=== PATIENT | female | born 1965 | race African-American/Black ===

== ENCOUNTER 2016-06-11 13:06 | Inpatient (IN) | payer MEDICARE, OTHER ==
[~2016-06-11] VITALS: Ht 165.1 cm; Wt 73.5 kg
[~2016-06-11 13:06] MED LIST: AMLODIPINE BESY10 MG ORAL; CALCITRIOL0.25 MCG PO; CLONIDINE HCL0.1 M1 PO; DIAZEPAM2 MG ORAL; DIFLUCAN150 MG PO; KEFLEX500 MG ORAL; LOSARTAN POTAS100 MG ORAL; METOPROLOL SUCC50 MG ORAL; NORVASC10 MG ORAL; RENA-VITE TABL0.8 M1 PO; TRAMADOL HCL50 MG ORAL; UNOBMED; VAGISTAT-31 EACH VG; ZOFRAN ODT4 MG ORAL
[2016-06-11 13:45] VITALS: BP 200/111
[2016-06-11] MEDS ORDERED: VITAMIN D1000 UNI1 ORAL (13:50)
[2016-06-11 14:15] VITALS: BP 176/96
[2016-06-11 14:27] LABS: BASOPHILS % (AUTO) 0.9 % (0.0-2.0); EOSINOPHILS % (AUTO) 1.6 % (0.0-3.0); LYMPHOCYTES % (AUTO) 29.2 % (20.0-45.0); MEAN CORPUSCULAR HEMOGLOBIN 31.1 PG (27.0-31.0); MEAN CORPUSCULAR HGB CONC 29.7 G/DL (32.0-36.0); MEAN CORPUSCULAR VOLUME 105 FL (80-99); MEAN PLATELET VOLUME 7.9 FL (6.5-10.1); MONOCYTES % (AUTO) 5.8 % (1.0-10.0); NEUTROPHILS % (AUTO) 62.4 % (45.0-75.0); PLATELET COUNT 179 K/UL (150-450); RED BLOOD COUNT 4.43 M/UL (4.20-5.40); RED CELL DISTRIBUTION WIDTH 20.9 % (11.6-14.8); WHITE BLOOD COUNT 8.8 K/UL (4.8-10.8)
--- NOTE | 2016-06-11 14:39 | Emergency Room Report ---
History of Present Illness General Chief Complaint: Chest Pain Source: Patient, Medical Record Present Illness HPI 50-year-old female present to ED for evaluation. Patient states she's having some intermittent chest pain. Pain is left-sided, 5/10, nonradiating. Patient states her blood pressure is high. States that for the last several dialysis sessions her blood pressure goes up. States it is not getting better despite BP meds. Denies any fevers or chills. Denies shortness of breath. No aggravating or relieving factors. Denies any other associated symptoms Allergies: Coded Allergies: ACETAMINOPHEN (Verified Adverse Reaction, Unknown, 01/24/11) CODEINE (Verified Adverse Reaction, Unknown, NAUSEA, 04/18/10) HYDROCODONE (Verified Adverse Reaction, Unknown, 01/24/11) Patient History Past Medical History: HTN, renal disease, dialysis Past Surgical History: none Pertinent Family History: none Social History: Denies: alcohol use, drug use, smoking Last Menstrual Period: May, 2016 Now: No Immunizations: UTD Reviewed Nursing Documentation: PMH: Agreed, PSxH: Agreed Nursing Documentation-PMH Past Medical History: No History, Except For Hx Hypertension: Yes Hx Dialysis: Yes - M/W/F Review of Systems All Other Systems: negative except mentioned in HPI Physical Exam Vital Signs Date Time Temp Pulse Resp B/P Pulse Ox O2 Delivery O2 Flow Rate FiO2 06/11/16 13:21 98.4 73 16 190/108 100 06/11/16 13:45 Room Air Sp02 EP Interpretation: reviewed, normal General Appearance: no apparent distress, alert, GCS 15, non-toxic Head: normocephalic, atraumatic Eyes: bilateral eye PERRL, bilateral eye normal inspection ENT: hearing grossly normal, normal pharynx, no angioedema, normal voice Neck: full range of motion, supple/symm/no masses Respiratory: chest non-tender, lungs clear, normal breath sounds, speaking full sentences Cardiovascular #1: regular rate, rhythm, no edema Cardiovascular #2: 2+ carotid (R), 2+ carotid (L), 2+ radial (R), 2+ radial (L) , 2+ dorsalis pedis (R), 2+ dorsalis pedis (L) Gastrointestinal: normal bowel sounds, non tender, soft, non-distended, no guarding, no rebound Rectal: deferred Genitourinary: normal inspection, no CVA tenderness Musculoskeletal: back normal, gait/station normal, normal range of motion, non- tender Neurologic: alert, oriented x3, responsive, motor strength/tone normal, sensory intact, speech normal Psychiatric: judgement/insight normal, memory normal, mood/affect normal, no suicidal/homicidal ideation Reflexes: 3+ bicep (R), 3+ bicep (L), 3+ tricep (R), 3+ tricep (L), 3+ knee (R) , 3+ knee (L) Skin: normal color, no rash, warm/dry, well hydrated Lymphatic: no adenopathy Medical Decision Making Diagnostic Impression: Primary Impression: ESRD (end stage renal disease) on dialysis Additional Impression: ACS (acute coronary syndrome) ER Course Hospital Course 50-year-old female presents ED complaining of chest pain, hypertensive. History of ESRD Differential diagnoses include: MN/unstable angina, contusion, muscle strain, PTX, rib fracture Clinical course Patient placed on stretcher. on heel breaster. After initial history and physical I ordered labs, EKG, chest x-ray, ASA labs reviewed- no leukocytosis, hb/hct stable, BUN/Cr elevated, trop negative, BNP >70,000 Chest x-ray- cardiomegaly. b/l effusion EKG- No acute ischemic changes Case discussed with Dr. Park and he agreed to accept the patient to his service for further care and support I. I feel this is a highly complex case requiring extensive working including EKG/Rhythm strip, Xray/CT/US, Blood/urine lab work, repeat exams while in ED, and administration of strong opiates/narcotics for pain control, admission to hospital or close patient follow up. Diagnosis - ACS, ESRD admitted to telemetry in serious condition Labs Test 06/11/16 14:00 06/11/16 23:15 White Blood Count 8.8 K/UL (4.8-10.8) Red Blood Count 4.43 M/UL (4.20-5.40) Hemoglobin 13.8 G/DL (12.0-16.0) Hematocrit 46.4 % (37.0-47.0) Mean Corpuscular Volume 105 FL (80-99) Mean Corpuscular Hemoglobin 31.1 PG (27.0-31.0) Mean Corpuscular Hemoglobin Concent 29.7 G/DL (32.0-36.0) Red Cell Distribution Width 20.9 % (11.6-14.8) Platelet Count 179 K/UL (150-450) Mean Platelet Volume 7.9 FL (6.5-10.1) Neutrophils (%) (Auto) 62.4 % (45.0-75.0) Lymphocytes (%) (Auto) 29.2 % (20.0-45.0) Monocytes (%) (Auto) 5.8 % (1.0-10.0) Eosinophils (%) (Auto) 1.6 % (0.0-3.0) Basophils (%) (Auto) 0.9 % (0.0-2.0) Sodium Level 140 mEQ/L (135-145) Potassium Level 4.6 mEQ/L (3.4-4.9) Chloride Level 90 mEQ/L (98-107) Carbon Dioxide Level 28 mEQ/L (20-30) Anion Gap 22 (5-15) Blood Urea Nitrogen 34 mg/dL (7-23) Creatinine 10.4 mg/dL (0.5-0.9) Estimat Glomerular Filtration Rate 4.7 mL/min (>60) Glucose Level 101 mg/dL (74-106) Calcium Level 9.6 mg/dL (8.6-10.2) Total Bilirubin 0.5 mg/dL (0.0-1.2) Aspartate Amino Transf (AST/SGOT) 19 U/L (5-40) Alanine Aminotransferase (ALT/SGPT) 33 U/L (3-33) Alkaline Phosphatase 101 U/L (35-104) Total Creatine Kinase 98 U/L (26-140) Creatine Kinase MB < 1.5 ng/mL (< 3.8) Creatine Kinase MB Relative Index 1.5 Troponin I < 0.30 ng/mL (<=0.30) < 0.30 ng/mL (<=0.30) Pro-B-Type Natriuretic Peptide > 33125 pg/mL (0-125) Total Protein 8.6 g/dL (6.6-8.7) Albumin 5.0 g/dL (3.5-5.2) Globulin 3.6 g/dL Albumin/Globulin Ratio 1.3 (1.0-2.7) EKG Diagnostic Results Rate: normal Rhythm: NSR ST Segments: no acute changes ASA given to the pt in ED: Yes Rhythm Strip Diag. Results EP Interpretation: yes Rhythm: NSR, no PVC's, no ectopy Chest X-Ray Diagnostic Results EP Interpretation: Yes Findings: no pneumothorax, no acute cardiopulmonary disease, other - cardiomegaly. b/l effusion Number of Views: 1 Last Vital Signs Date Time Temp Pulse Resp B/P Pulse Ox O2 Delivery O2 Flow Rate FiO2 06/11/16 14:15 67 17 176/96 100 Room Air 06/11/16 13:45 98.0 Status: improved Disposition: ADMITTED INPATIENT Condition: Serious Referrals: NON PHYSICIAN (PCP) WAGNER NEELY M.D. Jun 11, 2016 14:39
[2016-06-11 14:46] LABS: ALANINE AMINOTRANSFERASE 33 U/L (3-33); ALBUMIN/GLOBULIN RATIO 1.3 (1.0-2.7); ANION GAP 22 (5-15); ASPARTATE AMINO TRANSFERASE 19 U/L (5-40); CALCIUM 9.6 mg/dL (8.6-10.2); CARBON DIOXIDE 28 mEQ/L (20-30); CHLORIDE 90 mEQ/L (98-107); CREATININE 10.4 mg/dL (0.5-0.9); GLOMERULAR FILTRATION RATE 4.7 mL/min (>60); HEMOLYSIS 7; POTASSIUM 4.6 mEQ/L (3.4-4.9); SODIUM 140 mEQ/L (135-145); TOTAL PROTEIN 8.6 g/dL (6.6-8.7)
[2016-06-11 14:57] LABS: CKMB < 1.5 ng/mL (< 3.8)
[2016-06-11 15:03] LABS: TROPONIN I < 0.30 ng/mL (<=0.30)
[2016-06-11 15:36] VITALS: BP 166/95
[2016-06-11 16:58] VITALS: BP 190/108
[2016-06-11] MEDS ORDERED: Miralax 17gm pkt ORAL PRN (18:15)
[2016-06-11] MEDS ORDERED: Nitroglycerin Subl 0.4mg tab (Bottle Of 25) SL PRN (18:15)
[2016-06-11] MEDS ORDERED: Mylanta II UD 30ml ORAL PRN (18:15)
[2016-06-11] MEDS ORDERED: DuoNeb 0.5-3(2.5)mg/3ml neb HHN PRN (18:15)
--- NOTE | 2016-06-11 18:28 | History and Physical ---
History of Present Illness General Date patient seen: Jun 11, 2016 Time patient seen: 18:00 Reason for Hospitalization: Chest Pain Present Illness HPI 50-year-old female presented to ED for evaluation. Patient reported intermittent chest pain, left-sided, 5/10, nonradiating. Patient stated her blood pressure was high. patient stated that with blood pressure uncontrolled, she gets chest pain Denies SOB, orthopnea, PND, JOYCE Stated that for the last several dialysis sessions her blood pressure was elevated and she gets chest pain with uncontrolled blood pressure . workup in ER revealed negative troponin ECG with NSR no ischemic changes stable labs, except renal parameters BP uncontrolled Allergies: Coded Allergies: ACETAMINOPHEN (Verified Adverse Reaction, Unknown, 01/24/11) CODEINE (Verified Adverse Reaction, Unknown, NAUSEA, 04/18/10) HYDROCODONE (Verified Adverse Reaction, Unknown, 01/24/11) Medication History Scheduled Amlodipine Besylate* (Amlodipine Besylate*), 10 MG ORAL DAILY, (Reported) Calcitriol (Calcitriol), 0.25 MCG PO DAILY, (Reported) Cholecalciferol (Vitamin D3)* (Vitamin D*), 1,000 UNIT ORAL DAILY, (Reported) Clonidine HCl (Clonidine HCl ER), 0.2 MG PO BEDTIME, (Reported) Losartan Potassium (Losartan Potassium), 50 MG ORAL DAILY, (Reported) Metoprolol Succinate* (Metoprolol Succinate*), 50 MG ORAL BID, (Reported) Scheduled PRN Diazepam* (Diazepam*), 2 MG ORAL Q6H PRN for For Anxiety, (Reported) Ondansetron Odt* (Zofran Odt*), 4 MG ORAL Q6H PRN for Nausea & Vomiting Tramadol Hcl* (Ultram*), 50 MG ORAL Q12HR PRN for For Pain Tramadol Hcl* (Ultram*), 50 MG ORAL Q6H PRN for For Pain Miscellaneous Medications Folic Acid/Vitamin B Comp W-C (Maria Esther-Isra Tablet), Unknown Dose PO, (Reported) Patient History Healthcare decision maker Resuscitation status Advanced Directive on File Past Medical/Surgical History Past Medical/Surgical History: (1) Hypertension (2) ESRD (end stage renal disease) on dialysis (3) Gastritis Review of Systems Constitutional: Reports: weakness Eye: Reports: no symptoms ENT: Reports: no symptoms Respiratory: Reports: no symptoms Cardiovascular: Reports: see HPI Gastrointestinal: Reports: no symptoms Genitourinary: Reports: other - ESRD, on HD Musculoskeletal: Reports: no symptoms Skin: Reports: no symptoms Psychiatric: Reports: no symptoms Neurological: Reports: no symptoms Endocrine: Reports: no symptoms Hematologic/Lymphatic: Reports: no symptoms Physical Exam General Appearance: WD/WN, no apparent distress, alert Lines, tubes and drains: peripheral HEENT: normocephalic, atraumatic, anicteric Neck: non-tender, supple, normal inspection Respiratory/Chest: chest wall non-tender, lungs clear, no respiratory distress , no accessory muscle use Cardiovascular/Chest: normal peripheral pulses, normal rate, no JVD Abdomen: normal bowel sounds, non tender, soft Extremities: other - LUE AV shunt + bruit/thrill Skin Exam: normal pigmentation, warm/dry Neurologic: no motor/sensory deficits, alert, oriented x 3, responsive Musculoskeletal: normal muscle bulk Last 24 Hour Vital Signs Date Time Temp Pulse Resp B/P Pulse Ox O2 Delivery O2 Flow Rate FiO2 06/11/16 16:58 97.7 72 19 190/108 99 Room Air 06/11/16 16:07 98.0 72 23 166/95 100 Room Air 06/11/16 15:36 98.0 72 23 166/95 100 Room Air 06/11/16 14:15 67 17 176/96 100 Room Air 06/11/16 13:45 98.0 77 19 200/111 100 Room Air 06/11/16 13:45 77 19 Room Air 06/11/16 13:21 98.4 73 16 190/108 100 Laboratory Tests Test 06/11/16 14:00 White Blood Count 8.8 K/UL (4.8-10.8) Red Blood Count 4.43 M/UL (4.20-5.40) Hemoglobin 13.8 G/DL (12.0-16.0) Hematocrit 46.4 % (37.0-47.0) Mean Corpuscular Volume 105 FL (80-99) H Mean Corpuscular Hemoglobin 31.1 PG (27.0-31.0) H Mean Corpuscular Hemoglobin Concent 29.7 G/DL (32.0-36.0) L Red Cell Distribution Width 20.9 % (11.6-14.8) H Platelet Count 179 K/UL (150-450) Mean Platelet Volume 7.9 FL (6.5-10.1) Neutrophils (%) (Auto) 62.4 % (45.0-75.0) Lymphocytes (%) (Auto) 29.2 % (20.0-45.0) Monocytes (%) (Auto) 5.8 % (1.0-10.0) Eosinophils (%) (Auto) 1.6 % (0.0-3.0) Basophils (%) (Auto) 0.9 % (0.0-2.0) Sodium Level 140 mEQ/L (135-145) Potassium Level 4.6 mEQ/L (3.4-4.9) Chloride Level 90 mEQ/L (98-107) L Carbon Dioxide Level 28 mEQ/L (20-30) Anion Gap 22 (5-15) H Blood Urea Nitrogen 34 mg/dL (7-23) H Creatinine 10.4 mg/dL (0.5-0.9) H Estimat Glomerular Filtration Rate 4.7 mL/min (>60) Glucose Level 101 mg/dL (74-106) Calcium Level 9.6 mg/dL (8.6-10.2) Total Bilirubin 0.5 mg/dL (0.0-1.2) Aspartate Amino Transf (AST/SGOT) 19 U/L (5-40) Alanine Aminotransferase (ALT/SGPT) 33 U/L (3-33) Alkaline Phosphatase 101 U/L (35-104) Total Creatine Kinase 98 U/L (26-140) Creatine Kinase MB < 1.5 ng/mL (< 3.8) Creatine Kinase MB Relative Index 1.5 Troponin I < 0.30 ng/mL (<=0.30) Pro-B-Type Natriuretic Peptide > 10239 pg/mL (0-125) H Total Protein 8.6 g/dL (6.6-8.7) Albumin 5.0 g/dL (3.5-5.2) Globulin 3.6 g/dL Albumin/Globulin Ratio 1.3 (1.0-2.7) Height (Feet): 5 Height (Inches): 5.00 Weight (Pounds): 162 Assessment/Plan Assessment/Plan ASSESSMENT chest pain, likely atypical r/o ACS HTN urgency ESRD, on HD PLAN OF CARE tele serial troponin ECG in am ECHO cardio eval started on ASA check lipid panel, HgA1c, TSH pain control BP management with multiple regimen of antiHTN, CCB, MAGDA, BB and add Hydralazine prn nephro consult per HD DVT, GI prophylaxis case discussed and evaluated by supervising physician Jeffery Alatorre),Melissa PINA Jun 11, 2016 18:28
[2016-06-11] MEDS ORDERED: HydrALAZINE 25mg tab ORAL PRN (18:30)
[2016-06-11 20:00] VITALS: BP 211/120
[2016-06-11] MEDS: Heparin 5000 units/ml inj SUBQ SCH (20:21)
[2016-06-11 22:43] VITALS: BP 211/119
[2016-06-12 00:16] LABS: TROPONIN I < 0.30 ng/mL (<=0.30)
[2016-06-12 08:00] VITALS: BP 166/76
[2016-06-12 08:19] LABS: BASOPHILS % (AUTO) 0.6 % (0.0-2.0); EOSINOPHILS % (AUTO) 0.2 % (0.0-3.0); LYMPHOCYTES % (AUTO) 24.2 % (20.0-45.0); MEAN CORPUSCULAR HEMOGLOBIN 30.8 PG (27.0-31.0); MEAN CORPUSCULAR HGB CONC 29.5 G/DL (32.0-36.0); MEAN CORPUSCULAR VOLUME 105 FL (80-99); MEAN PLATELET VOLUME 8.9 FL (6.5-10.1); MONOCYTES % (AUTO) 5.1 % (1.0-10.0); NEUTROPHILS % (AUTO) 69.9 % (45.0-75.0); PLATELET COUNT 158 K/UL (150-450); RED BLOOD COUNT 3.97 M/UL (4.20-5.40); RED CELL DISTRIBUTION WIDTH 21.2 % (11.6-14.8)
[2016-06-12 08:22] LABS: CALCIUM 8.8 mg/dL (8.6-10.2); CHOLESTEROL/HDL RATIO 4.4 (3.3-4.4); CREATININE 12.2 mg/dL (0.5-0.9); MAGNESIUM 2.4 mg/dL (1.7-2.5); POTASSIUM 4.7 mEQ/L (3.4-4.9)
[2016-06-12 08:23] LABS: TROPONIN I < 0.30 ng/mL (<=0.30)
[2016-06-12 08:26] LABS: THYROID STIMULATING HORMONE 2.09 uIU/mL (0.300-4.500)
[2016-06-12] MEDS: Nephrovite tab ORAL SCH (08:42)
[2016-06-12] MEDS: Aspirin Baby 81mg ORAL SCH (08:43)
[2016-06-12] MEDS: Metoprolol 50mg tab ORAL SCH ×2 (08:43→17:05)
[2016-06-12] MEDS: Heparin 5000 units/ml inj SUBQ SCH ×2 (08:46→21:12)
[2016-06-12] MEDS ORDERED: Losartan 50mg tab ORAL SCH (09:00)
[2016-06-12] MEDS ORDERED: Calcitriol 0.25mcg Cap ORAL SCH (09:00)
[2016-06-12 09:06] LABS: HEMOGLOBIN A1C 3.8 % (< 6.0)
--- NOTE | 2016-06-12 09:09 | History & Physical ---
History and Physical History & Physicial seen and examined. Dictation completed Ivan Park MD Jun 12, 2016 09:09
--- NOTE | 2016-06-12 09:12 | Consultation ---
Consult Note Consult Note History of Present Illness Date patient seen: Jun 11, 2016 Time patient seen: 18:00 Reason for Consult: Chest Pain, SOB Primary doctor: Dr Park Present Illness HPI 50-year-old female presented to ED for evaluation. Patient reported intermittent chest pain, left-sided, 5/10, nonradiating. Patient stated her blood pressure was high. patient stated that with blood pressure uncontrolled, she gets chest pain Denies SOB, orthopnea, PND, JOYCE Stated that for the last several dialysis sessions her blood pressure was elevated and she gets chest pain with uncontrolled blood pressure . workup in ER revealed negative troponin ECG with NSR no ischemic changes stable labs, except renal parameters BP uncontrolled Allergies: Coded Allergies: ACETAMINOPHEN (Verified Adverse Reaction, Unknown, 01/24/11) CODEINE (Verified Adverse Reaction, Unknown, NAUSEA, 04/18/10) HYDROCODONE (Verified Adverse Reaction, Unknown, 01/24/11) Medication History Scheduled Amlodipine Besylate* (Amlodipine Besylate*), 10 MG ORAL DAILY, (Reported) Calcitriol (Calcitriol), 0.25 MCG PO DAILY, (Reported) Cholecalciferol (Vitamin D3)* (Vitamin D*), 1,000 UNIT ORAL DAILY, (Reported) Clonidine HCl (Clonidine HCl ER), 0.2 MG PO BEDTIME, (Reported) Losartan Potassium (Losartan Potassium), 50 MG ORAL DAILY, (Reported) Metoprolol Succinate* (Metoprolol Succinate*), 50 MG ORAL BID, (Reported) Scheduled PRN Diazepam* (Diazepam*), 2 MG ORAL Q6H PRN for For Anxiety, (Reported) Ondansetron Odt* (Zofran Odt*), 4 MG ORAL Q6H PRN for Nausea & Vomiting Tramadol Hcl* (Ultram*), 50 MG ORAL Q12HR PRN for For Pain Tramadol Hcl* (Ultram*), 50 MG ORAL Q6H PRN for For Pain Miscellaneous Medications Folic Acid/Vitamin B Comp W-C (Maria Esther-Isra Tablet), Unknown Dose PO, (Reported) Patient History Healthcare decision maker Resuscitation status Advanced Directive on File Past Medical/Surgical History Past Medical/Surgical History: (1) Hypertension (2) ESRD (end stage renal disease) on dialysis (3) Gastritis ROS Review of Systems Constitutional: Reports: weakness Eye: Reports: no symptoms ENT: Reports: no symptoms Respiratory: Reports: no symptoms Cardiovascular: Reports: see HPI Gastrointestinal: Reports: no symptoms Genitourinary: Reports: other - ESRD, on HD Musculoskeletal: Reports: no symptoms Skin: Reports: no symptoms Psychiatric: Reports: no symptoms Neurological: Reports: no symptoms Endocrine: Reports: no symptoms Hematologic/Lymphatic: Reports: no symptoms Physical Exam Physical Exam General Appearance: WD/WN, no apparent distress, alert Lines, tubes and drains: peripheral HEENT: normocephalic, atraumatic, anicteric Neck: non-tender, supple, normal inspection Respiratory/Chest: chest wall non-tender, lungs clear, no respiratory distress , no accessory muscle use Cardiovascular/Chest: normal peripheral pulses, normal rate, no JVD Abdomen: normal bowel sounds, non tender, soft Extremities: other - LUE AV shunt + bruit/thrill Skin Exam: normal pigmentation, warm/dry Neurologic: no motor/sensory deficits, alert, oriented x 3, responsive Musculoskeletal: normal muscle bulk Last 24 Hour Vital Signs Date Time Temp Pulse Resp B/P Pulse Ox O2 Delivery O2 Flow Rate FiO2 06/11/16 16:58 97.7 72 19 190/108 99 Room Air 06/11/16 16:07 98.0 72 23 166/95 100 Room Air 06/11/16 15:36 98.0 72 23 166/95 100 Room Air 06/11/16 14:15 67 17 176/96 100 Room Air 06/11/16 13:45 98.0 77 19 200/111 100 Room Air 06/11/16 13:45 77 19 Room Air 06/11/16 13:21 98.4 73 16 190/108 100 Laboratory Tests Test 06/11/16 14:00 White Blood Count 8.8 K/UL (4.8-10.8) Red Blood Count 4.43 M/UL (4.20-5.40) Hemoglobin 13.8 G/DL (12.0-16.0) Hematocrit 46.4 % (37.0-47.0) Mean Corpuscular Volume 105 FL (80-99) H Mean Corpuscular Hemoglobin 31.1 PG (27.0-31.0) H Mean Corpuscular Hemoglobin Concent 29.7 G/DL (32.0-36.0) L Red Cell Distribution Width 20.9 % (11.6-14.8) H Platelet Count 179 K/UL (150-450) Mean Platelet Volume 7.9 FL (6.5-10.1) Neutrophils (%) (Auto) 62.4 % (45.0-75.0) Lymphocytes (%) (Auto) 29.2 % (20.0-45.0) Monocytes (%) (Auto) 5.8 % (1.0-10.0) Eosinophils (%) (Auto) 1.6 % (0.0-3.0) Basophils (%) (Auto) 0.9 % (0.0-2.0) Sodium Level 140 mEQ/L (135-145) Potassium Level 4.6 mEQ/L (3.4-4.9) Chloride Level 90 mEQ/L (98-107) L Carbon Dioxide Level 28 mEQ/L (20-30) Anion Gap 22 (5-15) H Blood Urea Nitrogen 34 mg/dL (7-23) H Creatinine 10.4 mg/dL (0.5-0.9) H Estimat Glomerular Filtration Rate 4.7 mL/min (>60) Glucose Level 101 mg/dL (74-106) Calcium Level 9.6 mg/dL (8.6-10.2) Total Bilirubin 0.5 mg/dL (0.0-1.2) Aspartate Amino Transf (AST/SGOT) 19 U/L (5-40) Alanine Aminotransferase (ALT/SGPT) 33 U/L (3-33) Alkaline Phosphatase 101 U/L (35-104) Total Creatine Kinase 98 U/L (26-140) Creatine Kinase MB < 1.5 ng/mL (< 3.8) Creatine Kinase MB Relative Index 1.5 Troponin I < 0.30 ng/mL (<=0.30) Pro-B-Type Natriuretic Peptide > 66299 pg/mL (0-125) H Total Protein 8.6 g/dL (6.6-8.7) Albumin 5.0 g/dL (3.5-5.2) Globulin 3.6 g/dL Albumin/Globulin Ratio 1.3 (1.0-2.7) Height (Feet): 5 Height (Inches): 5.00 Weight (Pounds): 162 Assessment/Plan Assessment/Plan Assessment/Plan ASSESSMENT chest pain, likely atypical r/o ACS HTN urgency ESRD, on HD PLAN OF CARE tele serial troponin ECG in am ECHO cardio eval per PMD started on ASA check lipid panel, HgA1c, TSH pain control BP management with multiple regimen of antiHTN, CCB, MAGDA, BB and add Hydralazine prn nephro consult per HD per PMD DVT, GI prophylaxis case discussed and evaluated by supervising physician Jeffery Alatorre)Melissa NP Jun 11, 2016 18:28 Melissa Gil NP ([facility]) Jun 12, 2016 09:12
--- NOTE | 2016-06-12 09:14 | General Progress Note ---
Assessment/Plan Status: stable Assessment/Plan 1- Hypertensive Emergency 2- ESRDxHD 3- Chest pain: Moderate risk for ACS 3- GI/DVT Plan: current management HD on Monday Dr Snadhu cardiology Dr Morse Nephro Dr Tomlinson Pulmonary Subjective ROS Limited/Unobtainable: No Constitutional: Reports: other - palpitation HEENT: Reports: no symptoms Cardiovascular: Reports: chest pain Respiratory: Reports: no symptoms Allergies: Coded Allergies: ACETAMINOPHEN (Verified Adverse Reaction, Unknown, 01/24/11) CODEINE (Verified Adverse Reaction, Unknown, NAUSEA, 04/18/10) HYDROCODONE (Verified Adverse Reaction, Unknown, 01/24/11) Objective Last 24 Hour Vital Signs Date Time Temp Pulse Resp B/P Pulse Ox O2 Delivery O2 Flow Rate FiO2 06/12/16 08:44 76 166/94 06/12/16 08:43 76 166/94 06/12/16 08:42 166/94 06/12/16 06:24 165/98 06/12/16 04:00 77 06/12/16 00:33 211/119 06/12/16 00:00 87 06/11/16 22:43 211/119 06/11/16 20:17 211/120 06/11/16 20:00 76 06/11/16 20:00 97.0 84 18 211/120 99 Room Air 06/11/16 16:58 97.7 72 19 190/108 99 Room Air 06/11/16 16:07 98.0 72 23 166/95 100 Room Air 06/11/16 15:36 98.0 72 23 166/95 100 Room Air 06/11/16 14:15 67 17 176/96 100 Room Air 06/11/16 13:45 98.0 77 19 200/111 100 Room Air 06/11/16 13:45 77 19 Room Air 06/11/16 13:21 98.4 73 16 190/108 100 Intake and Output 06/11/16 06/12/16 19:00 07:00 Intake Total 0 ml Balance 0 ml Intake Oral 0 ml # Voids 2 Laboratory Tests 06/11/16 14:00: White Blood Count 8.8, Red Blood Count 4.43, Hemoglobin 13.8, Hematocrit 46.4, Mean Corpuscular Volume 105H, Mean Corpuscular Hemoglobin 31.1H, Mean Corpuscular Hemoglobin Concent 29.7L, Red Cell Distribution Width 20.9H, Platelet Count 179, Mean Platelet Volume 7.9, Neutrophils (%) (Auto) 62.4, Lymphocytes (%) (Auto) 29.2, Monocytes (%) (Auto) 5.8, Eosinophils (%) (Auto) 1.6, Basophils (%) (Auto) 0.9, Sodium Level 140, Potassium Level 4.6, Chloride Level 90L, Carbon Dioxide Level 28, Anion Gap 22H, Blood Urea Nitrogen 34H, Creatinine 10.4H, Estimat Glomerular Filtration Rate 4.7, Glucose Level 101, Calcium Level 9.6, Total Bilirubin 0.5, Aspartate Amino Transf (AST/SGOT) 19, Alanine Aminotransferase (ALT/SGPT) 33, Alkaline Phosphatase 101, Total Creatine Kinase 98, Creatine Kinase MB < 1.5, Creatine Kinase MB Relative Index 1.5, Troponin I < 0.30, Pro-B-Type Natriuretic Peptide > 13219H, Total Protein 8.6, Albumin 5.0, Globulin 3.6, Albumin/Globulin Ratio 1.3 06/11/16 23:15: Troponin I < 0.30 06/12/16 07:00: White Blood Count 8.0, Red Blood Count 3.97L, Hemoglobin 12.2, Hematocrit 41.6, Mean Corpuscular Volume 105H, Mean Corpuscular Hemoglobin 30.8, Mean Corpuscular Hemoglobin Concent 29.5L, Red Cell Distribution Width 21.2H, Platelet Count 158, Mean Platelet Volume 8.9, Neutrophils (%) (Auto) 69.9, Lymphocytes (%) (Auto) 24.2, Monocytes (%) (Auto) 5.1, Eosinophils (%) (Auto) 0.2, Basophils (%) (Auto) 0.6, Sodium Level 141, Potassium Level 4.7, Chloride Level 93L, Carbon Dioxide Level 27, Anion Gap 21H, Blood Urea Nitrogen 44H, Creatinine 12.2H, Estimat Glomerular Filtration Rate 4.0, Glucose Level 111H, Calcium Level 8.8, Troponin I < 0.30, Hemoglobin A1c 3.8, Magnesium Level 2.4, Triglycerides Level 97, Cholesterol Level 184, LDL Cholesterol 123H, HDL Cholesterol 42, Cholesterol/HDL Ratio 4.4, Thyroid Stimulating Hormone (TSH) 2.090 Height (Feet): 5 Height (Inches): 5.00 Weight (Pounds): 162 General Appearance: no apparent distress EENT: PERRL/EOMI Neck: supple Cardiovascular: normal rate Respiratory/Chest: lungs clear Abdomen: soft Extremities: non-tender, other - left AV shunt in place, intact Neurologic: oriented x 3 Ivan Park MD Jun 12, 2016 09:14
--- NOTE | 2016-06-12 09:57 | Diagnostic Imaging Report ---
Indication: Chest pain Technique: XRAY CHEST 1 V Comparison: 11/23/15 Findings: Cardiac silhouette is prominent. There is no consolidation or pleural effusion. There is a questionable nodular density projecting over the left sixth posterior rib. Impression: No acute cardiopulmonary disease. Cardiomegaly. Questionable 9 mm nodular density projecting over the left sixth posterior rib. Repeat PA and lateral views of the chest recommended.
--- NOTE | 2016-06-12 10:02 | Pulmonology Progress Note ---
Assessment/Plan Assessment/Plan ASSESSMENT chest pain, likely atypical r/o ACS HTN urgency ESRD, on HD PLAN OF CARE tele serial troponin negative ECG no ischemic changes, therefore was ruled out for acute TN ECHO pending cardio eval pending started on ASA lipid panel with elevated LDL, add statin HgA1c, TSH-both WNL pain control BP management with multiple regimen of antiHTN, CCB, MAGDA, BB and added Hydralazine prn nephro consult per HD per PMD for HD DVT, GI prophylaxis case discussed and evaluated by supervising physician Subjective Allergies: Coded Allergies: ACETAMINOPHEN (Verified Adverse Reaction, Unknown, 01/24/11) CODEINE (Verified Adverse Reaction, Unknown, NAUSEA, 04/18/10) HYDROCODONE (Verified Adverse Reaction, Unknown, 01/24/11) Subjective still intermittent short acting chest pain, no SOB, BP better, still not completely controlled Objective Last 24 Hour Vital Signs Date Time Temp Pulse Resp B/P Pulse Ox O2 Delivery O2 Flow Rate FiO2 06/12/16 08:44 76 166/94 06/12/16 08:43 76 166/94 06/12/16 08:42 166/94 06/12/16 06:24 165/98 06/12/16 04:00 77 06/12/16 00:33 211/119 06/12/16 00:00 87 06/11/16 22:43 211/119 06/11/16 20:17 211/120 06/11/16 20:00 76 06/11/16 20:00 97.0 84 18 211/120 99 Room Air 06/11/16 16:58 97.7 72 19 190/108 99 Room Air 06/11/16 16:07 98.0 72 23 166/95 100 Room Air 06/11/16 15:36 98.0 72 23 166/95 100 Room Air 06/11/16 14:15 67 17 176/96 100 Room Air 06/11/16 13:45 98.0 77 19 200/111 100 Room Air 06/11/16 13:45 77 19 Room Air 06/11/16 13:21 98.4 73 16 190/108 100 Intake and Output 06/11/16 06/12/16 19:00 07:00 Intake Total 0 ml Balance 0 ml Intake Oral 0 ml # Voids 2 Objective General Appearance: WD/WN, no apparent distress, alert Lines, tubes and drains: peripheral HEENT: normocephalic, atraumatic, anicteric Neck: non-tender, supple, normal inspection Respiratory/Chest: chest wall non-tender, lungs clear, no respiratory distress , no accessory muscle use Cardiovascular/Chest: normal peripheral pulses, normal rate, no JVD Abdomen: normal bowel sounds, non tender, soft Extremities: other - LUE AV shunt + bruit/thrill Skin Exam: normal pigmentation, warm/dry Neurologic: no motor/sensory deficits, alert, oriented x 3, responsive Musculoskeletal: normal muscle bulk Laboratory Tests 06/11/16 14:00: White Blood Count 8.8, Red Blood Count 4.43, Hemoglobin 13.8, Hematocrit 46.4, Mean Corpuscular Volume 105H, Mean Corpuscular Hemoglobin 31.1H, Mean Corpuscular Hemoglobin Concent 29.7L, Red Cell Distribution Width 20.9H, Platelet Count 179, Mean Platelet Volume 7.9, Neutrophils (%) (Auto) 62.4, Lymphocytes (%) (Auto) 29.2, Monocytes (%) (Auto) 5.8, Eosinophils (%) (Auto) 1.6, Basophils (%) (Auto) 0.9, Sodium Level 140, Potassium Level 4.6, Chloride Level 90L, Carbon Dioxide Level 28, Anion Gap 22H, Blood Urea Nitrogen 34H, Creatinine 10.4H, Estimat Glomerular Filtration Rate 4.7, Glucose Level 101, Calcium Level 9.6, Total Bilirubin 0.5, Aspartate Amino Transf (AST/SGOT) 19, Alanine Aminotransferase (ALT/SGPT) 33, Alkaline Phosphatase 101, Total Creatine Kinase 98, Creatine Kinase MB < 1.5, Creatine Kinase MB Relative Index 1.5, Troponin I < 0.30, Pro-B-Type Natriuretic Peptide > [id number], Total Protein 8.6, Albumin 5.0, Globulin 3.6, Albumin/Globulin Ratio 1.3 06/11/16 23:15: Troponin I < 0.30 06/12/16 07:00: White Blood Count 8.0, Red Blood Count 3.97L, Hemoglobin 12.2, Hematocrit 41.6, Mean Corpuscular Volume 105H, Mean Corpuscular Hemoglobin 30.8, Mean Corpuscular Hemoglobin Concent 29.5L, Red Cell Distribution Width 21.2H, Platelet Count 158, Mean Platelet Volume 8.9, Neutrophils (%) (Auto) 69.9, Lymphocytes (%) (Auto) 24.2, Monocytes (%) (Auto) 5.1, Eosinophils (%) (Auto) 0.2, Basophils (%) (Auto) 0.6, Sodium Level 141, Potassium Level 4.7, Chloride Level 93L, Carbon Dioxide Level 27, Anion Gap 21H, Blood Urea Nitrogen 44H, Creatinine 12.2H, Estimat Glomerular Filtration Rate 4.0, Glucose Level 111H, Calcium Level 8.8, Troponin I < 0.30, Hemoglobin A1c 3.8, Magnesium Level 2.4, Triglycerides Level 97, Cholesterol Level 184, LDL Cholesterol 123H, HDL Cholesterol 42, Cholesterol/HDL Ratio 4.4, Thyroid Stimulating Hormone (TSH) 2.090 Current Medications Medications (Trade) Dose Ordered Sig/Johnna Route PRN Reason Start Time Stop Time Status Last Admin Dose Admin Al Hydroxide/Mg Hydroxide (Mylanta II) 30 ml Q6H PRN ORAL dyspepsia 06/11/16 18:15 07/11/16 18:14 Albuterol/ Ipratropium (DuoNeb 0.5-3(2.5)mg/3ml) 3 ml Q4H PRN HHN Shortness of Breath 06/11/16 18:15 06/16/16 18:14 Amlodipine Besylate (Norvasc) 10 mg DAILY ORAL 06/12/16 09:00 07/12/16 08:59 06/12/16 08:44 Aspirin (ASA) 81 mg DAILY ORAL 06/12/16 09:00 07/12/16 08:59 06/12/16 08:43 Calcitriol (Rocatrol) 0.25 mcg DAILY ORAL 06/12/16 09:00 07/12/16 08:59 06/12/16 08:41 Clonidine HCl (Catapres) 0.1 mg Q4HR PRN ORAL For High Blood Pressure 06/12/16 00:15 07/12/16 00:14 06/12/16 06:24 Dextrose (Dextrose 50%) STAT PRN IV Hypoglycemia 06/11/16 18:15 07/11/16 18:14 Diphenhydramine HCl (Benadryl) 25 mg Q6H PRN ORAL Itching/Pruritis 06/11/16 18:15 07/11/16 18:14 Heparin Sodium (Porcine) (Heparin 5000 units/ml) 5,000 units EVERY 12 HOURS SUBQ 06/11/16 21:00 07/11/16 20:59 06/12/16 08:46 Hydralazine HCl (Apresoline) 25 mg Q6H PRN ORAL sbp above 160 06/11/16 18:30 07/11/16 18:29 06/11/16 20:17 Hydromorphone HCl (Dilaudid) 2 mg Q4H PRN IVP pain 06/11/16 18:30 06/18/16 18:29 06/11/16 23:54 Losartan Potassium (Cozaar) 50 mg DAILY ORAL 06/12/16 09:00 07/12/16 08:59 06/12/16 08:42 Metoprolol Tartrate (Lopressor) 50 mg BID ORAL 06/12/16 09:00 07/12/16 08:59 06/12/16 08:43 Nitroglycerin (Ntg) 0.4 mg Q5M PRN SL Prn Chest Pain 06/11/16 18:15 07/11/16 18:14 Polyethylene Glycol (Miralax) 17 gm DAILYPRN PRN ORAL Constipation 06/11/16 18:15 07/11/16 18:14 Ranitidine HCl (Zantac) 150 mg DAILY ORAL 06/12/16 09:00 07/12/16 08:59 06/12/16 08:42 Temazepam (Restoril) 15 mg DAILYPRN PRN ORAL Insomnia 06/11/16 18:15 06/18/16 18:14 Vitamin B Complex/ Vit C/Folic Acid (Nephrovite) 1 tab DAILY ORAL 06/12/16 09:00 07/12/16 08:59 06/12/16 08:42 Jeffery ([facility])Melissa NP Jun 12, 2016 10:02
[2016-06-12 12:00] VITALS: BP 137/62
--- NOTE | 2016-06-12 13:49 | Consultation ---
Consult Note Consult Note asked to evaluate the patient [facility] dialysis management Patient on HD past 6 years- 50-year-old female presented to ED for evaluation. Patient reported intermittent chest pain, left-sided, 5/10, nonradiating. Patient stated her blood pressure was high. patient stated that with blood pressure uncontrolled, she gets chest pain Denies SOB, orthopnea, PND, JOYCE Stated that for the last several dialysis sessions her blood pressure was elevated and she gets chest pain with uncontrolled blood pressure . workup in ER revealed negative troponin ECG with NSR no ischemic changes stable labs, except renal parameters BP uncontrolled Allergies: Coded Allergies: ACETAMINOPHEN (Verified Adverse Reaction, Unknown, 01/24/11) CODEINE (Verified Adverse Reaction, Unknown, NAUSEA, 04/18/10) HYDROCODONE (Verified Adverse Reaction, Unknown, 01/24/11) Patient interviewed and examined and date reviewed . Assessment/Plan status: ESRD on HD M W Fr HTN, which was OOC on presentation CP ? ACS Plan: HD in am- BP meds control per consultants LAM SOLANO Jun 12, 2016 13:49
[2016-06-12 16:00] VITALS: BP 162/98
[2016-06-12 16:08] LABS: TROPONIN I < 0.30 ng/mL (<=0.30)
[2016-06-12] MEDS: Losartan 50mg tab ORAL SCH (17:04)
[2016-06-12 20:00] VITALS: BP 185/111
--- NOTE | 2016-06-12 21:58 | History and Physical Report ---
DATE OF ADMISSION: 06/11/2016 SOURCE OF INFORMATION: The patient and the EMR. HISTORY OF PRESENT ILLNESS: The patient is a pleasant 50-year-old female with a history of end-stage renal disease, on hemodialysis. The patient is suffering from uncontrolled hypertension. The patient reported episodes of the precordial chest pain. The pain lasted for couple of hours with no radiation, associated with palpitation. The patient was in the when it happened and when came to the emergency room. Initial evaluation in the emergency room showed the blood pressure of 190 with a pulse rate of 70, initial. The patient was admitted for additional evaluation. PAST MEDICAL HISTORY: Hypertension, end-stage renal disease, on hemodialysis Monday, Monday and Monday, anxiety and depression. PAST SURGICAL HISTORY: Left-sided AV fistula placement, peritoneal dialysis, and tubal ligation. MEDICATIONS: Home medications including amlodipine, , clonidine, diazepam, losartan and metoprolol. ALLERGIES: Acetaminophen, codeine, and hydrocodone. FAMILY HISTORY: Reviewed, noncontributory. PHYSICAL EXAMINATION: VITAL SIGNS: Blood pressure 190/100, temperature 98.4 degrees, pulse oximetry 99% on room air, and respiratory rate 16. HEAD AND NECK: Atraumatic and normocephalic. CHEST: Clear to auscultation. HEART: S1 and S2. Regular rate and rhythm. ABDOMEN: Soft. No organomegaly. MUSCULOSKELETAL: Positive for left-sided AV shunt in the left upper extremity. No evidence of cellulitis or tenderness. NEUROLOGY: The patient is alert and oriented x3. LABORATORY AND DIAGNOSTIC DATA: Labs dated 06/11/2016 shows WBC 8.8, hemoglobin 13.8, and platelets 179,000. Sodium 140, potassium 4.6, BUN 34, and creatinine 10.4. AST and ALT within normal limits. BNP more than 70,000. ASSESSMENT AND PLAN: 1. Hypertensive emergency. 2. End-stage renal disease, on hemodialysis. 3. Chest pain with moderate risk for acute coronary syndrome. We will monitor on telemetry bed. 4. Anxiety and depression. 5. Gastrointestinal and deep vein thrombosis prophylaxis. PLAN OF CARE: Nephrology, Dr. Morse, Cardiology, Dr. Sandhu, and Pulmonary, Dr. Tomlinson have been consulted. Ivan Park M.D. DR: SERGIO JOB#: [id number] CC:
[2016-06-13] VITALS (12 sets, daily range): BP systolic 151–260; BP diastolic 78–109
--- NOTE | 2016-06-13 07:58 | General Progress Note ---
Assessment/Plan Status: stable Assessment/Plan 1. Hypertensive emergency. 2. End-stage renal disease, on hemodialysis. 3. Chest pain with moderate risk for acute coronary syndrome. We will monitor on telemetry bed. 4. Anxiety and depression. 5. Gastrointestinal and deep vein thrombosis prophylaxis Plan: current management D/c ed IV narcotic Following notes reviewed Dr Morse Nephnic Tomlinson Pulmonary Subjective ROS Limited/Unobtainable: No HEENT: Reports: no symptoms Cardiovascular: Reports: no symptoms Respiratory: Reports: no symptoms Allergies: Coded Allergies: ACETAMINOPHEN (Verified Adverse Reaction, Unknown, 01/24/11) CODEINE (Verified Adverse Reaction, Unknown, NAUSEA, 04/18/10) HYDROCODONE (Verified Adverse Reaction, Unknown, 01/24/11) Objective Last 24 Hour Vital Signs Date Time Temp Pulse Resp B/P Pulse Ox O2 Delivery O2 Flow Rate FiO2 06/13/16 04:18 97.0 84 19 179/101 97 Room Air 06/13/16 04:00 69 06/13/16 03:12 177/97 06/13/16 00:08 97.9 77 20 177/97 98 Room Air 06/13/16 00:00 75 06/12/16 21:02 185/111 06/12/16 20:00 98.2 18 185/111 94 Room Air 06/12/16 20:00 83 06/12/16 19:30 72 20 Room Air 21 06/12/16 17:05 74 162/98 06/12/16 17:04 162/98 06/12/16 16:00 97.7 74 18 162/98 96 Room Air 06/12/16 16:00 76 06/12/16 12:17 97.2 06/12/16 12:00 97.2 64 17 137/62 99 06/12/16 08:44 76 166/94 06/12/16 08:43 76 166/94 06/12/16 08:42 166/94 06/12/16 08:00 98.1 86 20 166/76 99 06/12/16 08:00 69 Intake and Output 06/12/16 06/13/16 19:00 07:00 Intake Total 200 ml 480 ml Balance 200 ml 480 ml Intake Oral 200 ml 480 ml # Voids 2 2 Laboratory Tests 06/12/16 15:25: Phosphorus Level 8.1H, Troponin I < 0.30 Height (Feet): 5 Height (Inches): 5.00 Weight (Pounds): 162 General Appearance: no apparent distress EENT: PERRL/EOMI Neck: supple Cardiovascular: normal rate Respiratory/Chest: lungs clear Abdomen: soft Extremities: non-tender 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
[2016-06-13] MEDS ORDERED: Ketorolac 30mg Inj IV PRN (08:00)
[2016-06-13] MEDS ORDERED: traMADol 50mg tab ORAL PRN (08:00)
[2016-06-13 08:19] LABS: BASOPHILS % (AUTO) 0.8 % (0.0-2.0); EOSINOPHILS % (AUTO) 0.7 % (0.0-3.0); LYMPHOCYTES % (AUTO) 29.8 % (20.0-45.0); MEAN CORPUSCULAR HEMOGLOBIN 31.1 PG (27.0-31.0); MEAN CORPUSCULAR HGB CONC 30.2 G/DL (32.0-36.0); MEAN CORPUSCULAR VOLUME 103 FL (80-99); MEAN PLATELET VOLUME 9.3 FL (6.5-10.1); MONOCYTES % (AUTO) 4.4 % (1.0-10.0); NEUTROPHILS % (AUTO) 64.3 % (45.0-75.0); PLATELET COUNT 148 K/UL (150-450); RED BLOOD COUNT 3.78 M/UL (4.20-5.40); RED CELL DISTRIBUTION WIDTH 20.8 % (11.6-14.8); WHITE BLOOD COUNT 8.4 K/UL (4.8-10.8)
[2016-06-13 08:34] LABS: ALANINE AMINOTRANSFERASE 18 U/L (3-33); ALBUMIN/GLOBULIN RATIO 1.2 (1.0-2.7); ANION GAP 23 (5-15); ASPARTATE AMINO TRANSFERASE 15 U/L (5-40); CALCIUM 8.6 mg/dL (8.6-10.2); CARBON DIOXIDE 23 mEQ/L (20-30); CHLORIDE 92 mEQ/L (98-107); CHOLESTEROL 195 mg/dL (< 200); CHOLESTEROL/HDL RATIO 5.4 (3.3-4.4); CREATININE 14.8 mg/dL (0.5-0.9); CRP QUANT 0.4 mg/dL (< 0.5); GLOMERULAR FILTRATION RATE 3.3 mL/min (>60); HEMOLYSIS 10; LDL CHOLESTEROL (CALC.) 130 mg/dL (60-99); PHOSPHORUS 7.1 mg/dL (2.5-4.8); POTASSIUM 4.9 mEQ/L (3.4-4.9); SODIUM 138 mEQ/L (135-145); TOTAL PROTEIN 7.1 g/dL (6.6-8.7); URIC ACID 9.8 mg/dL (3.0-7.5)
[2016-06-13] MEDS: Heparin 5000 units/ml inj SUBQ SCH ×2 (09:00→20:37)
[2016-06-13] MEDS: Nephrovite tab ORAL SCH (09:07)
[2016-06-13] MEDS: Aspirin Baby 81mg ORAL SCH (09:07)
[2016-06-13] MEDS: Losartan 50mg tab ORAL SCH ×2 (09:08→18:38)
[2016-06-13] MEDS: Metoprolol 50mg tab ORAL SCH ×2 (09:11→18:37)
[2016-06-13] MEDS: Docusate 100mg cap ORAL SCH ×3 (09:11→18:37)
[2016-06-13 09:16] LABS: HEMOGLOBIN A1C 3.9 % (< 6.0)
[2016-06-13 11:21] LABS: INR 1.1 (0.9-1.1); PROTHROMBIN TIME 10.6 SEC (9.30-11.50)
--- NOTE | 2016-06-13 12:23 | Cardiology Report ---
APPROVED REPORT EXAM: Two-dimensional and M-mode echocardiogram with Doppler and color Doppler. INDICATION Chest Pain M-Mode DIMENSIONS IVSd1.0 (0.7-1.1cm)Left Atrium (MM)4.2 (1.6-4.0cm) LVDd6.3 (3.5-5.6cm)Aortic Root2.4 (2.0-3.7cm) PWd0.9 (0.7-1.1cm)Aortic Cusp Exc.1.7 (1.5-2.0cm) LVDs3.9 (2.5-4.0cm) PWs1.3 cm Mild left ventricular enlargement,normal systolic function and wall motion. Left ventricular ejection fraction estimated to be 55-60 %. Moderate left ventricular hypertrophy. Mild posterior pericardial effusion. Right cardiac chamber sizes are within normal limits. Moderate left atrial enlargement by 2D. Focal aortic valve sclerosis with adequate cusp excursion Thickened mitral valve leaflets with normal excursion. Mild mitral annulus and aortic root calcification. Pulmonic valve is well visualized. Normal tricuspid valve structure. IVC is normal in size with physiologic collapse. A color flow and spectral Doppler study was performed and revealed: No aortic regurgitation. Severe mitral regurgitation. Mitral inflow velocities indicates possible pseudo normalization pattern implying significant left ventricular diastolic dysfunction. Mild tricuspid regurgitation. Tricuspid systolic velocities suggests peak right ventricular systolic pressure of 31 mmHg
--- NOTE | 2016-06-13 12:58 | General Progress Note ---
Assessment/Plan Status: unchanged Status Narrative fistula not working- BP out of control Assessment/Plan status: ESRD on HD M W Fr HTN, which was OOC on presentation CP ? ACS Plan: HD today- after access is established by interventional radiologt- BP meds adjustment for BP control Add phos binders per consultants Subjective ROS Limited/Unobtainable: No Constitutional: Reports: malaise Allergies: Coded Allergies: ACETAMINOPHEN (Verified Adverse Reaction, Unknown, 01/24/11) CODEINE (Verified Adverse Reaction, Unknown, NAUSEA, 04/18/10) HYDROCODONE (Verified Adverse Reaction, Unknown, 01/24/11) Objective Last 24 Hour Vital Signs Date Time Temp Pulse Resp B/P Pulse Ox O2 Delivery O2 Flow Rate FiO2 06/13/16 11:48 98.0 65 18 156/94 95 Room Air 06/13/16 10:00 72 174/102 06/13/16 09:59 174/102 06/13/16 09:11 72 174/102 06/13/16 09:08 174/102 06/13/16 08:02 98.1 72 18 174/102 96 Room Air 06/13/16 08:00 70 06/13/16 07:40 78 18 Room Air 21 06/13/16 05:15 Room Air 06/13/16 05:15 97.0 78 176/78 Room Air 06/13/16 04:18 97.0 84 19 179/101 97 Room Air 06/13/16 04:00 69 06/13/16 03:12 177/97 06/13/16 00:08 97.9 77 20 177/97 98 Room Air 06/13/16 00:00 75 06/12/16 21:02 185/111 06/12/16 20:00 98.2 18 185/111 94 Room Air 06/12/16 20:00 83 06/12/16 19:30 72 20 Room Air 21 06/12/16 17:05 74 162/98 06/12/16 17:04 162/98 06/12/16 16:00 97.7 74 18 162/98 96 Room Air 06/12/16 16:00 76 Intake and Output 06/12/16 06/13/16 19:00 07:00 Intake Total 200 ml 480 ml Balance 200 ml 480 ml Intake Oral 200 ml 480 ml # Voids 2 2 Laboratory Tests 06/12/16 15:25: Phosphorus Level 8.1H, Troponin I < 0.30 06/13/16 06:20: Phosphorus Level 7.1H, White Blood Count 8.4, Red Blood Count 3.78L, Hemoglobin 11.7L, Hematocrit 38.9, Mean Corpuscular Volume 103H, Mean Corpuscular Hemoglobin 31.1H, Mean Corpuscular Hemoglobin Concent 30.2L, Red Cell Distribution Width 20.8H, Platelet Count 148L, Mean Platelet Volume 9.3, Neutrophils (%) (Auto) 64.3, Lymphocytes (%) (Auto) 29.8, Monocytes (%) (Auto) 4.4, Eosinophils (%) (Auto) 0.7, Basophils (%) (Auto) 0.8, Sodium Level 138, Potassium Level 4.9, Chloride Level 92L, Carbon Dioxide Level 23, Anion Gap 23H , Blood Urea Nitrogen 52H, Creatinine 14.8H, Estimat Glomerular Filtration Rate 3.3, Glucose Level 75, Hemoglobin A1c 3.9, Uric Acid 9.8H, Calcium Level 8.6, Total Bilirubin 0.5, Gamma Glutamyl Transpeptidase 29, Aspartate Amino Transf ( AST/SGOT) 15, Alanine Aminotransferase (ALT/SGPT) 18, Alkaline Phosphatase 80, C -Reactive Protein, Quantitative 0.4, Pro-B-Type Natriuretic Peptide > 36000M, Total Protein 7.1, Albumin 3.9, Globulin 3.2, Albumin/Globulin Ratio 1.2, Triglycerides Level 145, Cholesterol Level 195, LDL Cholesterol 130H, HDL Cholesterol 36, Cholesterol/HDL Ratio 5.4H 06/13/16 10:50: Prothrombin Time 10.6, Prothromb Time International Ratio 1.1 Height (Feet): 5 Height (Inches): 5.00 Weight (Pounds): 162 General Appearance: no apparent distress Objective no signs of CHF LAM SOLANO Jun 13, 2016 12:58
[2016-06-13] MEDS ORDERED: Sodium Bicarbonate 8.4% 50ml Inj ONE (16:05)
[2016-06-13] MEDS ORDERED: Lidocaine 1% Plain 30 ml INJ ONE (16:05)
[2016-06-13] MEDS ORDERED: Heparin 2000 units/Ns 1000ml 1,000 ML ONE (16:06)
[2016-06-13] MEDS ORDERED: Heparin Sod 1000 units/ml 10ml ONE (16:06)
[2016-06-13] MEDS ORDERED: Midazolam 2mg/2ml Inj ONE (16:11)
[2016-06-13] MEDS ORDERED: fentaNYL 100 mcg/2 mL IV ONE (16:11)
--- NOTE | 2016-06-13 16:26 | Moderate Sedation - Procedural ---
Moderate Sedation HPI Home Medication Active Scripts Tramadol Hcl* (ULTRAM*) 50 Mg Tablet, 50 MG ORAL Q6H Y for For Pain, #20 TAB 0 Refills Prov:MEL MCKEON D.O. 01/12/16 Ondansetron Odt* (ZOFRAN ODT*) 4 Mg Tab.rapdis, 4 MG ORAL Q6H Y for Nausea & Vomiting, #10 TAB 0 Refills Prov:MEL MCKEON D.O. 01/12/16 Tramadol Hcl* (ULTRAM*) 50 Mg Tablet, 50 MG ORAL Q12HR Y for For Pain, #20 TAB Prov:TONYA LEVINE D.O. 11/25/13 Reported Medications Cholecalciferol (Vitamin D3)* (VITAMIN D*) 1,000 Unit Tablet, 1000 UNIT ORAL DAILY, #30 TAB 06/11/16 Folic Acid/Vitamin B Comp W-C (MICK-TERRI TABLET) 0.8 Mg Tablet, PO, TAB 11/23/15 Calcitriol (CALCITRIOL) 0.25 Mcg Capsule, 0.25 MCG PO DAILY, CAP 11/23/15 Diazepam* (DIAZEPAM*) 2 Mg Tablet, 2 MG ORAL Q6H Y for For Anxiety, #30 TAB 0 Refills 11/23/15 Clonidine HCl (Clonidine HCl ER) 0.1 Mg Tab.er.12h, 0.2 MG PO BEDTIME, TAB 08/14/15 Losartan Potassium (LOSARTAN POTASSIUM) 100 Mg Tablet, 50 MG ORAL DAILY, TAB 08/14/15 Metoprolol Succinate* (METOPROLOL SUCCINATE*) 50 Mg Tab.er.24h, 50 MG ORAL BID, TAB 06/22/15 Amlodipine Besylate* (AMLODIPINE BESYLATE*) 10 Mg Tablet, 10 MG ORAL DAILY, TAB 06/22/15 Patient History Allergies: Coded Allergies: ACETAMINOPHEN (Verified Adverse Reaction, Unknown, 01/24/11) CODEINE (Verified Adverse Reaction, Unknown, NAUSEA, 04/18/10) HYDROCODONE (Verified Adverse Reaction, Unknown, 01/24/11) PAST MEDICAL HISTORY: Past Surgeries: Social History: Pre-Procedural Mod Sedation Pre-Assessment Time: 16:26 Pre-Sedation Assessment: Elective Airway Assessment (Malampati): III Heart: normal Lungs: normal Abdomen: normal Extremities: normal Evaluation Hx of untoward rxns to mod sed: No Procedures/Plans: Radiology Plan for Moderate Sedation: Midazolam, Fentanyl ASA Score: II Informed Consent The nature of the procedure/sedation; its benefits; risks and complications; and alternatives (and the risks and benefits of such alternatives) were discussed with the patient (or their legal shared services representative), prior to the procedure. All questions were answered to the patient's (or their legal shared services representative's) satisfaction and the patient (or their legal shared services representative) gave informed consent to the procedure. I attest that I re-evaluated the patient just prior to the surgery and that there has been no change in the patient's H&P, except as documented below: HEIDI GAMEZ M.D. Jun 13, 2016 16:26
--- NOTE | 2016-06-13 16:26 | Pre-Procedure Note/Attestation ---
Pre-Procedure Note/Attestation Complete Prior to Procedure Planned Procedure: not applicable Procedure Narrative: fistulogram and possible intervention Indications for Procedure Pre-Operative Diagnosis: malfunctioning AV fistula Attestation I attest that I discussed the nature of the procedure; its benefits; risks and complications; and alternatives (and the risks and benefits of such alternatives ), prior to the procedure, with the patient (or the patient's legal parts sales representative). I attest that, if there was a reasonable possibility of needing a blood transfusion, the patient (or the patient's legal parts sales representative) was given the [facility] standardized written summary, pursuant to the Misbah Excel Blood Safety Act ([place] Health and Safety Code # 1645, as amended). I attest that I re-evaluated the patient just prior to the surgery and that there has been no change in the patient's H&P, except as documented below: HEIDI GAMEZ M.D. Jun 13, 2016 16:26
[2016-06-13] MEDS ORDERED: Lidocaine 1% MPF 10mg/ml 5ml INJ ONE (17:30)
--- NOTE | 2016-06-13 17:54 | Diagnostic Imaging Report ---
Indication: Malfunctioning dialysis graft Technique: Informed consent obtained prior to commencement of the procedure. Total sterile technique, including sterile gloves and hand hygiene, hat, mask, sterile gown, large sterile drape, and preparation with 2% chlorhexidine utilized. Under ultrasound guidance, puncture arterial limb of left brachial basilic AV graft using 21-gauge micropuncture needle, passage 0.018 guidewire, insertion 4 Japanese micropuncture introducer, which was used to perform multistation fistulography. Manual pressure was used to reflux contrast across the arterial anastomosis. After review of images, the catheter was removed, and pressure held until hemostasis was achieved. The patient tolerated the procedure well, without immediate complication. Total fluoroscopy time 1.7 minutes. Total dose area product 65 dGycm2 Comparison: None Findings: There is a left upper extremity brachial basilic AV graft present. Rapid flow demonstrated. No significant stenosis is demonstrated. No central stenosis. Impression: Negative
[2016-06-13] MEDS ORDERED: Heparin 2000 units/Ns 1000ml IV ONE (18:00)
--- NOTE | 2016-06-13 19:40 | Cardiology Progress Note ---
Assessment/Plan Assessment/Plan The patient is seen and examined, full consult note will be dictated. Objective Last 24 Hour Vital Signs Date Time Temp Pulse Resp B/P Pulse Ox O2 Delivery O2 Flow Rate FiO2 06/13/16 18:38 230/106 06/13/16 18:37 90 230/106 06/13/16 18:37 90 230/106 06/13/16 16:45 90 22 230/106 98 Room Air 06/13/16 16:40 94 24 240/108 99 Room Air 06/13/16 16:35 96 29 260/109 100 Room Air 06/13/16 16:30 95 25 242/101 98 Room Air 06/13/16 16:20 89 24 233/100 100 Room Air 06/13/16 11:48 98.0 65 18 156/94 95 Room Air 06/13/16 10:00 72 174/102 06/13/16 09:59 174/102 06/13/16 09:11 72 174/102 06/13/16 09:08 174/102 06/13/16 08:02 98.1 72 18 174/102 96 Room Air 06/13/16 08:00 70 06/13/16 07:40 78 18 Room Air 21 06/13/16 05:15 Room Air 06/13/16 05:15 97.0 78 176/78 Room Air 06/13/16 04:18 97.0 84 19 179/101 97 Room Air 06/13/16 04:00 69 06/13/16 03:12 177/97 06/13/16 00:08 97.9 77 20 177/97 98 Room Air 06/13/16 00:00 75 06/12/16 21:02 185/111 06/12/16 20:00 98.2 18 185/111 94 Room Air 06/12/16 20:00 83 Intake and Output 06/12/16 06/13/16 19:00 07:00 Intake Total 200 ml 480 ml Balance 200 ml 480 ml Intake Oral 200 ml 480 ml # Voids 2 2 Laboratory Tests Test 06/13/16 06:20 06/13/16 10:50 White Blood Count 8.4 K/UL (4.8-10.8) Red Blood Count 3.78 M/UL (4.20-5.40) L Hemoglobin 11.7 G/DL (12.0-16.0) L Hematocrit 38.9 % (37.0-47.0) Mean Corpuscular Volume 103 FL (80-99) H Mean Corpuscular Hemoglobin 31.1 PG (27.0-31.0) H Mean Corpuscular Hemoglobin Concent 30.2 G/DL (32.0-36.0) L Red Cell Distribution Width 20.8 % (11.6-14.8) H Platelet Count 148 K/UL (150-450) L Mean Platelet Volume 9.3 FL (6.5-10.1) Neutrophils (%) (Auto) 64.3 % (45.0-75.0) Lymphocytes (%) (Auto) 29.8 % (20.0-45.0) Monocytes (%) (Auto) 4.4 % (1.0-10.0) Eosinophils (%) (Auto) 0.7 % (0.0-3.0) Basophils (%) (Auto) 0.8 % (0.0-2.0) Sodium Level 138 mEQ/L (135-145) Potassium Level 4.9 mEQ/L (3.4-4.9) Chloride Level 92 mEQ/L (98-107) L Carbon Dioxide Level 23 mEQ/L (20-30) Anion Gap 23 (5-15) H Blood Urea Nitrogen 52 mg/dL (7-23) H Creatinine 14.8 mg/dL (0.5-0.9) H Estimat Glomerular Filtration Rate 3.3 mL/min (>60) Glucose Level 75 mg/dL (74-106) Hemoglobin A1c 3.9 % (< 6.0) Uric Acid 9.8 mg/dL (3.0-7.5) H Calcium Level 8.6 mg/dL (8.6-10.2) Phosphorus Level 7.1 mg/dL (2.5-4.8) H Total Bilirubin 0.5 mg/dL (0.0-1.2) Gamma Glutamyl Transpeptidase 29 U/L (5-36) Aspartate Amino Transf (AST/SGOT) 15 U/L (5-40) Alanine Aminotransferase (ALT/SGPT) 18 U/L (3-33) Alkaline Phosphatase 80 U/L (35-104) C-Reactive Protein, Quantitative 0.4 mg/dL (< 0.5) Pro-B-Type Natriuretic Peptide > 24221 pg/mL (0-125) H Total Protein 7.1 g/dL (6.6-8.7) Albumin 3.9 g/dL (3.5-5.2) Globulin 3.2 g/dL Albumin/Globulin Ratio 1.2 (1.0-2.7) Triglycerides Level 145 mg/dL (< 150) Cholesterol Level 195 mg/dL (< 200) LDL Cholesterol 130 mg/dL (60-99) H HDL Cholesterol 36 mg/dL (> 60) Cholesterol/HDL Ratio 5.4 (3.3-4.4) H Prothrombin Time 10.6 SEC (9.30-11.50) Prothromb Time International Ratio 1.1 (0.9-1.1) Microbiology Date/Time Source Procedure Growth Status 06/11/16 15:13 Nasal Nares MRSA Culture - Final NO METHICILLIN RESISTANT STAPH AUREUS... Complete 06/11/16 15:13 Rectum VRE Culture - Final NO VANCOMYCIN RESISTANT ENTEROCOCCUS ... Complete CHACE GARCIA Jun 13, 2016 19:40
[2016-06-13] MEDS: Carvedilol 6.25mg Tab ORAL SCH (22:52)
[2016-06-13] MEDS: HydrALAZINE 50mg tab ORAL SCH (22:52)
--- NOTE | 2016-06-13 23:38 | Consultation ---
DATE OF CONSULTATION: 06/13/2016 CARDIOLOGY CONSULTATION REFERRING PHYSICIAN: Ivan Park M.D. REASON FOR CONSULTATION: Management of chest pain. HISTORY OF PRESENT ILLNESS: The patient is a very unfortunate 50-year-old female who presents to the hospital with intermittent chest pain. She described it as palpitations over the upper left precordial area not associated with any shortness of breath. No nausea, vomiting, or diaphoresis. She states that her blood pressure has been out of control and running above 200 mmHg despite the fact that she is very compliant with her hemodialysis. She had been on peritoneal dialysis for sometime, but recently switched to hemodialysis. Of note, she does not have any dyspnea on exertion with her activities. She denies any prior history of coronary artery disease, congestive heart failure, or cardiac arrhythmias. PAST MEDICAL HISTORY: 1. End-stage renal disease, on hemodialysis, was on peritoneal dialysis recently. 2. History of hypertension. PAST SURGICAL HISTORY: AV fistula placement. FAMILY HISTORY: No premature coronary artery disease in first-degree relatives. SOCIAL HISTORY: Denies any tobacco, alcohol, or illicit drug use. She lives at home. MEDICATIONS: List of medication at home includes amlodipine 10 mg p.o. daily, calcitriol 0.25 mg p.o. daily, vitamin D 1000 units p.o. daily, clonidine 0.2 mg nightly, diazepam 2 mg q.6 hours p.r.n. for anxiety, 800 mcg three times daily, losartan 50 mg p.o. daily, metoprolol 50 mg twice daily, Zofran 4 mg q.6 hours p.r.n. nausea vomiting, and tramadol 50 mg p.o. q.12 hours p.r.n. pain. REVIEW OF SYSTEMS: HEENT: Denies any headache, diplopia, or blurred vision. Constitutional: Denies any generalized weakness, fever, chills, or night sweats. Cardiovascular: Chest pain as mentioned above. Denies any shortness of breath based on exertion, PND, orthopnea, leg swelling, palpitations, or syncope. Pulmonary: Denies any cough, hemoptysis, or wheezing. Gastrointestinal: Denies any nausea, vomiting, diarrhea, constipation, abdominal pain, or GI bleed. Genitourinary: Denies any hematuria, dysuria, and constant. Neurology: Denies any motor dysfunction, sensory deficit, or altered speech. PHYSICAL EXAMINATION: VITAL SIGNS: Blood pressure is 230/106 mmHg, respirations 22, pulse of 90, and O2 saturation 98%. GENERAL: The patient is a very pleasant 50-year-old female, in no apparent respiratory distress. HEENT: Atraumatic, normocephalic, and anicteric. Pupils are equal, round, and reactive to light and accommodation. Extraocular muscles are intact. NECK: JVP is less than 5 cm. No carotid bruit. Carotid upstrokes 2+ bilaterally . Normal S1, S2. Positive S4. A 2/6 mid systolic murmur at the left sternal border. PMI is at the fourth intercostal space at the midclavicular line. LUNGS: Clear to auscultation bilaterally. ABDOMEN: Soft, nontender, and nondistended. No hepatosplenomegaly. Positive bowel sounds. EXTREMITIES: No evidence of edema, clubbing, or cyanosis. DIAGNOSTIC DATA: A 2D echocardiography revealed and shows hypertensive heart disease with normal LV systolic function, LVEF approximately 60%. There is no wall motion abnormalities. LV physiology suggestive of moderately elevated left atrial pressure. There is mild mitral regurgitation and moderate tricuspid regurgitation with right ventricular systolic pressure measured at 31 mmHg. There is also small pericardial effusion. A 12-lead electrocardiogram was significant for sinus rhythm at a rate of 77 with normal axis. There is left atrial enlargement that was QT prolongation, was left ventricular hypertrophy with the standard left ventricular hypertrophy per criteria. No acute ST and T-wave abnormalities. LABORATORY FINDINGS: WBC 8.8, hemoglobin 13.8, hematocrit 36.4, and platelet count 179. Sodium 140, potassium is 4.6, chloride 90, bicarbonate 28, BUN of 34, creatinine 10.4, and glucose is 101. Calcium is 9.6. Troponin I x2 is negative. ProBNP was more than 70,000. INR is 1.1. Chest x-ray shows cardiomegaly with right atrial enlargement, but no acute cardiopulmonary disease. ASSESSMENT AND PLAN: The patient is a very unfortunate 50-year-old female, seen in Cardiology consultation of Dr. Park's request: 1. Chest pain, noncardiac in nature attributed to accelerated hypertension. She does not have a pattern of acute coronary syndrome. Acute myocardial infarction is ruled out. There is no ECG changes on the EKG. 2D echocardiography does not reveal any wall motion abnormalities. The left ventricular ejection fraction is approximately 60%. The goal of management of chest pain is to controlled hypertension. 2. hypertension. I would like to make some adjustments to the current blood pressure medication and antihypertensive. We would like to start the patient on clonidine 0.1 mg q.8 hours around the clock, switching metoprolol to Coreg for better heart rate control and optimizing this medication. 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 I would also like for more aggressive hemodialysis as the BNP is elevated and also 2D echocardiography was significant for an elevated intracardiac filling pressures. 3. Most likely chronic diastolic congestive heart failure with a very high BNP levels more aggressive hemodialysis with the recommended plan. 4. End-stage renal disease on hemodialysis appears to be compliant with dialysis sessions. 5. I would like to thank, Dr. Park. 6. small pericardial effusion. I would like to thank, Dr. Park, for allowing me to participate in care of this patient. Janak Sandhu M.D. DR: SMITHA JOB#: [id number] CC:
[2016-06-14] VITALS (10 sets, daily range): BP systolic 114–176; BP diastolic 53–101
[2016-06-14] MEDS: HydrALAZINE 50mg tab ORAL SCH ×4 (05:37→21:30)
--- NOTE | 2016-06-14 09:28 | General Progress Note ---
Assessment/Plan Status: stable Assessment/Plan 1. Hypertensive emergency. 2. End-stage renal disease, on hemodialysis. 3. Chest pain with moderate risk for acute coronary syndrome. We will monitor on telemetry bed. 4. Anxiety and depression. 5. Gastrointestinal and deep vein thrombosis prophylaxis Plan: current management uncontrolled BP current cardiology BP med optimization Following notes reviewed Dr Morse Nephro Dr Tomlinson Pulmonary Dr Sandhu Cardiology Subjective ROS Limited/Unobtainable: No Constitutional: Reports: no symptoms HEENT: Reports: no symptoms Cardiovascular: Reports: no symptoms Respiratory: Reports: no symptoms Allergies: Coded Allergies: ACETAMINOPHEN (Verified Adverse Reaction, Unknown, 01/24/11) CODEINE (Verified Adverse Reaction, Unknown, NAUSEA, 04/18/10) HYDROCODONE (Verified Adverse Reaction, Unknown, 01/24/11) Objective Last 24 Hour Vital Signs Date Time Temp Pulse Resp B/P Pulse Ox O2 Delivery O2 Flow Rate FiO2 06/14/16 09:01 Room Air 21 06/14/16 08:57 Room Air 06/14/16 06:12 189/103 06/14/16 06:12 189/103 06/14/16 04:30 97.0 75 20 128/66 96 Room Air 06/14/16 04:15 Room Air 21 06/14/16 04:00 73 06/14/16 00:29 98.6 86 19 151/93 97 Room Air 06/14/16 00:00 78 06/13/16 22:53 173/101 06/13/16 22:52 85 173/101 06/13/16 22:52 173/101 06/13/16 22:00 85 173/101 06/13/16 20:07 84 20 Room Air 21 06/13/16 20:00 76 06/13/16 20:00 97.5 78 20 151/96 96 Room Air 06/13/16 18:38 230/106 06/13/16 18:37 90 230/106 06/13/16 18:37 90 230/106 06/13/16 16:45 90 22 230/106 98 Room Air 06/13/16 16:40 94 24 240/108 99 Room Air 06/13/16 16:35 96 29 260/109 100 Room Air 06/13/16 16:30 95 25 242/101 98 Room Air 06/13/16 16:20 89 24 233/100 100 Room Air 06/13/16 16:00 85 06/13/16 11:48 98.0 65 18 156/94 95 Room Air 06/13/16 10:00 72 174/102 06/13/16 09:59 174/102 Intake and Output 06/13/16 06/14/16 18:59 06:59 Intake Total 120 ml 540 ml Balance 120 ml 540 ml Intake Oral 120 ml 540 ml Laboratory Tests 06/13/16 10:50: Prothrombin Time 10.6, Prothromb Time International Ratio 1.1 Height (Feet): 5 Height (Inches): 5.00 Weight (Pounds): 162 General Appearance: no apparent distress EENT: PERRL/EOMI Neck: supple Cardiovascular: normal rate Respiratory/Chest: lungs clear Abdomen: soft Extremities: other - LUE AVG noted, intact Edema: trace edema 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
[2016-06-14] MEDS: Aspirin Baby 81mg ORAL SCH (10:11)
[2016-06-14] MEDS: Carvedilol 6.25mg Tab ORAL SCH (10:12)
[2016-06-14] MEDS: Nephrovite tab ORAL SCH (10:12)
[2016-06-14] MEDS: Docusate 100mg cap ORAL SCH ×3 (10:13→17:16)
[2016-06-14] MEDS: Losartan 50mg tab ORAL SCH ×2 (10:13→17:17)
[2016-06-14] MEDS: Heparin 5000 units/ml inj SUBQ SCH ×2 (10:15→21:32)
--- NOTE | 2016-06-14 11:16 | General Progress Note ---
Assessment/Plan Status: stable Status Narrative dialysed this morning via left fistula which declotted yesterday Assessment/Plan status: ESRD on HD M W Fr HTN, remains OOC CP ? ACS Plan: HD today done - again in am BP meds adjustment for BP control On phos binders check labs in am- DC when BP stable per consultants Subjective ROS Limited/Unobtainable: No Allergies: Coded Allergies: ACETAMINOPHEN (Verified Adverse Reaction, Unknown, 01/24/11) CODEINE (Verified Adverse Reaction, Unknown, NAUSEA, 04/18/10) HYDROCODONE (Verified Adverse Reaction, Unknown, 01/24/11) Objective Last 24 Hour Vital Signs Date Time Temp Pulse Resp B/P Pulse Ox O2 Delivery O2 Flow Rate FiO2 06/14/16 10:13 178/100 06/14/16 10:12 75 178/100 06/14/16 10:11 75 178/100 06/14/16 09:01 Room Air 21 06/14/16 08:57 Room Air 06/14/16 06:12 189/103 06/14/16 06:12 189/103 06/14/16 04:30 97.0 75 20 128/66 96 Room Air 06/14/16 04:15 Room Air 21 06/14/16 04:00 73 06/14/16 00:29 98.6 86 19 151/93 97 Room Air 06/14/16 00:00 78 06/13/16 22:53 173/101 06/13/16 22:52 85 173/101 06/13/16 22:52 173/101 06/13/16 22:00 85 173/101 06/13/16 20:07 84 20 Room Air 21 06/13/16 20:00 76 06/13/16 20:00 97.5 78 20 151/96 96 Room Air 06/13/16 18:38 230/106 06/13/16 18:37 90 230/106 06/13/16 18:37 90 230/106 06/13/16 16:45 90 22 230/106 98 Room Air 06/13/16 16:40 94 24 240/108 99 Room Air 06/13/16 16:35 96 29 260/109 100 Room Air 06/13/16 16:30 95 25 242/101 98 Room Air 06/13/16 16:20 89 24 233/100 100 Room Air 06/13/16 16:00 85 06/13/16 11:48 98.0 65 18 156/94 95 Room Air Intake and Output 06/13/16 06/14/16 18:59 06:59 Intake Total 120 ml 540 ml Balance 120 ml 540 ml Intake Oral 120 ml 540 ml Height (Feet): 5 Height (Inches): 5.00 Weight (Pounds): 162 General Appearance: no apparent distress Cardiovascular: normal rate Respiratory/Chest: decreased breath sounds Abdomen: soft Objective no signs of CHF LAM SOLANO 7, 2017 11:16
[2016-06-14] MEDS: Carvedilol 12.5mg tab ORAL SCH (21:21)
[2016-06-15 00:17] VITALS: BP 139/79
[2016-06-15 04:23] VITALS: BP 132/74
[2016-06-15] MEDS: HydrALAZINE 50mg tab ORAL SCH ×2 (06:09→15:11)
[2016-06-15 07:56] LABS: EOSINOPHILS % (AUTO) 1.4 % (0.0-3.0); LYMPHOCYTES % (AUTO) 34.8 % (20.0-45.0); MEAN CORPUSCULAR HGB CONC 30.4 G/DL (32.0-36.0); MEAN CORPUSCULAR VOLUME 102 FL (80-99); MEAN PLATELET VOLUME 9.6 FL (6.5-10.1); MONOCYTES % (AUTO) 9.6 % (1.0-10.0); NEUTROPHILS % (AUTO) 53.2 % (45.0-75.0); PLATELET COUNT 139 K/UL (150-450); RED BLOOD COUNT 4.15 M/UL (4.20-5.40); RED CELL DISTRIBUTION WIDTH 20.4 % (11.6-14.8); WHITE BLOOD COUNT 6.4 K/UL (4.8-10.8)
[2016-06-15 08:07] LABS: CRP QUANT 0.5 mg/dL (< 0.5); MAGNESIUM 2.4 mg/dL (1.7-2.5); PHOSPHORUS 8.1 mg/dL (2.5-4.8); URIC ACID 6.3 mg/dL (3.0-7.5)
[2016-06-15 08:25] LABS: ALBUMIN/GLOBULIN RATIO 1.5 (1.0-2.7); CALCIUM 9.5 mg/dL (8.6-10.2); CREATININE 12.7 mg/dL (0.5-0.9); GLOMERULAR FILTRATION RATE 3.8 mL/min (>60); POTASSIUM 4.4 mEQ/L (3.4-4.9); TOTAL PROTEIN 6.7 g/dL (6.6-8.7)
[2016-06-15 08:33] VITALS: BP 146/80
[2016-06-15] MEDS: Heparin 5000 units/ml inj SUBQ SCH (09:40)
[2016-06-15] MEDS: Nephrovite tab ORAL SCH (09:40)
[2016-06-15] MEDS: Aspirin Baby 81mg ORAL SCH (09:41)
[2016-06-15] MEDS: Losartan 50mg tab ORAL SCH ×2 (09:42→18:39)
[2016-06-15] MEDS: Carvedilol 12.5mg tab ORAL SCH (09:43)
[2016-06-15] MEDS: Docusate 100mg cap ORAL SCH ×3 (09:45→18:38)
[2016-06-15 11:44] VITALS: BP 144/94
--- NOTE | 2016-06-15 11:46 | General Progress Note ---
Assessment/Plan Status: stable Assessment/Plan 1. Hypertensive emergency. 2. End-stage renal disease, on hemodialysis. 3. Chest pain with moderate risk for acute coronary syndrome. We will monitor on telemetry bed. 4. Anxiety and depression. 5. Gastrointestinal and deep vein thrombosis prophylaxis Plan: current management controlled BP ok to discharge with current medication and followup in 3-5 days Following notes reviewed Dr Morse Nephro Dr Tomlinson Pulmonary Dr Sandhu Cardiology Subjective ROS Limited/Unobtainable: No Constitutional: Reports: no symptoms HEENT: Reports: no symptoms Cardiovascular: Reports: no symptoms Allergies: Coded Allergies: ACETAMINOPHEN (Verified Adverse Reaction, Unknown, 01/24/11) CODEINE (Verified Adverse Reaction, Unknown, NAUSEA, 04/18/10) HYDROCODONE (Verified Adverse Reaction, Unknown, 01/24/11) Objective Last 24 Hour Vital Signs Date Time Temp Pulse Resp B/P Pulse Ox O2 Delivery O2 Flow Rate FiO2 06/15/16 09:43 72 146/80 06/15/16 09:42 72 146/80 06/15/16 09:42 146/80 06/15/16 08:33 97.9 71 18 146/80 95 Room Air 06/15/16 08:00 78 06/15/16 06:09 132/74 06/15/16 06:09 132/74 06/15/16 04:23 98.4 80 18 132/74 97 06/15/16 04:00 78 06/15/16 00:17 97.6 86 19 139/79 95 Room Air 06/15/16 00:00 78 06/14/16 21:30 176/101 06/14/16 21:22 176/101 06/14/16 21:21 81 176/101 06/14/16 21:00 81 176/101 06/14/16 20:00 98.1 86 18 114/53 100 Room Air 06/14/16 20:00 86 06/14/16 19:30 80 20 Room Air 21 06/14/16 17:18 87 157/93 06/14/16 17:17 157/93 06/14/16 17:00 87 157/93 06/14/16 16:00 98.2 85 18 167/96 99 Room Air 06/14/16 16:00 86 06/14/16 14:25 139/79 06/14/16 14:23 139/79 06/14/16 13:29 147/87 06/14/16 13:25 147/87 06/14/16 12:00 85 06/14/16 12:00 99.9 58 17 162/82 100 Room Air Intake and Output 06/14/16 06/15/16 19:00 07:00 Intake Total 650 ml Output Total 3000 ml Balance -2350 ml Intake Oral 650 ml Output Hemodialysis UF 3000 ml # Voids 3 2 Laboratory Tests 06/15/16 07:25: White Blood Count 6.4, Red Blood Count 4.15L, Hemoglobin 12.9, Hematocrit 42.3, Mean Corpuscular Volume 102H, Mean Corpuscular Hemoglobin 31.0, Mean Corpuscular Hemoglobin Concent 30.4L, Red Cell Distribution Width 20.4H, Platelet Count 139L, Mean Platelet Volume 9.6, Neutrophils (%) (Auto) 53.2, Lymphocytes (%) (Auto) 34.8, Monocytes (%) (Auto) 9.6, Eosinophils (%) (Auto) 1.4, Basophils (%) (Auto) 1.0, Sodium Level 138, Potassium Level 4.4, Chloride Level 90L, Carbon Dioxide Level 31H, Anion Gap 17H, Blood Urea Nitrogen 41H, Creatinine 12.7H, Estimat Glomerular Filtration Rate 3.8, Glucose Level 97, Uric Acid 6.3, Calcium Level 9.5, Phosphorus Level 8.1H, Magnesium Level 2.4, Total Bilirubin 0.5, Aspartate Amino Transf (AST/SGOT) 14, Alanine Aminotransferase (ALT/SGPT) 15, Alkaline Phosphatase 77, C-Reactive Protein, Quantitative 0.5, Pro-B-Type Natriuretic Peptide > 16468T, Total Protein 6.7, Albumin 4.1, Globulin 2.6, Albumin/Globulin Ratio 1.5 Height (Feet): 5 Height (Inches): 5.00 Weight (Pounds): 162 General Appearance: no apparent distress EENT: PERRL/EOMI Neck: supple Cardiovascular: normal rate Respiratory/Chest: lungs clear Abdomen: soft Extremities: non-tender, other - LUE AVS in place 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
--- NOTE | 2016-06-15 14:05 | General Progress Note ---
Assessment/Plan Status: stable Assessment/Plan status: ESRD on HD M W Fr HTN, remains OOC CP ? ACS Plan: HD today pending BP meds adjustment for BP control On phos binders, will increase the dose DC when BP stable per consultants Subjective ROS Limited/Unobtainable: No Constitutional: Reports: malaise Allergies: Coded Allergies: ACETAMINOPHEN (Verified Adverse Reaction, Unknown, 01/24/11) CODEINE (Verified Adverse Reaction, Unknown, NAUSEA, 04/18/10) HYDROCODONE (Verified Adverse Reaction, Unknown, 01/24/11) Objective Last 24 Hour Vital Signs Date Time Temp Pulse Resp B/P Pulse Ox O2 Delivery O2 Flow Rate FiO2 06/15/16 11:44 97.5 70 18 144/94 96 Room Air 06/15/16 09:43 72 146/80 06/15/16 09:42 72 146/80 06/15/16 09:42 146/80 06/15/16 08:33 97.9 71 18 146/80 95 Room Air 06/15/16 08:00 76 18 Room Air 21 06/15/16 08:00 78 06/15/16 06:09 132/74 06/15/16 06:09 132/74 06/15/16 04:23 98.4 80 18 132/74 97 06/15/16 04:00 78 06/15/16 00:17 97.6 86 19 139/79 95 Room Air 06/15/16 00:00 78 06/14/16 21:30 176/101 06/14/16 21:22 176/101 06/14/16 21:21 81 176/101 06/14/16 21:00 81 176/101 06/14/16 20:00 98.1 86 18 114/53 100 Room Air 06/14/16 20:00 86 06/14/16 19:30 80 20 Room Air 21 06/14/16 17:18 87 157/93 06/14/16 17:17 157/93 06/14/16 17:00 87 157/93 06/14/16 16:00 98.2 85 18 167/96 99 Room Air 06/14/16 16:00 86 06/14/16 14:25 139/79 06/14/16 14:23 139/79 Intake and Output 06/14/16 06/15/16 19:00 07:00 Intake Total 650 ml Output Total 3000 ml Balance -2350 ml Intake Oral 650 ml Output Hemodialysis UF 3000 ml # Voids 3 2 Laboratory Tests 06/15/16 07:25: White Blood Count 6.4, Red Blood Count 4.15L, Hemoglobin 12.9, Hematocrit 42.3, Mean Corpuscular Volume 102H, Mean Corpuscular Hemoglobin 31.0, Mean Corpuscular Hemoglobin Concent 30.4L, Red Cell Distribution Width 20.4H, Platelet Count 139L, Mean Platelet Volume 9.6, Neutrophils (%) (Auto) 53.2, Lymphocytes (%) (Auto) 34.8, Monocytes (%) (Auto) 9.6, Eosinophils (%) (Auto) 1.4, Basophils (%) (Auto) 1.0, Sodium Level 138, Potassium Level 4.4, Chloride Level 90L, Carbon Dioxide Level 31H, Anion Gap 17H, Blood Urea Nitrogen 41H, Creatinine 12.7H, Estimat Glomerular Filtration Rate 3.8, Glucose Level 97, Uric Acid 6.3, Calcium Level 9.5, Phosphorus Level 8.1H, Magnesium Level 2.4, Total Bilirubin 0.5, Aspartate Amino Transf (AST/SGOT) 14, Alanine Aminotransferase (ALT/SGPT) 15, Alkaline Phosphatase 77, C-Reactive Protein, Quantitative 0.5, Pro-B-Type Natriuretic Peptide > 76866M, Total Protein 6.7, Albumin 4.1, Globulin 2.6, Albumin/Globulin Ratio 1.5 Height (Feet): 5 Height (Inches): 5.00 Weight (Pounds): 162 General Appearance: no apparent distress Cardiovascular: normal rate Respiratory/Chest: decreased breath sounds Abdomen: soft Objective no signs of CHF LAM SOLANO Jun 15, 2016 14:05
[2016-06-15 16:42] VITALS: BP 140/95
[2016-06-15] MEDS ORDERED: ASPIRIN81 M3 PO (16:57)
[2016-06-15] MEDS ORDERED: LIPITOR10 MG ORAL (16:59)
[2016-06-15] MEDS ORDERED: COREG12.5 MG ORAL (17:01)
[2016-06-15 18:39] VITALS: BP 161/104
--- NOTE | 2016-06-15 20:00 | Cardiology Progress Note ---
Assessment/Plan Assessment/Plan 1. Accelerated HTN, increase clonidine 0.1mg po qid, continue the rest of the regimen. 2. Chest pain likely due to HTN 3. Chronic diastolic CHF, continue with HD, afterload reduction. 4. ESRD Subjective Subjective Sinus rhythm at 80 Objective Last 24 Hour Vital Signs Date Time Temp Pulse Resp B/P Pulse Ox O2 Delivery O2 Flow Rate FiO2 06/15/16 19:29 79 18 Room Air 06/15/16 19:17 Room Air 06/15/16 18:39 161/104 06/15/16 18:39 161/104 06/15/16 18:38 77 161/104 06/15/16 16:42 98.1 75 18 140/95 97 Room Air 06/15/16 15:12 144/94 06/15/16 15:11 144/94 06/15/16 14:45 Room Air 21 06/15/16 11:44 97.5 70 18 144/94 96 Room Air 06/15/16 09:43 72 146/80 06/15/16 09:42 72 146/80 06/15/16 09:42 146/80 06/15/16 08:33 97.9 71 18 146/80 95 Room Air 06/15/16 08:00 76 18 Room Air 21 06/15/16 08:00 78 06/15/16 06:09 132/74 06/15/16 06:09 132/74 06/15/16 04:23 98.4 80 18 132/74 97 06/15/16 04:00 78 06/15/16 00:17 97.6 86 19 139/79 95 Room Air 06/15/16 00:00 78 06/14/16 21:30 176/101 06/14/16 21:22 176/101 06/14/16 21:21 81 176/101 06/14/16 21:00 81 176/101 06/14/16 20:00 98.1 86 18 114/53 100 Room Air 06/14/16 20:00 86 Intake and Output 06/14/16 06/15/16 19:00 07:00 Intake Total 650 ml Output Total 3000 ml Balance -2350 ml Intake Oral 650 ml Output Hemodialysis UF 3000 ml # Voids 3 2 2D Echo: EF 55%, Mod LVH, Grade II LVDD (high LA pressure), RVSP 31 mmHg, Mild MR Laboratory Tests Test 06/15/16 07:25 White Blood Count 6.4 K/UL (4.8-10.8) Red Blood Count 4.15 M/UL (4.20-5.40) L Hemoglobin 12.9 G/DL (12.0-16.0) Hematocrit 42.3 % (37.0-47.0) Mean Corpuscular Volume 102 FL (80-99) H Mean Corpuscular Hemoglobin 31.0 PG (27.0-31.0) Mean Corpuscular Hemoglobin Concent 30.4 G/DL (32.0-36.0) L Red Cell Distribution Width 20.4 % (11.6-14.8) H Platelet Count 139 K/UL (150-450) L Mean Platelet Volume 9.6 FL (6.5-10.1) Neutrophils (%) (Auto) 53.2 % (45.0-75.0) Lymphocytes (%) (Auto) 34.8 % (20.0-45.0) Monocytes (%) (Auto) 9.6 % (1.0-10.0) Eosinophils (%) (Auto) 1.4 % (0.0-3.0) Basophils (%) (Auto) 1.0 % (0.0-2.0) Sodium Level 138 mEQ/L (135-145) Potassium Level 4.4 mEQ/L (3.4-4.9) Chloride Level 90 mEQ/L (98-107) L Carbon Dioxide Level 31 mEQ/L (20-30) H Anion Gap 17 (5-15) H Blood Urea Nitrogen 41 mg/dL (7-23) H Creatinine 12.7 mg/dL (0.5-0.9) H Estimat Glomerular Filtration Rate 3.8 mL/min (>60) Glucose Level 97 mg/dL (74-106) Uric Acid 6.3 mg/dL (3.0-7.5) Calcium Level 9.5 mg/dL (8.6-10.2) Phosphorus Level 8.1 mg/dL (2.5-4.8) H Magnesium Level 2.4 mg/dL (1.7-2.5) Total Bilirubin 0.5 mg/dL (0.0-1.2) Aspartate Amino Transf (AST/SGOT) 14 U/L (5-40) Alanine Aminotransferase (ALT/SGPT) 15 U/L (3-33) Alkaline Phosphatase 77 U/L (35-104) C-Reactive Protein, Quantitative 0.5 mg/dL (< 0.5) Pro-B-Type Natriuretic Peptide > 91054 pg/mL (0-125) H Total Protein 6.7 g/dL (6.6-8.7) Albumin 4.1 g/dL (3.5-5.2) Globulin 2.6 g/dL Albumin/Globulin Ratio 1.5 (1.0-2.7) Objective HEENT: Atraumatic, normocephalic, and anicteric. Pupils are equal, round, and reactive to light and accommodation. Extraocular muscles are intact. NECK: JVP is less than 5 cm. No carotid bruit. Carotid upstrokes 2+ bilaterally . Normal S1, S2. Positive S4. A 2/6 mid systolic murmur at the left sternal border. PMI is at the fourth intercostal space at the midclavicular line. LUNGS: Clear to auscultation bilaterally. ABDOMEN: Soft, nontender, and nondistended. No hepatosplenomegaly. Positive bowel sounds. EXTREMITIES: No evidence of edema, clubbing, or cyanosis. CHACE GARCIA Jun 15, 2016 20:00
--- NOTE | 2016-06-16 20:47 | Discharge Summary ---
Discharge Summary Hospital Course Date of Admission Jun 11, 2016 at 16:05 Date of Discharge Jun 15, 2016 at 20:15 Admitting Diagnosis ACUTE CORONARY SYNDROME HPI Renita Alfaro is a 50 year old female who was admitted on Jun 11, 2016 at 16:05 for Acute Coronary Syndrome Hospital Course [id number] Discharge Discharge Disposition Patient was discharged to Home (01) Discharge Diagnoses: Angelita Becker NP Jun 16, 2016 20:47
--- NOTE | 2016-06-17 01:58 | Discharge Summary 2 SIG ---
DATE OF ADMISSION: 06/11/2016 DATE OF DISCHARGE: 06/15/2016 CONSULTANTS: 1. Janak Sandhu M.D. 2. Bob Morse M.D. 3. Luz Maria Tomlinson M.D. BRIEF HOSPITAL COURSE: The patient is a 50-year-old female with history of end-stage renal disease, on hemodialysis. She has been suffering from uncontrolled hypertension. The patient reported episodes of precordial chest pain that lasted for couple of hours with no radiation but with associated palpitations. The patient was in a when it happened and came to the emergency room. On evaluation, her blood pressure was elevated. The patient was admitted for additional evaluation. Dr. Sandhu was consulted. Cardiac troponins were monitored. Echocardiogram done showed hypertensive heart disease with normal left ventricular systolic function. No wall motion abnormalities. There is mild mitral regurgitation and moderate tricuspid regurgitation with right ventricular systolic pressure at 31 and small pericardial effusion. A 12-lead electrocardiogram was sinus at a rate of 77 with normal axis. There was no acute ST to T-wave abnormalities. Dr. Morse was consulted. The patient underwent fistulogram with findings of negative occlusion or stenosis. She underwent inpatient hemodialysis. Antihypertensives were titrated. She was given aspirin and statins. Blood pressure was controlled and the patient was discharged home. Advised to follow up in three to five days. FINAL DIAGNOSES: 1. Hypertensive emergency. 2. End-stage renal disease, on hemodialysis. 3. Chest pain with moderate risk for acute coronary syndrome. 4. Chest pain likely due to hypertension. 5. Chronic diastolic congestive heart failure. Ivan Park M.D. I have been assigned to dictate discharge summary on this account and I was not involved in the patient's management. Angelita Becker N.P. DR: DEVIN JOB#: [id number] CC: ODALIS
--- NOTE | 2016-06-17 16:18 | Cardiology Report ---
APPROVED REPORT EKG Measurement Heart [id number] SD [id number] [id number] Normal sinus rhythm Moderate voltage criteria for LVH, may be normal variant Prolonged QT Abnormal ECG
--- NOTE | 2016-06-17 16:38 | Cardiology Report ---
APPROVED REPORT EKG Measurement Heart [id number] CT [id number] [id number] Normal sinus rhythm Biatrial enlargement Abnormal ECG
== END 2016-06-15 20:15 | disposition home or self-care (01) | DRG 304 ==
LOC: ENRESERVDT → ENRESERVTM → EMR 13:57 → EDBEDREQ 14:32 → 2E 16:05
PROC: 5A1D60Z (ICD-10-PCS; principal; 2016-06-12)
PROC: B51WYZZ Fluoroscopy of Dialysis Shunt/Fistula using Other Contrast (ICD-10-PCS; 2016-06-13)
DX: I16.1 Hypertensive emergency (principal); N18.6 End stage renal disease; I50.32 Chronic diastolic (congestive) heart failure; T82.590A Other mechanical complication of surgically created arteriovenous fistula, initial encounter; R07.89 Other chest pain; F41.8 Other specified anxiety disorders; I13.2 Hypertensive heart and chronic kidney disease with heart failure and with stage 5 chronic kidney disease, or end stage renal disease; Z99.2 Dependence on renal dialysis; Y84.1 Kidney dialysis as the cause of abnormal reaction of the patient, or of later complication, without mention of misadventure at the time of the procedure; Y92.89 Other specified places as the place of occurrence of the external cause
CPT/HCPCS: 20501; 36415; 71010; 76080; 80048; 80053; 80061; 82550; 82553; 82977; 83036; 83735; 83880; 84100; 84443; 84484; 84550; 85025; 85610; 86140; 87081; 93005; 93306; 94664; J2250

== ENCOUNTER 2017-08-17 21:02 | Inpatient (IN) | payer MEDICARE, OTHER ==
[~2017-08-17] VITALS: Ht 165.1 cm; Wt 87.5 kg
[~2017-08-17 21:02] MED LIST changes: +ASPIRIN81 M3 PO; +COREG12.5 MG ORAL; +LIPITOR10 MG ORAL; +VITAMIN D1000 UNI1 ORAL
[2017-08-17 21:20] VITALS: BP 187/98
[2017-08-17] MEDS ORDERED: Morphine Sulfate 4mg/ml Inj IVP ONE (21:30)
--- NOTE | 2017-08-17 21:39 | Emergency Room Report ---
History of Present Illness General Chief Complaint: Abdominal Pain Source: Patient Present Illness HPI Patient presents with complaints of abdominal pain fairly diffuse some radiation towards the back Patient has renal failure on dialysis Monday and due tomorrow morning Denies any chest pain or shortness of breath Denies any diarrhea Denies any fevers or chills Does not have any association with position or exertion Cramping and sharp Allergies: Coded Allergies: ACETAMINOPHEN (Verified Adverse Reaction, Unknown, 08/17/17) nausea CODEINE (Verified Adverse Reaction, Unknown, NAUSEA, 04/18/10) HYDROCODONE (Verified Adverse Reaction, Unknown, 08/17/17) nausea Patient History Past Medical History: see triage record Pertinent Family History: none Last Menstrual Period: n/a Reviewed Nursing Documentation: PMH: Agreed; PSxH: Agreed Nursing Documentation-PMH Hx Cardiac Problems: Yes Hx Hypertension: Yes Hx Cancer: No Hx Gastrointestinal Problems: No Hx Dialysis: Yes - MWF Hx Neurological Problems: No Review of Systems All Other Systems: negative except mentioned in HPI Physical Exam Vital Signs Date Time Temp Pulse Resp B/P (MAP) Pulse Ox O2 Delivery O2 Flow Rate FiO2 08/17/17 21:12 100.1 96 16 187/98 98 Room Air 100.0 Sp02 EP Interpretation: reviewed, normal General Appearance: mild distress - In pain Head: normocephalic, atraumatic Eyes: bilateral eye PERRL, bilateral eye EOMI ENT: hearing grossly normal, normal pharynx, TMs + canals normal, uvula midline Neck: full range of motion, supple, no meningismus, no bony tend Respiratory: lungs clear, normal breath sounds, no rhonchi, no respiratory distress, no retraction, no accessory muscle use Cardiovascular #1: normal peripheral pulses, regular rate, rhythm, no edema, no gallop, no JVD, no murmur Gastrointestinal: normal bowel sounds, soft, no organomegaly, no guarding, no rebound, other - Patient is fairly diffusely uncomfortable subjectively, on palpation abdomen soft mild decreased bowel sounds Genitourinary: no CVA tenderness Musculoskeletal: normal inspection Neurologic: oriented x3, responsive, inter com servicer III-XII nml as tested, motor strength/ tone normal, sensory intact Psychiatric: mood/affect normal Skin: normal color, no rash, warm/dry, palpation normal, other - AV shunt left upper arm Lymphatic: normal inspection, no adenopathy Medical Decision Making Diagnostic Impression: Primary Impression: Renal failure Additional Impressions: Acute cholecystitis Hyperkalemia ER Course Multiple differentials considered including but not limited to cardiac, intra- abdominal, infectious pathology Patient's blood work reveals elevated potassium levels Patient does have kidney failure and is due for dialysis in the morning CT also reveals some thickening of the gallbladder wall and raises some concern of cholecystitis Patient provided with antibiotics surgery consult hyperkalemia treated and patient admitted Labs Test 08/17/17 21:46 White Blood Count 9.5 K/UL (4.8-10.8) Red Blood Count 4.07 M/UL (4.20-5.40) Hemoglobin 12.2 G/DL (12.0-16.0) Hematocrit 40.3 % (37.0-47.0) Mean Corpuscular Volume 99 FL (80-99) Mean Corpuscular Hemoglobin 30.1 PG (27.0-31.0) Mean Corpuscular Hemoglobin Concent 30.4 G/DL (32.0-36.0) Red Cell Distribution Width 18.1 % (11.6-14.8) Platelet Count 80 K/UL (150-450) Mean Platelet Volume 8.1 FL (6.5-10.1) Neutrophils (%) (Auto) 78.5 % (45.0-75.0) Lymphocytes (%) (Auto) 14.9 % (20.0-45.0) Monocytes (%) (Auto) 4.7 % (1.0-10.0) Eosinophils (%) (Auto) 0.8 % (0.0-3.0) Basophils (%) (Auto) 1.0 % (0.0-2.0) Sodium Level 133 MMOL/L (136-145) Potassium Level 7.5 MMOL/L (3.5-5.1) Chloride Level 96 MMOL/L (98-107) Carbon Dioxide Level 20 MMOL/L (21-32) Anion Gap 18 mmol/L (5-15) Blood Urea Nitrogen 92 mg/dL (7-18) Creatinine 16.1 MG/DL (0.55-1.30) Estimat Glomerular Filtration Rate 2.9 mL/min (>60) Glucose Level 89 MG/DL (74-106) Calcium Level 9.3 MG/DL (8.5-10.1) Total Bilirubin 1.1 MG/DL (0.2-1.0) Direct Bilirubin 0.3 MG/DL (0.0-0.3) Aspartate Amino Transf (AST/SGOT) 35 U/L (15-37) Alanine Aminotransferase (ALT/SGPT) 42 U/L (12-78) Alkaline Phosphatase 131 U/L (46-116) Total Creatine Kinase 344 U/L (26-308) Creatine Kinase MB 1.4 NG/ML (0.0-3.6) Creatine Kinase MB Relative Index 0.4 Troponin I 0.008 ng/mL (0.000-0.056) Total Protein 9.1 G/DL (6.4-8.2) Albumin 4.2 G/DL (3.4-5.0) Globulin 4.9 g/dL Albumin/Globulin Ratio 0.9 (1.0-2.7) Lipase 109 U/L (73-393) Rhythm Strip Diag. Results EP Interpretation: yes Rate: 67 Rhythm: NSR, no PVC's, no ectopy Chest X-Ray Diagnostic Results Chest X-Ray Diagnostic Results : Chest X-Ray Ordered: Yes # of Views/Limited/Complete: 1 View Indication: Chest Pain EP Interpretation: Yes Interpretation: no consolidation, no effusion, other - Cardiomegaly Impression: No acute disease Electronically Signed by: Lidya Okeefe DO CT/MRI/US Diagnostic Results CT/MRI/US Diagnostic Results : Impression CT abdomen pelvis: Thickening of the gallbladder wall considered cholecystitis Last Vital Signs Date Time Temp Pulse Resp B/P (MAP) Pulse Ox O2 Delivery O2 Flow Rate FiO2 08/17/17 21:12 100.1 96 16 187/98 98 Room Air 100.0 Status: improved Disposition: ADMITTED INPATIENT Condition: Serious Lidya Okeefe DO August 17, 2017 21:39
[2017-08-17 22:06] LABS: HEMATOCRIT 40.3 % (37.0-47.0); HEMOGLOBIN 12.2 G/DL (12.0-16.0); MEAN CORPUSCULAR VOLUME 99 FL (80-99); PLATELET COUNT 80 K/UL (150-450); RED BLOOD COUNT 4.07 M/UL (4.20-5.40); RED CELL DISTRIBUTION WIDTH 18.1 % (11.6-14.8); WHITE BLOOD COUNT 9.5 K/UL (4.8-10.8)
[2017-08-17 22:20] LABS: EOSINOPHILS % (AUTO) 0.8 % (0.0-3.0); LYMPHOCYTES % (AUTO) 14.9 % (20.0-45.0); MONOCYTES % (AUTO) 4.7 % (1.0-10.0); NEUTROPHILS % (AUTO) 78.5 % (45.0-75.0)
[2017-08-17 22:47] LABS: ALANINE AMINOTRANSFERASE 42 U/L (12-78); ALBUMIN 4.2 G/DL (3.4-5.0); ALBUMIN/GLOBULIN RATIO 0.9 (1.0-2.7); ALKALINE PHOSPHATASE 131 U/L (46-116); ANION GAP 18 mmol/L (5-15); ASPARTATE AMINO TRANSFERASE 35 U/L (15-37); BILIRUBIN,TOTAL 1.1 MG/DL (0.2-1.0); BLOOD UREA NITROGEN 92 mg/dL (7-18); CALCIUM 9.3 MG/DL (8.5-10.1); CARBON DIOXIDE 20 MMOL/L (21-32); CHLORIDE 96 MMOL/L (98-107); CKMB 1.4 NG/ML (0.0-3.6); CREATINE KINASE 344 U/L (26-308); CREATININE 16.1 MG/DL (0.55-1.30); SODIUM 133 MMOL/L (136-145)
[2017-08-17 22:50] LABS: POTASSIUM 7.5 MMOL/L (3.5-5.1)
[2017-08-17 22:51] LABS: BILIRUBIN,DIRECT 0.3 MG/DL (0.0-0.3)
[2017-08-17] MEDS ORDERED: LABETALOL HCL300 MG ORAL (23:02)
[2017-08-17] MEDS ORDERED: COZAAR50 MG ORAL (23:02)
[2017-08-17] MEDS ORDERED: ISOSORBIDE MONO60 M1 PO (23:02)
[2017-08-17] MEDS ORDERED: MINOXIDIL2.5 MG PO (23:02)
[2017-08-17] MEDS ORDERED: TYLENOL EXTRA500 MG ORAL (23:02)
[2017-08-17] MEDS ORDERED: CATAPRES0.3 MG ORAL (23:02)
[2017-08-17] MEDS ORDERED: Sodium Polystyrene Sulfonate 15gm Powder ORAL ONE (23:30)
[2017-08-17] MEDS ORDERED: Morphine Sulfate 4mg/ml Inj IM ONE (23:30)
[2017-08-17] MEDS ORDERED: Piperacillin/Tazobactam 3.375 GM in NS 110 ML IVPB ONE (23:30)
[2017-08-18] VITALS (19 sets, daily range): BP systolic 119–217; BP diastolic 61–118
[2017-08-18] MEDS ORDERED: Nitroglycerin 2% oint pkt TOPIC ONE
--- NOTE | 2017-08-18 00:34 | Consultation ---
History of Present Illness General Date patient seen: August 18, 2017 Chief Complaint: Abdominal Pain Reason for Consultation: acute cholecystitis Present Illness HPI 52 year old female with multiple medical comorbidities including renal failure on dialysis M/W/F presented to ED with complaints of acute abdominal pain x 1 day. As per patient, she was in her normal state of health until earlier today when she began to have diffuse abdominal pain which was most prominent in RUQ/ epigastric region. pain described as cramping 8/10 pain a max with radiation to right upper back. initially believed to be stomach pain and her purchased over the counter antacid for her without significant relief. as pain persisted she came to ED for evaluation. has never had similar symptoms. no n/v /f/c. currently pain intermittent and no longer generalized (RUQ/epi now). normal flatus and BM's. In ED found to have elevated alk phos and CT suggestive of possible cholecystitis. Surgery called to evaluate. patient seen , chart reviewed, patient examined. Allergies: Coded Allergies: ACETAMINOPHEN (Verified Adverse Reaction, Unknown, 08/17/17) nausea CODEINE (Verified Adverse Reaction, Unknown, NAUSEA, 04/18/10) HYDROCODONE (Verified Adverse Reaction, Unknown, 08/17/17) nausea Medication History Scheduled Aspirin (Aspirin), 81 MG PO DAILY, (Reported) Atorvastatin Calcium* (Lipitor*), 10 MG ORAL BEDTIME, (Reported) Calcitriol (Calcitriol), 0.25 MCG PO DAILY, (Reported) Carvedilol (Coreg), 12.5 MG ORAL EVERY 12 HOURS, (Reported) Cholecalciferol (Vitamin D3)* (Vitamin D*), 1,000 UNIT ORAL DAILY, (Reported) Clonidine Hcl* (Catapres*), 0.3 MG ORAL BID, (Reported) Labetalol Hcl* (Normodyne*), 300 MG ORAL EVERY 12 HOURS, (Reported) Losartan Potassium* (Cozaar*), 100 MG ORAL DAILY, (Reported) Minoxidil* (Loniten*), 2.5 MG PO DAILY, (Reported) Scheduled PRN Acetaminophen* (Tylenol Extra Strength*), 500 MG ORAL Q8H PRN for Prn Headache/ Temp > 101, (Reported) Diazepam* (Diazepam*), 2 MG ORAL Q6H PRN for For Anxiety, (Reported) Ondansetron Odt* (Zofran Odt*), 4 MG ORAL Q6H PRN for Nausea & Vomiting Tramadol Hcl* (Ultram*), 50 MG ORAL Q12HR PRN for For Pain Tramadol Hcl* (Ultram*), 50 MG ORAL Q6H PRN for For Pain Miscellaneous Medications Folic Acid/Vitamin B Comp W-C (Maria Esther-Isra Tablet), Unknown Dose PO, (Reported) Isosorbide Mononitrate (Isosorbide Mononitrate Er), 60 MG PO, (Reported) Patient History History Provided By: Patient, Medical Record, PMD Healthcare decision maker Resuscitation status Advanced Directive on File Past Medical/Surgical History Past Medical/Surgical History: (1) Knee pain (2) Vaginal itching (3) UTI (urinary tract infection) (4) Elevated troponin (5) Chest pain (6) Gastritis (7) Hypertension (8) Abdominal pain (9) ESRD (end stage renal disease) on dialysis Review of Systems Constitutional: Denies: no symptoms, see HPI, chills, sweats, fever, malaise, weakness, other Eye: Denies: no symptoms, see HPI, eye pain, blurred vision, tearing, double vision, nose pain, nose congestion, acuity changes, discharge, other ENT: Denies: no symptoms, see HPI, ear pain, ear discharge, nose pain, nose congestion, throat pain, throat swelling, mouth pain, hearing loss, nasal discharge, other Respiratory: Denies: no symptoms, see HPI, cough, orthopnea, shortness of breath, stridor, wheezing, JOYCE, sputum, other Cardiovascular: Denies: no symptoms, see HPI, chest pain, edema, palpitations, syncope, PND, other Gastrointestinal: Reports: abdominal pain Genitourinary: Denies: no symptoms, see HPI, discharge, dysuria, frequency, hematuria, pain, retention, incontinence, urgency, vag bleed/dc, other Musculoskeletal: Reports: back pain Skin: Denies: no symptoms, see HPI, rash, change in color, change in hair/nails , dryness, lesions, other Psychiatric: Denies: no symptoms, see HPI, prior hx, anxiety, depressed feelings, emotional problems, SI, HI, hallucinations, other Neurological: Denies: no symptoms, see HPI, headache, numbness, paresthesia, seizure, tingling, tremors, focal weakness, syncope, dizziness, other Endocrine: Denies: no symptoms, see HPI, excessive sweating, flushing, intolerance to temperature, increased thirst, increased urine, unexplained weight loss, other Hematologic/Lymphatic: Denies: no symptoms, see HPI, anemia, blood clots, easy bleeding, easy bruising, swollen glands, diathesis, other Physical Exam General Appearance: no apparent distress, alert HEENT: normocephalic, mucous membranes moist, PERRL Neck: normal alignment Respiratory/Chest: lungs clear, normal breath sounds, no respiratory distress, no accessory muscle use Cardiovascular/Chest: normal peripheral pulses, normal rate Abdomen: normal bowel sounds, soft, no organomegaly, no mass, other - tender with rebound and guarding in RUQ and epigastric region. +[place] Extremities: normal range of motion Skin Exam: normal pigmentation Neurologic: alert, oriented x 3, responsive Last 24 Hour Vital Signs Date Time Temp Pulse Resp B/P (MAP) Pulse Ox O2 Delivery O2 Flow Rate FiO2 08/18/17 00:02 180/98 08/18/17 00:00 104 29 180/98 96 Room Air 08/17/17 23:38 100.1 08/17/17 22:38 100.1 08/17/17 22:08 100.1 08/17/17 21:20 100.0 16 187/98 98 Room Air 100.0 08/17/17 21:12 100.1 96 16 187/98 98 Room Air 100.0 Intake and Output 08/17/17 08/18/17 19:00 07:00 Intake Total 0 ml Balance 0 ml Intake Oral 0 ml Laboratory Tests Test 08/17/17 21:46 White Blood Count 9.5 K/UL (4.8-10.8) Red Blood Count 4.07 M/UL (4.20-5.40) L Hemoglobin 12.2 G/DL (12.0-16.0) Hematocrit 40.3 % (37.0-47.0) Mean Corpuscular Volume 99 FL (80-99) Mean Corpuscular Hemoglobin 30.1 PG (27.0-31.0) Mean Corpuscular Hemoglobin Concent 30.4 G/DL (32.0-36.0) L Red Cell Distribution Width 18.1 % (11.6-14.8) H Platelet Count 80 K/UL (150-450) L Mean Platelet Volume 8.1 FL (6.5-10.1) Neutrophils (%) (Auto) 78.5 % (45.0-75.0) H Lymphocytes (%) (Auto) 14.9 % (20.0-45.0) L Monocytes (%) (Auto) 4.7 % (1.0-10.0) Eosinophils (%) (Auto) 0.8 % (0.0-3.0) Basophils (%) (Auto) 1.0 % (0.0-2.0) Sodium Level 133 MMOL/L (136-145) L Potassium Level 7.5 MMOL/L (3.5-5.1) *H Chloride Level 96 MMOL/L (98-107) L Carbon Dioxide Level 20 MMOL/L (21-32) L Anion Gap 18 mmol/L (5-15) H Blood Urea Nitrogen 92 mg/dL (7-18) H Creatinine 16.1 MG/DL (0.55-1.30) H Estimat Glomerular Filtration Rate 2.9 mL/min (>60) Glucose Level 89 MG/DL (74-106) Calcium Level 9.3 MG/DL (8.5-10.1) Total Bilirubin 1.1 MG/DL (0.2-1.0) H Direct Bilirubin 0.3 MG/DL (0.0-0.3) Aspartate Amino Transf (AST/SGOT) 35 U/L (15-37) Alanine Aminotransferase (ALT/SGPT) 42 U/L (12-78) Alkaline Phosphatase 131 U/L (46-116) H Total Creatine Kinase 344 U/L (26-308) H Creatine Kinase MB 1.4 NG/ML (0.0-3.6) Creatine Kinase MB Relative Index 0.4 Troponin I 0.008 ng/mL (0.000-0.056) Total Protein 9.1 G/DL (6.4-8.2) H Albumin 4.2 G/DL (3.4-5.0) Globulin 4.9 g/dL Albumin/Globulin Ratio 0.9 (1.0-2.7) L Lipase 109 U/L (73-393) Height (Feet): 5 Height (Inches): 5.00 Weight (Pounds): 176 Medications Current Medications Medications (Trade) Dose Ordered Sig/Johnna Route PRN Reason Start Time Stop Time Status Last Admin Dose Admin Piperacillin Sod/ Tazobactam Sod 3.375 gm/Sodium Chloride 110 ml @ 27.5 mls/hr EVERY 8 HOURS ONCE IVPB 08/17/17 23:30 08/18/17 03:29 08/17/17 23:39 Assessment/Plan Problem List: (1) Acute cholecystitis Assessment & Plan: 52F with first episode of acute cholecystitis. afebrile, HD stable, no leukocytosis, elevated alk phos, CT findings as above, exam with + Sosa's. -NPO -IV fluids -IV Abx -Abdominal ultrasound (CT not very sensitive for cholecystitis) -trend labs -will follow. if improves shortly will treat conservatively. if not, will need surgery. thank you for this consultation. ICD Codes: K81.0 - Acute cholecystitis SNOMED: [id number] Status: stable [email or web address] August 18, 2017 00:34
[2017-08-18] MEDS ORDERED: Sodium Polystyrene Sulfonate 15gm Powder ORAL ONE (06:00)
[2017-08-18 06:15] LABS: BASOPHILS % (AUTO) 0.7 % (0.0-2.0); EOSINOPHILS % (AUTO) 0.3 % (0.0-3.0); HEMATOCRIT 44.9 % (37.0-47.0); HEMOGLOBIN 13.4 G/DL (12.0-16.0); MEAN CORPUSCULAR VOLUME 101 FL (80-99); MONOCYTES % (AUTO) 4.6 % (1.0-10.0); NEUTROPHILS % (AUTO) 79.3 % (45.0-75.0); PLATELET COUNT 114 K/UL (150-450); RED BLOOD COUNT 4.45 M/UL (4.20-5.40); RED CELL DISTRIBUTION WIDTH 18.5 % (11.6-14.8); WHITE BLOOD COUNT 10.6 K/UL (4.8-10.8)
[2017-08-18 06:22] LABS: INR 1.1 (0.9-1.1)
[2017-08-18 06:32] LABS: ALANINE AMINOTRANSFERASE 42 U/L (12-78); ALBUMIN 3.9 G/DL (3.4-5.0); ALBUMIN/GLOBULIN RATIO 0.8 (1.0-2.7); ALKALINE PHOSPHATASE 127 U/L (46-116); ANION GAP 14 mmol/L (5-15); ASPARTATE AMINO TRANSFERASE 22 U/L (15-37); BILIRUBIN,TOTAL 1.3 MG/DL (0.2-1.0); BLOOD UREA NITROGEN 98 mg/dL (7-18); CARBON DIOXIDE 24 MMOL/L (21-32); CHLORIDE 98 MMOL/L (98-107); CREATININE 16.6 MG/DL (0.55-1.30); POTASSIUM 7.7 MMOL/L (3.5-5.1); SODIUM 136 MMOL/L (136-145)
[2017-08-18 06:33] LABS: BILIRUBIN,DIRECT 0.6 MG/DL (0.0-0.3)
[2017-08-18] MEDS ORDERED: Losartan 50mg tab ORAL SCH (09:00)
[2017-08-18] MEDS ORDERED: Carvedilol 12.5mg tab ORAL SCH (09:00)
[2017-08-18] MEDS ORDERED: Minoxidil 2.5mg tab ORAL SCH (09:00)
[2017-08-18] MEDS ORDERED: Calcitriol 0.25mcg Cap ORAL SCH (09:00)
[2017-08-18] MEDS ORDERED: Vitamin D 1000 IU Tab ORAL SCH (09:00)
[2017-08-18] MEDS: Dextrose 5%/Lactated Ringer's 1,000 ML IV SCH (09:21)
[2017-08-18] MEDS: Piperacillin/Tazobactam 2.25 GM in D5W 55 ML IVPB SCH ×3 (09:26→21:59)
--- NOTE | 2017-08-18 10:13 | Diagnostic Imaging Report ---
Indication: Chest pain Technique: Continuous helical transaxial imaging of the abdomen and pelvis was obtained from the lung bases to the pubic symphysis. No IV contrast was administered. Coronal 2-D reformats were also obtained. Study obtained in a Siemens sensation [address] Total Dose length Product (DLP): 1319.[address] Dose Index Volume (CTDIvol): 19.7 mGy Comparison: None Findings: CT CHEST: The exam is limited by lack of contrast material. There is a moderate to large pericardial effusion. There is a small right pleural effusion. Patchy groundglass opacities are present within both upper and lower lobes nonspecific may be on the basis of mild interstitial edema. Correlate clinically. Axilla appear clear. CT abdomen and pelvis: Gallstones are present. There is thickening of the gallbladder wall. There is periportal edema suspected. Kidneys are atrophic. Aorta is mildly calcified. Bilateral adnexal cysts suspected within the ovaries. Uterus noted. Bladder is nondistended. Trace free fluid is probably present. Appendix is normal. IMPRESSION: Moderate to large pericardial effusion. Trace right pleural effusion. Patchy round glass lung opacities, nonspecific. Consider mild interstitial edema. Cholelithiasis. Moderate wall thickening. Cholecystitis not excluded. Atrophic kidneys consistent with chronic renal insufficiency. Atherosclerotic disease. Suggestion of bilateral ovarian cysts. This may be evaluated by ultrasound if needed. Periportal edema nonspecific. [facility] has communicated the preliminary results to the Emergency Department. Their findings are largely concordant with this report. The CT scanner at [facility] is accredited by the [employer] and the scans are performed using dose optimization techniques as appropriate to a performed exam including Automatic Exposure control.
--- NOTE | 2017-08-18 10:44 | Diagnostic Imaging Report ---
Indication: Chest pain Comparison: 06/11/2016 A single view chest radiograph was obtained. Findings: There is enlargement of the cardiac silhouette with pulmonary vascular redistribution and prominence, hazy vessel margins and the suggestion of interstitial edema consistent with CHF. Bones are unremarkable. IMPRESSION: Mild congestive heart failure.
--- NOTE | 2017-08-18 11:30 | Consultation ---
Consult Note Consult Note asked to eval for dialysis management Patient presents with complaints of abdominal pain fairly diffuse some radiation towards the back Patient has renal failure on dialysis Monday and due tomorrow morning Denies any chest pain or shortness of breath Denies any diarrhea Denies any fevers or chills Does not have any association with position or exertion Cramping and sharp Allergies: Coded Allergies: ACETAMINOPHEN (Verified Adverse Reaction, Unknown, 08/17/17) nausea CODEINE (Verified Adverse Reaction, Unknown, NAUSEA, 04/18/10) HYDROCODONE (Verified Adverse Reaction, Unknown, 08/17/17) nausea Hx Cardiac Problems: Yes Hx Hypertension: Yes Hx Dialysis: Yes - MWF seen in ICU On dialysis for K of over 7 missed one dialysis 2 days ago been on dialysis for 8 years Assessment/Plan ESRD High K- missed HD HTN OOC Abdominal pain, ? Cholecystitis Plan: HD with low K in process BP med adjustments per GI NPO Per orders LAM SOLANO August 18, 2017 11:30
--- NOTE | 2017-08-18 12:28 | General Surgery Progress Note ---
General Surgery-Progress Note Subjective Additional Comments states she feels okay. abdominal pain improved. no n/v/f/c. back pain still Objective Last 24 Hour Vital Signs Date Time Temp Pulse Resp B/P (MAP) Pulse Ox O2 Delivery O2 Flow Rate FiO2 08/18/17 09:00 79 08/18/17 08:40 Nasal Cannula 2.0 08/18/17 04:00 87 08/18/17 04:00 97.0 83 22 171/108 91 97.0 08/18/17 02:43 98 170/102 08/18/17 02:29 115 184/107 08/18/17 00:18 110 08/18/17 00:15 98.9 104 29 180/98 96 Room Air 100.1 08/18/17 00:12 115 184/107 08/18/17 00:02 180/98 08/18/17 00:00 104 29 180/98 96 Room Air 08/18/17 00:00 99.4 113 23 91 99.4 08/17/17 23:38 100.1 08/17/17 22:38 100.1 08/17/17 22:08 100.1 08/17/17 21:20 100.0 16 187/98 98 Room Air 100.0 08/17/17 21:12 100.1 96 16 187/98 98 Room Air 100.0 I&O Intake and Output 08/17/17 08/18/17 19:00 07:00 Intake Total 0 ml Output Total 0 ml Balance 0 ml Intake Oral 0 ml Output Urine Total 0 ml Drains: none Cardiovascular: RSR Respiratory: clear Abdomen: soft, flat, tenderness, other - epigastric and ruq tenderness improved today. Extremities: no cyanosis Laboratory Tests Test 08/17/17 21:46 08/18/17 05:45 08/18/17 06:40 08/18/17 10:30 White Blood Count 9.5 K/UL (4.8-10.8) 10.6 K/UL (4.8-10.8) Red Blood Count 4.07 M/UL (4.20-5.40) L 4.45 M/UL (4.20-5.40) Hemoglobin 12.2 G/DL (12.0-16.0) 13.4 G/DL (12.0-16.0) Hematocrit 40.3 % (37.0-47.0) 44.9 % (37.0-47.0) Mean Corpuscular Volume 99 FL (80-99) 101 FL (80-99) H Mean Corpuscular Hemoglobin 30.1 PG (27.0-31.0) 30.1 PG (27.0-31.0) Mean Corpuscular Hemoglobin Concent 30.4 G/DL (32.0-36.0) L 29.8 G/DL (32.0-36.0) L Red Cell Distribution Width 18.1 % (11.6-14.8) H 18.5 % (11.6-14.8) H Platelet Count 80 K/UL (150-450) L 114 K/UL (150-450) L Mean Platelet Volume 8.1 FL (6.5-10.1) 8.8 FL (6.5-10.1) Neutrophils (%) (Auto) 78.5 % (45.0-75.0) H 79.3 % (45.0-75.0) H Lymphocytes (%) (Auto) 14.9 % (20.0-45.0) L 15.0 % (20.0-45.0) L Monocytes (%) (Auto) 4.7 % (1.0-10.0) 4.6 % (1.0-10.0) Eosinophils (%) (Auto) 0.8 % (0.0-3.0) 0.3 % (0.0-3.0) Basophils (%) (Auto) 1.0 % (0.0-2.0) 0.7 % (0.0-2.0) Sodium Level 133 MMOL/L (136-145) L 136 MMOL/L (136-145) Potassium Level 7.5 MMOL/L (3.5-5.1) *H 7.7 MMOL/L (3.5-5.1) *H Chloride Level 96 MMOL/L (98-107) L 98 MMOL/L (98-107) Carbon Dioxide Level 20 MMOL/L (21-32) L 24 MMOL/L (21-32) Anion Gap 18 mmol/L (5-15) H 14 mmol/L (5-15) Blood Urea Nitrogen 92 mg/dL (7-18) H 98 mg/dL (7-18) H Creatinine 16.1 MG/DL (0.55-1.30) H 16.6 MG/DL (0.55-1.30) H Estimat Glomerular Filtration Rate 2.9 mL/min (>60) 2.8 mL/min (>60) Glucose Level 89 MG/DL (74-106) 24 MG/DL (74-106) *L 131 MG/DL (74-106) #H Calcium Level 9.3 MG/DL (8.5-10.1) 9.0 MG/DL (8.5-10.1) Total Bilirubin 1.1 MG/DL (0.2-1.0) H 1.3 MG/DL (0.2-1.0) H Direct Bilirubin 0.3 MG/DL (0.0-0.3) 0.6 MG/DL (0.0-0.3) H Aspartate Amino Transf (AST/SGOT) 35 U/L (15-37) 22 U/L (15-37) Alanine Aminotransferase (ALT/SGPT) 42 U/L (12-78) 42 U/L (12-78) Alkaline Phosphatase 131 U/L (46-116) H 127 U/L (46-116) H Total Creatine Kinase 344 U/L (26-308) H Creatine Kinase MB 1.4 NG/ML (0.0-3.6) Creatine Kinase MB Relative Index 0.4 Troponin I 0.008 ng/mL (0.000-0.056) Total Protein 9.1 G/DL (6.4-8.2) H 8.9 G/DL (6.4-8.2) H Albumin 4.2 G/DL (3.4-5.0) 3.9 G/DL (3.4-5.0) Globulin 4.9 g/dL 5.0 g/dL Albumin/Globulin Ratio 0.9 (1.0-2.7) L 0.8 (1.0-2.7) L Lipase 109 U/L (73-393) Prothrombin Time 11.9 SEC (9.30-11.50) H Prothromb Time International Ratio 1.1 (0.9-1.1) Hemoglobin A1c 4.5 % (4.3-6.0) Arterial Blood pH 7.150 (7.350-7.450) Arterial Blood Partial Pressure CO2 58.3 mmHg (35.0-45.0) *H Arterial Blood Partial Pressure O2 176.1 mmHg (75.0-100.0) H Arterial Blood HCO3 19.9 mmol/L (22.0-26.0) L Arterial Blood Oxygen Saturation 98.5 % (92.0-98.0) H Arterial Blood Base Excess -9.5 Enrike Test Positive C-Reactive Protein, Quantitative 7.7 mg/dL (0.00-0.90) H Plan Problems: (1) Acute cholecystitis Assessment & Plan: 52F with first episode of acute cholecystitis. afebrile, HD stable, no leukocytosis, elevated alk phos, CT findings as above, exam with + Sosa's. on exam today tenderness improved. labs okay. -NPO -IV fluids -IV Abx -Abdominal ultrasound (CT not very sensitive for cholecystitis) -trend labs -2D echo to evaluate large pericardial effusion -cardiology eval -fortunately acute cholecystitis seems to be resolving with conservative non operative management. will monitor. thank you for this consultation. Zach Ramirez August 18, 2017 12:28
[2017-08-18] MEDS: Imdur 30mg tab ORAL SCH (12:31)
[2017-08-18] MEDS: Morphine Sulfate 4mg/ml Inj IVP PRN ×3 (12:34→21:59)
--- NOTE | 2017-08-18 12:34 | History & Physical ---
History and Physical History & Physicial seen and examined. Full Dictation completed. Time of the encounter is On August 17. Time of this dictation , does not reflect actual time of encounter Ivan Park MD August 18, 2017 12:34
--- NOTE | 2017-08-18 12:39 | General Progress Note ---
Assessment/Plan Status: unchanged Assessment/Plan 1 -Sepsis, source ? 2- Pericardial effusion 3- Hypertensive emergency 4- ESRD 5- CAD- h/o of 6- Cholecystisit Plan: GI Nephro ID land resource specialist Surgon are consulted and notified Subjective ROS Limited/Unobtainable: No Constitutional: Reports: malaise HEENT: Reports: no symptoms Cardiovascular: Reports: no symptoms Respiratory: Reports: no symptoms Allergies: Coded Allergies: ACETAMINOPHEN (Verified Adverse Reaction, Unknown, 08/17/17) nausea CODEINE (Verified Adverse Reaction, Unknown, NAUSEA, 04/18/10) HYDROCODONE (Verified Adverse Reaction, Unknown, 08/17/17) nausea Objective Last 24 Hour Vital Signs Date Time Temp Pulse Resp B/P (MAP) Pulse Ox O2 Delivery O2 Flow Rate FiO2 08/18/17 12:31 227/92 08/18/17 12:30 227/92 08/18/17 09:00 79 08/18/17 08:40 Nasal Cannula 2.0 08/18/17 04:00 87 08/18/17 04:00 97.0 83 22 171/108 91 97.0 08/18/17 02:43 98 170/102 08/18/17 02:29 115 184/107 08/18/17 00:18 110 08/18/17 00:15 98.9 104 29 180/98 96 Room Air 100.1 08/18/17 00:12 115 184/107 08/18/17 00:02 180/98 08/18/17 00:00 104 29 180/98 96 Room Air 08/18/17 00:00 99.4 113 23 91 99.4 08/17/17 23:38 100.1 08/17/17 22:38 100.1 08/17/17 22:08 100.1 08/17/17 21:20 100.0 16 187/98 98 Room Air 100.0 08/17/17 21:12 100.1 96 16 187/98 98 Room Air 100.0 Intake and Output 08/17/17 08/18/17 19:00 07:00 Intake Total 0 ml Output Total 0 ml Balance 0 ml Intake Oral 0 ml Output Urine Total 0 ml Laboratory Tests 08/17/17 21:46: White Blood Count 9.5, Red Blood Count 4.07L, Hemoglobin 12.2, Hematocrit 40.3, Mean Corpuscular Volume 99, Mean Corpuscular Hemoglobin 30.1, Mean Corpuscular Hemoglobin Concent 30.4L, Red Cell Distribution Width 18.1H, Platelet Count 80L , Mean Platelet Volume 8.1, Neutrophils (%) (Auto) 78.5H, Lymphocytes (%) (Auto ) 14.9L, Monocytes (%) (Auto) 4.7, Eosinophils (%) (Auto) 0.8, Basophils (%) ( Auto) 1.0, Sodium Level 133L, Potassium Level 7.5*H, Chloride Level 96L, Carbon Dioxide Level 20L, Anion Gap 18H, Blood Urea Nitrogen 92H, Creatinine 16.1H, Estimat Glomerular Filtration Rate 2.9, Glucose Level 89, Calcium Level 9.3, Total Bilirubin 1.1H, Direct Bilirubin 0.3, Aspartate Amino Transf (AST/SGOT) 35 , Alanine Aminotransferase (ALT/SGPT) 42, Alkaline Phosphatase 131H, Total Creatine Kinase 344H, Creatine Kinase MB 1.4, Creatine Kinase MB Relative Index 0.4, Troponin I 0.008, Total Protein 9.1H, Albumin 4.2, Globulin 4.9, Albumin/ Globulin Ratio 0.9L, Lipase 109 08/18/17 05:45: White Blood Count 10.6, Red Blood Count 4.45, Hemoglobin 13.4, Hematocrit 44.9, Mean Corpuscular Volume 101H, Mean Corpuscular Hemoglobin 30.1, Mean Corpuscular Hemoglobin Concent 29.8L, Red Cell Distribution Width 18.5H, Platelet Count 114L, Mean Platelet Volume 8.8, Neutrophils (%) (Auto) 79.3H, Lymphocytes (%) (Auto) 15.0L, Monocytes (%) (Auto) 4.6, Eosinophils (%) (Auto) 0.3, Basophils (%) (Auto) 0.7, Sodium Level 136, Potassium Level 7.7*H, Chloride Level 98, Carbon Dioxide Level 24, Anion Gap 14, Blood Urea Nitrogen 98H, Creatinine 16.6H, Estimat Glomerular Filtration Rate 2.8, Glucose Level 24* L, Calcium Level 9.0, Total Bilirubin 1.3H, Direct Bilirubin 0.6H, Aspartate Amino Transf (AST/SGOT) 22, Alanine Aminotransferase (ALT/SGPT) 42, Alkaline Phosphatase 127H, Total Protein 8.9H, Albumin 3.9, Globulin 5.0, Albumin/ Globulin Ratio 0.8L, Prothrombin Time 11.9H, Prothromb Time International Ratio 1.1, Hemoglobin A1c 4.5 08/18/17 06:40: Arterial Blood pH 7.150*L, Arterial Blood Partial Pressure CO2 58.3*H, Arterial Blood Partial Pressure O2 176.1H, Arterial Blood HCO3 19.9L, Arterial Blood Oxygen Saturation 98.5H, Arterial Blood Base Excess -9.5, Enrike Test Positive 08/18/17 10:30: Glucose Level 131#H, C-Reactive Protein, Quantitative 7.7H Height (Feet): 5 Height (Inches): 5.00 Weight (Pounds): 176 General Appearance: no apparent distress EENT: PERRL/EOMI Neck: supple Cardiovascular: tachycardia Respiratory/Chest: rhonchi - bilaterally Abdomen: guarding, other - No rebound tenderness Extremities: non-tender Neurologic: land acquisition specialist II-XII grossly normal Ivan Park MD August 18, 2017 12:39
[2017-08-18] MEDS ORDERED: cloNIDine 0.2mg Tab ORAL SCH (13:00)
[2017-08-18] MEDS: Minoxidil 2.5mg tab ORAL PRN (14:59)
--- NOTE | 2017-08-18 15:23 | Pulmonolgy Critical Care Note ---
Critical Care - Asmt/Plan Problems: (1) Hypertensive urgency (2) Sepsis (3) ESRD (end stage renal disease) on dialysis Respiratory: monitor respiratory rate, adjust FIO2 Cardiac: continue to monitor HR/BP Renal: F/U I&O, check electrolytes Infectious Disease: check cultures, continue antibiotics Gastrointestinal: hold feedings Endocrine: monitor blood sugar Neurologic: PRN Morphine Affect: PRN ativan Prophylaxis: Protonix Notes Reviewed: 411 directory assistance operator, renal Discussed with: nurses, consultants, case advocatetransition manager - Objective Last 24 Hour Vital Signs Date Time Temp Pulse Resp B/P (MAP) Pulse Ox O2 Delivery O2 Flow Rate FiO2 08/18/17 14:59 174/95 08/18/17 12:31 227/92 08/18/17 12:30 227/92 08/18/17 12:15 Nasal Cannula 2.0 08/18/17 12:00 75 08/18/17 12:00 98.8 101 20 217/95 96 Nasal Cannula 2.0 98.8 08/18/17 11:00 81 14 214/101 96 Nasal Cannula 2.0 08/18/17 10:00 97.5 82 14 201/99 95 Nasal Cannula 2.0 97.5 08/18/17 09:00 81 14 213/114 97 Nasal Cannula 2.0 08/18/17 08:40 Nasal Cannula 2.0 08/18/17 08:00 95.4 81 25 214/118 100 Non-Rebreather 100 95.4 08/18/17 08:00 79 08/18/17 04:00 87 08/18/17 04:00 97.0 83 22 171/108 91 97.0 08/18/17 02:43 98 170/102 08/18/17 02:29 115 184/107 08/18/17 00:18 110 08/18/17 00:15 98.9 104 29 180/98 96 Room Air 100.1 08/18/17 00:12 115 184/107 08/18/17 00:02 180/98 08/18/17 00:00 104 29 180/98 96 Room Air 08/18/17 00:00 99.4 113 23 91 99.4 08/17/17 23:38 100.1 08/17/17 22:38 100.1 08/17/17 22:08 100.1 08/17/17 21:20 100.0 16 187/98 98 Room Air 100.0 08/17/17 21:12 100.1 96 16 187/98 98 Room Air 100.0 Status: awake Condition: critical HEENT: atraumatic Neck: full ROM Heart: HR/BP stable, HR/BP unstable Abdomen: non-tender Extremities: no C/C/E Decubiti: stage Critical Care - Subjective ROS Limited/Unobtainable: No ICU Day: 2 Condition: critical EKG Rhythm: Sinus Rhythm FI02: 100 Fluids: NS I&O: Intake and Output 08/17/17 08/18/17 19:00 07:00 Intake Total 0 ml Output Total 0 ml Balance 0 ml Intake Oral 0 ml Output Urine Total 0 ml CXR: cardiomegaly, pulmonary edema Luz Maria Tomlinson MD August 18, 2017 15:23
--- NOTE | 2017-08-18 15:52 | GI Initial Consult Note ---
History of Present Illness General Date patient seen: August 18, 2017 Time patient seen: 15:33 Reason for Hospitalization: Abdominal Pain Referring physician: JANET CHUN Reason for Consultation: acute cholecystitis Present Illness HPI Patient presents with complaints of abdominal pain fairly diffuse some radiation towards the back Patient has renal failure on dialysis Monday and due tomorrow morning Denies any chest pain or shortness of breath Denies any diarrhea Denies any fevers or chills Does not have any association with position or exertion Cramping and sharp GI consulted abdominal pain. ROS limited, pt s/p HD today is extremely fatigue. CT reviewed shows cholelithiasis, pending US report. Labs show elevated total bilirubin. No anemia. No leukocytosis. Unknown history of endoscopy / colonoscopy. Home Meds Active Scripts Tramadol Hcl* (ULTRAM*) 50 Mg Tablet, 50 MG ORAL Q6H PRN for For Pain, #20 TAB 0 Refills Prov:MEL MCKEON D.O. 01/12/16 Ondansetron Odt* (ZOFRAN ODT*) 4 Mg Tab.rapdis, 4 MG ORAL Q6H PRN for Nausea & Vomiting, #10 TAB 0 Refills Prov:MEL MCKEON D.O. 01/12/16 Tramadol Hcl* (ULTRAM*) 50 Mg Tablet, 50 MG ORAL Q12HR PRN for For Pain, #20 TAB Prov:Lidya Okeefe DO 11/25/13 Reported Medications Acetaminophen* (TYLENOL EXTRA STRENGTH*) 500 Mg Tablet, 500 MG ORAL Q8H PRN for Prn Headache/Temp > 101, #30 TAB 0 Refills 08/17/17 Minoxidil* (LONITEN*) 2.5 Mg Tablet, 2.5 MG PO DAILY, TAB 08/17/17 Isosorbide Mononitrate (ISOSORBIDE MONONITRATE ER) 60 Mg Tab.er.24h, 60 MG PO, TAB 08/17/17 Labetalol Hcl* (NORMODYNE*) 300 Mg Tablet, 300 MG ORAL EVERY 12 HOURS, TAB 08/17/17 Clonidine Hcl* (CATAPRES*) 0.3 Mg Tablet, 0.3 MG ORAL BID, TAB 08/17/17 Losartan Potassium* (COZAAR*) 50 Mg Tablet, 100 MG ORAL DAILY, TAB 08/17/17 Carvedilol (Coreg) 12.5 Mg Tablet, 12.5 MG ORAL EVERY 12 HOURS, TAB 06/15/16 Atorvastatin Calcium* (LIPITOR*) 10 Mg Tablet, 10 MG ORAL BEDTIME, TAB 06/15/16 Aspirin (Aspirin) 81 Mg Tab.chew, 81 MG PO DAILY, TAB 06/15/16 Cholecalciferol (Vitamin D3)* (VITAMIN D*) 1,000 Unit Tablet, 1000 UNIT ORAL DAILY, #30 TAB 06/11/16 Folic Acid/Vitamin B Comp W-C (MICK-TERRI TABLET) 0.8 Mg Tablet, PO, TAB 11/23/15 Calcitriol (CALCITRIOL) 0.25 Mcg Capsule, 0.25 MCG PO DAILY, CAP 11/23/15 Diazepam* (DIAZEPAM*) 2 Mg Tablet, 2 MG ORAL Q6H PRN for For Anxiety, #30 TAB 0 Refills 11/23/15 Med list reviewed/reconciled: Yes Allergies: Coded Allergies: ACETAMINOPHEN (Verified Adverse Reaction, Unknown, 08/17/17) nausea CODEINE (Verified Adverse Reaction, Unknown, NAUSEA, 04/18/10) HYDROCODONE (Verified Adverse Reaction, Unknown, 08/17/17) nausea Patient History History Provided By: Patient, Medical Record PMH Narrative Past Medical History: see triage record Pertinent Family History: none Last Menstrual Period: n/a Reviewed Nursing Documentation: PMH: Agreed; PSxH: Agreed Nursing Documentation-PMH Hx Cardiac Problems: Yes Hx Hypertension: Yes Hx Cancer: No Hx Gastrointestinal Problems: No Hx Dialysis: Yes - MWF Hx Neurological Problems: No Social History: Denies: smoking, alcohol use, drug use, other Review of Systems All Other Systems: negative except mentioned in HPI Physical Exam Vital Signs Date Time Temp Pulse Resp B/P (MAP) Pulse Ox O2 Delivery O2 Flow Rate FiO2 08/17/17 21:12 100.1 96 16 187/98 98 Room Air 100.0 08/18/17 08:00 100 08/18/17 08:40 2.0 Sp02 EP Interpretation: reviewed, normal Labs Laboratory Tests Test 08/17/17 21:46 08/18/17 05:45 08/18/17 06:40 08/18/17 10:30 White Blood Count 9.5 K/UL (4.8-10.8) 10.6 K/UL (4.8-10.8) Red Blood Count 4.07 M/UL (4.20-5.40) L 4.45 M/UL (4.20-5.40) Hemoglobin 12.2 G/DL (12.0-16.0) 13.4 G/DL (12.0-16.0) Hematocrit 40.3 % (37.0-47.0) 44.9 % (37.0-47.0) Mean Corpuscular Volume 99 FL (80-99) 101 FL (80-99) H Mean Corpuscular Hemoglobin 30.1 PG (27.0-31.0) 30.1 PG (27.0-31.0) Mean Corpuscular Hemoglobin Concent 30.4 G/DL (32.0-36.0) L 29.8 G/DL (32.0-36.0) L Red Cell Distribution Width 18.1 % (11.6-14.8) H 18.5 % (11.6-14.8) H Platelet Count 80 K/UL (150-450) L 114 K/UL (150-450) L Mean Platelet Volume 8.1 FL (6.5-10.1) 8.8 FL (6.5-10.1) Neutrophils (%) (Auto) 78.5 % (45.0-75.0) H 79.3 % (45.0-75.0) H Lymphocytes (%) (Auto) 14.9 % (20.0-45.0) L 15.0 % (20.0-45.0) L Monocytes (%) (Auto) 4.7 % (1.0-10.0) 4.6 % (1.0-10.0) Eosinophils (%) (Auto) 0.8 % (0.0-3.0) 0.3 % (0.0-3.0) Basophils (%) (Auto) 1.0 % (0.0-2.0) 0.7 % (0.0-2.0) Sodium Level 133 MMOL/L (136-145) L 136 MMOL/L (136-145) Potassium Level 7.5 MMOL/L (3.5-5.1) *H 7.7 MMOL/L (3.5-5.1) *H Chloride Level 96 MMOL/L (98-107) L 98 MMOL/L (98-107) Carbon Dioxide Level 20 MMOL/L (21-32) L 24 MMOL/L (21-32) Anion Gap 18 mmol/L (5-15) H 14 mmol/L (5-15) Blood Urea Nitrogen 92 mg/dL (7-18) H 98 mg/dL (7-18) H Creatinine 16.1 MG/DL (0.55-1.30) H 16.6 MG/DL (0.55-1.30) H Estimat Glomerular Filtration Rate 2.9 mL/min (>60) 2.8 mL/min (>60) Glucose Level 89 MG/DL (74-106) 24 MG/DL (74-106) *L 131 MG/DL (74-106) #H Calcium Level 9.3 MG/DL (8.5-10.1) 9.0 MG/DL (8.5-10.1) Total Bilirubin 1.1 MG/DL (0.2-1.0) H 1.3 MG/DL (0.2-1.0) H Direct Bilirubin 0.3 MG/DL (0.0-0.3) 0.6 MG/DL (0.0-0.3) H Aspartate Amino Transf (AST/SGOT) 35 U/L (15-37) 22 U/L (15-37) Alanine Aminotransferase (ALT/SGPT) 42 U/L (12-78) 42 U/L (12-78) Alkaline Phosphatase 131 U/L (46-116) H 127 U/L (46-116) H Total Creatine Kinase 344 U/L (26-308) H Creatine Kinase MB 1.4 NG/ML (0.0-3.6) Creatine Kinase MB Relative Index 0.4 Troponin I 0.008 ng/mL (0.000-0.056) Total Protein 9.1 G/DL (6.4-8.2) H 8.9 G/DL (6.4-8.2) H Albumin 4.2 G/DL (3.4-5.0) 3.9 G/DL (3.4-5.0) Globulin 4.9 g/dL 5.0 g/dL Albumin/Globulin Ratio 0.9 (1.0-2.7) L 0.8 (1.0-2.7) L Lipase 109 U/L (73-393) Prothrombin Time 11.9 SEC (9.30-11.50) H Prothromb Time International Ratio 1.1 (0.9-1.1) Hemoglobin A1c 4.5 % (4.3-6.0) Arterial Blood pH 7.150 (7.350-7.450) Arterial Blood Partial Pressure CO2 58.3 mmHg (35.0-45.0) *H Arterial Blood Partial Pressure O2 176.1 mmHg (75.0-100.0) H Arterial Blood HCO3 19.9 mmol/L (22.0-26.0) L Arterial Blood Oxygen Saturation 98.5 % (92.0-98.0) H Arterial Blood Base Excess -9.5 Enrike Test Positive C-Reactive Protein, Quantitative 7.7 mg/dL (0.00-0.90) H General Appearance: well appearing, no apparent distress, alert, obese Head: normocephalic EENT: PERRL/EOMI, normal ENT inspection Neck: supple Respiratory: normal breath sounds, no respiratory distress Cardiovascular: normal rate Gastrointestinal: normal inspection, non tender, soft, normal bowel sounds, non -distended Rectal: deferred Genitourinary: no CVA tenderness Musculoskeletal: normal inspection, back normal Neurologic: normal inspection, alert, oriented x3, responsive Psychiatric: normal inspection, judgement/insight normal, memory normal Skin: normal inspection, normal color, no rash, warm/dry, palpation normal, well hydrated Lymphatic: normal inspection, no adenopathy Current Medications Current Medications Medications (Trade) Dose Ordered Sig/Johnna Route PRN Reason Start Time Stop Time Status Last Admin Dose Admin Atorvastatin Calcium (Lipitor) 10 mg BEDTIME ORAL 08/18/17 21:00 09/17/17 20:59 Carvedilol (Coreg) 25 mg EVERY 12 HOURS ORAL 08/18/17 21:00 09/17/17 08:59 Clonidine HCl (Catapres tab) 0.2 mg TID ORAL 08/18/17 13:00 09/17/17 12:59 08/18/17 12:30 Dextrose/Lactated Ringer's 1,000 ml @ 50 mls/hr Q20H IV 08/18/17 07:00 09/17/17 06:59 08/18/17 09:21 Diazepam (Valium) 2 mg Q6H PRN ORAL For Anxiety 08/18/17 01:30 08/25/17 01:29 Isosorbide Mononitrate (Imdur) 60 mg DAILY ORAL 08/18/17 09:00 09/17/17 08:59 08/18/17 12:31 Losartan Potassium (Cozaar) 50 mg EVERY 12 HOURS ORAL 08/18/17 21:00 09/17/17 20:59 Minoxidil (Loniten) 2.5 mg Q4H PRN ORAL bp over 170 syst 100 howard 08/18/17 13:00 09/17/17 12:59 08/18/17 14:59 Minoxidil (Loniten) 5 mg BID ORAL 08/18/17 18:00 09/17/17 08:59 Morphine Sulfate (Morphine Sulfate) 4 mg Q4H PRN IVP For Pain 08/18/17 00:45 08/25/17 00:44 08/18/17 12:34 Ondansetron HCl (Zofran ODT) 4 mg Q6H PRN ORAL Nausea & Vomiting 08/18/17 01:30 09/17/17 01:29 Pantoprazole (Protonix) 40 mg BID ORAL 08/18/17 18:00 09/17/17 08:59 Piperacillin Sod/ Tazobactam Sod 2.25 gm/Dextrose 55 ml @ 110 mls/hr Q8HR IVPB 08/18/17 06:00 08/23/17 05:59 08/18/17 14:59 GI: Plan Problems: (1) Acute cholecystitis (2) Abdominal pain (3) Gastritis Plan CT AP reviewed >> Cholelithiasis. Moderate wall thickening. Cholecystitis not excluded. fu abdominal U/S fu surgical recs for possible cholecystectomy maintain NPO + IVFs pain mgmt pp electrolyte correction fu labs Discussed with Dr. Caldwell. Thank you for this patient referral, we will follow. The patient was seen and examined at bedside and all new and available data was reviewed in the patients chart. I agree with the above findings, impression and plan. (Patient seen earlier today. Signature stamp does not reflect patient encounter time.). - MD Maude Gilbert,[facility] SENIOR CONTRACTS MANAGER August 18, 2017 15:52
[2017-08-18] MEDS: Minoxidil 2.5mg tab ORAL SCH (17:31)
[2017-08-18] MEDS: cloNIDine 0.2mg Tab ORAL SCH (18:05)
--- NOTE | 2017-08-18 20:28 | Cardiology Progress Note ---
Assessment/Plan Assessment/Plan The patient is seen and examined, full consult note will be dictated. Objective Last 24 Hour Vital Signs Date Time Temp Pulse Resp B/P (MAP) Pulse Ox O2 Delivery O2 Flow Rate FiO2 08/18/17 18:05 148/74 08/18/17 17:31 167/88 08/18/17 17:00 126 30 167/88 97 Nasal Cannula 2.0 08/18/17 17:00 120 08/18/17 16:00 119 15 173/81 95 Nasal Cannula 2.0 08/18/17 15:00 118 15 191/101 95 Nasal Cannula 2.0 08/18/17 14:59 174/95 08/18/17 14:00 117 21 174/95 96 Nasal Cannula 2.0 08/18/17 13:00 106 18 180/93 94 Nasal Cannula 2.0 08/18/17 12:31 227/92 08/18/17 12:30 227/92 08/18/17 12:15 Nasal Cannula 2.0 08/18/17 12:00 75 08/18/17 12:00 98.8 101 20 217/95 96 Nasal Cannula 2.0 98.8 08/18/17 11:00 81 14 214/101 96 Nasal Cannula 2.0 08/18/17 10:00 97.5 82 14 201/99 95 Nasal Cannula 2.0 97.5 08/18/17 09:00 81 14 213/114 97 Nasal Cannula 2.0 08/18/17 08:40 Nasal Cannula 2.0 08/18/17 08:00 95.4 81 25 214/118 100 Non-Rebreather 100 95.4 08/18/17 08:00 79 08/18/17 04:00 87 08/18/17 04:00 97.0 83 22 171/108 91 97.0 08/18/17 02:43 98 170/102 08/18/17 02:29 115 184/107 08/18/17 00:18 110 08/18/17 00:15 98.9 104 29 180/98 96 Room Air 100.1 08/18/17 00:12 115 184/107 08/18/17 00:02 180/98 08/18/17 00:00 104 29 180/98 96 Room Air 08/18/17 00:00 99.4 113 23 91 99.4 08/17/17 23:38 100.1 08/17/17 22:38 100.1 08/17/17 22:08 100.1 08/17/17 21:20 100.0 16 187/98 98 Room Air 100.0 08/17/17 21:12 100.1 96 16 187/98 98 Room Air 100.0 Intake and Output 08/17/17 08/18/17 19:00 07:00 Intake Total 0 ml Output Total 0 ml Balance 0 ml Intake Oral 0 ml Output Urine Total 0 ml Laboratory Tests Test 08/17/17 21:46 08/18/17 05:45 08/18/17 06:40 08/18/17 10:30 White Blood Count 9.5 K/UL (4.8-10.8) 10.6 K/UL (4.8-10.8) Red Blood Count 4.07 M/UL (4.20-5.40) L 4.45 M/UL (4.20-5.40) Hemoglobin 12.2 G/DL (12.0-16.0) 13.4 G/DL (12.0-16.0) Hematocrit 40.3 % (37.0-47.0) 44.9 % (37.0-47.0) Mean Corpuscular Volume 99 FL (80-99) 101 FL (80-99) H Mean Corpuscular Hemoglobin 30.1 PG (27.0-31.0) 30.1 PG (27.0-31.0) Mean Corpuscular Hemoglobin Concent 30.4 G/DL (32.0-36.0) L 29.8 G/DL (32.0-36.0) L Red Cell Distribution Width 18.1 % (11.6-14.8) H 18.5 % (11.6-14.8) H Platelet Count 80 K/UL (150-450) L 114 K/UL (150-450) L Mean Platelet Volume 8.1 FL (6.5-10.1) 8.8 FL (6.5-10.1) Neutrophils (%) (Auto) 78.5 % (45.0-75.0) H 79.3 % (45.0-75.0) H Lymphocytes (%) (Auto) 14.9 % (20.0-45.0) L 15.0 % (20.0-45.0) L Monocytes (%) (Auto) 4.7 % (1.0-10.0) 4.6 % (1.0-10.0) Eosinophils (%) (Auto) 0.8 % (0.0-3.0) 0.3 % (0.0-3.0) Basophils (%) (Auto) 1.0 % (0.0-2.0) 0.7 % (0.0-2.0) Sodium Level 133 MMOL/L (136-145) L 136 MMOL/L (136-145) Potassium Level 7.5 MMOL/L (3.5-5.1) *H 7.7 MMOL/L (3.5-5.1) *H Chloride Level 96 MMOL/L (98-107) L 98 MMOL/L (98-107) Carbon Dioxide Level 20 MMOL/L (21-32) L 24 MMOL/L (21-32) Anion Gap 18 mmol/L (5-15) H 14 mmol/L (5-15) Blood Urea Nitrogen 92 mg/dL (7-18) H 98 mg/dL (7-18) H Creatinine 16.1 MG/DL (0.55-1.30) H 16.6 MG/DL (0.55-1.30) H Estimat Glomerular Filtration Rate 2.9 mL/min (>60) 2.8 mL/min (>60) Glucose Level 89 MG/DL (74-106) 24 MG/DL (74-106) *L 131 MG/DL (74-106) #H Calcium Level 9.3 MG/DL (8.5-10.1) 9.0 MG/DL (8.5-10.1) Total Bilirubin 1.1 MG/DL (0.2-1.0) H 1.3 MG/DL (0.2-1.0) H Direct Bilirubin 0.3 MG/DL (0.0-0.3) 0.6 MG/DL (0.0-0.3) H Aspartate Amino Transf (AST/SGOT) 35 U/L (15-37) 22 U/L (15-37) Alanine Aminotransferase (ALT/SGPT) 42 U/L (12-78) 42 U/L (12-78) Alkaline Phosphatase 131 U/L (46-116) H 127 U/L (46-116) H Total Creatine Kinase 344 U/L (26-308) H Creatine Kinase MB 1.4 NG/ML (0.0-3.6) Creatine Kinase MB Relative Index 0.4 Troponin I 0.008 ng/mL (0.000-0.056) Total Protein 9.1 G/DL (6.4-8.2) H 8.9 G/DL (6.4-8.2) H Albumin 4.2 G/DL (3.4-5.0) 3.9 G/DL (3.4-5.0) Globulin 4.9 g/dL 5.0 g/dL Albumin/Globulin Ratio 0.9 (1.0-2.7) L 0.8 (1.0-2.7) L Lipase 109 U/L (73-393) Prothrombin Time 11.9 SEC (9.30-11.50) H Prothromb Time International Ratio 1.1 (0.9-1.1) Hemoglobin A1c 4.5 % (4.3-6.0) Arterial Blood pH 7.150 (7.350-7.450) Arterial Blood Partial Pressure CO2 58.3 mmHg (35.0-45.0) *H Arterial Blood Partial Pressure O2 176.1 mmHg (75.0-100.0) H Arterial Blood HCO3 19.9 mmol/L (22.0-26.0) L Arterial Blood Oxygen Saturation 98.5 % (92.0-98.0) H Arterial Blood Base Excess -9.5 Enrike Test Positive C-Reactive Protein, Quantitative 7.7 mg/dL (0.00-0.90) H Janak Sandhu MD August 18, 2017 20:28
[2017-08-18] MEDS: Losartan 50mg tab ORAL SCH (21:58)
[2017-08-18] MEDS: Carvedilol 12.5mg tab ORAL SCH (21:58)
--- NOTE | 2017-08-18 23:01 | History and Physical Report ---
DATE OF ADMISSION: 08/17/2017 SOURCE OF INFORMATION: The patient and EMR. HISTORY OF PRESENT ILLNESS: The patient is a 52-year-old female with history of end-stage renal disease on hemodialysis, uncontrolled hypertension, hyperlipidemia, obesity, and coronary artery disease, who presented with a complaint of abdominal pain for the last two to three days. The patient's hemodialysis as an outpatient are updated. The patient denies any chest pain. No shortness of breath. The patient denies diarrhea. The patient denies any abnormal bleeding. PAST MEDICAL HISTORY: Hypertension, end-stage renal disease on hemodialysis, and coronary artery disease. MEDICATIONS: Current hospital medications including, but not limited to Zosyn, morphine 4 mg IV p.r.n. q.4 h., Imdur 60 mg daily, Coreg 25 mg q.12 h., and atorvastatin 10 mg daily. ALLERGIES: To acetaminophen, codeine, and hydrocodone. FAMILY HISTORY: Reviewed and noncontributory. REVIEW OF SYSTEMS: All 12 elements of review of systems reviewed with the patient. Pertinent positive and negative as above. PHYSICAL EXAMINATION: VITAL SIGNS: Blood pressure 190/80, temperature 100.2 degrees, pulse rate 95, respiratory rate 16, and pulse oximetry 98% on room air. HEAD AND NECK: Atraumatic and normocephalic. CHEST: Clear to auscultation. No wheezing. No crackles. HEART: S1 and S2. Regular rate and rhythm. No S3. No S4 audible. ABDOMEN: Morbidly obese. Positive for tenderness particularly in the upper segment. Negative for rebound tenderness. NEUROLOGIC: The patient is awake, alert, and oriented x3. MUSCULOSKELETAL: Negative for gross lateralized motor deficit. No edema. The dialysis access noted. LABORATORY AND DIAGNOSTIC DATA: Labs dated 08/17/2017 shows WBC 9.5, hemoglobin 12.2, and platelets of 80,000. Sodium of 136, potassium 7.7, BUN 98, and creatinine 16. AST and ALT within normal limits. CT scan of the abdomen and pelvis dated 08/18/2017 shows large pericardial effusion and pulmonary edema. ASSESSMENT: 1. Sepsis, source unknown. 2. Hypertensive emergency. 3. Pericardial effusion. 4. Hypoglycemia. 5. End-stage renal disease, on hemodialysis. 6. Hyperkalemia. 7. Hyponatremia. 8. Thrombocytopenia. 9. Gastrointestinal and deep venous thrombosis prophylaxis. PLAN OF CARE: I agree to admit to the ICU. We will obtain a 2D echo, telemonitoring, and Kayexalate. Keep the patient NPO except medications. Surgeon Dr. Ramirez, Nephrology Dr. Morse, and Cardiology Dr. Sandhu have already been notified and consulted. We will continue with empiric antibiotic regimen of Zosyn. Infectious Diseases Dr. Burkett notified. Ivan Park M.D. DR: Aldo JOB#: [id number] CC:
[2017-08-19] VITALS (24 sets, daily range): BP systolic 104–161; BP diastolic 53–99
--- NOTE | 2017-08-19 02:31 | Consultation ---
DATE OF CONSULTATION: 08/18/2017 NOTE: DICTATION CANCELED CARDIOLOGY CONSULTATION CONSULTING PHYSICIAN: Janak Charles M.D. REFERRING PHYSICIAN: Ivan Park M.D. REASON FOR CONSULTATION: Janak Charles M.D. DR: RBIAN JOB#: [id number] CC:
[2017-08-19] MEDS: Dextrose 5%/Lactated Ringer's 1,000 ML IV SCH ×2 (03:32→22:51)
[2017-08-19 03:47] LABS: BASOPHILS % (AUTO) 0.6 % (0.0-2.0); EOSINOPHILS % (AUTO) 0.1 % (0.0-3.0); HEMATOCRIT 35.1 % (37.0-47.0); HEMOGLOBIN 11.3 G/DL (12.0-16.0); LYMPHOCYTES % (AUTO) 12.7 % (20.0-45.0); MEAN CORPUSCULAR VOLUME 98 FL (80-99); MONOCYTES % (AUTO) 3.6 % (1.0-10.0); NEUTROPHILS % (AUTO) 83.1 % (45.0-75.0); PLATELET COUNT 103 K/UL (150-450); RED BLOOD COUNT 3.59 M/UL (4.20-5.40); RED CELL DISTRIBUTION WIDTH 17.5 % (11.6-14.8); WHITE BLOOD COUNT 10.6 K/UL (4.8-10.8)
[2017-08-19 04:22] LABS: ALANINE AMINOTRANSFERASE 35 U/L (12-78); ALBUMIN/GLOBULIN RATIO 0.7 (1.0-2.7); ALKALINE PHOSPHATASE 94 U/L (46-116); ANION GAP 11 mmol/L (5-15); ASPARTATE AMINO TRANSFERASE 20 U/L (15-37); BLOOD UREA NITROGEN 59 mg/dL (7-18); CALCIUM 7.9 MG/DL (8.5-10.1); CARBON DIOXIDE 34 MMOL/L (21-32); CHLORIDE 95 MMOL/L (98-107); CHOLESTEROL 128 MG/DL (< 200); CREATINE KINASE 116 U/L (26-308); CREATININE 12.2 MG/DL (0.55-1.30); GAMMA GLUTAMYL TRANSPEPTIDASE 23 U/L (5-85); HDL CHOLESTEROL 72 MG/DL (40-60); PHOSPHORUS 7.5 MG/DL (2.5-4.9); POTASSIUM 4.6 MMOL/L (3.5-5.1); SODIUM 139 MMOL/L (136-145); TRIGLYCERIDES 52 MG/DL (30-150)
[2017-08-19 04:23] LABS: BILIRUBIN,DIRECT 0.5 MG/DL (0.0-0.3)
[2017-08-19] MEDS: Piperacillin/Tazobactam 2.25 GM in D5W 55 ML IVPB SCH ×3 (06:05→21:37)
--- NOTE | 2017-08-19 08:50 | Diagnostic Imaging Report ---
INDICATION: Dyspnea COMPARISON: Chest x-ray dated 08/17/17 FINDINGS: Single frontal view demonstrates diffuse cardiomegaly. Slight increased pulmonary markings suggestive of congestion. No pleural effusions. The visualized osseous structures are within normal limits. IMPRESSION: Diffuse cardiomegaly. Slight increased pulmonary markings suggestive of congestion.
--- NOTE | 2017-08-19 09:32 | General Surgery Progress Note ---
General Surgery-Progress Note Subjective Symptoms: improved, pain absent Additional Comments no complaints. states she feels well. no abdominal pain. hungry and wants food. Objective Last 24 Hour Vital Signs Date Time Temp Pulse Resp B/P (MAP) Pulse Ox O2 Delivery O2 Flow Rate FiO2 08/19/17 08:32 92 18 Room Air 08/19/17 07:00 94 17 110/70 96 Nasal Cannula 2.0 08/19/17 06:00 94 16 114/67 96 Nasal Cannula 2.0 08/19/17 05:00 98.6 96 17 115/68 96 Nasal Cannula 2.0 98.6 08/19/17 04:02 98 08/19/17 04:00 98.1 96 19 120/64 98 Nasal Cannula 2.0 98.1 08/19/17 03:00 98.6 96 16 107/56 97 Nasal Cannula 2.0 98.6 08/19/17 02:00 98.6 96 16 107/56 97 Nasal Cannula 2.0 98.6 08/19/17 01:00 98.6 96 17 135/80 97 Nasal Cannula 2.0 98.6 08/19/17 00:00 99.1 105 22 125/58 97 Nasal Cannula 2.0 99.1 08/19/17 00:00 104 08/18/17 23:00 98.2 106 24 135/80 97 Nasal Cannula 2.0 98.2 08/18/17 22:00 98.1 107 19 136/76 96 Nasal Cannula 2.0 98.1 08/18/17 21:58 119/61 08/18/17 21:58 106 119/61 08/18/17 21:00 98.2 106 18 121/67 96 Nasal Cannula 2.0 98.2 08/18/17 20:00 111 08/18/17 20:00 98.3 112 19 119/61 97 Nasal Cannula 2.0 98.3 08/18/17 18:05 148/74 08/18/17 18:00 119 26 157/75 96 Nasal Cannula 2.0 08/18/17 17:31 167/88 08/18/17 17:00 126 30 167/88 97 Nasal Cannula 2.0 08/18/17 17:00 120 08/18/17 16:00 119 15 173/81 95 Nasal Cannula 2.0 08/18/17 15:00 118 15 191/101 95 Nasal Cannula 2.0 08/18/17 14:59 174/95 08/18/17 14:00 117 21 174/95 96 Nasal Cannula 2.0 08/18/17 13:00 106 18 180/93 94 Nasal Cannula 2.0 08/18/17 12:31 227/92 08/18/17 12:30 227/92 08/18/17 12:15 Nasal Cannula 2.0 08/18/17 12:00 75 08/18/17 12:00 98.8 101 20 217/95 96 Nasal Cannula 2.0 98.8 08/18/17 11:00 81 14 214/101 96 Nasal Cannula 2.0 08/18/17 10:00 97.5 82 14 201/99 95 Nasal Cannula 2.0 97.5 I&O Intake and Output 08/18/17 08/19/17 19:00 07:00 Intake Total 645 ml 575 ml Output Total 2775 ml 50 ml Balance -2130 ml 525 ml Intake Oral 30 ml 40 ml IV Total 595 ml 535 ml Other 20 ml Output Urine Total 0 ml 0 ml Emesis 50 ml Hemodialysis UF 2775 ml Cardiovascular: RSR Respiratory: clear Abdomen: soft, flat, non-tender, present bowel sounds Extremities: no cyanosis Laboratory Tests Test 08/18/17 10:30 08/19/17 03:30 08/19/17 04:00 Glucose Level 131 MG/DL (74-106) #H 128 MG/DL (74-106) H C-Reactive Protein, Quantitative 7.7 mg/dL (0.00-0.90) H White Blood Count 10.6 K/UL (4.8-10.8) Red Blood Count 3.59 M/UL (4.20-5.40) L Hemoglobin 11.3 G/DL (12.0-16.0) L Hematocrit 35.1 % (37.0-47.0) L Mean Corpuscular Volume 98 FL (80-99) Mean Corpuscular Hemoglobin 31.6 PG (27.0-31.0) H Mean Corpuscular Hemoglobin Concent 32.3 G/DL (32.0-36.0) Red Cell Distribution Width 17.5 % (11.6-14.8) H Platelet Count 103 K/UL (150-450) L Mean Platelet Volume 8.6 FL (6.5-10.1) Neutrophils (%) (Auto) 83.1 % (45.0-75.0) H Lymphocytes (%) (Auto) 12.7 % (20.0-45.0) L Monocytes (%) (Auto) 3.6 % (1.0-10.0) Eosinophils (%) (Auto) 0.1 % (0.0-3.0) Basophils (%) (Auto) 0.6 % (0.0-2.0) Sodium Level 139 MMOL/L (136-145) Potassium Level 4.6 MMOL/L (3.5-5.1) Chloride Level 95 MMOL/L (98-107) L Carbon Dioxide Level 34 MMOL/L (21-32) H Anion Gap 11 mmol/L (5-15) Blood Urea Nitrogen 59 mg/dL (7-18) H Creatinine 12.2 MG/DL (0.55-1.30) H Estimat Glomerular Filtration Rate 4.0 mL/min (>60) Uric Acid 6.2 MG/DL (2.6-7.2) Calcium Level 7.9 MG/DL (8.5-10.1) L Phosphorus Level 7.5 MG/DL (2.5-4.9) H Magnesium Level 2.1 MG/DL (1.8-2.4) Total Bilirubin 2.0 MG/DL (0.2-1.0) H Direct Bilirubin 0.5 MG/DL (0.0-0.3) H Gamma Glutamyl Transpeptidase 23 U/L (5-85) Aspartate Amino Transf (AST/SGOT) 20 U/L (15-37) Alanine Aminotransferase (ALT/SGPT) 35 U/L (12-78) Alkaline Phosphatase 94 U/L (46-116) Total Creatine Kinase 116 U/L (26-308) Troponin I 0.126 ng/mL (0.000-0.056) Pro-B-Type Natriuretic Peptide 01577 pg/mL (0-125) H Total Protein 7.5 G/DL (6.4-8.2) Albumin 3.0 G/DL (3.4-5.0) L Globulin 4.5 g/dL Albumin/Globulin Ratio 0.7 (1.0-2.7) L Triglycerides Level 52 MG/DL (30-150) Cholesterol Level 128 MG/DL (< 200) LDL Cholesterol 40 mg/dL (<100) HDL Cholesterol 72 MG/DL (40-60) H Cholesterol/HDL Ratio 1.8 (3.3-4.4) L Thyroid Stimulating Hormone (TSH) 1.136 uiU/mL (0.358-3.740) Arterial Blood pH 7.460 (7.350-7.450) Arterial Blood Partial Pressure CO2 48.4 mmHg (35.0-45.0) H Arterial Blood Partial Pressure O2 94.8 mmHg (75.0-100.0) Arterial Blood HCO3 34.1 mmol/L (22.0-26.0) H Arterial Blood Oxygen Saturation 96.5 % (92.0-98.0) Arterial Blood Base Excess 9.2 Enrike Test Positive Plan Problems: (1) Acute cholecystitis Assessment & Plan: 52F with first episode of acute cholecystitis. afebrile, HD stable, no leukocytosis, elevated alk phos, CT findings as above, exam with + Sosa's on admission Since admission pain has resolved now. no n/v/f/c. labs reviewed. LFT's normal. no leukocytosis. T bili elevated but direct okay. unlikely to be obstructive in nature. -okay for diet as tolerated -IV fluids -IV Abx -trend labs -fortunately acute cholecystitis seems to be resolving with conservative non operative management. No acute surgical intervention planned thank you for this consultation. Zach Ramirez August 19, 2017 09:32
--- NOTE | 2017-08-19 09:32 | General Progress Note ---
Assessment/Plan Status: stable Assessment/Plan PHYSICAL EXAMINATION: HEAD AND NECK: Atraumatic and normocephalic. CHEST: Clear to auscultation. No wheezing. No crackles. HEART: S1 and S2. Regular rate and rhythm. No S3. No S4 audible. ABDOMEN: Morbidly obese. Positive for tenderness particularly in the upper segment. Negative for rebound tenderness. NEUROLOGIC: The patient is awake, alert, and oriented x3. MUSCULOSKELETAL: left arm AVG in place, Negative for gross lateralized motor deficit. ASSESSMENT: 1. Sepsis, source unknown. 2. Hypertensive emergency. 3. Pericardial effusion. 4. Hypoglycemia. 5. End-stage renal disease, on hemodialysis. 6. Hyperkalemia. 7. Hyponatremia. 8. Thrombocytopenia. 9. Gastrointestinal and deep venous thrombosis prophylaxis. 10 . Abn troponin 11. Severe PAH Plan: Echo is reviewed will monitor Trop Trend notes from cardiology reviewed Subjective ROS Limited/Unobtainable: No Constitutional: Reports: malaise HEENT: Reports: no symptoms Cardiovascular: Reports: no symptoms Respiratory: Reports: no symptoms Gastrointestinal/Abdominal: Reports: no symptoms Allergies: Coded Allergies: ACETAMINOPHEN (Verified Adverse Reaction, Unknown, 08/17/17) nausea CODEINE (Verified Adverse Reaction, Unknown, NAUSEA, 04/18/10) HYDROCODONE (Verified Adverse Reaction, Unknown, 08/17/17) nausea Objective Last 24 Hour Vital Signs Date Time Temp Pulse Resp B/P (MAP) Pulse Ox O2 Delivery O2 Flow Rate FiO2 08/19/17 08:32 92 18 Room Air 08/19/17 07:00 94 17 110/70 96 Nasal Cannula 2.0 08/19/17 06:00 94 16 114/67 96 Nasal Cannula 2.0 08/19/17 05:00 98.6 96 17 115/68 96 Nasal Cannula 2.0 98.6 08/19/17 04:02 98 08/19/17 04:00 98.1 96 19 120/64 98 Nasal Cannula 2.0 98.1 08/19/17 03:00 98.6 96 16 107/56 97 Nasal Cannula 2.0 98.6 08/19/17 02:00 98.6 96 16 107/56 97 Nasal Cannula 2.0 98.6 08/19/17 01:00 98.6 96 17 135/80 97 Nasal Cannula 2.0 98.6 08/19/17 00:00 99.1 105 22 125/58 97 Nasal Cannula 2.0 99.1 08/19/17 00:00 104 08/18/17 23:00 98.2 106 24 135/80 97 Nasal Cannula 2.0 98.2 08/18/17 22:00 98.1 107 19 136/76 96 Nasal Cannula 2.0 98.1 08/18/17 21:58 119/61 08/18/17 21:58 106 119/61 08/18/17 21:00 98.2 106 18 121/67 96 Nasal Cannula 2.0 98.2 08/18/17 20:00 111 08/18/17 20:00 98.3 112 19 119/61 97 Nasal Cannula 2.0 98.3 08/18/17 18:05 148/74 08/18/17 18:00 119 26 157/75 96 Nasal Cannula 2.0 08/18/17 17:31 167/88 08/18/17 17:00 126 30 167/88 97 Nasal Cannula 2.0 08/18/17 17:00 120 08/18/17 16:00 119 15 173/81 95 Nasal Cannula 2.0 08/18/17 15:00 118 15 191/101 95 Nasal Cannula 2.0 08/18/17 14:59 174/95 08/18/17 14:00 117 21 174/95 96 Nasal Cannula 2.0 08/18/17 13:00 106 18 180/93 94 Nasal Cannula 2.0 08/18/17 12:31 227/92 08/18/17 12:30 227/92 08/18/17 12:15 Nasal Cannula 2.0 08/18/17 12:00 75 08/18/17 12:00 98.8 101 20 217/95 96 Nasal Cannula 2.0 98.8 08/18/17 11:00 81 14 214/101 96 Nasal Cannula 2.0 08/18/17 10:00 97.5 82 14 201/99 95 Nasal Cannula 2.0 97.5 Intake and Output 08/18/17 08/19/17 19:00 07:00 Intake Total 645 ml 575 ml Output Total 2775 ml 50 ml Balance -2130 ml 525 ml Intake Oral 30 ml 40 ml IV Total 595 ml 535 ml Other 20 ml Output Urine Total 0 ml 0 ml Emesis 50 ml Hemodialysis UF 2775 ml Laboratory Tests 5/11/18 10:30: Glucose Level 131#H, C-Reactive Protein, Quantitative 7.7H 08/19/17 03:30: Glucose Level 128H, White Blood Count 10.6, Red Blood Count 3.59L, Hemoglobin 11.3L, Hematocrit 35.1L, Mean Corpuscular Volume 98, Mean Corpuscular Hemoglobin 31.6H, Mean Corpuscular Hemoglobin Concent 32.3, Red Cell Distribution Width 17.5H, Platelet Count 103L, Mean Platelet Volume 8.6, Neutrophils (%) (Auto) 83.1H, Lymphocytes (%) (Auto) 12.7L, Monocytes (%) (Auto ) 3.6, Eosinophils (%) (Auto) 0.1, Basophils (%) (Auto) 0.6, Sodium Level 139, Potassium Level 4.6, Chloride Level 95L, Carbon Dioxide Level 34H, Anion Gap 11 , Blood Urea Nitrogen 59H, Creatinine 12.2H, Estimat Glomerular Filtration Rate 4.0, Uric Acid 6.2, Calcium Level 7.9L, Phosphorus Level 7.5H, Magnesium Level 2.1, Total Bilirubin 2.0H, Direct Bilirubin 0.5H, Gamma Glutamyl Transpeptidase 23, Aspartate Amino Transf (AST/SGOT) 20, Alanine Aminotransferase (ALT/SGPT) 35 , Alkaline Phosphatase 94, Total Creatine Kinase 116, Troponin I 0.126H, Pro-B- Type Natriuretic Peptide 18774H, Total Protein 7.5, Albumin 3.0L, Globulin 4.5, Albumin/Globulin Ratio 0.7L, Triglycerides Level 52, Cholesterol Level 128, LDL Cholesterol 40, HDL Cholesterol 72H, Cholesterol/HDL Ratio 1.8L, Thyroid Stimulating Hormone (TSH) 1.136 08/19/17 04:00: Arterial Blood pH 7.460H, Arterial Blood Partial Pressure CO2 48.4H, Arterial Blood Partial Pressure O2 94.8, Arterial Blood HCO3 34.1H, Arterial Blood Oxygen Saturation 96.5, Arterial Blood Base Excess 9.2, Enrike Test Positive Height (Feet): 5 Height (Inches): 5.00 Weight (Pounds): 176 Ivan Park MD August 19, 2017 09:32
--- NOTE | 2017-08-19 09:45 | Pulmonolgy Critical Care Note ---
Critical Care - Asmt/Plan Problems: (1) Sepsis (2) Hypertensive urgency (3) ESRD (end stage renal disease) on dialysis Respiratory: monitor respiratory rate, adjust FIO2 Cardiac: continue to monitor HR/BP Renal: F/U I&O Infectious Disease: check cultures, continue antibiotics Endocrine: monitor blood sugar, check TSH Neurologic: PRN Morphine Prophylaxis: Protonix, Heparin Notes Reviewed: renal Discussed with: consultants, caseworkermanager entry - Objective Last 24 Hour Vital Signs Date Time Temp Pulse Resp B/P (MAP) Pulse Ox O2 Delivery O2 Flow Rate FiO2 08/19/17 09:00 90 17 111/63 98 Nasal Cannula 2.0 08/19/17 08:32 92 18 Room Air 08/19/17 08:00 98 08/19/17 08:00 98.2 99 17 115/68 99 Nasal Cannula 2.0 98.2 08/19/17 07:00 94 17 110/70 96 Nasal Cannula 2.0 08/19/17 06:00 94 16 114/67 96 Nasal Cannula 2.0 08/19/17 05:00 98.6 96 17 115/68 96 Nasal Cannula 2.0 98.6 08/19/17 04:02 98 08/19/17 04:00 98.1 96 19 120/64 98 Nasal Cannula 2.0 98.1 08/19/17 03:00 98.6 96 16 107/56 97 Nasal Cannula 2.0 98.6 08/19/17 02:00 98.6 96 16 107/56 97 Nasal Cannula 2.0 98.6 08/19/17 01:00 98.6 96 17 135/80 97 Nasal Cannula 2.0 98.6 08/19/17 00:00 99.1 105 22 125/58 97 Nasal Cannula 2.0 99.1 08/19/17 00:00 104 08/18/17 23:00 98.2 106 24 135/80 97 Nasal Cannula 2.0 98.2 08/18/17 22:00 98.1 107 19 136/76 96 Nasal Cannula 2.0 98.1 08/18/17 21:58 119/61 08/18/17 21:58 106 119/61 08/18/17 21:00 98.2 106 18 121/67 96 Nasal Cannula 2.0 98.2 08/18/17 20:00 111 08/18/17 20:00 98.3 112 19 119/61 97 Nasal Cannula 2.0 98.3 08/18/17 18:05 148/74 08/18/17 18:00 119 26 157/75 96 Nasal Cannula 2.0 08/18/17 17:31 167/88 08/18/17 17:00 126 30 167/88 97 Nasal Cannula 2.0 08/18/17 17:00 120 08/18/17 16:00 119 15 173/81 95 Nasal Cannula 2.0 08/18/17 15:00 118 15 191/101 95 Nasal Cannula 2.0 08/18/17 14:59 174/95 08/18/17 14:00 117 21 174/95 96 Nasal Cannula 2.0 08/18/17 13:00 106 18 180/93 94 Nasal Cannula 2.0 08/18/17 12:31 227/92 08/18/17 12:30 227/92 08/18/17 12:15 Nasal Cannula 2.0 08/18/17 12:00 75 08/18/17 12:00 98.8 101 20 217/95 96 Nasal Cannula 2.0 98.8 08/18/17 11:00 81 14 214/101 96 Nasal Cannula 2.0 08/18/17 10:00 97.5 82 14 201/99 95 Nasal Cannula 2.0 97.5 Status: awake Condition: critical Neck: full ROM Lungs: clear Heart: HR/BP stable, regular Abdomen: active bowel sounds Extremities: no C/C/E Decubiti: location Micro: Microbiology Date/Time Source Procedure Growth Status 08/17/17 23:00 Nasal Nares MRSA Culture - Final Staphylococcus Aureus - Mrsa Complete Critical Care - Subjective ROS Limited/Unobtainable: Yes ICU Day: 3 Condition: critical EKG Rhythm: Sinus Rhythm FI02: 100 Sputum Amount: None I&O: Intake and Output 08/18/17 08/19/17 19:00 07:00 Intake Total 645 ml 575 ml Output Total 2775 ml 50 ml Balance -2130 ml 525 ml Intake Oral 30 ml 40 ml IV Total 595 ml 535 ml Other 20 ml Output Urine Total 0 ml 0 ml Emesis 50 ml Hemodialysis UF 2775 ml Labs: Laboratory Tests Test 08/18/17 10:30 08/19/17 03:30 08/19/17 04:00 Glucose Level 131 MG/DL (74-106) #H 128 MG/DL (74-106) H C-Reactive Protein, Quantitative 7.7 mg/dL (0.00-0.90) H White Blood Count 10.6 K/UL (4.8-10.8) Red Blood Count 3.59 M/UL (4.20-5.40) L Hemoglobin 11.3 G/DL (12.0-16.0) L Hematocrit 35.1 % (37.0-47.0) L Mean Corpuscular Volume 98 FL (80-99) Mean Corpuscular Hemoglobin 31.6 PG (27.0-31.0) H Mean Corpuscular Hemoglobin Concent 32.3 G/DL (32.0-36.0) Red Cell Distribution Width 17.5 % (11.6-14.8) H Platelet Count 103 K/UL (150-450) L Mean Platelet Volume 8.6 FL (6.5-10.1) Neutrophils (%) (Auto) 83.1 % (45.0-75.0) H Lymphocytes (%) (Auto) 12.7 % (20.0-45.0) L Monocytes (%) (Auto) 3.6 % (1.0-10.0) Eosinophils (%) (Auto) 0.1 % (0.0-3.0) Basophils (%) (Auto) 0.6 % (0.0-2.0) Sodium Level 139 MMOL/L (136-145) Potassium Level 4.6 MMOL/L (3.5-5.1) Chloride Level 95 MMOL/L (98-107) L Carbon Dioxide Level 34 MMOL/L (21-32) H Anion Gap 11 mmol/L (5-15) Blood Urea Nitrogen 59 mg/dL (7-18) H Creatinine 12.2 MG/DL (0.55-1.30) H Estimat Glomerular Filtration Rate 4.0 mL/min (>60) Uric Acid 6.2 MG/DL (2.6-7.2) Calcium Level 7.9 MG/DL (8.5-10.1) L Phosphorus Level 7.5 MG/DL (2.5-4.9) H Magnesium Level 2.1 MG/DL (1.8-2.4) Total Bilirubin 2.0 MG/DL (0.2-1.0) H Direct Bilirubin 0.5 MG/DL (0.0-0.3) H Gamma Glutamyl Transpeptidase 23 U/L (5-85) Aspartate Amino Transf (AST/SGOT) 20 U/L (15-37) Alanine Aminotransferase (ALT/SGPT) 35 U/L (12-78) Alkaline Phosphatase 94 U/L (46-116) Total Creatine Kinase 116 U/L (26-308) Troponin I 0.126 ng/mL (0.000-0.056) Pro-B-Type Natriuretic Peptide 79965 pg/mL (0-125) H Total Protein 7.5 G/DL (6.4-8.2) Albumin 3.0 G/DL (3.4-5.0) L Globulin 4.5 g/dL Albumin/Globulin Ratio 0.7 (1.0-2.7) L Triglycerides Level 52 MG/DL (30-150) Cholesterol Level 128 MG/DL (< 200) LDL Cholesterol 40 mg/dL (<100) HDL Cholesterol 72 MG/DL (40-60) H Cholesterol/HDL Ratio 1.8 (3.3-4.4) L Thyroid Stimulating Hormone (TSH) 1.136 uiU/mL (0.358-3.740) Arterial Blood pH 7.460 (7.350-7.450) Arterial Blood Partial Pressure CO2 48.4 mmHg (35.0-45.0) H Arterial Blood Partial Pressure O2 94.8 mmHg (75.0-100.0) Arterial Blood HCO3 34.1 mmol/L (22.0-26.0) H Arterial Blood Oxygen Saturation 96.5 % (92.0-98.0) Arterial Blood Base Excess 9.2 Enrike Test Positive Luz Maria Tomlinson MD August 19, 2017 09:45
--- NOTE | 2017-08-19 10:10 | Diagnostic Imaging Report ---
Ultrasound abdomen complete INDICATION: Abdominal pain COMPARISON: TECHNIQUE: Real-time sonographic evaluation of the abdomen is performed using grayscale and color flow. FINDINGS: The liver demonstrates normal echogenicity and measures 18.9 cm. The portal vein is patent with appropriate direction of flow. The common duct is not abnormally dilated. The gallbladder demonstrates no abnormal wall thickening or pericholecystic free fluid. Gallstones. Visualized portions of the pancreas are within normal limits. The spleen is normal in size and echogenicity. The right kidney measures 8.2 cm in length. No contour deforming masses, hydronephrosis, or shadowing echogenic stones are identified. Increased renal cortical echogenicity. The left kidney measures 9.1 cm in length. No contour deforming masses, hydronephrosis, or shadowing echogenic stones are identified. Increased renal cortical echogenicity. Visualized portions of the aorta and IVC are unremarkable. Small free fluid is identified. IMPRESSION: 1. Gallstones without gallbladder wall thickening or pericholecystic fluid. 2. Small echogenic kidneys likely due to chronic medical renal disease. 3. Small free fluid.
[2017-08-19] MEDS: Losartan 50mg tab ORAL SCH ×3 (10:34→21:00)
[2017-08-19] MEDS: Carvedilol 12.5mg tab ORAL SCH ×2 (10:35→10:46)
[2017-08-19] MEDS: Imdur 30mg tab ORAL SCH (10:36)
[2017-08-19] MEDS: Minoxidil 2.5mg tab ORAL SCH (10:44)
[2017-08-19] MEDS: cloNIDine 0.2mg Tab ORAL SCH ×2 (11:17→18:09)
--- NOTE | 2017-08-19 11:24 | Nephrology Progress Note ---
Assessment/Plan Problem List: (1) ESRD (end stage renal disease) on dialysis (2) Hyperkalemia (3) Hypertensive urgency Assessment ESRD High K- missed HD HTN OOC Abdominal pain, ? Cholecystitis Plan HD done 08/18 next 08/21 BP med adjustments per GI start renal diet Per orders Subjective ROS Limited/Unobtainable: No Constitutional: Reports: malaise Objective Objective Last 24 Hour Vital Signs Date Time Temp Pulse Resp B/P (MAP) Pulse Ox O2 Delivery O2 Flow Rate FiO2 08/19/17 11:17 104/53 08/19/17 10:46 98 116/53 08/19/17 10:45 116/53 08/19/17 10:44 116/53 08/19/17 10:36 116/53 08/19/17 10:35 97 116/53 08/19/17 10:34 116/53 08/19/17 10:00 92 16 116/53 94 Nasal Cannula 2.0 08/19/17 09:00 90 17 111/63 98 Nasal Cannula 2.0 08/19/17 08:32 92 18 Room Air 08/19/17 08:00 98 08/19/17 08:00 98.2 99 17 115/68 99 Nasal Cannula 2.0 98.2 08/19/17 07:00 94 17 110/70 96 Nasal Cannula 2.0 08/19/17 06:00 94 16 114/67 96 Nasal Cannula 2.0 08/19/17 05:00 98.6 96 17 115/68 96 Nasal Cannula 2.0 98.6 08/19/17 04:02 98 08/19/17 04:00 98.1 96 19 120/64 98 Nasal Cannula 2.0 98.1 08/19/17 03:00 98.6 96 16 107/56 97 Nasal Cannula 2.0 98.6 08/19/17 02:00 98.6 96 16 107/56 97 Nasal Cannula 2.0 98.6 08/19/17 01:00 98.6 96 17 135/80 97 Nasal Cannula 2.0 98.6 08/19/17 00:00 99.1 105 22 125/58 97 Nasal Cannula 2.0 99.1 08/19/17 00:00 104 08/18/17 23:00 98.2 106 24 135/80 97 Nasal Cannula 2.0 98.2 08/18/17 22:00 98.1 107 19 136/76 96 Nasal Cannula 2.0 98.1 08/18/17 21:58 119/61 08/18/17 21:58 106 119/61 08/18/17 21:00 98.2 106 18 121/67 96 Nasal Cannula 2.0 98.2 08/18/17 20:00 111 08/18/17 20:00 98.3 112 19 119/61 97 Nasal Cannula 2.0 98.3 08/18/17 18:05 148/74 08/18/17 18:00 119 26 157/75 96 Nasal Cannula 2.0 08/18/17 17:31 167/88 08/18/17 17:00 126 30 167/88 97 Nasal Cannula 2.0 08/18/17 17:00 120 08/18/17 16:00 119 15 173/81 95 Nasal Cannula 2.0 08/18/17 15:00 118 15 191/101 95 Nasal Cannula 2.0 08/18/17 14:59 174/95 08/18/17 14:00 117 21 174/95 96 Nasal Cannula 2.0 08/18/17 13:00 106 18 180/93 94 Nasal Cannula 2.0 08/18/17 12:31 227/92 08/18/17 12:30 227/92 08/18/17 12:15 Nasal Cannula 2.0 08/18/17 12:00 75 08/18/17 12:00 98.8 101 20 217/95 96 Nasal Cannula 2.0 98.8 Intake and Output 08/18/17 08/19/17 19:00 07:00 Intake Total 645 ml 575 ml Output Total 2775 ml 50 ml Balance -2130 ml 525 ml Intake Oral 30 ml 40 ml IV Total 595 ml 535 ml Other 20 ml Output Urine Total 0 ml 0 ml Emesis 50 ml Hemodialysis UF 2775 ml Laboratory Tests 08/19/17 03:30: White Blood Count 10.6, Red Blood Count 3.59L, Hemoglobin 11.3L, Hematocrit 35.1L, Mean Corpuscular Volume 98, Mean Corpuscular Hemoglobin 31.6H, Mean Corpuscular Hemoglobin Concent 32.3, Red Cell Distribution Width 17.5H, Platelet Count 103L, Mean Platelet Volume 8.6, Neutrophils (%) (Auto) 83.1H, Lymphocytes (%) (Auto) 12.7L, Monocytes (%) (Auto) 3.6, Eosinophils (%) (Auto) 0.1, Basophils (%) (Auto) 0.6, Sodium Level 139, Potassium Level 4.6, Chloride Level 95L, Carbon Dioxide Level 34H, Anion Gap 11, Blood Urea Nitrogen 59H, Creatinine 12.2H, Estimat Glomerular Filtration Rate 4.0, Glucose Level 128H, Uric Acid 6.2, Calcium Level 7.9L, Phosphorus Level 7.5H, Magnesium Level 2.1, Total Bilirubin 2.0H, Direct Bilirubin 0.5H, Gamma Glutamyl Transpeptidase 23, Aspartate Amino Transf (AST/SGOT) 20, Alanine Aminotransferase (ALT/SGPT) 35, Alkaline Phosphatase 94, Total Creatine Kinase 116, Troponin I 0.126H, Pro-B- Type Natriuretic Peptide 90602I, Total Protein 7.5, Albumin 3.0L, Globulin 4.5, Albumin/Globulin Ratio 0.7L, Triglycerides Level 52, Cholesterol Level 128, LDL Cholesterol 40, HDL Cholesterol 72H, Cholesterol/HDL Ratio 1.8L, Thyroid Stimulating Hormone (TSH) 1.136 08/19/17 04:00: Arterial Blood pH 7.460H, Arterial Blood Partial Pressure CO2 48.4H, Arterial Blood Partial Pressure O2 94.8, Arterial Blood HCO3 34.1H, Arterial Blood Oxygen Saturation 96.5, Arterial Blood Base Excess 9.2, Enrike Test Positive Height (Feet): 5 Height (Inches): 5.00 Weight (Pounds): 176 General Appearance: no apparent distress Cardiovascular: tachycardia Respiratory/Chest: decreased breath sounds Abdomen: soft LAM SOLANO August 19, 2017 11:24
[2017-08-19] MEDS: Morphine Sulfate 4mg/ml Inj IVP PRN ×2 (12:36→22:51)
--- NOTE | 2017-08-19 16:31 | Cardiology Report ---
APPROVED REPORT EXAM: Two-dimensional and M-mode echocardiogram with Doppler and color Doppler. INDICATION Large pericardial effusion M-Mode DIMENSIONS IVSd1.2 (0.7-1.1cm)Left Atrium (MM)4.0 (1.6-4.0cm) LVDd5.3 (3.5-5.6cm)Aortic Root2.2 (2.0-3.7cm) PWd1.4 (0.7-1.1cm)Aortic Cusp Exc.1.8 (1.5-2.0cm) LVDs2.5 (2.5-4.0cm) PWs2.2 cm Normal left ventricular chamber size, systolic function and wall motion. Left ventricular ejection fraction estimated to be 65-70%. Mild left ventricular hypertrophy. Moderate to large circumferential pericardial effusion no chamber collapse to suggest tamponade All other cardiac chamber sizes are within normal limits. Focal aortic valve sclerosis with adequate cusp excursion. Mildly thickened mitral valve leaflets with normal excursion. Mild mitral annulus and aortic root calcification. Normal pulmonic valve structure. Normal tricuspid valve structure. IVC dilated at 2.2 cm with physiological collapse. A color flow and spectral Doppler study was performed and revealed: No aortic insufficiency. Moderate mitral regurgitation. Mitral diastolic velocities suggest mild left ventricular diastolic dysfunction (Grade I). Mild tricuspid regurgitation. Tricuspid systolic velocities suggests peak right ventricular systolic pressure of 62 mmHg, consistent with severe pulmonary hypertension. Trace pulmonic regurgitation present.
--- NOTE | 2017-08-19 17:57 | General Progress Note ---
Assessment/Plan Assessment/Plan Assessment - RUQ pain - cholecystitis - mild anemia - mild thrombocytopenia Recommendations - follow exam and symptoms - surgical f/u - eventual cholecystectomy Subjective Allergies: Coded Allergies: ACETAMINOPHEN (Verified Adverse Reaction, Unknown, 08/17/17) nausea CODEINE (Verified Adverse Reaction, Unknown, NAUSEA, 04/18/10) HYDROCODONE (Verified Adverse Reaction, Unknown, 08/17/17) nausea Subjective Seen in am feels OK hungry CT noted d/w RN Objective Last 24 Hour Vital Signs Date Time Temp Pulse Resp B/P (MAP) Pulse Ox O2 Delivery O2 Flow Rate FiO2 08/19/17 17:00 92 16 139/69 97 Nasal Cannula 2.0 08/19/17 16:00 97.8 95 16 135/69 94 Nasal Cannula 2.0 97.8 08/19/17 16:00 91 08/19/17 15:00 90 17 132/64 97 Nasal Cannula 2.0 08/19/17 14:00 94 21 132/64 97 Nasal Cannula 2.0 08/19/17 13:00 98.7 08/19/17 13:00 98.0 100 21 123/72 94 Nasal Cannula 2.0 98.0 08/19/17 12:36 98.6 08/19/17 12:00 100 08/19/17 12:00 100 21 123/72 90 Nasal Cannula 2.0 08/19/17 11:17 104/53 08/19/17 11:00 92 16 104/53 98 Nasal Cannula 2.0 08/19/17 10:46 98 116/53 08/19/17 10:45 116/53 08/19/17 10:44 116/53 08/19/17 10:36 116/53 08/19/17 10:35 97 116/53 08/19/17 10:34 116/53 08/19/17 10:00 92 16 116/53 94 Nasal Cannula 2.0 08/19/17 09:00 90 17 111/63 98 Nasal Cannula 2.0 08/19/17 08:32 92 18 Room Air 08/19/17 08:00 98 08/19/17 08:00 98.2 99 17 115/68 99 Nasal Cannula 2.0 98.2 08/19/17 07:00 94 17 110/70 96 Nasal Cannula 2.0 5/12/18 06:00 94 16 114/67 96 Nasal Cannula 2.0 08/19/17 05:00 98.6 96 17 115/68 96 Nasal Cannula 2.0 98.6 08/19/17 04:02 98 08/19/17 04:00 98.1 96 19 120/64 98 Nasal Cannula 2.0 98.1 08/19/17 03:00 98.6 96 16 107/56 97 Nasal Cannula 2.0 98.6 08/19/17 02:00 98.6 96 16 107/56 97 Nasal Cannula 2.0 98.6 08/19/17 01:00 98.6 96 17 135/80 97 Nasal Cannula 2.0 98.6 08/19/17 00:00 99.1 105 22 125/58 97 Nasal Cannula 2.0 99.1 08/19/17 00:00 104 08/18/17 23:00 98.2 106 24 135/80 97 Nasal Cannula 2.0 98.2 08/18/17 22:00 98.1 107 19 136/76 96 Nasal Cannula 2.0 98.1 08/18/17 21:58 119/61 08/18/17 21:58 106 119/61 08/18/17 21:00 98.2 106 18 121/67 96 Nasal Cannula 2.0 98.2 08/18/17 20:00 111 08/18/17 20:00 98.3 112 19 119/61 97 Nasal Cannula 2.0 98.3 08/18/17 18:05 148/74 08/18/17 18:00 119 26 157/75 96 Nasal Cannula 2.0 Intake and Output 08/18/17 08/19/17 19:00 07:00 Intake Total 645 ml 680 ml Output Total 2775 ml 50 ml Balance -2130 ml 630 ml Intake Oral 30 ml 40 ml IV Total 595 ml 640 ml Other 20 ml Output Urine Total 0 ml 0 ml Emesis 50 ml Hemodialysis UF 2775 ml Laboratory Tests 08/19/17 03:30: White Blood Count 10.6, Red Blood Count 3.59L, Hemoglobin 11.3L, Hematocrit 35.1L, Mean Corpuscular Volume 98, Mean Corpuscular Hemoglobin 31.6H, Mean Corpuscular Hemoglobin Concent 32.3, Red Cell Distribution Width 17.5H, Platelet Count 103L, Mean Platelet Volume 8.6, Neutrophils (%) (Auto) 83.1H, Lymphocytes (%) (Auto) 12.7L, Monocytes (%) (Auto) 3.6, Eosinophils (%) (Auto) 0.1, Basophils (%) (Auto) 0.6, Sodium Level 139, Potassium Level 4.6, Chloride Level 95L, Carbon Dioxide Level 34H, Anion Gap 11, Blood Urea Nitrogen 59H, Creatinine 12.2H, Estimat Glomerular Filtration Rate 4.0, Glucose Level 128H, Uric Acid 6.2, Calcium Level 7.9L, Phosphorus Level 7.5H, Magnesium Level 2.1, Total Bilirubin 2.0H, Direct Bilirubin 0.5H, Gamma Glutamyl Transpeptidase 23, Aspartate Amino Transf (AST/SGOT) 20, Alanine Aminotransferase (ALT/SGPT) 35, Alkaline Phosphatase 94, Total Creatine Kinase 116, Troponin I 0.126H, Pro-B- Type Natriuretic Peptide 94308H, Total Protein 7.5, Albumin 3.0L, Globulin 4.5, Albumin/Globulin Ratio 0.7L, Triglycerides Level 52, Cholesterol Level 128, LDL Cholesterol 40, HDL Cholesterol 72H, Cholesterol/HDL Ratio 1.8L, Thyroid Stimulating Hormone (TSH) 1.136 08/19/17 04:00: Arterial Blood pH 7.460H, Arterial Blood Partial Pressure CO2 48.4H, Arterial Blood Partial Pressure O2 94.8, Arterial Blood HCO3 34.1H, Arterial Blood Oxygen Saturation 96.5, Arterial Blood Base Excess 9.2, Enrike Test Positive Height (Feet): 5 Height (Inches): 5.00 Weight (Pounds): 176 Objective WDWN AA woman NCAT supple CTA RRR abd soft, (+) RUQ TTP no edema non focal Alecia Bhagat MD August 19, 2017 17:57
[2017-08-19] MEDS: Carvedilol 25mg Tab ORAL SCH (21:00)
[2017-08-19] MEDS ORDERED: Lidocaine 1% Plain 30 ml INJ PRN (21:45)
[2017-08-19] MEDS ORDERED: Heparin 2000 units/Ns 1000ml INJ PRN (21:45)
--- NOTE | 2017-08-19 21:58 | Cardiology Progress Note ---
Assessment/Plan Assessment/Plan 1. Medium sized pericardial effusion with no echo or clinical signs of pericardial tamponade, s/p HD, review of previous echo in Jun 2016 shows worsening of pericardial effusion from small to medium. 2. Accelerated HTN, on carvedilol and minoxidil. 3. ESRD, on HD. 4. Hyperkalemia due to missed HD, resolved with resuming HD. 5. Acute hypercapnic hypoxic respiratory failure, resolved. Subjective Subjective Sinus rhythm at 92. s/p HD Objective Last 24 Hour Vital Signs Date Time Temp Pulse Resp B/P (MAP) Pulse Ox O2 Delivery O2 Flow Rate FiO2 08/19/17 21:00 125/57 08/19/17 21:00 92 17 125/57 95 Nasal Cannula 2.0 08/19/17 20:00 98.0 97 16 133/77 95 Nasal Cannula 2.0 98.0 08/19/17 20:00 100 08/19/17 19:00 92 17 161/69 95 Nasal Cannula 2.0 08/19/17 18:09 149/74 08/19/17 18:00 96 17 149/74 97 Nasal Cannula 2.0 08/19/17 17:00 92 16 139/69 97 Nasal Cannula 2.0 08/19/17 16:00 97.8 95 16 135/69 94 Nasal Cannula 2.0 97.8 08/19/17 16:00 91 08/19/17 15:00 90 17 132/64 97 Nasal Cannula 2.0 08/19/17 14:00 94 21 132/64 97 Nasal Cannula 2.0 08/19/17 13:00 98.7 08/19/17 13:00 98.0 100 21 123/72 94 Nasal Cannula 2.0 98.0 08/19/17 12:36 98.6 08/19/17 12:00 100 08/19/17 12:00 100 21 123/72 90 Nasal Cannula 2.0 08/19/17 11:17 104/53 08/19/17 11:00 92 16 104/53 98 Nasal Cannula 2.0 08/19/17 10:46 98 116/53 08/19/17 10:45 116/53 08/19/17 10:44 116/53 08/19/17 10:36 116/53 08/19/17 10:35 97 116/53 08/19/17 10:34 116/53 08/19/17 10:00 92 16 116/53 94 Nasal Cannula 2.0 08/19/17 09:00 90 17 111/63 98 Nasal Cannula 2.0 08/19/17 08:32 92 18 Room Air 08/19/17 08:00 98 08/19/17 08:00 98.2 99 17 115/68 99 Nasal Cannula 2.0 98.2 08/19/17 07:00 94 17 110/70 96 Nasal Cannula 2.0 08/19/17 06:00 94 16 114/67 96 Nasal Cannula 2.0 08/19/17 05:00 98.6 96 17 115/68 96 Nasal Cannula 2.0 98.6 08/19/17 04:02 98 08/19/17 04:00 98.1 96 19 120/64 98 Nasal Cannula 2.0 98.1 08/19/17 03:00 98.6 96 16 107/56 97 Nasal Cannula 2.0 98.6 08/19/17 02:00 98.6 96 16 107/56 97 Nasal Cannula 2.0 98.6 08/19/17 01:00 98.6 96 17 135/80 97 Nasal Cannula 2.0 98.6 08/19/17 00:00 99.1 105 22 125/58 97 Nasal Cannula 2.0 99.1 08/19/17 00:00 104 08/18/17 23:00 98.2 106 24 135/80 97 Nasal Cannula 2.0 98.2 08/18/17 22:00 98.1 107 19 136/76 96 Nasal Cannula 2.0 98.1 08/18/17 21:58 119/61 08/18/17 21:58 106 119/61 Intake and Output 08/18/17 08/19/17 19:00 07:00 Intake Total 645 ml 680 ml Output Total 2775 ml 50 ml Balance -2130 ml 630 ml Intake Oral 30 ml 40 ml IV Total 595 ml 640 ml Other 20 ml Output Urine Total 0 ml 0 ml Emesis 50 ml Hemodialysis UF 2775 ml 2D Echo: Normal LVEF, medium sized pericardial effusion with no tamponade Laboratory Tests Test 08/19/17 03:30 08/19/17 04:00 White Blood Count 10.6 K/UL (4.8-10.8) Red Blood Count 3.59 M/UL (4.20-5.40) L Hemoglobin 11.3 G/DL (12.0-16.0) L Hematocrit 35.1 % (37.0-47.0) L Mean Corpuscular Volume 98 FL (80-99) Mean Corpuscular Hemoglobin 31.6 PG (27.0-31.0) H Mean Corpuscular Hemoglobin Concent 32.3 G/DL (32.0-36.0) Red Cell Distribution Width 17.5 % (11.6-14.8) H Platelet Count 103 K/UL (150-450) L Mean Platelet Volume 8.6 FL (6.5-10.1) Neutrophils (%) (Auto) 83.1 % (45.0-75.0) H Lymphocytes (%) (Auto) 12.7 % (20.0-45.0) L Monocytes (%) (Auto) 3.6 % (1.0-10.0) Eosinophils (%) (Auto) 0.1 % (0.0-3.0) Basophils (%) (Auto) 0.6 % (0.0-2.0) Sodium Level 139 MMOL/L (136-145) Potassium Level 4.6 MMOL/L (3.5-5.1) Chloride Level 95 MMOL/L (98-107) L Carbon Dioxide Level 34 MMOL/L (21-32) H Anion Gap 11 mmol/L (5-15) Blood Urea Nitrogen 59 mg/dL (7-18) H Creatinine 12.2 MG/DL (0.55-1.30) H Estimat Glomerular Filtration Rate 4.0 mL/min (>60) Glucose Level 128 MG/DL (74-106) H Uric Acid 6.2 MG/DL (2.6-7.2) Calcium Level 7.9 MG/DL (8.5-10.1) L Phosphorus Level 7.5 MG/DL (2.5-4.9) H Magnesium Level 2.1 MG/DL (1.8-2.4) Total Bilirubin 2.0 MG/DL (0.2-1.0) H Direct Bilirubin 0.5 MG/DL (0.0-0.3) H Gamma Glutamyl Transpeptidase 23 U/L (5-85) Aspartate Amino Transf (AST/SGOT) 20 U/L (15-37) Alanine Aminotransferase (ALT/SGPT) 35 U/L (12-78) Alkaline Phosphatase 94 U/L (46-116) Total Creatine Kinase 116 U/L (26-308) Troponin I 0.126 ng/mL (0.000-0.056) Pro-B-Type Natriuretic Peptide 36668 pg/mL (0-125) H Total Protein 7.5 G/DL (6.4-8.2) Albumin 3.0 G/DL (3.4-5.0) L Globulin 4.5 g/dL Albumin/Globulin Ratio 0.7 (1.0-2.7) L Triglycerides Level 52 MG/DL (30-150) Cholesterol Level 128 MG/DL (< 200) LDL Cholesterol 40 mg/dL (<100) HDL Cholesterol 72 MG/DL (40-60) H Cholesterol/HDL Ratio 1.8 (3.3-4.4) L Thyroid Stimulating Hormone (TSH) 1.136 uiU/mL (0.358-3.740) Arterial Blood pH 7.460 (7.350-7.450) Arterial Blood Partial Pressure CO2 48.4 mmHg (35.0-45.0) H Arterial Blood Partial Pressure O2 94.8 mmHg (75.0-100.0) Arterial Blood HCO3 34.1 mmol/L (22.0-26.0) H Arterial Blood Oxygen Saturation 96.5 % (92.0-98.0) Arterial Blood Base Excess 9.2 Enrike Test Positive Microbiology Date/Time Source Procedure Growth Status 08/17/17 23:00 Nasal Nares MRSA Culture - Final Staphylococcus Aureus - Mrsa Complete Objective HEENT: Atraumatic and normocephalic, PERRLA, EOMI. NECK: Negative JVD, no carotid bruit. CHEST: Clear to auscultation. CVS: S1 and S2. Regular rate and rhythm. No S3. No S4, No pulsus paradoxus ABDOMEN: Soft, diffuse tenderness, no hepatosplenomegaly. EXTREMITIES: No edema, clubbing or cyanosis. Janak Sandhu MD August 19, 2017 21:58
[2017-08-20] VITALS (16 sets, daily range): BP systolic 121–204; BP diastolic 61–88
--- NOTE | 2017-08-20 01:00 | Consultation ---
DATE OF CONSULTATION: 08/19/2017 CARDIOLOGY CONSULTATION CONSULTING PHYSICIAN: Janak Sandhu M.D. REFERRING PHYSICIAN: Ivan Park M.D. REASON FOR CONSULTATION: Management of pericardial effusion. HISTORY OF PRESENT ILLNESS: The patient is a very unfortunate 52-year-old female, who presents to the hospital with abdominal pain, which is described as diffuse, radiation to the back. The patient has history of end-stage renal disease and apparently missed dialysis. She is scheduled to have dialysis on Mondays, Wednesdays and Fridays. On arrival to this hospital, she denies any chest pain or shortness of breath, however, her blood pressure was 187/98 mmHg and pulse was 96. She was febrile and temperature 100.1 degrees Fahrenheit. Initial 12-lead electrocardiogram was significant for sinus rhythm at a rate of 67. Chest x-ray showscardiomegaly, but no evidence of pulmonary edema or infiltration. A CT of abdomen was done in the emergency department, it showed thickening of gallbladder wall, consider cholecystitis. Initial laboratory was significant for severe hyperkalemia of 7.5, evidence of acidosis, but normal troponin I level. The patient was admitted to the intensive care unit for further evaluation and management. Cardiology consultation was made at request of Dr. Park for evaluation of [id number] pericardial effusion, which was evident on the CT of chest. PAST MEDICAL HISTORY: Significant for hypertension, end-stage renal disease and history of coronary artery disease. PAST SURGICAL HISTORY: History of AV shunt and PermCath placement. MEDICATIONS: Acetaminophen 500 mg q.8 h. p.r.n. headache and temperature over 101 degrees, aspirin 81 mg p.o. daily, Lipitor 10 mg p.o. at bedtime, calcitriol 0.25 mg p.o. daily, Coreg 12.5 mg q.12 h., vitamin D 1000 units daily, Catapres 0.3 mg twice daily, diazepam 2 mg q.6 h. p.r.n. anxiety, [place]-Isra one tablet daily, isosorbide mononitrate 60 mg p.o. daily, labetalol 300 mg q.12 h., Cozaar 100 mg p.o. daily, minoxidil 2.5 mg p.o. daily, Zofran 4 mg p.o. q.6 h. p.r.n. nausea and vomiting, and tramadol 50 mg p.o. q.12 h. p.r.n. pain. ALLERGIES: To acetaminophen, codeine and hydrocodone. FAMILY HISTORY: No premature coronary artery disease in the first-degree relatives. HABITS: Denies any tobacco, alcohol, or illicit drug use. REVIEW OF SYSTEMS: HEENT: Denies any headache, diplopia, or blurred vision. CONSTITUTIONAL: She has generalized weakness. No fever, chills or night sweats. CARDIOVASCULAR: Denies any chest pain, shortness breath, PND, orthopnea, or leg swelling. PULMONARY: Denies any cough, hemoptysis, or wheezing. GASTROINTESTINAL: Complains of abdominal pain, diffusely, but no diarrhea, constipation or GI bleed. GENITOURINARY: Hemodialysis three days a week. NEUROLOGY: Denies any motor dysfunction, sensory deficit, or altered speech. PHYSICAL EXAMINATION: GENERAL: The patient is a very unfortunate 52-year-old female, seen in no apparent respiratory distress. VITAL SIGNS: Blood pressure was 187/98 mmHg, respirations 16, pulse of 96, temperature 100.1 degrees Fahrenheit, and O2 saturation 98% on room air. HEENT: Atraumatic and normocephalic. Anicteric. Pupils are equal, round, and reactive to light and accommodation. Extraocular muscles are intact. NECK: JVP less than 5 cm. No carotid bruits. Carotid upstrokes 2+ bilaterally. CARDIOVASCULAR: Normal S1 and S2. Regular rate and rhythm. No murmurs, gallops, or rubs. PMI is at fourth intercostal space in the midclavicular line. There is presence of tachycardia. No pulsus paradoxus is evident. LUNGS: Clear to auscultation bilaterally. ABDOMEN: Soft, nontender, and nondistended. No hepatosplenomegaly. Positive bowel sounds. EXTREMITIES: No evidence of edema, clubbing or cyanosis. LABORATORY AND DIAGNOSTIC DATA: Sodium was 136, potassium 7.5, chloride 96, bicarbonate 20, BUN 92, creatinine 16.1, and glucose 89. Calcium is 9.3. Troponin I was 0.008. WBC was 9.5, hemoglobin 12.2, hematocrit 40.3, and platelet count is 80. Blood gas shows pH of 7.15, pCO2 of 58.3, pO2 176.1, bicarbonate 19.[address] of chest and abdomen shows 1. [id number]-[id number] pericardial effusion, trace right pleural effusion, patchy ground-glass lung opacities, nonspecific, probably mild interstitial edema. 2. Cholecystolithiasis. 3. Atrophy kidneys, atherosclerotic disease. ASSESSMENT AND PLAN: The patient is a very unfortunate 52-year-old, female who is seen in Cardiology consultation at the request of Dr. Park. 1. Medium-sized pericardial effusion per 2D echocardiography. There is no evidence of right atrial ventricular collapse during diastole. Therefore, pericardial tamponade is less likely, although the size of the pericardial effusion has increased compared with the echocardiography done in 06/2016. This patient's pericardial effusion is most likely improved with the onset of the hemodialysis. There is no clinical evidence of pericardial tamponade either. 2. Accelerated hypertension. The patient on minoxidil and carvedilol. 3. History of coronary artery disease, detail of which is unknown. 4. Hyperkalemia on arrival to the hospital, likely due to acute kidney injury on end-stage renal disease due to missed dialysis. 5. Metabolic acidosis as well as respiratory acidosis. Total amount of time spent in evaluation of this patient, discussing the plan of care with the primary care physician, as well as the nursing staff, and review of old records is 45 minutes in the intensive care unit of [facility]. Thank you, Dr. Park, for the courtesy of this consultation. Janak Sandhu M.D. DR: CROW JOB#: [id number] CC:
[2017-08-20] MEDS: cloNIDine 0.2mg Tab ORAL SCH ×3 (02:04→20:45)
[2017-08-20] MEDS: Minoxidil 2.5mg tab ORAL PRN (02:04)
[2017-08-20] MEDS: Piperacillin/Tazobactam 2.25 GM in D5W 55 ML IVPB SCH ×3 (06:00→22:34)
[2017-08-20 06:25] LABS: BASOPHILS % (AUTO) 0.6 % (0.0-2.0); EOSINOPHILS % (AUTO) 1.4 % (0.0-3.0); HEMATOCRIT 30.8 % (37.0-47.0); HEMOGLOBIN 9.7 G/DL (12.0-16.0); LYMPHOCYTES % (AUTO) 19.8 % (20.0-45.0); MEAN CORPUSCULAR VOLUME 98 FL (80-99); MONOCYTES % (AUTO) 3.5 % (1.0-10.0); NEUTROPHILS % (AUTO) 74.7 % (45.0-75.0); PLATELET COUNT 102 K/UL (150-450); RED BLOOD COUNT 3.13 M/UL (4.20-5.40); RED CELL DISTRIBUTION WIDTH 17.3 % (11.6-14.8); WHITE BLOOD COUNT 10.7 K/UL (4.8-10.8)
[2017-08-20] MEDS: Morphine Sulfate 4mg/ml Inj IVP PRN ×2 (06:52→11:04)
[2017-08-20 06:58] LABS: ALANINE AMINOTRANSFERASE 30 U/L (12-78); ALBUMIN 2.9 G/DL (3.4-5.0); ALBUMIN/GLOBULIN RATIO 0.6 (1.0-2.7); ALKALINE PHOSPHATASE 89 U/L (46-116); ANION GAP 12 mmol/L (5-15); ASPARTATE AMINO TRANSFERASE 27 U/L (15-37); BILIRUBIN,TOTAL 2.9 MG/DL (0.2-1.0); BLOOD UREA NITROGEN 77 mg/dL (7-18); CALCIUM 7.9 MG/DL (8.5-10.1); CARBON DIOXIDE 32 MMOL/L (21-32); CHLORIDE 93 MMOL/L (98-107); CREATININE 14.4 MG/DL (0.55-1.30); PHOSPHORUS 7.9 MG/DL (2.5-4.9); POTASSIUM 4.8 MMOL/L (3.5-5.1); SODIUM 137 MMOL/L (136-145)
[2017-08-20 07:05] LABS: BILIRUBIN,DIRECT 0.6 MG/DL (0.0-0.3)
[2017-08-20] MEDS: Losartan 50mg tab ORAL SCH ×2 (08:58→20:44)
[2017-08-20] MEDS: Carvedilol 25mg Tab ORAL SCH ×2 (08:58→20:44)
[2017-08-20] MEDS ORDERED: Imdur 30mg tab ORAL SCH (09:00)
--- NOTE | 2017-08-20 11:39 | General Progress Note ---
Assessment/Plan Assessment/Plan ASSESSMENT: 1. Sepsis, source unknown. 2. Hypertensive emergency. 3. Pericardial effusion. 4. Hypoglycemia. 5. End-stage renal disease, on hemodialysis. 6. Hyperkalemia. 7. Hyponatremia. 8. Thrombocytopenia. 9. Gastrointestinal and deep venous thrombosis prophylaxis. 10 . Abn troponin 11. Severe PAH 12. Acute Anemia Plan: Echo is reviewed will monitor Trop Trend notes from cardiology reviewed Ok to transfer to Tele Will check iron panel Subjective Allergies: Coded Allergies: ACETAMINOPHEN (Verified Adverse Reaction, Unknown, 08/17/17) nausea CODEINE (Verified Adverse Reaction, Unknown, NAUSEA, 04/18/10) HYDROCODONE (Verified Adverse Reaction, Unknown, 08/17/17) nausea Objective Last 24 Hour Vital Signs Date Time Temp Pulse Resp B/P (MAP) Pulse Ox O2 Delivery O2 Flow Rate FiO2 08/20/17 11:04 121/61 08/20/17 11:00 87 19 121/61 98 Nasal Cannula 2.0 08/20/17 10:00 91 19 152/82 100 Nasal Cannula 2.0 08/20/17 09:00 92 18 154/72 99 Nasal Cannula 2.0 08/20/17 08:47 121/79 08/20/17 08:01 93 08/20/17 08:00 98.1 89 16 121/79 99 Nasal Cannula 2.0 98.1 08/20/17 07:00 94 16 145/87 100 Nasal Cannula 2.0 08/20/17 06:50 Nasal Cannula 2.0 28 08/20/17 06:50 100 Nasal Cannula 2.0 28 08/20/17 06:00 89 18 142/79 100 Nasal Cannula 2.0 08/20/17 05:00 98 18 140/82 100 Nasal Cannula 2.0 08/20/17 04:00 89 08/20/17 04:00 98.6 89 14 125/68 100 Nasal Cannula 2.0 98.6 08/20/17 03:00 87 14 153/85 100 Nasal Cannula 2.0 08/20/17 02:04 173/79 08/20/17 02:04 200/83 08/20/17 02:00 91 16 204/88 97 Nasal Cannula 2.0 08/20/17 01:00 86 16 173/79 100 Nasal Cannula 2.0 08/20/17 00:00 98.4 94 15 150/76 100 Nasal Cannula 2.0 98.4 08/20/17 00:00 93 08/19/17 23:00 92 16 153/99 96 Nasal Cannula 2.0 08/19/17 22:00 94 16 161/77 95 Nasal Cannula 2.0 08/19/17 21:00 125/57 08/19/17 21:00 92 17 125/57 95 Nasal Cannula 2.0 08/19/17 20:00 98.0 97 16 133/77 95 Nasal Cannula 2.0 98.0 08/19/17 20:00 100 08/19/17 19:00 92 17 161/69 95 Nasal Cannula 2.0 08/19/17 18:09 149/74 08/19/17 18:00 96 17 149/74 97 Nasal Cannula 2.0 08/19/17 17:00 92 16 139/69 97 Nasal Cannula 2.0 08/19/17 16:00 97.8 95 16 135/69 94 Nasal Cannula 2.0 97.8 08/19/17 16:00 91 08/19/17 15:00 90 17 132/64 97 Nasal Cannula 2.0 08/19/17 14:00 94 21 132/64 97 Nasal Cannula 2.0 08/19/17 13:00 98.7 08/19/17 13:00 98.0 100 21 123/72 94 Nasal Cannula 2.0 98.0 08/19/17 12:36 98.6 08/19/17 12:00 100 08/19/17 12:00 100 21 123/72 90 Nasal Cannula 2.0 Intake and Output 08/19/17 08/20/17 19:00 07:00 Intake Total 1085 ml 685 ml Output Total 0 ml 0 ml Balance 1085 ml 685 ml Intake Oral 430 ml 50 ml IV Total 655 ml 635 ml Output Urine Total 0 ml 0 ml Laboratory Tests 08/20/17 05:15: White Blood Count 10.7, Red Blood Count 3.13L, Hemoglobin 9.7L, Hematocrit 30.8L , Mean Corpuscular Volume 98, Mean Corpuscular Hemoglobin 31.1H, Mean Corpuscular Hemoglobin Concent 31.5L, Red Cell Distribution Width 17.3H, Platelet Count 102L, Mean Platelet Volume 8.9, Neutrophils (%) (Auto) 74.7, Lymphocytes (%) (Auto) 19.8L, Monocytes (%) (Auto) 3.5, Eosinophils (%) (Auto) 1.4, Basophils (%) (Auto) 0.6, Sodium Level 137, Potassium Level 4.8, Chloride Level 93L, Carbon Dioxide Level 32, Anion Gap 12, Blood Urea Nitrogen 77H, Creatinine 14.4H, Estimat Glomerular Filtration Rate 3.3, Glucose Level 88, Calcium Level 7.9L, Phosphorus Level 7.9H, Magnesium Level 2.2, Total Bilirubin 2.9H, Direct Bilirubin 0.6H, Aspartate Amino Transf (AST/SGOT) 27, Alanine Aminotransferase (ALT/SGPT) 30, Alkaline Phosphatase 89, Troponin I 0.039, C- Reactive Protein, Quantitative 17.1H, Pro-B-Type Natriuretic Peptide [id number], Total Protein 7.6, Albumin 2.9L, Globulin 4.7, Albumin/Globulin Ratio 0.6L Height (Feet): 5 Height (Inches): 5.00 Weight (Pounds): 176 Objective PHYSICAL EXAMINATION: HEAD AND NECK: Atraumatic and normocephalic. CHEST: Clear to auscultation. No wheezing. No crackles. HEART: S1 and S2. Regular rate and rhythm. No S3. No S4 audible. ABDOMEN: Morbidly obese. Positive for tenderness particularly in the upper segment. Negative for rebound tenderness. NEUROLOGIC: The patient is awake, alert, and oriented x3. MUSCULOSKELETAL: left arm AVG in place, Negative for gross lateralized motor deficit. Ivan Park MD August 20, 2017 11:39
--- NOTE | 2017-08-20 14:07 | General Surgery Progress Note ---
General Surgery-Progress Note Subjective Additional Comments no acute events. comfortable. Objective Last 24 Hour Vital Signs Date Time Temp Pulse Resp B/P (MAP) Pulse Ox O2 Delivery O2 Flow Rate FiO2 08/20/17 13:00 85 15 147/82 100 Nasal Cannula 2.0 08/20/17 12:08 91 08/20/17 12:00 91 18 155/65 100 Nasal Cannula 2.0 08/20/17 11:04 121/61 08/20/17 11:00 87 19 121/61 98 Nasal Cannula 2.0 08/20/17 10:00 91 19 152/82 100 Nasal Cannula 2.0 08/20/17 09:00 92 18 154/72 99 Nasal Cannula 2.0 08/20/17 08:47 121/79 08/20/17 08:01 93 08/20/17 08:00 98.1 89 16 121/79 99 Nasal Cannula 2.0 98.1 08/20/17 07:00 94 16 145/87 100 Nasal Cannula 2.0 08/20/17 06:50 Nasal Cannula 2.0 28 08/20/17 06:50 100 Nasal Cannula 2.0 28 08/20/17 06:00 89 18 142/79 100 Nasal Cannula 2.0 08/20/17 05:00 98 18 140/82 100 Nasal Cannula 2.0 08/20/17 04:00 89 08/20/17 04:00 98.6 89 14 125/68 100 Nasal Cannula 2.0 98.6 08/20/17 03:00 87 14 153/85 100 Nasal Cannula 2.0 08/20/17 02:04 173/79 08/20/17 02:04 200/83 08/20/17 02:00 91 16 204/88 97 Nasal Cannula 2.0 08/20/17 01:00 86 16 173/79 100 Nasal Cannula 2.0 08/20/17 00:00 98.4 94 15 150/76 100 Nasal Cannula 2.0 98.4 08/20/17 00:00 93 08/19/17 23:00 92 16 153/99 96 Nasal Cannula 2.0 08/19/17 22:00 94 16 161/77 95 Nasal Cannula 2.0 08/19/17 21:00 125/57 08/19/17 21:00 92 17 125/57 95 Nasal Cannula 2.0 08/19/17 20:00 98.0 97 16 133/77 95 Nasal Cannula 2.0 98.0 08/19/17 20:00 100 08/19/17 19:00 92 17 161/69 95 Nasal Cannula 2.0 08/19/17 18:09 149/74 08/19/17 18:00 96 17 149/74 97 Nasal Cannula 2.0 08/19/17 17:00 92 16 139/69 97 Nasal Cannula 2.0 08/19/17 16:00 97.8 95 16 135/69 94 Nasal Cannula 2.0 97.8 08/19/17 16:00 91 08/19/17 15:00 90 17 132/64 97 Nasal Cannula 2.0 I&O Intake and Output 08/19/17 08/20/17 19:00 07:00 Intake Total 1085 ml 685 ml Output Total 0 ml 0 ml Balance 1085 ml 685 ml Intake Oral 430 ml 50 ml IV Total 655 ml 635 ml Output Urine Total 0 ml 0 ml Cardiovascular: RSR Respiratory: clear Abdomen: soft, non-tender, present bowel sounds Extremities: no cyanosis Laboratory Tests Test 08/20/17 05:15 08/20/17 13:35 White Blood Count 10.7 K/UL (4.8-10.8) Red Blood Count 3.13 M/UL (4.20-5.40) L Hemoglobin 9.7 G/DL (12.0-16.0) L Hematocrit 30.8 % (37.0-47.0) L Mean Corpuscular Volume 98 FL (80-99) Mean Corpuscular Hemoglobin 31.1 PG (27.0-31.0) H Mean Corpuscular Hemoglobin Concent 31.5 G/DL (32.0-36.0) L Red Cell Distribution Width 17.3 % (11.6-14.8) H Platelet Count 102 K/UL (150-450) L Mean Platelet Volume 8.9 FL (6.5-10.1) Neutrophils (%) (Auto) 74.7 % (45.0-75.0) Lymphocytes (%) (Auto) 19.8 % (20.0-45.0) L Monocytes (%) (Auto) 3.5 % (1.0-10.0) Eosinophils (%) (Auto) 1.4 % (0.0-3.0) Basophils (%) (Auto) 0.6 % (0.0-2.0) Sodium Level 137 MMOL/L (136-145) Potassium Level 4.8 MMOL/L (3.5-5.1) Chloride Level 93 MMOL/L (98-107) L Carbon Dioxide Level 32 MMOL/L (21-32) Anion Gap 12 mmol/L (5-15) Blood Urea Nitrogen 77 mg/dL (7-18) H Creatinine 14.4 MG/DL (0.55-1.30) H Estimat Glomerular Filtration Rate 3.3 mL/min (>60) Glucose Level 88 MG/DL (74-106) Calcium Level 7.9 MG/DL (8.5-10.1) L Phosphorus Level 7.9 MG/DL (2.5-4.9) H Magnesium Level 2.2 MG/DL (1.8-2.4) Total Bilirubin 2.9 MG/DL (0.2-1.0) H Direct Bilirubin 0.6 MG/DL (0.0-0.3) H Aspartate Amino Transf (AST/SGOT) 27 U/L (15-37) Alanine Aminotransferase (ALT/SGPT) 30 U/L (12-78) Alkaline Phosphatase 89 U/L (46-116) Troponin I 0.039 ng/mL (0.000-0.056) C-Reactive Protein, Quantitative 17.1 mg/dL (0.00-0.90) H Pro-B-Type Natriuretic Peptide 60932 pg/mL (0-125) H Total Protein 7.6 G/DL (6.4-8.2) Albumin 2.9 G/DL (3.4-5.0) L Globulin 4.7 g/dL Albumin/Globulin Ratio 0.6 (1.0-2.7) L Iron Level Pending Unsaturated Iron Binding Pending Plan Problems: (1) Acute cholecystitis Assessment & Plan: 52F with first episode of acute cholecystitis. afebrile, HD stable, no leukocytosis, elevated alk phos, CT findings as above, exam with + Sosa's on admission Since admission pain has resolved now. no n/v/f/c. labs reviewed. LFT's normal. no leukocytosis. T bili elevated but direct okay. unlikely to be obstructive in nature. ultrasound: 1. Gallstones without gallbladder wall thickening or pericholecystic fluid. -okay for diet as tolerated -IV fluids -IV Abx -trend labs -fortunately acute cholecystitis seems to be resolving with conservative non operative management. No acute surgical intervention planned at this time. thank you for this consultation. Zach Ramirez August 20, 2017 14:07
--- NOTE | 2017-08-20 14:20 | Nephrology Progress Note ---
Assessment/Plan Problem List: (1) ESRD (end stage renal disease) on dialysis (2) Hyperkalemia (3) Hypertensive urgency Assessment ESRD High K- missed HD HTN OOC Abdominal pain, ? Cholecystitis Plan HD done 08/18 next 08/21 BP med adjustments per GI start renal diet Per orders Subjective ROS Limited/Unobtainable: No Constitutional: Reports: malaise, weakness Objective Objective Last 24 Hour Vital Signs Date Time Temp Pulse Resp B/P (MAP) Pulse Ox O2 Delivery O2 Flow Rate FiO2 08/20/17 13:00 85 15 147/82 100 Nasal Cannula 2.0 08/20/17 12:08 91 08/20/17 12:00 91 18 155/65 100 Nasal Cannula 2.0 08/20/17 11:04 121/61 08/20/17 11:00 87 19 121/61 98 Nasal Cannula 2.0 08/20/17 10:00 91 19 152/82 100 Nasal Cannula 2.0 08/20/17 09:00 92 18 154/72 99 Nasal Cannula 2.0 08/20/17 08:47 121/79 08/20/17 08:01 93 08/20/17 08:00 98.1 89 16 121/79 99 Nasal Cannula 2.0 98.1 08/20/17 07:00 94 16 145/87 100 Nasal Cannula 2.0 08/20/17 06:50 Nasal Cannula 2.0 28 08/20/17 06:50 100 Nasal Cannula 2.0 28 08/20/17 06:00 89 18 142/79 100 Nasal Cannula 2.0 08/20/17 05:00 98 18 140/82 100 Nasal Cannula 2.0 08/20/17 04:00 89 08/20/17 04:00 98.6 89 14 125/68 100 Nasal Cannula 2.0 98.6 08/20/17 03:00 87 14 153/85 100 Nasal Cannula 2.0 08/20/17 02:04 173/79 08/20/17 02:04 200/83 08/20/17 02:00 91 16 204/88 97 Nasal Cannula 2.0 08/20/17 01:00 86 16 173/79 100 Nasal Cannula 2.0 08/20/17 00:00 98.4 94 15 150/76 100 Nasal Cannula 2.0 98.4 08/20/17 00:00 93 08/19/17 23:00 92 16 153/99 96 Nasal Cannula 2.0 08/19/17 22:00 94 16 161/77 95 Nasal Cannula 2.0 08/19/17 21:00 125/57 08/19/17 21:00 92 17 125/57 95 Nasal Cannula 2.0 08/19/17 20:00 98.0 97 16 133/77 95 Nasal Cannula 2.0 98.0 08/19/17 20:00 100 08/19/17 19:00 92 17 161/69 95 Nasal Cannula 2.0 08/19/17 18:09 149/74 08/19/17 18:00 96 17 149/74 97 Nasal Cannula 2.0 08/19/17 17:00 92 16 139/69 97 Nasal Cannula 2.0 08/19/17 16:00 97.8 95 16 135/69 94 Nasal Cannula 2.0 97.8 08/19/17 16:00 91 08/19/17 15:00 90 17 132/64 97 Nasal Cannula 2.0 Intake and Output 08/19/17 08/20/17 19:00 07:00 Intake Total 1085 ml 685 ml Output Total 0 ml 0 ml Balance 1085 ml 685 ml Intake Oral 430 ml 50 ml IV Total 655 ml 635 ml Output Urine Total 0 ml 0 ml Laboratory Tests 08/20/17 05:15: White Blood Count 10.7, Red Blood Count 3.13L, Hemoglobin 9.7L, Hematocrit 30.8L , Mean Corpuscular Volume 98, Mean Corpuscular Hemoglobin 31.1H, Mean Corpuscular Hemoglobin Concent 31.5L, Red Cell Distribution Width 17.3H, Platelet Count 102L, Mean Platelet Volume 8.9, Neutrophils (%) (Auto) 74.7, Lymphocytes (%) (Auto) 19.8L, Monocytes (%) (Auto) 3.5, Eosinophils (%) (Auto) 1.4, Basophils (%) (Auto) 0.6, Sodium Level 137, Potassium Level 4.8, Chloride Level 93L, Carbon Dioxide Level 32, Anion Gap 12, Blood Urea Nitrogen 77H, Creatinine 14.4H, Estimat Glomerular Filtration Rate 3.3, Glucose Level 88, Calcium Level 7.9L, Phosphorus Level 7.9H, Magnesium Level 2.2, Total Bilirubin 2.9H, Direct Bilirubin 0.6H, Aspartate Amino Transf (AST/SGOT) 27, Alanine Aminotransferase (ALT/SGPT) 30, Alkaline Phosphatase 89, Troponin I 0.039, C- Reactive Protein, Quantitative 17.1H, Pro-B-Type Natriuretic Peptide 99363J, Total Protein 7.6, Albumin 2.9L, Globulin 4.7, Albumin/Globulin Ratio 0.6L 08/20/17 13:35: Iron Level [Pending], Unsaturated Iron Binding [Pending] Height (Feet): 5 Height (Inches): 5.00 Weight (Pounds): 182 General Appearance: no apparent distress Cardiovascular: normal rate Respiratory/Chest: decreased breath sounds Abdomen: soft LAM SOLANO August 20, 2017 14:20
--- NOTE | 2017-08-20 14:34 | General Progress Note ---
Assessment/Plan Assessment/Plan Assessment - RUQ pain - cholecystitis - mild anemia - mild thrombocytopenia Recommendations - follow exam and symptoms - surgical f/u - eventual cholecystectomy Subjective Allergies: Coded Allergies: ACETAMINOPHEN (Verified Adverse Reaction, Unknown, 08/17/17) nausea CODEINE (Verified Adverse Reaction, Unknown, NAUSEA, 04/18/10) HYDROCODONE (Verified Adverse Reaction, Unknown, 08/17/17) nausea Subjective Feels OK no new complaints Objective Last 24 Hour Vital Signs Date Time Temp Pulse Resp B/P (MAP) Pulse Ox O2 Delivery O2 Flow Rate FiO2 08/20/17 13:00 85 15 147/82 100 Nasal Cannula 2.0 08/20/17 12:08 91 08/20/17 12:00 91 18 155/65 100 Nasal Cannula 2.0 08/20/17 11:04 121/61 08/20/17 11:00 87 19 121/61 98 Nasal Cannula 2.0 08/20/17 10:00 91 19 152/82 100 Nasal Cannula 2.0 08/20/17 09:00 92 18 154/72 99 Nasal Cannula 2.0 08/20/17 08:47 121/79 08/20/17 08:01 93 08/20/17 08:00 98.1 89 16 121/79 99 Nasal Cannula 2.0 98.1 08/20/17 07:00 94 16 145/87 100 Nasal Cannula 2.0 08/20/17 06:50 Nasal Cannula 2.0 28 08/20/17 06:50 100 Nasal Cannula 2.0 28 08/20/17 06:00 89 18 142/79 100 Nasal Cannula 2.0 08/20/17 05:00 98 18 140/82 100 Nasal Cannula 2.0 08/20/17 04:00 89 08/20/17 04:00 98.6 89 14 125/68 100 Nasal Cannula 2.0 98.6 08/20/17 03:00 87 14 153/85 100 Nasal Cannula 2.0 08/20/17 02:04 173/79 08/20/17 02:04 200/83 08/20/17 02:00 91 16 204/88 97 Nasal Cannula 2.0 08/20/17 01:00 86 16 173/79 100 Nasal Cannula 2.0 08/20/17 00:00 98.4 94 15 150/76 100 Nasal Cannula 2.0 98.4 08/20/17 00:00 93 08/19/17 23:00 92 16 153/99 96 Nasal Cannula 2.0 08/19/17 22:00 94 16 161/77 95 Nasal Cannula 2.0 08/19/17 21:00 125/57 08/19/17 21:00 92 17 125/57 95 Nasal Cannula 2.0 08/19/17 20:00 98.0 97 16 133/77 95 Nasal Cannula 2.0 98.0 08/19/17 20:00 100 08/19/17 19:00 92 17 161/69 95 Nasal Cannula 2.0 08/19/17 18:09 149/74 08/19/17 18:00 96 17 149/74 97 Nasal Cannula 2.0 08/19/17 17:00 92 16 139/69 97 Nasal Cannula 2.0 08/19/17 16:00 97.8 95 16 135/69 94 Nasal Cannula 2.0 97.8 08/19/17 16:00 91 08/19/17 15:00 90 17 132/64 97 Nasal Cannula 2.0 Intake and Output 08/19/17 08/20/17 19:00 07:00 Intake Total 1085 ml 685 ml Output Total 0 ml 0 ml Balance 1085 ml 685 ml Intake Oral 430 ml 50 ml IV Total 655 ml 635 ml Output Urine Total 0 ml 0 ml Laboratory Tests 08/20/17 05:15: White Blood Count 10.7, Red Blood Count 3.13L, Hemoglobin 9.7L, Hematocrit 30.8L , Mean Corpuscular Volume 98, Mean Corpuscular Hemoglobin 31.1H, Mean Corpuscular Hemoglobin Concent 31.5L, Red Cell Distribution Width 17.3H, Platelet Count 102L, Mean Platelet Volume 8.9, Neutrophils (%) (Auto) 74.7, Lymphocytes (%) (Auto) 19.8L, Monocytes (%) (Auto) 3.5, Eosinophils (%) (Auto) 1.4, Basophils (%) (Auto) 0.6, Sodium Level 137, Potassium Level 4.8, Chloride Level 93L, Carbon Dioxide Level 32, Anion Gap 12, Blood Urea Nitrogen 77H, Creatinine 14.4H, Estimat Glomerular Filtration Rate 3.3, Glucose Level 88, Calcium Level 7.9L, Phosphorus Level 7.9H, Magnesium Level 2.2, Total Bilirubin 2.9H, Direct Bilirubin 0.6H, Aspartate Amino Transf (AST/SGOT) 27, Alanine Aminotransferase (ALT/SGPT) 30, Alkaline Phosphatase 89, Troponin I 0.039, C- Reactive Protein, Quantitative 17.1H, Pro-B-Type Natriuretic Peptide 18638I, Total Protein 7.6, Albumin 2.9L, Globulin 4.7, Albumin/Globulin Ratio 0.6L 08/20/17 13:35: Iron Level [Pending], Unsaturated Iron Binding [Pending] Height (Feet): 5 Height (Inches): 5.00 Weight (Pounds): 182 Objective WDWN AA woman NCAT supple CTA RRR abd soft, (+) RUQ TTP - less than yesterday no edema non focal Alecia Bhagat MD August 20, 2017 14:34
[2017-08-20 14:37] LABS: % IRON SATURATION 45 % (15-50); IRON 68 ug/dL (50-175); TOTAL IRON BINDING CAPACITY 150 ug/dL (250-450)
[2017-08-20] MEDS: Dextrose 5%/Lactated Ringer's 1,000 ML IV SCH (15:07)
[2017-08-20] MEDS ORDERED: Minoxidil 2.5mg tab ORAL PRN (17:00)
[2017-08-20] MEDS ORDERED: Dyna-Hex 2% Top Sol 2oz TOPIC SCH (20:00)
[2017-08-20] MEDS: Dyna-Hex 2% Top Sol 2oz TOPIC SCH (20:00)
[2017-08-21] VITALS: BP 156/92
[2017-08-21 04:00] VITALS: BP 142/76
[2017-08-21] MEDS: Piperacillin/Tazobactam 2.25 GM in D5W 55 ML IVPB SCH ×3 (06:05→22:12)
[2017-08-21] MEDS: cloNIDine 0.2mg Tab ORAL SCH ×3 (06:05→21:30)
[2017-08-21 08:00] VITALS: BP 153/90
[2017-08-21] MEDS: Carvedilol 25mg Tab ORAL SCH ×2 (08:51→21:00)
[2017-08-21] MEDS: Losartan 50mg tab ORAL SCH ×2 (08:51→21:00)
[2017-08-21] MEDS: Imdur 30mg tab ORAL SCH (08:52)
--- NOTE | 2017-08-21 10:19 | Nephrology Progress Note ---
Assessment/Plan Problem List: (1) ESRD (end stage renal disease) on dialysis (2) Hyperkalemia (3) Hypertensive urgency Assessment ESRD High K- missed HD HTN OOC Abdominal pain, ? Cholecystitis Plan HD done 08/18 next 08/21 BP med adjustments per GI start renal diet Per orders Subjective ROS Limited/Unobtainable: No Constitutional: Reports: malaise Objective Objective Last 24 Hour Vital Signs Date Time Temp Pulse Resp B/P (MAP) Pulse Ox O2 Delivery O2 Flow Rate FiO2 08/21/17 08:52 153/90 08/21/17 08:51 153/90 08/21/17 08:51 88 153/90 08/21/17 08:00 97.9 88 18 153/90 97 Nasal Cannula 2.0 97.9 08/21/17 08:00 88 08/21/17 06:05 142/76 08/21/17 04:00 87 08/21/17 04:00 97.9 75 19 142/76 94 Nasal Cannula 2.0 97.9 08/21/17 00:00 98.4 80 20 156/92 93 Nasal Cannula 2.0 98.4 08/21/17 00:00 93 08/20/17 20:45 146/72 08/20/17 20:44 146/72 08/20/17 20:44 86 146/72 08/20/17 20:00 97.5 86 19 146/72 93 Nasal Cannula 2.0 97.5 08/20/17 20:00 90 08/20/17 19:01 Nasal Cannula 2.0 28 08/20/17 19:01 99 Nasal Cannula 2.0 28 08/20/17 16:00 98.1 90 18 147/68 95 Nasal Cannula 2.0 98.1 08/20/17 16:00 92 08/20/17 13:00 85 15 147/82 100 Nasal Cannula 2.0 08/20/17 12:08 91 08/20/17 12:00 91 18 155/65 100 Nasal Cannula 2.0 08/20/17 11:04 121/61 08/20/17 11:00 87 19 121/61 98 Nasal Cannula 2.0 Intake and Output 08/20/17 08/21/17 19:00 07:00 Intake Total 1149 ml 780 ml Output Total 0 ml Balance 1149 ml 780 ml Intake Oral 550 ml 120 ml IV Total 599 ml 660 ml Output Urine Total 0 ml # Voids 2 # Bowel Movements 1 Laboratory Tests 08/20/17 13:35: Iron Level 68, Total Iron Binding Capacity 150L, Percent Iron Saturation 45, Unsaturated Iron Binding 82L Height (Feet): 5 Height (Inches): 5.00 Weight (Pounds): 194 General Appearance: no apparent distress Respiratory/Chest: decreased breath sounds Abdomen: soft Objective no change LAM SOLANO August 21, 2017 10:19
--- NOTE | 2017-08-21 10:48 | GI Progress Note ---
Assessment/Plan Problems: (1) Acute cholecystitis ICD Codes: K81.0 - Acute cholecystitis SNOMED: 44197636 (2) Abdominal pain ICD Codes: R10.9 - Unspecified abdominal pain SNOMED: 79377483 (3) Gastritis ICD Codes: K29.70 - Gastritis, unspecified, without bleeding SNOMED: 2200976 Status: stable Status Narrative Discussed with Dr. Caldwell. Assessment/Plan Assessment - RUQ pain - cholecystitis - mild anemia - mild thrombocytopenia - colonoscopy done last year, unremarkable per patient Recommendations - okay for DC per GI standpoint - follow exam and symptoms - surgical f/u - eventual cholecystectomy - outpatient GI procedures Subjective Gastrointestinal/Abdominal: Reports: no symptoms Subjective abdominal pain resolved Objective Last 24 Hour Vital Signs Date Time Temp Pulse Resp B/P (MAP) Pulse Ox O2 Delivery O2 Flow Rate FiO2 08/21/17 08:52 153/90 08/21/17 08:51 153/90 08/21/17 08:51 88 153/90 08/21/17 08:00 97.9 88 18 153/90 97 Nasal Cannula 2.0 97.9 08/21/17 08:00 88 08/21/17 06:05 142/76 08/21/17 04:00 87 08/21/17 04:00 97.9 75 19 142/76 94 Nasal Cannula 2.0 97.9 08/21/17 00:00 98.4 80 20 156/92 93 Nasal Cannula 2.0 98.4 08/21/17 00:00 93 08/20/17 20:45 146/72 08/20/17 20:44 146/72 08/20/17 20:44 86 146/72 08/20/17 20:00 97.5 86 19 146/72 93 Nasal Cannula 2.0 97.5 08/20/17 20:00 90 08/20/17 19:01 Nasal Cannula 2.0 28 08/20/17 19:01 99 Nasal Cannula 2.0 28 08/20/17 16:00 98.1 90 18 147/68 95 Nasal Cannula 2.0 98.1 08/20/17 16:00 92 08/20/17 13:00 85 15 147/82 100 Nasal Cannula 2.0 08/20/17 12:08 91 08/20/17 12:00 91 18 155/65 100 Nasal Cannula 2.0 08/20/17 11:04 121/61 08/20/17 11:00 87 19 121/61 98 Nasal Cannula 2.0 Intake and Output 08/20/17 08/21/17 19:00 07:00 Intake Total 1149 ml 780 ml Output Total 0 ml Balance 1149 ml 780 ml Intake Oral 550 ml 120 ml IV Total 599 ml 660 ml Output Urine Total 0 ml # Voids 2 # Bowel Movements 1 Laboratory Tests Test 08/20/17 13:35 Iron Level 68 ug/dL (50-175) Total Iron Binding Capacity 150 ug/dL (250-450) L Percent Iron Saturation 45 % (15-50) Unsaturated Iron Binding 82 ug/dL (112-346) L Height (Feet): 5 Height (Inches): 5.00 Weight (Pounds): 194 General Appearance: WD/WN, no apparent distress, alert Cardiovascular: normal rate Respiratory/Chest: normal breath sounds, no respiratory distress Abdominal Exam: normal bowel sounds, non tender, soft Extremities: normal range of motion, non-tender Farrukh Santoro NP August 21, 2017 10:48
--- NOTE | 2017-08-21 11:10 | General Surgery Progress Note ---
General Surgery-Progress Note Subjective Symptoms: improved, pain absent, voiding well, passing flatus Additional Comments no acute events. comfortable. Objective Last 24 Hour Vital Signs Date Time Temp Pulse Resp B/P (MAP) Pulse Ox O2 Delivery O2 Flow Rate FiO2 08/21/17 08:52 153/90 08/21/17 08:51 153/90 08/21/17 08:51 88 153/90 08/21/17 08:00 97.9 88 18 153/90 97 Nasal Cannula 2.0 97.9 08/21/17 08:00 88 08/21/17 06:05 142/76 08/21/17 04:00 87 08/21/17 04:00 97.9 75 19 142/76 94 Nasal Cannula 2.0 97.9 08/21/17 00:00 98.4 80 20 156/92 93 Nasal Cannula 2.0 98.4 08/21/17 00:00 93 08/20/17 20:45 146/72 08/20/17 20:44 146/72 08/20/17 20:44 86 146/72 08/20/17 20:00 97.5 86 19 146/72 93 Nasal Cannula 2.0 97.5 08/20/17 20:00 90 08/20/17 19:01 Nasal Cannula 2.0 28 08/20/17 19:01 99 Nasal Cannula 2.0 28 08/20/17 16:00 98.1 90 18 147/68 95 Nasal Cannula 2.0 98.1 08/20/17 16:00 92 08/20/17 13:00 85 15 147/82 100 Nasal Cannula 2.0 08/20/17 12:08 91 08/20/17 12:00 91 18 155/65 100 Nasal Cannula 2.0 I&O Intake and Output 08/20/17 08/21/17 19:00 07:00 Intake Total 1149 ml 780 ml Output Total 0 ml Balance 1149 ml 780 ml Intake Oral 550 ml 120 ml IV Total 599 ml 660 ml Output Urine Total 0 ml # Voids 2 # Bowel Movements 1 Cardiovascular: RSR Respiratory: clear Abdomen: soft, flat, non-tender, present bowel sounds Extremities: no cyanosis Laboratory Tests Test 08/20/17 13:35 Iron Level 68 ug/dL (50-175) Total Iron Binding Capacity 150 ug/dL (250-450) L Percent Iron Saturation 45 % (15-50) Unsaturated Iron Binding 82 ug/dL (112-346) L Plan Problems: (1) Acute cholecystitis Assessment & Plan: 52F with first episode of acute cholecystitis. afebrile, HD stable, no leukocytosis, elevated alk phos, CT findings as above, exam with + Sosa's on admission Since admission pain has resolved now. no n/v/f/c. labs reviewed. LFT's normal. no leukocytosis. T bili elevated but direct okay. unlikely to be obstructive in nature. ultrasound: 1. Gallstones without gallbladder wall thickening or pericholecystic fluid. -okay to d/c from surgical standpoint. -needs outpatient surgical follow up for elective cholecystectomy thank you for this consultation. Zach Ramirez August 21, 2017 11:10
[2017-08-21] MEDS: Dextrose 5%/Lactated Ringer's 1,000 ML IV SCH (11:34)
[2017-08-21 12:00] VITALS: BP 154/85
--- NOTE | 2017-08-21 13:57 | General Progress Note ---
Assessment/Plan Status: stable Assessment/Plan ASSESSMENT: 1. Sepsis, source unknown. 2. Hypertensive emergency. 3. Pericardial effusion. 4. Hypoglycemia. 5. End-stage renal disease, on hemodialysis. 6. Hyperkalemia. 7. Hyponatremia. 8. Thrombocytopenia. 9. Gastrointestinal and deep venous thrombosis prophylaxis. 10 . Abn troponin 11. Severe PAH 12. Acute Anemia 13. Pericardial effusion : Moderate, no evidence of Tamponade, vitals are stable Plan: Echo is reviewed will monitor Trop Trend notes from cardiology reviewed Ok to transfer to Tele Will check iron panel current management Subjective ROS Limited/Unobtainable: No Constitutional: Reports: no symptoms HEENT: Reports: no symptoms Cardiovascular: Reports: no symptoms Respiratory: Reports: no symptoms Allergies: Coded Allergies: ACETAMINOPHEN (Verified Adverse Reaction, Unknown, 08/17/17) nausea CODEINE (Verified Adverse Reaction, Unknown, NAUSEA, 04/18/10) HYDROCODONE (Verified Adverse Reaction, Unknown, 08/17/17) nausea Objective Last 24 Hour Vital Signs Date Time Temp Pulse Resp B/P (MAP) Pulse Ox O2 Delivery O2 Flow Rate FiO2 08/21/17 13:34 154/85 08/21/17 12:00 97.3 82 18 154/85 95 Nasal Cannula 2.0 97.3 08/21/17 08:52 153/90 08/21/17 08:51 153/90 08/21/17 08:51 88 153/90 08/21/17 08:00 97.9 88 18 153/90 97 Nasal Cannula 2.0 97.9 08/21/17 08:00 88 08/21/17 07:40 Nasal Cannula 2.0 28 08/21/17 07:40 99 Nasal Cannula 2.0 28 08/21/17 06:05 142/76 08/21/17 04:00 87 08/21/17 04:00 97.9 75 19 142/76 94 Nasal Cannula 2.0 97.9 08/21/17 00:00 98.4 80 20 156/92 93 Nasal Cannula 2.0 98.4 08/21/17 00:00 93 08/20/17 20:45 146/72 08/20/17 20:44 146/72 08/20/17 20:44 86 146/72 08/20/17 20:00 97.5 86 19 146/72 93 Nasal Cannula 2.0 97.5 08/20/17 20:00 90 08/20/17 19:01 Nasal Cannula 2.0 28 08/20/17 19:01 99 Nasal Cannula 2.0 28 08/20/17 16:00 98.1 90 18 147/68 95 Nasal Cannula 2.0 98.1 08/20/17 16:00 92 Intake and Output 08/20/17 08/21/17 19:00 07:00 Intake Total 1149 ml 780 ml Output Total 0 ml Balance 1149 ml 780 ml Intake Oral 550 ml 120 ml IV Total 599 ml 660 ml Output Urine Total 0 ml # Voids 2 # Bowel Movements 1 Height (Feet): 5 Height (Inches): 5.00 Weight (Pounds): 194 General Appearance: WD/WN EENT: PERRL/EOMI Neck: supple Cardiovascular: normal rate Respiratory/Chest: lungs clear Abdomen: soft Extremities: non-tender 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
[2017-08-21 16:00] VITALS: BP 163/93
--- NOTE | 2017-08-21 18:15 | Cardiology Progress Note ---
Assessment/Plan Assessment/Plan 1. Medium sized pericardial effusion with no echo or clinical signs of pericardial tamponade, s/p HD, review of previous echo in Jun 2016 shows worsening of pericardial effusion from small to medium. 2. Accelerated HTN, on carvedilol and minoxidil, start amlodipine 5mg po daily. 3. Slight elevation of 2nd trop likely due to trop leak seen in patients with ESRD, the pattern of rise is not compatible with ACS. 4. Hyperkalemia due to missed HD, resolved with resuming HD. 5. Acute hypercapnic hypoxic respiratory failure, resolved. 6. ESRD, on HD. Subjective Subjective Sinus rhythm at 82. Transferred to the telemetry unit. Objective Last 24 Hour Vital Signs Date Time Temp Pulse Resp B/P (MAP) Pulse Ox O2 Delivery O2 Flow Rate FiO2 08/21/17 16:00 97.9 86 22 163/93 96 Nasal Cannula 2.0 97.9 08/21/17 13:34 154/85 08/21/17 12:00 84 08/21/17 12:00 97.3 82 18 154/85 95 Nasal Cannula 2.0 97.3 08/21/17 08:52 153/90 08/21/17 08:51 153/90 08/21/17 08:51 88 153/90 08/21/17 08:00 97.9 88 18 153/90 97 Nasal Cannula 2.0 97.9 08/21/17 08:00 88 08/21/17 07:40 Nasal Cannula 2.0 28 08/21/17 07:40 99 Nasal Cannula 2.0 28 08/21/17 06:05 142/76 08/21/17 04:00 87 08/21/17 04:00 97.9 75 19 142/76 94 Nasal Cannula 2.0 97.9 08/21/17 00:00 98.4 80 20 156/92 93 Nasal Cannula 2.0 98.4 08/21/17 00:00 93 08/20/17 20:45 146/72 08/20/17 20:44 146/72 08/20/17 20:44 86 146/72 08/20/17 20:00 97.5 86 19 146/72 93 Nasal Cannula 2.0 97.5 08/20/17 20:00 90 08/20/17 19:01 Nasal Cannula 2.0 28 08/20/17 19:01 99 Nasal Cannula 2.0 28 Intake and Output 08/20/17 08/21/17 19:00 07:00 Intake Total 1149 ml 780 ml Output Total 0 ml Balance 1149 ml 780 ml Intake Oral 550 ml 120 ml IV Total 599 ml 660 ml Output Urine Total 0 ml # Voids 2 # Bowel Movements 1 2D Echo: Normal LVEF, medium sized pericardial effusion with no tamponade Objective HEENT: Atraumatic and normocephalic, PERRLA, EOMI. NECK: Negative JVD, no carotid bruit. CHEST: Clear to auscultation. CVS: S1 and S2. Regular rate and rhythm. No S3. No S4, No pulsus paradoxus ABDOMEN: Soft, diffuse tenderness, no hepatosplenomegaly. EXTREMITIES: No edema, clubbing or cyanosis. Janak Sandhu MD August 21, 2017 18:15
[2017-08-21 20:00] VITALS: BP 165/89
[2017-08-21] MEDS: Dyna-Hex 2% Top Sol 2oz TOPIC SCH (21:33)
[2017-08-21] MEDS: Labetalol 200mg tab ORAL SCH (22:13)
[2017-08-22] VITALS: BP 168/92
[2017-08-22 04:00] VITALS: BP 160/86
[2017-08-22] MEDS: Piperacillin/Tazobactam 2.25 GM in D5W 55 ML IVPB SCH ×2 (06:19→13:52)
[2017-08-22] MEDS: cloNIDine 0.2mg Tab ORAL SCH ×2 (06:19→14:00)
[2017-08-22] MEDS: Losartan 50mg tab ORAL SCH (08:10)
[2017-08-22] MEDS: Dextrose 5%/Lactated Ringer's 1,000 ML IV SCH (08:10)
[2017-08-22] MEDS: Imdur 30mg tab ORAL SCH (08:11)
[2017-08-22 08:13] VITALS: BP 156/78
[2017-08-22] MEDS: Labetalol 200mg tab ORAL SCH (08:25)
[2017-08-22 08:49] LABS: BASOPHILS % (AUTO) 0.4 % (0.0-2.0); EOSINOPHILS % (AUTO) 1.6 % (0.0-3.0); HEMOGLOBIN 8.2 G/DL (12.0-16.0); LYMPHOCYTES % (AUTO) 19.2 % (20.0-45.0); MEAN CORPUSCULAR VOLUME 99 FL (80-99); NEUTROPHILS % (AUTO) 73.8 % (45.0-75.0); PLATELET COUNT 121 K/UL (150-450); RED BLOOD COUNT 2.73 M/UL (4.20-5.40); RED CELL DISTRIBUTION WIDTH 17.8 % (11.6-14.8); WHITE BLOOD COUNT 5.8 K/UL (4.8-10.8)
[2017-08-22 09:37] LABS: ALANINE AMINOTRANSFERASE 22 U/L (12-78); ALBUMIN 2.8 G/DL (3.4-5.0); ALBUMIN/GLOBULIN RATIO 0.6 (1.0-2.7); ALKALINE PHOSPHATASE 110 U/L (46-116); ANION GAP 12 mmol/L (5-15); ASPARTATE AMINO TRANSFERASE 17 U/L (15-37); BILIRUBIN,TOTAL 1.8 MG/DL (0.2-1.0); BLOOD UREA NITROGEN 40 mg/dL (7-18); CARBON DIOXIDE 34 MMOL/L (21-32); CHLORIDE 95 MMOL/L (98-107); POTASSIUM 3.4 MMOL/L (3.5-5.1); SODIUM 140 MMOL/L (136-145)
[2017-08-22 09:57] LABS: BILIRUBIN,DIRECT 0.5 MG/DL (0.0-0.3)
[2017-08-22 10:00] LABS: CALCIUM 8.5 MG/DL (8.5-10.1)
--- NOTE | 2017-08-22 11:03 | Pulmonology Progress Note ---
Assessment/Plan Problems: (1) Sepsis (2) Hypertensive urgency (3) Renal failure (4) ESRD (end stage renal disease) on dialysis (5) Abdominal pain Assessment/Plan on zosyn f/u cultures BP better HD by nephrology symptomatic treatment dvt prophylaxis Subjective ROS Limited/Unobtainable: No Constitutional: Reports: no symptoms HEENT: Repors: no symptoms Respiratory: Reports: no symptoms Allergies: Coded Allergies: ACETAMINOPHEN (Verified Adverse Reaction, Unknown, 08/17/17) nausea CODEINE (Verified Adverse Reaction, Unknown, NAUSEA, 04/18/10) HYDROCODONE (Verified Adverse Reaction, Unknown, 08/17/17) nausea Objective Last 24 Hour Vital Signs Date Time Temp Pulse Resp B/P (MAP) Pulse Ox O2 Delivery O2 Flow Rate FiO2 08/22/17 08:25 93 156/78 08/22/17 08:13 97.2 93 20 156/78 94 Nasal Cannula 2.0 97.2 08/22/17 08:11 94 160/86 08/22/17 08:11 160/86 08/22/17 08:10 160/86 08/22/17 08:00 93 08/22/17 06:19 160/86 08/22/17 04:00 94 08/22/17 04:00 97.9 92 20 160/86 94 Nasal Cannula 2.0 97.9 08/22/17 00:00 98.4 89 20 168/92 93 Nasal Cannula 2.0 98.4 08/21/17 23:39 99 08/21/17 22:13 84 207/112 08/21/17 22:13 207/112 08/21/17 21:30 213/113 08/21/17 20:00 98.1 85 19 165/89 95 Nasal Cannula 2.0 98.1 08/21/17 19:30 87 08/21/17 16:00 88 08/21/17 16:00 97.9 86 22 163/93 96 Nasal Cannula 2.0 97.9 08/21/17 13:34 154/85 08/21/17 12:00 84 08/21/17 12:00 97.3 82 18 154/85 95 Nasal Cannula 2.0 97.3 Intake and Output 08/21/17 08/22/17 19:00 07:00 Intake Total 816.667 ml Balance 816.667 ml Intake Oral 390 ml IV Total 426.667 ml # Voids 1 # Bowel Movements 1 General Appearance: WD/WN HEENT: normocephalic, atraumatic Respiratory/Chest: chest wall non-tender, lungs clear Abdomen: normal bowel sounds, soft, non tender Genitourinary: normal external genitalia Extremities: no cyanosis Neurologic/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 normal Laboratory Tests 08/22/17 04:00: Stool Occult Blood Positive 08/22/17 07:40: White Blood Count 5.8, Red Blood Count 2.73L, Hemoglobin 8.2L, Hematocrit 27.0L , Mean Corpuscular Volume 99, Mean Corpuscular Hemoglobin 29.9, Mean Corpuscular Hemoglobin Concent 30.3L, Red Cell Distribution Width 17.8H, Platelet Count 121L, Mean Platelet Volume 8.6, Neutrophils (%) (Auto) 73.8, Lymphocytes (%) (Auto) 19.2L, Monocytes (%) (Auto) 5.0, Eosinophils (%) (Auto) 1.6, Basophils (%) (Auto) 0.4, Sodium Level 140, Potassium Level 3.4L, Chloride Level 95L, Carbon Dioxide Level 34H, Anion Gap 12, Blood Urea Nitrogen 40H, Creatinine 9.0H, Estimat Glomerular Filtration Rate 5.7, Glucose Level 102, Calcium Level 8.5, Total Bilirubin 1.8H, Direct Bilirubin 0.5H, Aspartate Amino Transf (AST/SGOT) 17, Alanine Aminotransferase (ALT/SGPT) 22, Alkaline Phosphatase 110, Total Protein 7.3, Albumin 2.8L, Globulin 4.5, Albumin/ Globulin Ratio 0.6L Current Medications Medications (Trade) Dose Ordered Sig/Johnna Route PRN Reason Start Time Stop Time Status Last Admin Dose Admin Amlodipine Besylate (Norvasc) 5 mg DAILY ORAL 08/21/17 18:15 09/20/17 18:14 Atorvastatin Calcium (Lipitor) 10 mg BEDTIME ORAL 08/20/17 21:00 09/18/17 20:59 08/20/17 20:45 Chlorhexidine Gluconate (Bianca-Hex 2%) 1 applic DAILY@1999 TOPIC 08/20/17 20:00 09/19/17 19:59 08/21/17 21:33 Clonidine HCl (Catapres tab) 0.2 mg Q8HR ORAL 08/20/17 20:00 09/19/17 19:59 08/22/17 06:19 Dextrose/Lactated Ringer's 1,000 ml @ 50 mls/hr Q20H IV 08/20/17 16:00 09/17/17 15:59 08/22/17 08:10 Diazepam (Valium) 2 mg Q6H PRN ORAL For Anxiety 08/20/17 19:30 08/25/17 01:29 Ibuprofen (Motrin) 600 mg Q6H PRN ORAL For Pain 08/20/17 18:15 09/19/17 12:14 Isosorbide Mononitrate (Imdur) 60 mg DAILY ORAL 08/21/17 09:00 09/19/17 08:59 Labetalol HCl (Normodyne) 300 mg Q12HR ORAL 08/21/17 22:00 09/20/17 21:59 08/22/17 08:25 Losartan Potassium (Cozaar) 50 mg EVERY 12 HOURS ORAL 08/20/17 21:00 09/17/17 20:59 Minoxidil (Loniten) 2.5 mg Q4H PRN ORAL bp over 170 syst 100 howard 08/20/17 17:00 09/17/17 12:59 08/21/17 22:13 Ondansetron HCl (Zofran ODT) 4 mg Q6H PRN ORAL Nausea & Vomiting 08/20/17 19:30 09/17/17 01:29 Pantoprazole (Protonix) 40 mg BID ORAL 08/20/17 18:00 09/18/17 17:59 08/22/17 08:25 Piperacillin Sod/ Tazobactam Sod 2.25 gm/Dextrose 55 ml @ 110 mls/hr Q8HR IVPB 08/20/17 22:00 08/23/17 05:59 08/22/17 06:19 Sevelamer Carbonate (Renvela) 2,400 mg THREE TIMES A DAY ORAL 08/20/17 18:00 09/18/17 12:59 08/22/17 08:26 Luz Maria Tomlinson MD August 22, 2017 11:03
--- NOTE | 2017-08-22 11:09 | Nephrology Progress Note ---
Assessment/Plan Problem List: (1) ESRD (end stage renal disease) on dialysis (2) Hyperkalemia (3) Hypertensive urgency Assessment ESRD High K- missed HD HTN OOC Abdominal pain, ? Cholecystitis Plan HD next 08/23 BP med adjustments per GI start renal diet Per orders Subjective ROS Limited/Unobtainable: No Constitutional: Reports: malaise Objective Objective Last 24 Hour Vital Signs Date Time Temp Pulse Resp B/P (MAP) Pulse Ox O2 Delivery O2 Flow Rate FiO2 08/22/17 08:25 93 156/78 08/22/17 08:13 97.2 93 20 156/78 94 Nasal Cannula 2.0 97.2 08/22/17 08:11 94 160/86 08/22/17 08:11 160/86 08/22/17 08:10 160/86 08/22/17 08:00 93 08/22/17 06:19 160/86 08/22/17 04:00 94 08/22/17 04:00 97.9 92 20 160/86 94 Nasal Cannula 2.0 97.9 08/22/17 00:00 98.4 89 20 168/92 93 Nasal Cannula 2.0 98.4 08/21/17 23:39 99 08/21/17 22:13 84 207/112 08/21/17 22:13 207/112 08/21/17 21:30 213/113 08/21/17 20:00 98.1 85 19 165/89 95 Nasal Cannula 2.0 98.1 08/21/17 19:30 87 08/21/17 16:00 88 08/21/17 16:00 97.9 86 22 163/93 96 Nasal Cannula 2.0 97.9 08/21/17 13:34 154/85 08/21/17 12:00 84 08/21/17 12:00 97.3 82 18 154/85 95 Nasal Cannula 2.0 97.3 Intake and Output 08/21/17 08/22/17 19:00 07:00 Intake Total 816.667 ml Balance 816.667 ml Intake Oral 390 ml IV Total 426.667 ml # Voids 1 # Bowel Movements 1 Laboratory Tests 08/22/17 04:00: Stool Occult Blood Positive 08/22/17 07:40: White Blood Count 5.8, Red Blood Count 2.73L, Hemoglobin 8.2L, Hematocrit 27.0L , Mean Corpuscular Volume 99, Mean Corpuscular Hemoglobin 29.9, Mean Corpuscular Hemoglobin Concent 30.3L, Red Cell Distribution Width 17.8H, Platelet Count 121L, Mean Platelet Volume 8.6, Neutrophils (%) (Auto) 73.8, Lymphocytes (%) (Auto) 19.2L, Monocytes (%) (Auto) 5.0, Eosinophils (%) (Auto) 1.6, Basophils (%) (Auto) 0.4, Sodium Level 140, Potassium Level 3.4L, Chloride Level 95L, Carbon Dioxide Level 34H, Anion Gap 12, Blood Urea Nitrogen 40H, Creatinine 9.0H, Estimat Glomerular Filtration Rate 5.7, Glucose Level 102, Calcium Level 8.5, Total Bilirubin 1.8H, Direct Bilirubin 0.5H, Aspartate Amino Transf (AST/SGOT) 17, Alanine Aminotransferase (ALT/SGPT) 22, Alkaline Phosphatase 110, Total Protein 7.3, Albumin 2.8L, Globulin 4.5, Albumin/ Globulin Ratio 0.6L Height (Feet): 5 Height (Inches): 5.00 Weight (Pounds): 193 General Appearance: no apparent distress Objective no change LAM SOLANO August 22, 2017 11:09
[2017-08-22] MEDS ORDERED: traMADol 50mg tab ORAL PRN (11:15)
[2017-08-22 12:00] VITALS: BP 124/75
--- NOTE | 2017-08-22 13:06 | GI Progress Note ---
Assessment/Plan Problems: (1) Acute cholecystitis ICD Codes: K81.0 - Acute cholecystitis SNOMED: 11460638 (2) Abdominal pain ICD Codes: R10.9 - Unspecified abdominal pain SNOMED: 90869978 (3) Gastritis ICD Codes: K29.70 - Gastritis, unspecified, without bleeding SNOMED: 4923871 Status: stable Status Narrative Discussed with Dr. Caldwell. Assessment/Plan Assessment - RUQ pain - cholecystitis - mild anemia - mild thrombocytopenia - colonoscopy done last year, unremarkable per patient - Hgb downtrend, OB stool positive >> patient reports heavy menses at this time. Recommendations - patient refusing GI procedures - okay for DC per GI standpoint - follow exam and symptoms - surgical f/u - eventual cholecystectomy - outpatient GI procedures, to follow up with primary GI Subjective Subjective abdominal pain resolved Objective Last 24 Hour Vital Signs Date Time Temp Pulse Resp B/P (MAP) Pulse Ox O2 Delivery O2 Flow Rate FiO2 08/22/17 12:00 98.6 86 19 124/75 98 Nasal Cannula 2.0 98.6 08/22/17 08:25 93 156/78 08/22/17 08:13 97.2 93 20 156/78 94 Nasal Cannula 2.0 97.2 08/22/17 08:11 94 160/86 08/22/17 08:11 160/86 08/22/17 08:10 160/86 08/22/17 08:00 93 08/22/17 06:19 160/86 08/22/17 04:00 94 08/22/17 04:00 97.9 92 20 160/86 94 Nasal Cannula 2.0 97.9 08/22/17 00:00 98.4 89 20 168/92 93 Nasal Cannula 2.0 98.4 08/21/17 23:39 99 08/21/17 22:13 84 207/112 08/21/17 22:13 207/112 08/21/17 21:30 213/113 08/21/17 20:00 98.1 85 19 165/89 95 Nasal Cannula 2.0 98.1 08/21/17 19:30 87 08/21/17 16:00 88 08/21/17 16:00 97.9 86 22 163/93 96 Nasal Cannula 2.0 97.9 08/21/17 13:34 154/85 Intake and Output 5/14/18 5/15/18 19:00 07:00 Intake Total 816.667 ml Balance 816.667 ml Intake Oral 390 ml IV Total 426.667 ml # Voids 1 # Bowel Movements 1 Laboratory Tests Test 08/22/17 04:00 08/22/17 07:40 Stool Occult Blood Positive (NEGATIVE) White Blood Count 5.8 K/UL (4.8-10.8) Red Blood Count 2.73 M/UL (4.20-5.40) L Hemoglobin 8.2 G/DL (12.0-16.0) L Hematocrit 27.0 % (37.0-47.0) L Mean Corpuscular Volume 99 FL (80-99) Mean Corpuscular Hemoglobin 29.9 PG (27.0-31.0) Mean Corpuscular Hemoglobin Concent 30.3 G/DL (32.0-36.0) L Red Cell Distribution Width 17.8 % (11.6-14.8) H Platelet Count 121 K/UL (150-450) L Mean Platelet Volume 8.6 FL (6.5-10.1) Neutrophils (%) (Auto) 73.8 % (45.0-75.0) Lymphocytes (%) (Auto) 19.2 % (20.0-45.0) L Monocytes (%) (Auto) 5.0 % (1.0-10.0) Eosinophils (%) (Auto) 1.6 % (0.0-3.0) Basophils (%) (Auto) 0.4 % (0.0-2.0) Sodium Level 140 MMOL/L (136-145) Potassium Level 3.4 MMOL/L (3.5-5.1) L Chloride Level 95 MMOL/L (98-107) L Carbon Dioxide Level 34 MMOL/L (21-32) H Anion Gap 12 mmol/L (5-15) Blood Urea Nitrogen 40 mg/dL (7-18) H Creatinine 9.0 MG/DL (0.55-1.30) H Estimat Glomerular Filtration Rate 5.7 mL/min (>60) Glucose Level 102 MG/DL (74-106) Calcium Level 8.5 MG/DL (8.5-10.1) Total Bilirubin 1.8 MG/DL (0.2-1.0) H Direct Bilirubin 0.5 MG/DL (0.0-0.3) H Aspartate Amino Transf (AST/SGOT) 17 U/L (15-37) Alanine Aminotransferase (ALT/SGPT) 22 U/L (12-78) Alkaline Phosphatase 110 U/L (46-116) Total Protein 7.3 G/DL (6.4-8.2) Albumin 2.8 G/DL (3.4-5.0) L Globulin 4.5 g/dL Albumin/Globulin Ratio 0.6 (1.0-2.7) L Height (Feet): 5 Height (Inches): 5.00 Weight (Pounds): 193 General Appearance: WD/WN, no apparent distress, alert Cardiovascular: normal rate Respiratory/Chest: normal breath sounds, no respiratory distress Abdominal Exam: normal bowel sounds, non tender, soft Extremities: normal range of motion, non-tender Farrukh Santoro NP August 22, 2017 13:06
[2017-08-22 14:00] VITALS: BP 124/75
--- NOTE | 2017-08-22 14:01 | General Surgery Progress Note ---
General Surgery-Progress Note Subjective Symptoms: improved, pain absent, tolerating diet, passing flatus, BM Additional Comments no acute events. Objective Last 24 Hour Vital Signs Date Time Temp Pulse Resp B/P (MAP) Pulse Ox O2 Delivery O2 Flow Rate FiO2 08/22/17 12:00 98.6 86 19 124/75 98 Nasal Cannula 2.0 98.6 08/22/17 08:25 93 156/78 08/22/17 08:13 97.2 93 20 156/78 94 Nasal Cannula 2.0 97.2 08/22/17 08:11 94 160/86 08/22/17 08:11 160/86 08/22/17 08:10 160/86 08/22/17 08:00 93 08/22/17 06:19 160/86 08/22/17 04:00 94 08/22/17 04:00 97.9 92 20 160/86 94 Nasal Cannula 2.0 97.9 08/22/17 00:00 98.4 89 20 168/92 93 Nasal Cannula 2.0 98.4 08/21/17 23:39 99 08/21/17 22:13 84 207/112 08/21/17 22:13 207/112 08/21/17 21:30 213/113 08/21/17 20:00 98.1 85 19 165/89 95 Nasal Cannula 2.0 98.1 08/21/17 19:30 87 08/21/17 16:00 88 08/21/17 16:00 97.9 86 22 163/93 96 Nasal Cannula 2.0 97.9 I&O Intake and Output 08/21/17 08/22/17 19:00 07:00 Intake Total 816.667 ml Balance 816.667 ml Intake Oral 390 ml IV Total 426.667 ml # Voids 1 # Bowel Movements 1 Drains: none Cardiovascular: RSR Respiratory: clear Abdomen: soft, flat, non-tender, present bowel sounds Extremities: no cyanosis Laboratory Tests Test 08/22/17 04:00 08/22/17 07:40 Stool Occult Blood Positive (NEGATIVE) White Blood Count 5.8 K/UL (4.8-10.8) Red Blood Count 2.73 M/UL (4.20-5.40) L Hemoglobin 8.2 G/DL (12.0-16.0) L Hematocrit 27.0 % (37.0-47.0) L Mean Corpuscular Volume 99 FL (80-99) Mean Corpuscular Hemoglobin 29.9 PG (27.0-31.0) Mean Corpuscular Hemoglobin Concent 30.3 G/DL (32.0-36.0) L Red Cell Distribution Width 17.8 % (11.6-14.8) H Platelet Count 121 K/UL (150-450) L Mean Platelet Volume 8.6 FL (6.5-10.1) Neutrophils (%) (Auto) 73.8 % (45.0-75.0) Lymphocytes (%) (Auto) 19.2 % (20.0-45.0) L Monocytes (%) (Auto) 5.0 % (1.0-10.0) Eosinophils (%) (Auto) 1.6 % (0.0-3.0) Basophils (%) (Auto) 0.4 % (0.0-2.0) Sodium Level 140 MMOL/L (136-145) Potassium Level 3.4 MMOL/L (3.5-5.1) L Chloride Level 95 MMOL/L (98-107) L Carbon Dioxide Level 34 MMOL/L (21-32) H Anion Gap 12 mmol/L (5-15) Blood Urea Nitrogen 40 mg/dL (7-18) H Creatinine 9.0 MG/DL (0.55-1.30) H Estimat Glomerular Filtration Rate 5.7 mL/min (>60) Glucose Level 102 MG/DL (74-106) Calcium Level 8.5 MG/DL (8.5-10.1) Total Bilirubin 1.8 MG/DL (0.2-1.0) H Direct Bilirubin 0.5 MG/DL (0.0-0.3) H Aspartate Amino Transf (AST/SGOT) 17 U/L (15-37) Alanine Aminotransferase (ALT/SGPT) 22 U/L (12-78) Alkaline Phosphatase 110 U/L (46-116) Total Protein 7.3 G/DL (6.4-8.2) Albumin 2.8 G/DL (3.4-5.0) L Globulin 4.5 g/dL Albumin/Globulin Ratio 0.6 (1.0-2.7) L Plan Problems: (1) Acute cholecystitis Assessment & Plan: 52F with first episode of acute cholecystitis. afebrile, HD stable, no leukocytosis, elevated alk phos, CT findings as above, exam with + Sosa's on admission Since admission pain has resolved now. no n/v/f/c. labs reviewed. LFT's normal. no leukocytosis. T bili trending down. unlikely to be obstructive in nature. anemia ultrasound: 1. Gallstones without gallbladder wall thickening or pericholecystic fluid. -okay to d/c from surgical standpoint. -needs outpatient surgical follow up for elective cholecystectomy -appreciate GI input thank you for this consultation. Zach Ramirez August 22, 2017 14:01
--- NOTE | 2017-08-22 14:55 | Cardiology Report ---
APPROVED REPORT EKG Measurement Heart [id number] Sinus tachycardia Right atrial enlargement Borderline ECG
--- NOTE | 2017-08-22 15:01 | Cardiology Report ---
APPROVED REPORT EKG Measurement Heart [id number] Normal sinus rhythm Normal ECG
--- NOTE | 2017-08-22 15:26 | General Progress Note ---
Assessment/Plan Assessment/Plan ASSESSMENT: 1. Sepsis, source unknown. 2. Hypertensive emergency. 3. Pericardial effusion. 4. Hypoglycemia. 5. End-stage renal disease, on hemodialysis. 6. Hyperkalemia. 7. Hyponatremia. 8. Thrombocytopenia. 9. Gastrointestinal and deep venous thrombosis prophylaxis. 10 . Abn troponin 11. Severe PAH 12. Acute Anemia 13. Pericardial effusion : Moderate, no evidence of Tamponade, vitals are stable Plan: Echo is reviewed will monitor Trop Trend notes from cardiology reviewed Ok to transfer to Tele Will check iron panel current management ok to followup as outpatient Subjective ROS Limited/Unobtainable: No Constitutional: Reports: no symptoms HEENT: Reports: no symptoms Allergies: Coded Allergies: ACETAMINOPHEN (Verified Adverse Reaction, Unknown, 08/17/17) nausea CODEINE (Verified Adverse Reaction, Unknown, NAUSEA, 04/18/10) HYDROCODONE (Verified Adverse Reaction, Unknown, 08/17/17) nausea Objective Last 24 Hour Vital Signs Date Time Temp Pulse Resp B/P (MAP) Pulse Ox O2 Delivery O2 Flow Rate FiO2 08/22/17 14:00 124/75 08/22/17 12:00 98.6 86 19 124/75 98 Nasal Cannula 2.0 98.6 08/22/17 08:25 93 156/78 08/22/17 08:13 97.2 93 20 156/78 94 Nasal Cannula 2.0 97.2 08/22/17 08:11 94 160/86 08/22/17 08:11 160/86 08/22/17 08:10 160/86 08/22/17 08:00 93 08/22/17 06:19 160/86 08/22/17 04:00 94 08/22/17 04:00 97.9 92 20 160/86 94 Nasal Cannula 2.0 97.9 08/22/17 00:00 98.4 89 20 168/92 93 Nasal Cannula 2.0 98.4 08/21/17 23:39 99 08/21/17 22:13 84 207/112 08/21/17 22:13 207/112 08/21/17 21:30 213/113 08/21/17 20:00 98.1 85 19 165/89 95 Nasal Cannula 2.0 98.1 08/21/17 19:30 87 08/21/17 16:00 88 08/21/17 16:00 97.9 86 22 163/93 96 Nasal Cannula 2.0 97.9 Intake and Output 08/21/17 08/22/17 19:00 07:00 Intake Total 816.667 ml Balance 816.667 ml Intake Oral 390 ml IV Total 426.667 ml # Voids 1 # Bowel Movements 1 Laboratory Tests 08/22/17 04:00: Stool Occult Blood Positive 08/22/17 07:40: White Blood Count 5.8, Red Blood Count 2.73L, Hemoglobin 8.2L, Hematocrit 27.0L , Mean Corpuscular Volume 99, Mean Corpuscular Hemoglobin 29.9, Mean Corpuscular Hemoglobin Concent 30.3L, Red Cell Distribution Width 17.8H, Platelet Count 121L, Mean Platelet Volume 8.6, Neutrophils (%) (Auto) 73.8, Lymphocytes (%) (Auto) 19.2L, Monocytes (%) (Auto) 5.0, Eosinophils (%) (Auto) 1.6, Basophils (%) (Auto) 0.4, Sodium Level 140, Potassium Level 3.4L, Chloride Level 95L, Carbon Dioxide Level 34H, Anion Gap 12, Blood Urea Nitrogen 40H, Creatinine 9.0H, Estimat Glomerular Filtration Rate 5.7, Glucose Level 102, Calcium Level 8.5, Total Bilirubin 1.8H, Direct Bilirubin 0.5H, Aspartate Amino Transf (AST/SGOT) 17, Alanine Aminotransferase (ALT/SGPT) 22, Alkaline Phosphatase 110, Total Protein 7.3, Albumin 2.8L, Globulin 4.5, Albumin/ Globulin Ratio 0.6L Height (Feet): 5 Height (Inches): 5.00 Weight (Pounds): 193 General Appearance: no apparent distress EENT: PERRL/EOMI Cardiovascular: normal rate Respiratory/Chest: lungs clear Abdomen: soft Extremities: non-tender, other - AVG in left arm Ivan Park MD August 22, 2017 15:26
--- NOTE | 2017-08-22 23:51 | Cardiology Progress Note ---
Assessment/Plan Assessment/Plan 1. Medium sized pericardial effusion with no echo or clinical signs of pericardial tamponade, s/p HD, review of previous echo in Jun 2016 shows worsening of pericardial effusion from small to medium. 2. Accelerated HTN, on carvedilol and minoxidil, start amlodipine 5mg po daily. 3. Slight elevation of 2nd trop likely due to trop leak seen in patients with ESRD, the pattern of rise is not compatible with ACS. 4. Hyperkalemia due to missed HD, resolved with resuming HD. 5. Acute hypercapnic hypoxic respiratory failure, resolved. 6. ESRD, on HD. Subjective Subjective Sinus rhythm at 81. Refusing some of the BP meds. Objective Last 24 Hour Vital Signs Date Time Temp Pulse Resp B/P (MAP) Pulse Ox O2 Delivery O2 Flow Rate FiO2 08/22/17 14:00 124/75 08/22/17 12:00 81 08/22/17 12:00 98.6 86 19 124/75 98 Nasal Cannula 2.0 98.6 08/22/17 08:25 93 156/78 08/22/17 08:13 97.2 93 20 156/78 94 Nasal Cannula 2.0 97.2 08/22/17 08:11 94 160/86 08/22/17 08:11 160/86 08/22/17 08:10 160/86 08/22/17 08:00 93 08/22/17 06:19 160/86 08/22/17 04:00 94 08/22/17 04:00 97.9 92 20 160/86 94 Nasal Cannula 2.0 97.9 08/22/17 00:00 98.4 89 20 168/92 93 Nasal Cannula 2.0 98.4 Intake and Output 08/21/17 08/22/17 19:00 07:00 Intake Total 816.667 ml Balance 816.667 ml Intake Oral 390 ml IV Total 426.667 ml # Voids 1 # Bowel Movements 1 2D Echo: Normal LVEF, medium sized pericardial effusion with no tamponade Laboratory Tests Test 08/22/17 04:00 08/22/17 07:40 Stool Occult Blood Positive (NEGATIVE) White Blood Count 5.8 K/UL (4.8-10.8) Red Blood Count 2.73 M/UL (4.20-5.40) L Hemoglobin 8.2 G/DL (12.0-16.0) L Hematocrit 27.0 % (37.0-47.0) L Mean Corpuscular Volume 99 FL (80-99) Mean Corpuscular Hemoglobin 29.9 PG (27.0-31.0) Mean Corpuscular Hemoglobin Concent 30.3 G/DL (32.0-36.0) L Red Cell Distribution Width 17.8 % (11.6-14.8) H Platelet Count 121 K/UL (150-450) L Mean Platelet Volume 8.6 FL (6.5-10.1) Neutrophils (%) (Auto) 73.8 % (45.0-75.0) Lymphocytes (%) (Auto) 19.2 % (20.0-45.0) L Monocytes (%) (Auto) 5.0 % (1.0-10.0) Eosinophils (%) (Auto) 1.6 % (0.0-3.0) Basophils (%) (Auto) 0.4 % (0.0-2.0) Sodium Level 140 MMOL/L (136-145) Potassium Level 3.4 MMOL/L (3.5-5.1) L Chloride Level 95 MMOL/L (98-107) L Carbon Dioxide Level 34 MMOL/L (21-32) H Anion Gap 12 mmol/L (5-15) Blood Urea Nitrogen 40 mg/dL (7-18) H Creatinine 9.0 MG/DL (0.55-1.30) H Estimat Glomerular Filtration Rate 5.7 mL/min (>60) Glucose Level 102 MG/DL (74-106) Calcium Level 8.5 MG/DL (8.5-10.1) Total Bilirubin 1.8 MG/DL (0.2-1.0) H Direct Bilirubin 0.5 MG/DL (0.0-0.3) H Aspartate Amino Transf (AST/SGOT) 17 U/L (15-37) Alanine Aminotransferase (ALT/SGPT) 22 U/L (12-78) Alkaline Phosphatase 110 U/L (46-116) Total Protein 7.3 G/DL (6.4-8.2) Albumin 2.8 G/DL (3.4-5.0) L Globulin 4.5 g/dL Albumin/Globulin Ratio 0.6 (1.0-2.7) L Objective HEENT: Atraumatic and normocephalic, PERRLA, EOMI. NECK: Negative JVD, no carotid bruit. CHEST: Clear to auscultation. CVS: S1 and S2. Regular rate and rhythm. No S3. No S4, No pulsus paradoxus ABDOMEN: Soft, diffuse tenderness, no hepatosplenomegaly. EXTREMITIES: No edema, clubbing or cyanosis. Janak Sandhu MD August 22, 2017 23:51
--- NOTE | 2017-08-24 12:10 | Discharge Summary ---
Discharge Summary Discharge Summary Discharge Summary DATE OF ADMISSION: 08/17/2017 DATE OF DISCHARGE: 08/22/2017 CONSULTANTS: Dr. Luz Maria Caldwell [facility] HOSPITAL COURSE: Patient is a 52-year-old -[place] female, with history of end-stage renal disease on hemodialysis, uncontrolled hypertension, hyperlipidemia, obesity, coronary artery disease presented with complaints of abdominal pain for the past 2-3 days. Pain was diffuse and radiates to the back. Denied diarrhea, fever, chills. On evaluation at ED, blood work showed severe hyperkalemia, sodium level of 7.5. Creatinine 16, BUN and 92. Total bilirubin was elevated to 1.1. Direct bilirubin 0.3. Alkaline phosphatase 131 LFTs were normal. Troponin was slightly elevated at 0.008. EKG was in normal sinus rhythm. Chest x-ray showed no acute disease. CT of the abdomen and pelvis showed thickening of the gallbladder wall concerning for cholecystitis, there was also a large pericardial effusion and pulmonary edema. She was then admitted to ICU. She was placed on nothing by mouth. She underwent hemodialysis. She had uncontrolled blood pressure. Antihypertensives were titrated. She had medium sized pericardial effusion with no clinical signs of pericardial tamponade. Echocardiogram with ejection fraction of 65-70%. There was a moderate to large circumferential pericardial effusion with no chamber collapse to suggest tamponade. She was placed on nothing by mouth and was given medical management for treatment of cholecystitis. She was given Zosyn. Abdominal ultrasound showed gallstones. Abdominal symptoms improved. She was eventually started on renal diet and was tolerating diet well. Hyperkalemia improved. She was stool OB positive however refused any GI procedures. She had anemia and thrombocytopenia. She had elevated troponin likely due to troponin leak seen in patients with end- stage renal disease. The pattern of rice is not compatible with acute coronary syndrome. She had improved pain and was tolerating diet, passing flatus, and BM. Total bilirubin downtrending. Unlikely obstructive in nature. LFTs normalized. She was eventually cleared for discharge home. FINAL DIAGNOSES: Sepsis, source unknown Acute cholecystitis Hypertensive emergency Pericardial effusion, with no evidence of tamponade Hypoglycemia End-stage renal disease on hemo-dialysis Hyperkalemia Hyponatremia Acute Anemia Thrombocytopenia Elevated troponin possibly secondary to troponin leak Severe pulmonary artery hypertension Gastritis DISPOSITION: Patient was discharged home. DISCHARGE MEDICATIONS: Refer to Discharge Medication List. DISCHARGE INSTRUCTIONS: Follow up with PCP in a week. I have been assigned to dictate discharge summary on this account, and I was not involved in the patient's management. Angelita Becker NP August 24, 2017 12:10
== END 2017-08-22 16:25 | disposition home or self-care (01) | DRG 871 ==
LOC: EMR 21:29 → 2E 21:59 → EDBEDREQ 22:38 → ICU 08-18 06:57 → 2E 08-20 14:30
PROC: 5A1D70Z Performance of Urinary Filtration, Intermittent, Less than 6 Hours Per Day (ICD-10-PCS; principal; 2017-08-18)
PROC: 5A1D70Z Performance of Urinary Filtration, Intermittent, Less than 6 Hours Per Day (ICD-10-PCS; 2017-08-21)
DX: A41.9 Sepsis, unspecified organism (principal); N18.6 End stage renal disease; J96.01 Acute respiratory failure with hypoxia; J96.02 Acute respiratory failure with hypercapnia; K81.0 Acute cholecystitis; E87.1 Hypo-osmolality and hyponatremia; I31.3 Pericardial effusion (noninflammatory); I12.0 Hypertensive chronic kidney disease with stage 5 chronic kidney disease or end stage renal disease; I16.1 Hypertensive emergency; Z99.2 Dependence on renal dialysis; E87.5 Hyperkalemia; Z88.6 Allergy status to analgesic agent; E66.01 Morbid (severe) obesity due to excess calories; I25.10 Atherosclerotic heart disease of native coronary artery without angina pectoris; E16.2 Hypoglycemia, unspecified; D69.6 Thrombocytopenia, unspecified; D64.9 Anemia, unspecified; I27.20 Pulmonary hypertension, unspecified; R74.9 Abnormal serum enzyme level, unspecified; K29.70 Gastritis, unspecified, without bleeding
CPT/HCPCS: 36415; 36600; 71045; 71250; 74176; 76700; 80053; 80061; 82248; 82270; 82550; 82553; 82803; 82947; 82962; 82977; 83036; 83540; 83550; 83690; 83735; 83880; 84100; 84443; 84484; 84550; 85025; 85610; 86140; 87081; 93005; 93306; 94664; 94760; 99285; J2405

== ENCOUNTER 2019-02-05 20:41 | Inpatient (IN) | payer MEDICARE, OTHER ==
[~2019-02-05] VITALS: Ht 165.1 cm; Wt 69.6 kg
[~2019-02-05 20:41] MED LIST changes: +CATAPRES0.3 MG ORAL; +COZAAR50 MG ORAL; +ISOSORBIDE MONO60 M1 PO; +LABETALOL HCL300 MG ORAL; +MINOXIDIL2.5 MG PO; +TYLENOL EXTRA500 MG ORAL
[2019-02-05 20:50] VITALS: BP 218/114
--- NOTE | 2019-02-05 21:00 | NUR ---
ED Nurse Note: Pt walked in c/o abd pain since 02/04. Pt stated 11/17 pain aching pain in epigastic area. Denies n/v/d.
--- NOTE | 2019-02-05 21:12 | Emergency Room Report ---
History of Present Illness General Chief Complaint: Abdominal Pain Source: Patient Present Illness HPI 53-year-old female history of dialysis Monday presents with generalized abdominal pain, no fevers no chills, no nausea vomiting, diarrhea, patient is requesting some pain medication, patient states she had her dialysis Monday, patient reports that she has not been compliant with her low potassium diet, patient denies any chest pain shortness of breath, patient endorses a generalized ache epigastrically has been constant, no aggravating relieving factors patient presents for evaluation Allergies: Coded Allergies: ACETAMINOPHEN (Verified Adverse Reaction, Unknown, 08/17/17) nausea CODEINE (Verified Adverse Reaction, Unknown, NAUSEA, 04/18/10) HYDROCODONE (Verified Adverse Reaction, Unknown, 08/17/17) nausea Patient History Past Medical History: see triage record Last Menstrual Period: na Reviewed Nursing Documentation: PMH: Agreed; PSxH: Agreed Nursing Documentation-PMH Hx Cardiac Problems: Yes Hx Hypertension: Yes Hx Cancer: No Hx Gastrointestinal Problems: No Hx Dialysis: Yes - MWF Hx Neurological Problems: No Review of Systems All Other Systems: negative except mentioned in HPI Physical Exam Vital Signs Date Time Temp Pulse Resp B/P (MAP) Pulse Ox O2 Delivery O2 Flow Rate FiO2 02/05/19 20:47 98.8 74 16 218/114 (148) 96 Sp02 EP Interpretation: reviewed, normal General Appearance: well appearing, no apparent distress, alert Head: normocephalic, atraumatic Eyes: bilateral eye PERRL, bilateral eye EOMI ENT: uvula midline, moist mucus membranes Neck: supple, thyroid normal, supple/symm/no masses Respiratory: lungs clear, no respiratory distress, no retraction, no accessory muscle use Cardiovascular #1: normal peripheral pulses, regular rate, rhythm, no edema, no gallop, no murmur Gastrointestinal: non tender, no guarding, no rebound, tenderness - Diffuse tenderness very mild Musculoskeletal: normal inspection Neurologic: alert, oriented x3 Psychiatric: mood/affect normal Skin: no rash, warm/dry Procedures Critical Care Time Critical Care Time Given the critical condition in which the patient arrived, the patient was immediately assessed by myself and the nurse, and cardiac monitoring initiated due to the potential for rapid decompensation of the patient's clinical condition. During the course of the patient's stay, I spent a considerable amount of time at the bedside performing serial re-evaluations of the patient's hemodynamic and clinical status because of the recognized potential threat to life or limb in this condition. I then had a chance to review not only all of the available current laboratory and radiographic studies obtained today, but I also reviewed old records available to me at the time. Additionally, any ancillary information available including snack stewardess records were reviewed. Sequential vital signs were obtained. Critical Care time of 33 minutes was performed exclusive of billable procedures. Medical Decision Making Diagnostic Impression: Primary Impression: Hyperkalemia Additional Impressions: Abdominal pain Qualified Codes: R10.84 - Generalized abdominal pain Pulmonary edema Qualified Codes: J81.1 - Chronic pulmonary edema ER Course 53-year-old female presents with generalized abdominal pain differential diagnosis includes diverticulitis, appendicitis, gastritis electrolyte abnormality Patient found to have mild hyperkalemia, hyperkalemia cocktail initiated, insulin, glucose, Kayexalate Patient will be admitted for continued observation and removal of potassium Patient admitted to Dr. Bruce Laboratory Tests Test 02/05/19 22:25 02/05/19 23:26 White Blood Count 11.2 K/UL (4.8-10.8) H Red Blood Count 3.13 M/UL (4.20-5.40) L Hemoglobin 9.7 G/DL (12.0-16.0) L Hematocrit 28.4 % (37.0-47.0) L Mean Corpuscular Volume 91 FL (80-99) Mean Corpuscular Hemoglobin 31.0 PG (27.0-31.0) Mean Corpuscular Hemoglobin Concent 34.1 G/DL (32.0-36.0) Red Cell Distribution Width 14.6 % (11.6-14.8) Platelet Count 135 K/UL (150-450) L Mean Platelet Volume 8.4 FL (6.5-10.1) Neutrophils (%) (Auto) 79.4 % (45.0-75.0) H Lymphocytes (%) (Auto) 15.3 % (20.0-45.0) L Monocytes (%) (Auto) 4.0 % (1.0-10.0) Eosinophils (%) (Auto) 0.6 % (0.0-3.0) Basophils (%) (Auto) 0.7 % (0.0-2.0) Sodium Level 138 MMOL/L (136-145) Potassium Level 6.1 MMOL/L (3.5-5.1) *H Chloride Level 97 MMOL/L (98-107) L Carbon Dioxide Level 27 MMOL/L (21-32) Anion Gap 13 mmol/L (5-15) Blood Urea Nitrogen 90 mg/dL (7-18) H Creatinine 12.5 MG/DL (0.55-1.30) H Estimate Glomerular Filtration Rate 3.9 mL/min (>60) Glucose Level 90 MG/DL (74-106) Calcium Level 9.0 MG/DL (8.5-10.1) Total Bilirubin 0.9 MG/DL (0.2-1.0) Aspartate Amino Transferase (AST) 39 U/L (15-37) H Alanine Aminotransferase (ALT) 33 U/L (12-78) Alkaline Phosphatase 150 U/L (46-116) H Troponin I 0.005 ng/mL (0.000-0.056) Total Protein 7.8 G/DL (6.4-8.2) Albumin 3.6 G/DL (3.4-5.0) Globulin 4.2 g/dL Albumin/Globulin Ratio 0.9 (1.0-2.7) L Lipase 131 U/L (73-393) Prothrombin Time 11.9 SEC (9.30-11.50) H Prothrombin Time INR 1.1 (0.9-1.1) PTT 31 SEC (23-33) EKG Diagnostic Results EKG Time: 21:24 EP Interpretation: NSR, rate 71, QTc 478, no acute ST elevations, normal axis Rhythm Strip Diag. Results Rhythm Strip Time: 00:51 EP Interpretation: yes Rate: 68 Rhythm: NSR, no PVC's Chest X-Ray Diagnostic Results Chest X-Ray Diagnostic Results : Chest X-Ray Ordered: Yes # of Views/Limited/Complete: 1 View Indication: Other - Abdominal pain EP Interpretation: Yes Interpretation: other - Left pleural effusion Impression: Other Electronically Signed by: Matti Naranjo MD CT/MRI/US Diagnostic Results CT/MRI/US Diagnostic Results : Impression Preliminary Findings Only See Final Report For Complete Findings CT ABDOMEN & PELVIS Without Contrast: Comparison: 01/24/11 Lower lobe predominant groundglass attenuation and interstitial prominence most consistent with pulmonary edema. Moderate cardiomegaly. Bilateral pleural effusions right greater than left. Moderate to large amount of ascites throughout the abdomen and pelvis as well as diffuse abigail mesentery. Additional third spacing of fluid including mild soft tissue anasarca. Bilateral end-stage appearing kidneys. Hepatosplenomegaly. No acute findings identified involving the unenhanced solid abdominal organs. Multiple gallstones. The lower GI tract demonstrates no evidence of obstruction, pneumatosis or focal wall thickening. At least mild diffuse gastric wall thickening though the gastric lumen is essentially collapsed. The appendix was not visualized. Negative for pneumoperitoneum. Last Vital Signs Date Time Temp Pulse Resp B/P (MAP) Pulse Ox O2 Delivery O2 Flow Rate FiO2 02/05/19 20:47 98.8 74 16 218/114 (947) 96 Disposition: ADMITTED INPATIENT Condition: Stable Matti Naranjo MD Feb 05, 2019 21:12
[2019-02-05] MEDS ORDERED: Lidocaine 2% Visc 15ml soln ORAL ONE (21:15)
--- NOTE | 2019-02-05 22:22 | Diagnostic Imaging Report ---
Indication: Abdominal pain Technique: Continuous helical transaxial imaging of the abdomen and pelvis was obtained from the lung bases to the pubic symphysis. No intravenous contrast was administered. Coronal 2-D reformats were also obtained. Automatic Exposure Control was utilized. Total Dose length Product (DLP): [address] Dose Index Volume (CTDIvol): 17.5 mGy Comparison: none Findings: The heart is enlarged. Trace bilateral pleural effusions demonstrated. There is trace ascites demonstrated. Multiple gallstones noted within the gallbladder lumen. The kidneys appear atrophic bilaterally. There is suggestion of the wall thickening involving the left hemicolon and sigmoid colon. Transverse colon might be involved but difficult to visualize on this study. The small amount of contrast is noted in the colon. There is no essentially no contrast in the stomach or small bowel. Small umbilical hernia containing fat noted. Aortoiliac calcifications are present. Bladder is nondistended. Anasarca noted. Uterus is noted. The appendix is not seen. There is a suggestion of a small retroperitoneal nodes adjacent to the aorta and IVC. This is not well evaluated. IMPRESSION: Suspected colitis involving the descending colon and sigmoid and possibly more involvement in the proximal colon, which is not well evaluated. Please correlate clinically. Cholelithiasis. Mild ascites. Trace bilateral pleural effusions Anasarca Atherosclerotic vascular disease. Atrophic kidneys. Suggestion of small retroperitoneal nodes. The CT scanner at [facility] is accredited by the [employer] and the scans are performed using dose optimization techniques as appropriate to a performed exam including Automatic Exposure control.
[2019-02-05] MEDS ORDERED: Hydromorphone 0.5mg/0.5ml inj IVP ONE (22:30)
[2019-02-05] MEDS ORDERED: Hydromorphone 0.5mg/0.5ml inj ONE (22:40)
[2019-02-05 22:44] LABS: BASOPHILS % (AUTO) 0.7 % (0.0-2.0); EOSINOPHILS % (AUTO) 0.6 % (0.0-3.0); HEMATOCRIT 28.4 % (37.0-47.0); HEMOGLOBIN 9.7 G/DL (12.0-16.0); LYMPHOCYTES % (AUTO) 15.3 % (20.0-45.0); MEAN CORPUSCULAR VOLUME 91 FL (80-99); NEUTROPHILS % (AUTO) 79.4 % (45.0-75.0); PLATELET COUNT 135 K/UL (150-450); RED BLOOD COUNT 3.13 M/UL (4.20-5.40); RED CELL DISTRIBUTION WIDTH 14.6 % (11.6-14.8); WHITE BLOOD COUNT 11.2 K/UL (4.8-10.8)
[2019-02-05 23:05] LABS: ALANINE AMINOTRANSFERASE 33 U/L (12-78); ALBUMIN 3.6 G/DL (3.4-5.0); ALBUMIN/GLOBULIN RATIO 0.9 (1.0-2.7); ALKALINE PHOSPHATASE 150 U/L (46-116); ANION GAP 13 mmol/L (5-15); ASPARTATE AMINO TRANSFERASE 39 U/L (15-37); BILIRUBIN,TOTAL 0.9 MG/DL (0.2-1.0); BLOOD UREA NITROGEN 90 mg/dL (7-18); CARBON DIOXIDE 27 MMOL/L (21-32); CHLORIDE 97 MMOL/L (98-107); CREATININE 12.5 MG/DL (0.55-1.30); SODIUM 138 MMOL/L (136-145)
[2019-02-05 23:09] LABS: POTASSIUM 6.1 MMOL/L (3.5-5.1)
[2019-02-05] MEDS ORDERED: Sodium Polystyrene Sulfonate 15gm Powder ORAL ONE (23:15)
[2019-02-05] MEDS ORDERED: Insulin Human Regular 100units/ml 3ml IV ONE (23:15)
[2019-02-05] MEDS ORDERED: Calcium Gluconate 1gm/10ml vial IVP ONE (23:15)
[2019-02-05] MEDS ORDERED: Naloxone 0.4mg/ml Inj ONE (23:46)
[2019-02-05 23:53] LABS: INR 1.1 (0.9-1.1)
--- NOTE | 2019-02-05 23:55 | NUR ---
ED Nurse Note: Narcan 0.4 mg was override by Dr. Naranjo's order.
--- NOTE | 2019-02-06 00:02 | NUR ---
ED Nurse Note: Pt is very diaphoretic with pin point pupils. ERMD administered NArcan per order, inserted EJ on L side without complication
--- NOTE | 2019-02-06 01:20 | NUR ---
TRANSFER TO FLOOR: Patient transferred to as ordered, per Dr Bruce. Report given to MUSTAPHA Jarvis. Belongings and medications given to . Family and or S/O informed of transfer.
[2019-02-06 02:00] VITALS: BP 113/66
[2019-02-06] MEDS ORDERED: Acetaminophen 500mg (ES) tab ORAL PRN (02:00)
[2019-02-06] MEDS ORDERED: Naloxone 1mg/ml 2ml IVP ONE ×2 (03:15→03:30)
--- NOTE | 2019-02-06 03:29 | NUR ---
ED Nurse Note: ERMD unable to write order for 0.4mg narcan given, states its not in his orders. Charge nurse and ERMD aware. 0.4mg Narcan was given per verbal order
--- NOTE | 2019-02-06 03:30 | NUR ---
NURSE NOTES: Pt arrived from ER via gurney. Got report from Kathie LUCIANO. Per report pt got Dilaudid in the ER for abdominal pain and after had to be given Narcan. Pt fully oriented and able to answer all of my questions, pt is very drowsy. Per report pt is able to ambulate prior to admission, pt is very drowsy. VSS BP: 113/66 T:97.8 R:16 HR:63 O2:95% on 2L Nasal Cannula. Pt denies any pain. Denies any n/v or SOB. No skin issues noted. Belongings with pt. playground monitor placed on pt and running Sinus Rhythm on the monitor. Pt resting in bed comfortably with no s/s of distress or discomfort noted. Bed in low and locked position, call light within reach, bedside table within reach. Continue to monitor. Orders given by Dr. Reed. Orders placed.
[2019-02-06 04:00] VITALS: BP 140/81
--- NOTE | 2019-02-06 07:00 | NUR ---
HAND-OFF: Report given to Susan LUCIANO. Endorsed plan of care.
--- NOTE | 2019-02-06 07:10 | NUR ---
NURSE NOTES: I received the patient awake and resting in bed. Patient alert and oriented x4. Patient did not display any signs of distress or SOB. Bed in the lowest position and call light within reach. I will continue to monitor the patient and implement care.
[2019-02-06 07:24] LABS: HEMATOCRIT 33.7 % (37.0-47.0); HEMOGLOBIN 10.8 G/DL (12.0-16.0); MEAN CORPUSCULAR VOLUME 95 FL (80-99); PLATELET COUNT 167 K/UL (150-450); RED BLOOD COUNT 3.56 M/UL (4.20-5.40); WHITE BLOOD COUNT 14.1 K/UL (4.8-10.8)
[2019-02-06 07:41] LABS: ALANINE AMINOTRANSFERASE 29 U/L (12-78); ALBUMIN 3.9 G/DL (3.4-5.0); ALBUMIN/GLOBULIN RATIO 0.8 (1.0-2.7); ALKALINE PHOSPHATASE 161 U/L (46-116); ANION GAP 15 mmol/L (5-15); ASPARTATE AMINO TRANSFERASE 39 U/L (15-37); BILIRUBIN,TOTAL 0.9 MG/DL (0.2-1.0); BLOOD UREA NITROGEN 91 mg/dL (7-18); CALCIUM 9.4 MG/DL (8.5-10.1); CARBON DIOXIDE 24 MMOL/L (21-32); CHLORIDE 96 MMOL/L (98-107); CREATININE 12.8 MG/DL (0.55-1.30); SODIUM 135 MMOL/L (136-145)
[2019-02-06 07:43] LABS: POTASSIUM 7.5 MMOL/L (3.5-5.1)
[2019-02-06 08:00] VITALS: BP 154/85
--- NOTE | 2019-02-06 08:00 | NUR ---
NURSE NOTES: Dr. Morse notified about patient's potassium level.
--- NOTE | 2019-02-06 10:45 | General Progress Note ---
Assessment/Plan Assessment/Plan: GI CONSULT Patient seen. Full note to follow. Thank you Alecia Bhagat MD Subjective Allergies: Coded Allergies: ACETAMINOPHEN (Verified Adverse Reaction, Unknown, 08/17/17) nausea CODEINE (Verified Adverse Reaction, Unknown, NAUSEA, 04/18/10) HYDROCODONE (Verified Adverse Reaction, Unknown, 08/17/17) nausea Objective Last 24 Hour Vital Signs Date Time Temp Pulse Resp B/P (MAP) Pulse Ox O2 Delivery O2 Flow Rate FiO2 02/06/19 08:00 98.7 66 20 154/85 (108) 95 02/06/19 04:45 60 02/06/19 04:00 2.0 02/06/19 04:00 97.9 60 18 140/81 (100) 99 02/06/19 04:00 50 02/06/19 02:39 Nasal Cannula 2.0 02/06/19 02:00 97.8 63 16 113/66 (82) 95 02/06/19 02:00 75 02/06/19 02:00 97.8 02/06/19 01:58 Nasal Cannula 2.0 02/06/19 01:29 174/95 02/06/19 01:20 98.8 74 16 218/114 96 02/05/19 20:50 98.8 74 16 218/114 96 02/05/19 20:50 74 16 02/05/19 20:47 98.8 74 16 218/114 (148) 96 Laboratory Tests 02/05/19 22:25: White Blood Count 11.2H, Red Blood Count 3.13L, Hemoglobin 9.7L, Hematocrit 28.4L, Mean Corpuscular Volume 91, Mean Corpuscular Hemoglobin 31.0, Mean Corpuscular Hemoglobin Concent 34.1, Red Cell Distribution Width 14.6, Platelet Count 135L, Mean Platelet Volume 8.4, Neutrophils (%) (Auto) 79.4H, Lymphocytes (%) (Auto) 15.3L, Monocytes (%) (Auto) 4.0, Eosinophils (%) (Auto) 0.6, Basophils (%) (Auto) 0.7, Sodium Level 138, Potassium Level 6.1*H, Chloride Level 97L, Carbon Dioxide Level 27, Anion Gap 13, Blood Urea Nitrogen 90H, Creatinine 12.5H, Estimat Glomerular Filtration Rate 3.9, Glucose Level 90, Calcium Level 9.0, Total Bilirubin 0.9, Aspartate Amino Transf (AST/SGOT) 39H, Alanine Aminotransferase (ALT/SGPT) 33, Alkaline Phosphatase 150H, Troponin I 0.005, Total Protein 7.8, Albumin 3.6, Globulin 4.2, Albumin/Globulin Ratio 0.9L , Lipase 131 02/05/19 23:26: Prothrombin Time 11.9H, Prothromb Time International Ratio 1.1, Activated Partial Thromboplast Time 31 02/06/19 05:30: White Blood Count 14.1H, Red Blood Count 3.56L, Hemoglobin 10.8L, Hematocrit 33.7L, Mean Corpuscular Volume 95, Mean Corpuscular Hemoglobin 30.3, Mean Corpuscular Hemoglobin Concent 32.0, Red Cell Distribution Width 16.0H, Platelet Count 167, Mean Platelet Volume 8.8, Neutrophils (%) (Auto) , Lymphocytes (%) (Auto) , Monocytes (%) (Auto) , Eosinophils (%) (Auto) , Basophils (%) (Auto) , Sodium Level 135L, Potassium Level 7.5*H, Chloride Level 96L, Carbon Dioxide Level 24, Anion Gap 15, Blood Urea Nitrogen 91H, Creatinine 12.8H, Estimat Glomerular Filtration Rate 3.8, Glucose Level 101, Calcium Level 9.4, Total Bilirubin 0.9, Aspartate Amino Transf (AST/SGOT) 39H, Alanine Aminotransferase (ALT/SGPT) 29, Alkaline Phosphatase 161H, Total Protein 8.9H, Albumin 3.9, Globulin 5.0, Albumin/Globulin Ratio 0.8L, Differential Total Cells Counted 100, Neutrophils % (Manual) 81H, Lymphocytes % (Manual) 11L, Monocytes % (Manual) 6, Eosinophils % (Manual) 2, Basophils % (Manual) 0, Band Neutrophils 0, Platelet Estimate Adequate, Platelet Morphology Normal, Hypochromasia 1+, Anisocytosis 1+ Height (Feet): 5 Height (Inches): 5.00 Weight (Pounds): 140 Alecia Bhagat MD Feb 06, 2019 10:45
--- NOTE | 2019-02-06 11:26 | NUR ---
CASE MANAGEMENT:REVIEW 53 YR OLD FEMALE PRESENTED TO ER CC: ABDOMINAL PAIN SI: HYPERKALEMIA 98.8 74 16 218/114 96% ON RA K+6.1 BUN+90 CR+12.5 IS: IV ZOFRAN IV PEPCID IV DILAUDID IV CA GLUCONATE IV D50W IV LASIX KAYEXALATE : TO TELEMETRY PLAN: CONTINUOUS CARDIAC MONITORING PER MACHINE INKERTEAGAN GRANADOS, PATIENT IS HAVING PEAKED T WAVES
--- NOTE | 2019-02-06 11:58 | Consultation ---
Consult Note Consult Note was asked to evaluate for dialysis treatments Know to me from her previous admission 53-year-old female history of dialysis Monday presents with generalized abdominal pain, no fevers no chills, no nausea vomiting, diarrhea, patient is requesting some pain medication, patient states she had her dialysis Monday, patient reports that she has not been compliant with her low potassium diet, patient denies any chest pain shortness of breath, patient endorses a generalized ache epigastrically has been constant, no aggravating relieving factors patient presents for evaluation Allergies: ACETAMINOPHEN (Verified Adverse Reaction, Unknown, 08/17/17) nausea CODEINE (Verified Adverse Reaction, Unknown, NAUSEA, 04/18/10) HYDROCODONE (Verified Adverse Reaction, Unknown, 08/17/17) nausea Hx Cardiac Problems: Yes Hx Hypertension: Yes Hx Dialysis: Yes - MWF been on dialysis for 9 years examined data reviewed Assessment/Plan Assessment/Plan ESRD High K - Lasy dialysis 2 days ago HTN OOC upon presentation Abdominal pain, ? Cholecystitis Plan: HD with low K ordered BP med adjustments per GI Per orders Bob Morse MD Feb 06, 2019 11:58
[2019-02-06 12:00] VITALS: BP 154/86
[2019-02-06] MEDS: Pantoprazole Inj IVP SCH ×2 (12:42→21:25)
[2019-02-06] MEDS: D5 1/2NS 1,000 ML IV SCH (12:42)
--- NOTE | 2019-02-06 12:51 | Diagnostic Imaging Report ---
Indication: Dyspnea Comparison: 08/19/2017 A single view chest radiograph was obtained. Findings: Cardiac silhouette is prominent but improved since the last occasion. Mild pulmonary vascular congestion suspected currently. Correlate clinically. No definite pleural effusion identified. IMPRESSION: Some vascular prominence noted. Query mild CHF
[2019-02-06] MEDS: Metoclopramide 10mg/2ml Inj IVP PRN (14:01)
[2019-02-06 16:00] VITALS: BP 175/84
--- NOTE | 2019-02-06 18:58 | NUR ---
NURSE NOTES: Patient refused her one time dose of Norvasc. I contacted Dr. Morse to make him aware. The patient is resting in bed. The bed is in the lowest position and call light is within reach.
--- NOTE | 2019-02-06 19:17 | NUR ---
HAND-OFF: Report given to Susu Reyes RN.
--- NOTE | 2019-02-06 19:45 | NUR ---
NURSE NOTES: Received report from MUSTAPHA Davis. Patient is in bed, awake and responsive. Breathing regular with no distress noted at this time. Patient's IV is intact, running fluids at prescribed rate. Bed is in lowest position, breaks engaged, call light within reach at all times. Will continue to monitor.
[2019-02-06 20:00] VITALS: BP 160/82
--- NOTE | 2019-02-06 20:20 | NUR ---
NURSE NOTES: Called Dr. Bhagat regarding patient's desire to eat otherwise, she would rather leave AMA. Awaiting callback for any further orders.
--- NOTE | 2019-02-06 20:45 | NUR ---
NURSE NOTES: Received order from Dr. Bhagat for low potassium, clear liquid diet. Noted and carried out.
[2019-02-06] MEDS: Carvedilol 25mg Tab ORAL SCH (21:26)
[2019-02-06] MEDS: Sorbitol Solution UD 30ml ORAL ONE ×2 (22:30→22:53)
--- NOTE | 2019-02-06 23:34 | NUR ---
NURSE NOTES: Patient refuses Sorbitol at this time. Risks and benefits explained; still refusing.
[2019-02-07] VITALS: BP 164/88
--- NOTE | 2019-02-07 03:30 | History and Physical Report ---
DATE OF ADMISSION: 02/05/2019 HISTORY OF PRESENT ILLNESS: The patient presented with generalized weakness, abdominal pain, with elevated potassium, end-stage renal disease, on hemodialysis, hyperkalemia as well, admitted to telemetry unit. The patient basically reports abdominal pain for approximately three days. Denies nausea, vomiting, or diarrhea. The patient also has a history of being on dialysis. The patient basically denies nausea, vomiting, or diarrhea. The patient denies orthopnea. Denies any chest pain. PAST MEDICAL HISTORY: Significant for hypertension, end-stage renal disease, on dialysis, CAD, as well as hyperlipidemia. PAST SURGICAL HISTORY: Related to the chest tube in the past as well as related to dialysis. ALLERGIES: To codeine, hydrocodone, and acetaminophen. MEDICATIONS: Lipitor, Colace, isosorbide mononitrate, labetalol, losartan, tramadol. SOCIAL HISTORY: She has a history of smoking. No history of alcohol or illicit drugs. FAMILY HISTORY: Noncontributory. REVIEW OF SYSTEMS: HEENT: Denies headaches. RESPIRATORY: Denies shortness of breath. Denies cough. CARDIOVASCULAR: Denies chest pain. GASTROINTESTINAL: Denies nausea, vomiting, or diarrhea. Does have abdominal pain for three days. No constipation. EXTREMITIES: Denies pain in the extremities. CENTRAL NERVOUS SYSTEM: Denies change in vision or speech pattern. PHYSICAL EXAMINATION: VITAL SIGNS: Temperature is 98.5, pulse is 74, blood pressure is 154/86. HEENT: PERRLA. NECK: Supple. No lymphadenopathy. CHEST: Clear to auscultation. CARDIOVASCULAR: Regular rate and rhythm. No murmurs or extra sounds. GASTROINTESTINAL: Soft, nontender, and nondistended. Does have mild abdominal pain, however, abdomen is soft. No organomegaly. EXTREMITIES: No edema. Moves all four extremities. NEUROLOGIC: Sensory intact to light touch. Reflexes on both sides. LABORATORY DATA: WBC of 11.2, hemoglobin 9.7, and platelets of 135,000. Sodium 138, potassium 6.1, chloride of 97, BUN of , creatinine of , and glucose of 90. ASSESSMENT AND PLAN: Hyperkalemia, end-stage renal disease on hemodialysis, abdominal pain. I have asked Dr. Morse, Dr. Bhagat to see the patient for the management of the above-mentioned diagnoses as well as . Lidya Bruce M.D. DR: Fabiano JOB#: [id number] CC:
[2019-02-07 04:00] VITALS: BP 169/80
--- NOTE | 2019-02-07 05:31 | Consultation ---
DATE OF CONSULTATION: 02/06/2019 GASTROENTEROLOGY CONSULTATION CONSULTING PHYSICIAN: Alecia Bhagat M.D. CHIEF COMPLAINT: I was asked to see this patient by Dr. Lidya Bruce for evaluation of abdominal pain. HISTORY OF PRESENT ILLNESS: The patient is a 53-year-old woman, who comes into the hospital with a two-day history of upper abdominal pain. The patient says she had similar pains before, but this one brought her to the hospital. She denies any nausea, vomiting, diarrhea, or constipation. She does not drink alcohol. The patient states her appetite has been poor. She does also complain of longstanding history of chronic constipation. She states she had endoscopy and colonoscopy 2 years ago in [facility] and perhaps in the clinic. She could not recall any details. PAST SURGICAL HISTORY: Status post tubal ligation. FAMILY HISTORY: Noncontributory. REVIEW OF SYSTEMS: Otherwise negative. ALLERGIES: Acetaminophen, codeine, and hydrocodone. PHYSICAL EXAMINATION: GENERAL: A well-developed and well-nourished woman, seen in her room, in no distress. HEENT: Normocephalic and atraumatic. Sclerae are anicteric. Oropharynx is clear. NECK: Supple. CHEST: Clear to auscultation. CARDIOVASCULAR: Revealed a regular rate. ABDOMEN: Soft with some epigastric pain to palpation without guarding or rebound. EXTREMITIES: Revealed no edema. LABORATORY DATA: Laboratory data were noted. ASSESSMENT: This patient has abdominal pain for about three days or so of unclear etiology. She does have some mild thickening of the colon and therefore the possibility for infectious pathologies such as Clostridium difficile should be entertained. She does however deny any diarrhea. HIDA scan can also be done to rule out gallbladder disease since epigastric tenderness. If her symptoms persist without any clear cause then repeat endoscopy and colonoscopy can be considered. RECOMMENDATIONS: Per above discussion and per orders written in the chart. Thank you for asking me to participate in the care of this patient. Alecia Bhagat M.D. DR: HEIDY JOB#: [id number] CC: ODALIS
[2019-02-07 07:15] LABS: BASOPHILS % (AUTO) 0.4 % (0.0-2.0); EOSINOPHILS % (AUTO) 0.4 % (0.0-3.0); HEMATOCRIT 29.9 % (37.0-47.0); HEMOGLOBIN 9.8 G/DL (12.0-16.0); LYMPHOCYTES % (AUTO) 11.5 % (20.0-45.0); MEAN CORPUSCULAR VOLUME 93 FL (80-99); MONOCYTES % (AUTO) 3.5 % (1.0-10.0); NEUTROPHILS % (AUTO) 84.1 % (45.0-75.0); PLATELET COUNT 145 K/UL (150-450); RED BLOOD COUNT 3.22 M/UL (4.20-5.40); RED CELL DISTRIBUTION WIDTH 15.6 % (11.6-14.8); WHITE BLOOD COUNT 12.1 K/UL (4.8-10.8)
--- NOTE | 2019-02-07 07:33 | NUR ---
HAND-OFF: Report given to MUSTAPHA Garcia. Plan of care endorsed, patient is in stable condition.
[2019-02-07 07:34] LABS: ALANINE AMINOTRANSFERASE 33 U/L (12-78); ALBUMIN 3.5 G/DL (3.4-5.0); ALBUMIN/GLOBULIN RATIO 0.8 (1.0-2.7); ALKALINE PHOSPHATASE 137 U/L (46-116); ANION GAP 15 mmol/L (5-15); ASPARTATE AMINO TRANSFERASE 31 U/L (15-37); BILIRUBIN,TOTAL 0.9 MG/DL (0.2-1.0); BLOOD UREA NITROGEN 66 mg/dL (7-18); CALCIUM 8.9 MG/DL (8.5-10.1); CARBON DIOXIDE 26 MMOL/L (21-32); CHLORIDE 98 MMOL/L (98-107); CHOLESTEROL 156 MG/DL (< 200); CREATININE 11.1 MG/DL (0.55-1.30); GAMMA GLUTAMYL TRANSPEPTIDASE 81 U/L (5-85); HDL CHOLESTEROL 46 MG/DL (40-60); PHOSPHORUS 5.9 MG/DL (2.5-4.9); POTASSIUM 5.3 MMOL/L (3.5-5.1); SODIUM 139 MMOL/L (136-145); TRIGLYCERIDES 114 MG/DL (30-150)
--- NOTE | 2019-02-07 07:37 | NUR ---
NURSE NOTES: Received report from Pako /RN, Patient is awake, lying semi-snyder's. A/O x4. On 2L nasal canula, breathing even and unlabored. No acute distress/SOB noted at this time. Able to make needs known. IV site patent, no bleeding or infiltration noted. Encourage to use call light when needed. Bed in low position and locked, bed alarm engaged, side-rails up x3. Call light within reach. Will continue plan of care.
[2019-02-07 08:00] VITALS: BP 184/103
[2019-02-07] MEDS: D5 1/2NS 1,000 ML IV SCH (08:15)
[2019-02-07] MEDS: Carvedilol 25mg Tab ORAL SCH (08:20)
[2019-02-07] MEDS: Pantoprazole Inj IVP SCH (08:20)
[2019-02-07] MEDS: Metoclopramide 10mg/2ml Inj IVP PRN (08:20)
--- NOTE | 2019-02-07 08:20 | NUR ---
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
[2019-02-07] MEDS ORDERED: HydrALAZINE 50mg tab ORAL SCH (08:45)
[2019-02-07] MEDS ORDERED: Sodium Polystyrene Sulfonate 15gm Powder ORAL SCH (08:45)
--- NOTE | 2019-02-07 08:51 | NUR ---
Spoke with pt regarding NM Hepatobiliary (HIDA) scan. Pt states she does not want the test, she just wants to go home. Informed RN Radha.
[2019-02-07 09:20] VITALS: BP 184/103
--- NOTE | 2019-02-07 09:25 | NUR ---
NURSE NOTES: Patient refused most of her medications. She wants to take the same medication she's taking at home, and she stated she wants to take her medication with food. Patient is NPO for procedure. Patient stated " I don't get the same medication that I'm getting home, I'm hungry, I don't want to stay". I explained that she's not getting breakfast because she has procedure scheduled for today. Dr. Morse explained to her why she's not getting the same medication, but she's still want to sign out AMA.
--- NOTE | 2019-02-07 09:35 | NUR ---
NURSE NOTES: telemetry monitor and IV removed. No acute distress/SOB noted. Explained the risk of leaving with high blood pressure and high potassium. Patient signed out AMA and left with .
--- NOTE | 2019-02-07 09:53 | Nephrology Progress Note ---
Assessment/Plan Problem List: (1) Abdominal pain (2) Hyperkalemia (3) Hypertensive urgency (4) ESRD (end stage renal disease) on dialysis Assessment ESRD High K - [facility] dialysis 2 days ago HTN OOC upon presentation Abdominal pain, ? Cholecystitis Plan paytient in process of signing AMA- doesn't say why ! Advised to follow with rodrick and Renal MD HD with low K ordered done 02/06 BP med adjustments done per GI Per orders Subjective ROS Limited/Unobtainable: No Constitutional: Reports: malaise Objective Objective Last 24 Hour Vital Signs Date Time Temp Pulse Resp B/P (MAP) Pulse Ox O2 Delivery O2 Flow Rate FiO2 02/07/19 09:00 89 184/103 02/07/19 08:20 89 184/103 02/07/19 08:00 99.0 89 18 184/103 (130) 94 02/07/19 05:04 169/80 02/07/19 04:00 97.9 68 20 169/80 (109) 94 02/07/19 04:00 72 02/07/19 00:00 75 02/07/19 00:00 99.0 71 18 164/88 (113) 94 02/06/19 21:27 160/82 02/06/19 21:26 83 160/82 02/06/19 21:00 Room Air 02/06/19 20:00 80 02/06/19 20:00 99.6 83 18 160/82 (108) 94 02/06/19 19:04 76 192/107 02/06/19 16:25 175/84 02/06/19 16:00 79 18 175/84 (114) 100 02/06/19 16:00 98.9 02/06/19 15:56 76 02/06/19 12:00 98.5 74 20 154/86 (108) 93 02/06/19 11:43 75 02/06/19 11:34 Room Air Intake and Output 02/06/19 02/07/19 19:00 07:00 Intake Total 50 ml 720 ml Balance 50 ml 720 ml Intake Oral 120 ml IV Total 50 ml 600 ml Laboratory Tests 02/07/19 05:42: White Blood Count 12.1H, Red Blood Count 3.22L, Hemoglobin 9.8L, Hematocrit 29.9L, Mean Corpuscular Volume 93, Mean Corpuscular Hemoglobin 30.4, Mean Corpuscular Hemoglobin Concent 32.8, Red Cell Distribution Width 15.6H, Platelet Count 145L, Mean Platelet Volume 8.2, Neutrophils (%) (Auto) 84.1H, Lymphocytes (%) (Auto) 11.5L, Monocytes (%) (Auto) 3.5, Eosinophils (%) (Auto) 0.4, Basophils (%) (Auto) 0.4, Sodium Level 139, Potassium Level 5.3H, Chloride Level 98, Carbon Dioxide Level 26, Anion Gap 15, Blood Urea Nitrogen 66H, Creatinine 11.1H, Estimat Glomerular Filtration Rate 4.4, Glucose Level 99, Hemoglobin A1c 4.5, Uric Acid 6.0, Calcium Level 8.9, Phosphorus Level 5.9H, Magnesium Level 2.5H, Total Bilirubin 0.9, Gamma Glutamyl Transpeptidase 81, Aspartate Amino Transf (AST/SGOT) 31, Alanine Aminotransferase (ALT/SGPT) 33, Alkaline Phosphatase 137H, Troponin I 0.057H, C-Reactive Protein, Quantitative 5.6H, Pro-B-Type Natriuretic Peptide > [id number], Total Protein 8.1, Albumin 3.5, Globulin 4.6, Albumin/Globulin Ratio 0.8L, Triglycerides Level 114, Cholesterol Level 156, LDL Cholesterol 71, HDL Cholesterol 46, Cholesterol/HDL Ratio 3.4, Thyroid Stimulating Hormone (TSH) 5.554H Height (Feet): 5 Height (Inches): 5.00 Weight (Pounds): 153 General Appearance: no apparent distress Cardiovascular: normal rate Respiratory/Chest: decreased breath sounds Abdomen: distended Bob Morse MD Feb 07, 2019 09:53
--- NOTE | 2019-02-08 08:19 | Discharge Summary ---
Discharge Summary Discharge Summary _ DATE OF ADMISSION: 02/05/2019 DATE OF DISCHARGE: 02/07/2019 Patient left AGAINST MEDICAL ADVICE REASON FOR ADMISSION: 53 years old female with past medical history of end-stage renal disease , on hemodialysis, hypertension, presented to emergency department with generalized abdominal pain, constant, located mainly in epigastric area. Patient denied fever or chills. Patient denied chest pain or shortness of breath. Patient denied nausea, vomiting, diarrhea. Patient reported being not compliant with low potassium diet. Upon evaluation vital signs revealed elevated blood pressure 218/114, patient was afebrile. Laboratory work-up revealed mild leukocytosis WBC 11.2, hemoglobin 9.7, hematocrit 28.4, platelet count 135. Potassium 6.1. BUN 90, creatinine 12.5. Glucose 90. AST 39, ALT 33, lipase 131. Troponin 0.005. EKG revealed sinus rhythm , no acute ischemic changes. Chest x-ray revealed vascular prominence , probably mild CHF. CT of the abdomen and pelvis revealed suspected colitis , involving the descending c and sigmoid colon and possibly more involvement in the proximal colon. Cholelithiasis. Mild ascites. Trace bilateral pleural effusion. Anasarca. Atherosclerotic vascular disease. Atrophic kidneys. Small retroperitoneal nodes. In emergency department hyperkalemia was treated with insulin , glucose, and Kayexalate. Patient subsequently admitted to telemetry floor for further management. CONSULTANTS: GI specialist Dr. Bhagat fence machine operator Dr. Morse [facility] COURSE: Patient admitted to telemetry floor. Property Claims Adjuster closely followed. Hemodialysis with ultrafiltration was arranged as per fence machine operator recommendations with close monitoring of volumes , renal parameters and electrolytes. Hyperkalemia was further treated . Antihypertensive medication regimen was optimized to bring blood pressure under control. Blood pressure was managed with amlodipine, hydralazine, beta-garret , and clonidine patch. Additional antihypertensive were on board for prn use. GI specialist closely followed. GI prophylaxis provided. Patient was treated symptomatically with antiemetic. Per GI specialist, patient had abdominal pain for 3 days of unclear etiology. Patient demonstrated mild thickening of the colon on the CT scan and possibility of infection pathology such as C. difficile should be entertained. However patient denied any diarrhea. HIDA scan was ordered to rule out gallbladder disease, since patient had epigastric tenderness, and CT scan revealed cholelithiasis. LFT remained stable. Pain management was addressed. GI specialist recommended to consider GI procedures as well. Bowel regimen instituted. Supportive care provided. Patient declined HIDA scan since she disliked NPO status prior to the test. Hemoglobin and hematocrit were closely monitored with goal to keep hemoglobin above 7. Hemoglobin and hematocrit remained at baseline; prior to signing AMA hemoglobin 9.8 , hematocrit 29.9. Potassium 5.3 . BUN 66 , creatinine 11.1. On patient declined all of her medications and HIDA scan. Patient decided to leave AGAINST MEDICAL ADVICE . was at the bedside. The risks and consequences of signing AGAINST MEDICAL ADVICE were discussed with patient and her in detail. Patient verbalized understanding, nevertheless signed AMA form and left. FINAL DIAGNOSES: Hyperkalemia End-stage renal disease , on hemodialysis Hypertensive urgency Abdominal pain Cholelithiasis, rule out cholecystitis I have been assigned to dictate discharge summary for this account. I was not involved in the patient's management. Melissa Gil NP Feb 08, 2019 08:19
== END 2019-02-07 09:36 | disposition left against medical advice (07) | DRG 640 ==
LOC: EMR 21:00 → 2E 23:25 → EDBEDREQ 23:52
PROC: 5A1D70Z Performance of Urinary Filtration, Intermittent, Less than 6 Hours Per Day (ICD-10-PCS; principal; 2019-02-06)
DX: E87.5 Hyperkalemia (principal); N18.6 End stage renal disease; I12.0 Hypertensive chronic kidney disease with stage 5 chronic kidney disease or end stage renal disease; R18.8 Other ascites; I16.0 Hypertensive urgency; Z99.2 Dependence on renal dialysis; Z88.6 Allergy status to analgesic agent; K80.20 Calculus of gallbladder without cholecystitis without obstruction; R10.9 Unspecified abdominal pain; Z91.11 Patient's noncompliance with dietary regimen
CPT/HCPCS: 36415; 71045; 74176; 80053; 80061; 82962; 82977; 83036; 83690; 83735; 83880; 84100; 84443; 84484; 84550; 85007; 85025; 85610; 85730; 86140; 93005; 96374; 96375; 99291; J2310; J2405; J2765

== ENCOUNTER 2019-02-13 18:22 | Inpatient (IN) | payer MEDICARE, OTHER ==
[~2019-02-13] VITALS: Ht 170.2 cm; Wt 75.7 kg
[2019-02-13] MEDS ORDERED: Nitroglycerin Subl 0.4mg tab SL PRN (18:45)
--- NOTE | 2019-02-13 18:45 | NUR ---
ED Nurse Note: Patient wheeled into ED c/o n/v/dthat started today, states that shes had numerous amounts of vomit. Pt aox4, on room air, saturating 98%. No acute respiratory disress. Denies chest pain. AV shunt noted on left upper arm with good bruit and thrill. Pt states last dialysis she went to was Monday, has a schedule of MWF. Pt was placed on hospital gown, continuous bus driver/monitor, and cont. pulse ox. Blood collected and sent down to lab.
--- NOTE | 2019-02-13 19:00 | NUR ---
HAND-OFF: Report given to MUSTAPHA Esposito.
[2019-02-13 19:03] VITALS: BP 221/100
[2019-02-13 19:22] LABS: BASOPHILS % (AUTO) 0.8 % (0.0-2.0); EOSINOPHILS % (AUTO) 1.4 % (0.0-3.0); HEMATOCRIT 33.6 % (37.0-47.0); HEMOGLOBIN 11.1 G/DL (12.0-16.0); LYMPHOCYTES % (AUTO) 11.3 % (20.0-45.0); MEAN CORPUSCULAR VOLUME 92 FL (80-99); MONOCYTES % (AUTO) 3.7 % (1.0-10.0); NEUTROPHILS % (AUTO) 82.9 % (45.0-75.0); PLATELET COUNT 119 K/UL (150-450); RED BLOOD COUNT 3.66 M/UL (4.20-5.40); RED CELL DISTRIBUTION WIDTH 15.7 % (11.6-14.8); WHITE BLOOD COUNT 9.6 K/UL (4.8-10.8)
[2019-02-13 19:27] LABS: ALANINE AMINOTRANSFERASE 36 U/L (12-78); ALBUMIN 4.6 G/DL (3.4-5.0); ALBUMIN/GLOBULIN RATIO 0.8 (1.0-2.7); ALKALINE PHOSPHATASE 186 U/L (46-116); ANION GAP 22 mmol/L (5-15); ASPARTATE AMINO TRANSFERASE 37 U/L (15-37); BLOOD UREA NITROGEN 134 mg/dL (7-18); CALCIUM 9.6 MG/DL (8.5-10.1); CARBON DIOXIDE 17 MMOL/L (21-32); CHLORIDE 95 MMOL/L (98-107); CREATININE 21.6 MG/DL (0.55-1.30); SODIUM 135 MMOL/L (136-145)
[2019-02-13 19:28] LABS: INR 1.1 (0.9-1.1)
[2019-02-13] MEDS ORDERED: Sodium Bicarbonate 50ml Carp IV ONE (19:45)
[2019-02-13] MEDS ORDERED: Calcium Gluconate 1gm/10ml vial IVP ONE (19:45)
--- NOTE | 2019-02-13 19:59 | Emergency Room Report ---
History of Present Illness General Chief Complaint: Nausea, Vomiting, and Diarrhea Source: Patient Present Illness HPI Patient 53-year-old female presents after increased abdominal discomfort. Patient reports of increased pain to the left upper abdomen. She had recently had CT imaging which showed some colitis as well as gallstones. She had increased diarrhea. She had missed dialysis and is normally dialyzed Monday. Patient was recently hospitalized at [facility]. Allergies: Coded Allergies: ACETAMINOPHEN (Verified Adverse Reaction, Unknown, 08/17/17) nausea CODEINE (Verified Adverse Reaction, Unknown, NAUSEA, 04/18/10) HYDROCODONE (Verified Adverse Reaction, Unknown, 08/17/17) nausea Patient History Past Medical History: see triage record Last Menstrual Period: n/a Reviewed Nursing Documentation: PMH: Agreed; PSxH: Agreed Nursing Documentation-PMH Past Medical History: No History, Except For Hx Cardiac Problems: Yes Hx Hypertension: Yes Hx Cancer: No Hx Gastrointestinal Problems: No Hx Dialysis: Yes - MWF Hx Neurological Problems: No Review of Systems All Other Systems: negative except mentioned in HPI Physical Exam Vital Signs Date Time Temp Pulse Resp B/P (MAP) Pulse Ox O2 Delivery O2 Flow Rate FiO2 02/13/19 18:30 98.4 105 18 206/110 (142) 98 Room Air Sp02 EP Interpretation: reviewed, normal General Appearance: normal inspection, well appearing, no apparent distress, alert, GCS 15 Head: atraumatic ENT: normal ENT inspection, hearing grossly normal, normal voice Neck: normal inspection, full range of motion, supple, no bony tend Respiratory: normal inspection, lungs clear, normal breath sounds, no respiratory distress, no retraction, no wheezing Cardiovascular #1: regular rate, rhythm, no edema Gastrointestinal: normal inspection, soft, no guarding, no hernia Genitourinary: no CVA tenderness Musculoskeletal: normal inspection, back normal, normal range of motion Neurologic: normal inspection, alert, oriented x3, responsive, automation engineering technician III-XII nml as tested, motor strength/tone normal, speech normal Psychiatric: normal inspection, judgement/insight normal, mood/affect normal Medical Decision Making Diagnostic Impression: Primary Impression: Abdominal pain Additional Impression: Hyperkalemia ER Course Patient presented for abdominal pain. Differential diagnosis include was not limited to hyperkalemia, uremia, colitis among others. Because of complexity of patient's case laboratory tests and imaging studies were ordered. Patient was noted to have recently missed dialysis. EKG showed evidence of hyperkalemia. Patient was given medications for treatment of hyperkalemia. CT imaging had previously been performed recently which showed some evidence of gallstones as well as colitis. This is not repeated. Patient's laboratory testing showed market hyperkalemia but this was slightly high hemolyzed. Given the patient's EKG findings patient be hospitalized for correction of hyperkalemia and fluid overload. She was given medications for significant hypertension including hydralazine as well as IV calcium and Kayexalate. Dr. Lidya Reed was contacted for inpatient management Labs Test 02/13/19 18:45 02/13/19 19:35 White Blood Count 9.6 K/UL (4.8-10.8) Red Blood Count 3.66 M/UL (4.20-5.40) Hemoglobin 11.1 G/DL (12.0-16.0) Hematocrit 33.6 % (37.0-47.0) Mean Corpuscular Volume 92 FL (80-99) Mean Corpuscular Hemoglobin 30.4 PG (27.0-31.0) Mean Corpuscular Hemoglobin Concent 33.1 G/DL (32.0-36.0) Red Cell Distribution Width 15.7 % (11.6-14.8) Platelet Count 119 K/UL (150-450) Mean Platelet Volume 7.7 FL (6.5-10.1) Neutrophils (%) (Auto) 82.9 % (45.0-75.0) Lymphocytes (%) (Auto) 11.3 % (20.0-45.0) Monocytes (%) (Auto) 3.7 % (1.0-10.0) Eosinophils (%) (Auto) 1.4 % (0.0-3.0) Basophils (%) (Auto) 0.8 % (0.0-2.0) Prothrombin Time 12.1 SEC (9.30-11.50) Prothromb Time International Ratio 1.1 (0.9-1.1) Activated Partial Thromboplast Time 31 SEC (23-33) EKG Diagnostic Results Rate: normal Rhythm: NSR ST Segments: other - peaked t waves Last Vital Signs Date Time Temp Pulse Resp B/P (MAP) Pulse Ox O2 Delivery O2 Flow Rate FiO2 02/13/19 19:03 98.4 78 18 221/100 98 Room Air Status: improved Disposition: ADMITTED INPATIENT Condition: Stable Referrals: MAURICE BORJAS (PCP) Napoleon Aguilar MD Feb 13, 2019 19:59
[2019-02-13] MEDS ORDERED: Morphine Sulfate 2mg/ml Inj(IV/IM USE ONLY) IVP ONE (20:00)
[2019-02-13] MEDS ORDERED: Sodium Polystyrene Sulfonate 15gm Powder ORAL ONE (20:00)
[2019-02-13 20:10] LABS: POTASSIUM 8.8 MMOL/L (3.5-5.1)
--- NOTE | 2019-02-13 20:23 | NUR ---
ED Nurse Note: report given to Lakshmi miner
[2019-02-13] MEDS ORDERED: Acetaminophen 500mg (ES) tab ORAL PRN (20:30)
[2019-02-13] MEDS ORDERED: Minoxidil 2.5mg tab ORAL PRN (20:30)
[2019-02-13 20:41] VITALS: BP 163/73
[2019-02-13] MEDS ORDERED: Pantoprazole Inj IVP SCH (21:00)
--- NOTE | 2019-02-13 21:05 | NUR ---
NURSE NOTES: Received report from MUSTAPHA Esposito. Pt admitted to SDU from ED for abdominal pain and cardiac monitoring. Pt is A & o x 4, awake, BP 198/89, P 80, RR 20, satting at 98% on room air, denies pain at this time. Pt has an AV shunt on left arm, bruit noted. Right wrist 22g is saline locked, patent, intact, and asymptomatic. Pt is on renal diet, ambulatory, and skin intact. Pt recevies dialysis MWF. Called placed to [facility] dialysis with stat order from Mini. Pt appears stable at this time, will continue to monitor.
[2019-02-13 21:24] LABS: APPEARANCE,URINE CLEAR; BILIRUBIN, URINE NEGATIVE (NEGATIVE); COLOR,URINE PALE YELLOW; GLUCOSE, URINE (UA) 2+ (NEGATIVE); KETONES,URINE 1+ (NEGATIVE); LEUKOCYTE ESTERASE ,URINE NEGATIVE (NEGATIVE); NITRITE,URINE NEGATIVE (NEGATIVE); PH,URINE 9 (4.5-8.0); PROTEIN,URINE 3+ (NEGATIVE); UROBILINOGEN,URINE NORMAL MG/DL (0.0-1.0)
--- NOTE | 2019-02-13 23:10 | NUR ---
NURSE NOTES: Received a transfer from Abby a 53 y.o black female pt with chief complaints of rapid heart rate, (for Cardizem drip infusion). Pt was connected to c monitor which showed NSR bp 164/48. No complaint of CP nor SOB. Left arm AV shunt with good bruit. On room air, 02 sat >92%. drawing tracer here ready to dialyzed the Pt. Called Dr Charles for EKG reading (NSR 78/min)- awaiting for md to call back. Cardizem drip on hold at this time., due to controlled regular rhythm. No complaints of any discomfort at this time.Will continue to monitor.
--- NOTE | 2019-02-13 23:11 | NUR ---
NURSE NOTES: Pt sent to ICU per Araceli order related to increased in BP 198/96, and HR 130-160. Order read back and carried out. Report given to MUSTAPHA Anderson
[2019-02-13 23:48] VITALS: BP 164/85
[2019-02-14] VITALS (24 sets, daily range): BP systolic 143–186; BP diastolic 66–91
--- NOTE | 2019-02-14 | NUR ---
NURSE NOTES: Pt noted to desat 83% during hemodialysis. Placed pt on 02 at 3l/nc. now 02 sat 100%. Tolerating HD at this time. Pt still on NSR at this time, no c/o pain. Will continue to monitor.
--- NOTE | 2019-02-14 01:00 | NUR ---
NURSE NOTES: Dozing on and off at this time. No c/o pain . NSR on the monitor Bp 159/75. 02 sat 100%. lodging managerMUSTAPHA Henderson was aware that Cardizem drip was not started , due to pts regular rhythm.
--- NOTE | 2019-02-14 02:30 | NUR ---
NURSE NOTES: Hemodialysis was finished, pt tolerating well. NSR on the monitor. Will continue to monitor.
[2019-02-14] MEDS ORDERED: Nitroglycerin Subl 0.4mg tab SL PRN ×2 (03:20→11:48)
--- NOTE | 2019-02-14 04:00 | NUR ---
NURSE NOTES: complete bed bath orally care srivastava care done
[2019-02-14] MEDS ORDERED: Minoxidil 2.5mg tab ORAL PRN (04:30)
[2019-02-14] MEDS ORDERED: Acetaminophen 500mg (ES) tab ORAL PRN ×2 (04:30→12:30)
[2019-02-14 05:27] LABS: BASOPHILS % (AUTO) 0.5 % (0.0-2.0); EOSINOPHILS % (AUTO) 1.2 % (0.0-3.0); HEMOGLOBIN 8.3 G/DL (12.0-16.0); LYMPHOCYTES % (AUTO) 14.6 % (20.0-45.0); MEAN CORPUSCULAR VOLUME 94 FL (80-99); NEUTROPHILS % (AUTO) 79.8 % (45.0-75.0); PLATELET COUNT 109 K/UL (150-450); RED BLOOD COUNT 2.76 M/UL (4.20-5.40); WHITE BLOOD COUNT 8.8 K/UL (4.8-10.8)
[2019-02-14 05:57] LABS: ALANINE AMINOTRANSFERASE 29 U/L (12-78); ALBUMIN 3.6 G/DL (3.4-5.0); ALBUMIN/GLOBULIN RATIO 0.8 (1.0-2.7); ALKALINE PHOSPHATASE 140 U/L (46-116); ANION GAP 17 mmol/L (5-15); ASPARTATE AMINO TRANSFERASE 19 U/L (15-37); BILIRUBIN,TOTAL 0.9 MG/DL (0.2-1.0); BLOOD UREA NITROGEN 79 mg/dL (7-18); CARBON DIOXIDE 24 MMOL/L (21-32); CHLORIDE 97 MMOL/L (98-107); CREATININE 13.2 MG/DL (0.55-1.30); GAMMA GLUTAMYL TRANSPEPTIDASE 97 U/L (5-85); PHOSPHORUS 6.3 MG/DL (2.5-4.9); POTASSIUM 4.7 MMOL/L (3.5-5.1); SODIUM 138 MMOL/L (136-145)
--- NOTE | 2019-02-14 06:00 | NUR ---
NURSE NOTES: asleep no c/o pain reposition and suction
--- NOTE | 2019-02-14 07:26 | NUR ---
HAND-OFF: Report given to hiedi rn using sbar .
--- NOTE | 2019-02-14 07:27 | NUR ---
NURSE NOTES: Received patient from MUSTAPHA Anderson. Patient Vital signs stable at this time. Patient showing sinus rhythm on the watch inspector at this time. Patient transferred to ICU due to high HR of 149 beats per minute on the watch inspector. When EKG 12 lead done for the patient, normal sinus rhythm with rate of 78 beats per minute was the result. Cardizem drip ordered but patient did not meet the criteria so it was not started. Patient has troponin of 0.085 this morning. Message was left for Dr Charles. NO call back received. Patient on 2L NC at this time with saturation 98%. Patient denies acute distress at this time. Patient had emergency dialysis overnight with 2L out. Patient has right axilla open wound that is covered with optifoam at this time. Patient has left arm AV shunt with bruit and thrill present. Patient as right wrist 22 gauge peripheral IV that is patent and saline locked and asymptomatic at this time. Patient serum potassium is within normal range this morning at 4.7. Will follow up with senior technical editor for transfer back to [facility] as patient does not need cardizem drip. Patient does not have DVT prophylaxis ordered. Will follow up with primary MD. Bed in low position with bed alarm on and call light in reach at this time. Will continue to monitor.
--- NOTE | 2019-02-14 08:00 | NUR ---
NURSE NOTES: Spoke with Dr Monge in person at this time. Received order for Heparin 5000units subcutaneous to be given every 12 hours for DVT prophylaxis. Order read back, verified, and placed at this time.
[2019-02-14] MEDS ORDERED: Heparin 5000 units/ml inj SUBQ SCH (09:00)
[2019-02-14] MEDS ORDERED: Pantoprazole Inj IVP SCH (09:00)
--- NOTE | 2019-02-14 09:23 | Consultation ---
Consult Note Consult Note Asked to eval at the request of Dr Reed Know to me from her admission few days ago , when presented with high potassium and abd pain and missed HD, after dialysis signed AMA ! ER Chief Complaint: Nausea, Vomiting, and Diarrhea Patient 53-year-old female presents after increased abdominal discomfort. Patient reports of increased pain to the left upper abdomen. She had recently had CT imaging which showed some colitis as well as gallstones. She had increased diarrhea. She had missed dialysis and is normally dialyzed Monday. Patient was recently hospitalized at [facility]. Allergies: ACETAMINOPHEN (Verified Adverse Reaction, Unknown, 08/17/17) nausea CODEINE (Verified Adverse Reaction, Unknown, NAUSEA, 04/18/10) HYDROCODONE (Verified Adverse Reaction, Unknown, 08/17/17) nausea Past Medical History: No History, Except For Hx Cardiac Problems: Yes Hx Hypertension: Yes Hx Gastrointestinal Problems: No Hx Dialysis: Yes - MWF seen in ICU interviewed examined Now dialysed and K of above 8 is down to mid 4s Assessment/Plan ESRD High K - missed dialysis HTN OOC upon presentation Abdominal pain, ? Cholecystitis Plan: HD with low K ordered done BP med adjustments per GI Per orders Bob Morse MD Feb 14, 2019 09:23
--- NOTE | 2019-02-14 10:07 | NUR ---
NURSE NOTES: Called and left message with [facility] to report hemodialysis scheduled for tomorrow routine. Awaiting call back from dialysis nurse.
--- NOTE | 2019-02-14 10:34 | Cardiac Electrophysiology PN ---
Subjective Subjective [id number] Troponin leak. HTN K 8.8, corrected Pericardial effusion Objective Last 24 Hour Vital Signs Date Time Temp Pulse Resp B/P (MAP) Pulse Ox O2 Delivery O2 Flow Rate FiO2 02/14/19 10:13 78 169/81 02/14/19 08:30 98.7 84 22 181/73 (109) 98 02/14/19 08:00 84 26 171/82 (111) 99 02/14/19 08:00 Nasal Cannula 2.0 Nasal Cannula 2.0 02/14/19 08:00 2.0 02/14/19 07:00 76 17 158/75 (102) 97 02/14/19 06:00 71 16 162/76 (104) 97 02/14/19 05:54 146/69 02/14/19 05:00 76 18 161/76 (104) 94 02/14/19 04:52 2.0 02/14/19 04:30 82 22 177/91 (119) 97 02/14/19 04:21 181/81 02/14/19 04:00 74 15 161/71 (101) 93 02/14/19 04:00 Nasal Cannula 3.0 Nasal Cannula 3.0 02/14/19 04:00 75 02/14/19 03:30 77 15 169/75 (106) 97 02/14/19 03:00 82 18 178/84 (115) 100 02/14/19 02:30 78 17 169/81 (110) 97 02/14/19 02:00 76 16 170/66 (100) 96 02/14/19 01:30 66 16 176/71 (106) 100 02/14/19 01:15 65 16 159/75 (103) 100 02/14/19 01:00 66 16 173/77 (109) 100 02/14/19 01:00 2.0 02/14/19 00:45 76 17 160/82 (108) 88 02/14/19 00:30 75 17 158/78 (104) 82 02/14/19 00:24 Room Air 02/14/19 00:15 74 17 161/76 (104) 81 02/14/19 00:15 74 17 161/76 (104) 81 02/14/19 00:00 3.0 02/14/19 00:00 Nasal Cannula 3.0 Nasal Cannula 3.0 02/14/19 00:00 74 20 160/89 (112) 88 02/14/19 00:00 74 20 160/89 (112) 88 02/14/19 00:00 72 02/13/19 23:48 75 21 164/85 (111) 82 02/13/19 23:00 3.0 02/13/19 22:05 02/13/19 22:00 19502/13/19 21:56 02/13/19 21:05 69 23 163/73 98 Room Air 02/13/19 21:05 Room Air 02/13/19 20:41 23 163/73 98 Room Air 02/13/19 19:03 98.4 78 18 221/100 98 Room Air 02/13/19 18:54 221/100 02/13/19 18:30 98.4 105 18 206/110 (142) 98 Room Air Intake and Output 02/13/19 02/14/19 18:59 06:59 Intake Total 0 ml Output Total 2009 ml Balance -2009 ml Intake Oral 0 ml Output Urine Total 10 ml Hemodialysis UF 2000 ml # Bowel Movements 1 Laboratory Tests Test 02/13/19 18:45 02/13/19 19:35 02/13/19 20:50 02/13/19 23:34 White Blood Count 9.6 K/UL (4.8-10.8) Red Blood Count 3.66 M/UL (4.20-5.40) L Hemoglobin 11.1 G/DL (12.0-16.0) L Hematocrit 33.6 % (37.0-47.0) L Mean Corpuscular Volume 92 FL (80-99) Mean Corpuscular Hemoglobin 30.4 PG (27.0-31.0) Mean Corpuscular Hemoglobin Concent 33.1 G/DL (32.0-36.0) Red Cell Distribution Width 15.7 % (11.6-14.8) H Platelet Count 119 K/UL (150-450) L Mean Platelet Volume 7.7 FL (6.5-10.1) Neutrophils (%) (Auto) 82.9 % (45.0-75.0) H Lymphocytes (%) (Auto) 11.3 % (20.0-45.0) L Monocytes (%) (Auto) 3.7 % (1.0-10.0) Eosinophils (%) (Auto) 1.4 % (0.0-3.0) Basophils (%) (Auto) 0.8 % (0.0-2.0) Prothrombin Time 12.1 SEC (9.30-11.50) H Prothromb Time International Ratio 1.1 (0.9-1.1) Activated Partial Thromboplast Time 31 SEC (23-33) Sodium Level 135 MMOL/L (136-145) L Potassium Level 8.8 MMOL/L (3.5-5.1) *H 7.8 MMOL/L (3.5-5.1) *H Chloride Level 95 MMOL/L (98-107) L Carbon Dioxide Level 17 MMOL/L (21-32) L Anion Gap 22 mmol/L (5-15) H Blood Urea Nitrogen 134 mg/dL (7-18) H Creatinine 21.6 MG/DL (0.55-1.30) H Estimat Glomerular Filtration Rate 2.1 mL/min (>60) Glucose Level 87 MG/DL (74-106) Calcium Level 9.6 MG/DL (8.5-10.1) Total Bilirubin 1.0 MG/DL (0.2-1.0) Aspartate Amino Transf (AST/SGOT) 37 U/L (15-37) Alanine Aminotransferase (ALT/SGPT) 36 U/L (12-78) Alkaline Phosphatase 186 U/L (46-116) H Troponin I 0.061 ng/mL (0.000-0.056) Total Protein 10.1 G/DL (6.4-8.2) H Albumin 4.6 G/DL (3.4-5.0) Globulin 5.5 g/dL Albumin/Globulin Ratio 0.8 (1.0-2.7) L Lipase 262 U/L (73-393) Urine Color Pale yellow Urine Appearance Clear Urine pH 9 (4.5-8.0) Urine Specific [place]fall 1.015 (1.005-1.035) Urine Protein 3+ (NEGATIVE) H Urine Glucose (UA) 2+ (NEGATIVE) H Urine Ketones 1+ (NEGATIVE) H Urine Blood 2+ (NEGATIVE) H Urine Nitrite Negative (NEGATIVE) Urine Bilirubin Negative (NEGATIVE) Urine Urobilinogen Normal MG/DL (0.0-1.0) Urine Leukocyte Esterase Negative (NEGATIVE) Urine RBC 0-2 /HPF (0 - 2) Urine WBC 0-2 /HPF (0 - 2) Urine Squamous Epithelial Cells None /LPF (NONE/OCC) Urine Bacteria None /HPF (NONE) Urine Opiates Screen Negative (NEGATIVE) Urine Barbiturates Screen Negative (NEGATIVE) Phencyclidine (PCP) Screen Negative (NEGATIVE) Urine Amphetamines Screen Negative (NEGATIVE) Urine Benzodiazepines Screen Positive (NEGATIVE) H Urine Cocaine Screen Negative (NEGATIVE) Urine Marijuana (THC) Screen Negative (NEGATIVE) Test 02/13/19 23:40 02/14/19 04:10 Hepatitis B Surface Antigen Pending White Blood Count 8.8 K/UL (4.8-10.8) Red Blood Count 2.76 M/UL (4.20-5.40) L Hemoglobin 8.3 G/DL (12.0-16.0) L Hematocrit 26.0 % (37.0-47.0) L Mean Corpuscular Volume 94 FL (80-99) Mean Corpuscular Hemoglobin 29.9 PG (27.0-31.0) Mean Corpuscular Hemoglobin Concent 31.8 G/DL (32.0-36.0) L Red Cell Distribution Width 17.0 % (11.6-14.8) H Platelet Count 109 K/UL (150-450) L Mean Platelet Volume 7.9 FL (6.5-10.1) Neutrophils (%) (Auto) 79.8 % (45.0-75.0) H Lymphocytes (%) (Auto) 14.6 % (20.0-45.0) L Monocytes (%) (Auto) 4.0 % (1.0-10.0) Eosinophils (%) (Auto) 1.2 % (0.0-3.0) Basophils (%) (Auto) 0.5 % (0.0-2.0) Sodium Level 138 MMOL/L (136-145) Potassium Level 4.7 MMOL/L (3.5-5.1) Chloride Level 97 MMOL/L (98-107) L Carbon Dioxide Level 24 MMOL/L (21-32) Anion Gap 17 mmol/L (5-15) H Blood Urea Nitrogen 79 mg/dL (7-18) H Creatinine 13.2 MG/DL (0.55-1.30) H Estimat Glomerular Filtration Rate 3.6 mL/min (>60) Glucose Level 64 MG/DL (74-106) L Hemoglobin A1c 4.7 % (4.3-6.0) Uric Acid 6.9 MG/DL (2.6-7.2) Calcium Level 9.0 MG/DL (8.5-10.1) Phosphorus Level 6.3 MG/DL (2.5-4.9) H Magnesium Level 2.4 MG/DL (1.8-2.4) Total Bilirubin 0.9 MG/DL (0.2-1.0) Gamma Glutamyl Transpeptidase 97 U/L (5-85) H Aspartate Amino Transf (AST/SGOT) 19 U/L (15-37) Alanine Aminotransferase (ALT/SGPT) 29 U/L (12-78) Alkaline Phosphatase 140 U/L (46-116) H Troponin I 0.085 ng/mL (0.000-0.056) C-Reactive Protein, Quantitative 2.1 mg/dL (0.00-0.90) H Pro-B-Type Natriuretic Peptide > 28565 pg/mL (0-125) H Total Protein 7.9 G/DL (6.4-8.2) Albumin 3.6 G/DL (3.4-5.0) Globulin 4.3 g/dL Albumin/Globulin Ratio 0.8 (1.0-2.7) L Thyroid Stimulating Hormone (TSH) 4.797 uiU/mL (0.358-3.740) Microbiology Date/Time Source Procedure Growth Status 02/13/19 21:10 Rectum Received Janak Charles MD Feb 14, 2019 10:34
--- NOTE | 2019-02-14 10:47 | NUR ---
NURSE NOTES: Patient vital signs remain stable at this time. Patient denies acute distress at this time. Normal sinus rhythm on the flight engineer with rate of 72 beats per minute at this time. Patient has order for transfer to telemetry. Clearance to transfer received from Dr Charles. Notified him that the troponin is elevated. He ordered 2D echo and troponin for tomorrow 0. Orders read back, verified, and placed. Patient getting 2D echo at this time. Will follow up with result and transfer patient when test complete.
[2019-02-14] MEDS ORDERED: cloNIDine 0.2mg Tab ORAL SCH (12:00)
--- NOTE | 2019-02-14 12:30 | NUR ---
HAND-OFF: Report given to MUSTAPHA Maxwell. Patient blood pressure elevated at this time. Endorsed to follow up. Awaiting result of 2D echo. Endorsed to follow up.
--- NOTE | 2019-02-14 12:35 | NUR ---
NURSE NOTES: Patient was transferred from ICU to Tele floor rm 209-2. via bed. Received report from MUSTAPHA Mckeon. Patient is AAO X4, able to make needs known, denies any pain at this time. No s/s of respiratory or acute distress noted. 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 IV on R wrist, 22 gauge SL is intact and patent. Noted L. Upper arm AV shunt for dialysis. Patient was dialyzed today, 2L out. Endorsed that patient will be dialyzed tomorrow, 02/15/19 by [facility] D[facility] and Endorsing nurse had called them. Bed is in lowest position with bedside rails up x2, bed alarm continuously on and call light in reach at this time. Will continue with the plan of care.
[2019-02-14] MEDS: cloNIDine 0.2mg Tab ORAL SCH ×2 (13:56→22:00)
--- NOTE | 2019-02-14 16:15 | Consultation ---
DATE OF CONSULTATION: 02/14/2019 CARDIOLOGY CONSULTATION CONSULTING PHYSICIAN: Janak Charles M.D. REFERRING PHYSICIAN: Lidya Bruce M.D. REASON FOR CONSULTATION: Tachycardia, heart rate of 150s. HISTORY OF PRESENT ILLNESS: The patient is a 53-year-old lady with history of hypertension, end-stage renal disease on hemodialysis, and history of pericardial effusion who was just recently discharged from the hospital when she presented with hyperkalemia, abdominal pain, and missed hemodialysis. After dialysis, she signed AMA. The patient presented to the emergency room again with abdominal discomfort and left upper abdominal pain. Recent CT of the abdomen showed colitis as well as gallstones. The patient again missed dialysis and came to the emergency room for further evaluation. Reportedly, the patient had tachycardia, heart rate of 150s, and was transferred to ICU for possible atrial fibrillation with rapid ventricular response. In the ICU, the patient however was in sinus rhythm. The security monitor double counting the T wave. At the time of my evaluation, the patient is in normal sinus rhythm. The blood pressure is stable. She denies any chest pain or shortness of breath. Her primary complaint is abdominal pain. REVIEW OF SYSTEMS: Negative other than what is mentioned in the history of present illness. PAST MEDICAL HISTORY: As mentioned above. FAMILY HISTORY: Noncontributory. SOCIAL HISTORY: She lives at home. Does not smoke or drink alcohol. PHYSICAL EXAMINATION: VITAL SIGNS: Show blood pressure 169/81, pulse is 78, respirations 18, and she is afebrile. HEAD AND NECK: Shows no JVD. LUNGS: Decreased breath sounds. CARDIOVASCULAR: Regular S1 and S2 with no gallop or murmur. ABDOMEN: Soft. EXTREMITIES: No pitting edema. LABORATORY DATA: Labs show white count of 8.8, hemoglobin of 8.3, hematocrit 26, and platelet count is 109,000. Sodium is 138, potassium was 8.8 and went up to 7.8 and today is 4.7, BUN of 7, and creatinine of 13.2. Troponin is 0.061 and 0.085. BNP is more than 35,000. ASSESSMENT AND PLAN: 1. Elevated troponin of 0.06 and 0.08. The patient does not have any chest pain and EKG showed sinus rhythm with prolonged QT with no acute ST-T wave abnormality. This could be due to renal failure. Levels are flat and low in this patient with hemodialysis. 2. Tachycardia was misread by the computer was double counting up to T wave. 3. Hyperkalemia with peaked T-wave. The potassium has been corrected. It was 8.8, currently is 4.7 after dialysis. 4. Hypertension, on Norvasc 10 mg daily, Isordil 20 mg every 8 hours, p.r.n. minoxidil. The patient is also on hemodialysis. 5. History of moderate to large pericardial effusion. The echocardiogram will be repeated for further evaluation and management. Her last echo in August of 2017 showed EF of 65% to 70% with moderate to large circumferential pericardial effusion with no evidence of . 6. Abdominal pain. Further evaluation by GI. Thank you very much for allowing me to participate in the care of this patient. Please do not hesitate to contact me for any questions regarding my evaluation. Janak Charles M.D. DR: SNEHAL JOB#: [id number] CC:
--- NOTE | 2019-02-14 19:24 | NUR ---
HAND-OFF: Report given to MUSTAPHA Tao. Endorsed plan of care. Patient is in stable condition. Addendum: 02/14/19 at 2002 by SIDRA MEYER RN Report given to MUSTAPHA Pleitez. Endorsed plan of care. Patient is in stable condition.
--- NOTE | 2019-02-14 19:25 | NUR ---
NURSE NOTES: Got report from Ella LUCIANO. Pt in stable condition. Denies any pain. No s/s of distress or discomfort noted. Pt resting in bed comfortably. Bed in low and locked position, call light within reach, bedside table within reach. Continue to monitor.
[2019-02-14] MEDS: Heparin 5000 units/ml inj SUBQ SCH (21:00)
[2019-02-15] VITALS (7 sets, daily range): BP systolic 143–189; BP diastolic 82–103
--- NOTE | 2019-02-15 05:00 | History and Physical Report ---
DATE OF ADMISSION: 02/13/2019 HISTORY OF PRESENT ILLNESS: The patient comes in with abdominal pain and also missed dialysis session. The patient is also basically complaining of increased abdominal discomfort. She also missed a dialysis session, also complains of diarrhea. CT showed colitis as well as gallstones. Denies orthopnea. Denies nausea. The patient also is admitted for SVT. The patient does have abnormal EKG findings. The imaging shows gallstones as well. Labs potassium of 8, which was hemolyzed . The patient also has SVTs. PAST MEDICAL HISTORY: Hypertension, end-stage renal disease, and hyperlipidemia. ALLERGIES: Tylenol, codeine, and hydrocodone. PAST SURGICAL HISTORY: Related to dialysis. MEDICATIONS: Isosorbide mononitrate, labetalol, losartan, clonidine, Coreg, and Lipitor. SOCIAL HISTORY: Denies alcohol or illicit drugs. Does have history of smoking. REVIEW OF SYSTEMS: HEENT: Denies headaches. RESPIRATORY: She reports occasional shortness of breath. No wheezing. CARDIOVASCULAR: No chest pain. Does have palpitations. EXTREMITIES: Denies pain in lower extremities. CENTRAL NERVOUS SYSTEM: Denies change in speech pattern. GENITOURINARY: The patient does have some diarrhea. PHYSICAL EXAMINATION: VITAL SIGNS: Temperature is 98.6, pulse is 76, and blood pressure . HEENT: PERRLA. NECK: Supple. No lymphadenopathy. CHEST: Clear to auscultation. CARDIOVASCULAR: Regular rate and rhythm. ABDOMEN: Soft. Positive bowel sounds. There is some right upper quadrant tenderness. No rebound. No organomegaly. EXTREMITIES: No edema. Moves all four extremities. Reflexes on both sides. IMAGING: CT shows gallstones. LABORATORY DATA: WBC of 9.6, hemoglobin 11, and platelets 119,000. Sodium 135, potassium of 8.8, BUN of 134, and creatinine of 21.6. ASSESSMENT AND PLAN: Hyperkalemia. The patient is noncompliant with dialysis. Abdominal pain, missed some dialysis sessions and tachycardia. I have asked Dr. Morse, Dr. Charles, and Dr. Bhagat to see the patient for the treatment of the above-mentioned diagnoses and treatment. Troponin was also initially 0.061, could be most likely due to renal failure as well. We will monitor the patient very closely and monitor blood. Ali Karolyn Bruce DR: Fabiano JOB#: [id number] CC:
[2019-02-15] MEDS: cloNIDine 0.2mg Tab ORAL SCH ×3 (06:04→21:37)
--- NOTE | 2019-02-15 07:00 | NUR ---
HAND-OFF: Report given to Min RN.
--- NOTE | 2019-02-15 07:10 | NUR ---
NURSE NOTES: Received report from Matheus LUCIANO. Pt asleep in bed and able to make needs known. No c/o pain at this time. IV site in right wrist 22G SL patent and asymptomatic. No acute distress noted. On room air. Bed in lowest position and locked. Side rails x2 up. Will continue of of care.
[2019-02-15] MEDS: Heparin 5000 units/ml inj SUBQ SCH ×2 (09:00→21:00)
--- NOTE | 2019-02-15 10:00 | NUR ---
NURSE NOTES: Off tele ordered for shower by Dr. Bruce
[2019-02-15] MEDS ORDERED: Aspirin Baby 81mg ORAL SCH (10:45)
--- NOTE | 2019-02-15 10:47 | Nephrology Progress Note ---
Assessment/Plan Problem List: (1) ESRD (end stage renal disease) on dialysis (2) Hypertensive urgency (3) Hyperkalemia (4) Elevated troponin Assessment ESRD High K - missed dialysis HTN OOC upon presentation Abdominal pain, ? Cholecystitis Plan Plan: HD with UF today BP med adjustments per GI Per orders Subjective ROS Limited/Unobtainable: No Constitutional: Reports: malaise Objective Objective Last 24 Hour Vital Signs Date Time Temp Pulse Resp B/P (MAP) Pulse Ox O2 Delivery O2 Flow Rate FiO2 02/15/19 09:00 64 143/85 02/15/19 09:00 Nasal Cannula 2.0 Nasal Cannula 2.0 02/15/19 08:00 98.3 67 19 143/85 (104) 97 02/15/19 08:00 64 02/15/19 06:04 150/85 02/15/19 06:04 150/85 02/15/19 04:05 97.7 67 20 150/85 (106) 95 02/15/19 04:00 70 02/15/19 00:00 98.0 73 20 150/82 (104) 96 02/15/19 00:00 75 02/14/19 22:00 155/81 02/14/19 22:00 155/81 02/14/19 21:00 Nasal Cannula 2.0 Nasal Cannula 2.0 02/14/19 20:00 98.1 77 20 155/81 (105) 95 02/14/19 16:00 78 02/14/19 16:00 97.8 75 19 143/87 (105) 02/14/19 13:56 172/89 02/14/19 13:56 172/89 02/14/19 12:00 78 02/14/19 12:00 98.6 79 18 166/82 (110) 97 02/14/19 12:00 72 02/14/19 11:00 72 19 186/90 (122) Intake and Output 02/14/19 02/15/19 18:59 06:59 Intake Total 120 ml 0 ml Output Total 0 ml 0 ml Balance 120 ml 0 ml Intake Oral 120 ml 0 ml Output Urine Total 0 ml 0 ml Laboratory Tests 02/15/19 09:25: Troponin I 0.047 Height (Feet): 5 Height (Inches): 7.00 Weight (Pounds): 168 General Appearance: no apparent distress Cardiovascular: normal rate Respiratory/Chest: decreased breath sounds Abdomen: soft Bob Morse MD Feb 15, 2019 10:47
--- NOTE | 2019-02-15 11:17 | NUR ---
CASE MANAGEMENT:REVIEW 02/13/19 53 YR OLD FEMALE PRESENTED TO ER CC: ABDOMINAL PAIN AND VOMITING. LAST DIALYZED MONDAY PMH: PREVIOUS ADMISSION PATIENT LEFT AMA AFTER BEING DIALYZED SI: ABDOMINAL PAIN 98.5 105 18 206/110 98% on ra K+8.8 BUN+134 CR+21.6 TROPONIN(+) 0.061 IS: IV ZOFRAN IV HYDRALAZINE KAYEXALATE PO IV CA GLUCONATE IV MORPHINE : TO ICU INTERQUAL CRITERIA MET 02/15/19 SI: HTN URGENCY. HYPERKALEMIA ELEVATED TROPONIN 98.3 67 19 143/85 97% 2L/NC IS: RENVELA PO TID ASA PO QD NORVASC PO QD HEPARIN SQ Q12 PROTONIX PO Q12 CLONIDINE PO Q8HRS ISORDIL PO Q8HRS : TELEMETRY STATUS DCP: FROM HOME
--- NOTE | 2019-02-15 11:55 | Cardiac Electrophysiology PN ---
Assessment/Plan Assessment/Plan 1. Elevated troponin of 0.06 and 0.08. The patient does not have any chest pain and EKG showed sinus rhythm with prolonged QT with no acute ST-T wave abnormality. This could be due to renal failure. Levels are flat and low in this patient with hemodialysis. 2. Tachycardia was misread by the computer was double counting up to T wave. 3. Hyperkalemia with peaked T-wave. The potassium has been corrected. It was 8.8, currently is 4.7 after dialysis. 4. Hypertension, on Norvasc 10 mg daily, Isordil 20 mg every 8 hours, p.r.n. minoxidil. The patient is also on hemodialysis. 5. History of moderate to large pericardial effusion. The echocardiogram was repeated and showed no pericardial effusion. 6. Severe pulmonary HTN 70s 7. Abdominal pain. Further evaluation by GI. Subjective Subjective Feeling better. Scheduled for another HD today Objective Last 24 Hour Vital Signs Date Time Temp Pulse Resp B/P (MAP) Pulse Ox O2 Delivery O2 Flow Rate FiO2 02/15/19 09:00 64 143/85 02/15/19 09:00 Nasal Cannula 2.0 Nasal Cannula 2.0 02/15/19 08:00 98.3 67 19 143/85 (104) 97 02/15/19 08:00 64 02/15/19 06:04 150/85 02/15/19 06:04 150/85 02/15/19 04:05 97.7 67 20 150/85 (106) 95 02/15/19 04:00 70 02/15/19 00:00 98.0 73 20 150/82 (104) 96 02/15/19 00:00 75 02/14/19 22:00 155/81 02/14/19 22:00 155/81 02/14/19 21:00 Nasal Cannula 2.0 Nasal Cannula 2.0 02/14/19 20:00 98.1 77 20 155/81 (105) 95 02/14/19 16:00 78 02/14/19 16:00 97.8 75 19 143/87 (105) 02/14/19 13:56 172/89 02/14/19 13:56 172/89 02/14/19 12:00 78 02/14/19 12:00 98.6 79 18 166/82 (110) 97 02/14/19 12:00 72 Intake and Output 02/14/19 02/15/19 18:59 06:59 Intake Total 120 ml 0 ml Output Total 0 ml 0 ml Balance 120 ml 0 ml Intake Oral 120 ml 0 ml Output Urine Total 0 ml 0 ml Laboratory Tests Test 02/15/19 09:25 Troponin I 0.047 ng/mL (0.000-0.056) Microbiology Date/Time Source Procedure Growth Status 02/13/19 21:10 Rectum Received Objective HEAD AND NECK: Shows no JVD. LUNGS: Decreased breath sounds. CARDIOVASCULAR: Regular S1 and S2 with no gallop or murmur. ABDOMEN: Soft. EXTREMITIES: 1plus pitting edema. Janak Charles MD Feb 15, 2019 11:55
[2019-02-15] MEDS: Docusate 100mg cap ORAL SCH ×2 (13:08→17:14)
--- NOTE | 2019-02-15 13:25 | NUR ---
NURSE NOTES: Patient just started her dialysis
[2019-02-15] MEDS: Minoxidil 2.5mg tab ORAL PRN ×2 (16:12→20:30)
--- NOTE | 2019-02-15 16:21 | NUR ---
NURSE NOTES: 2L of fluid removed from dialysis
--- NOTE | 2019-02-15 17:55 | NUR ---
NURSE NOTES: Dr. Morse paged for elevated blood pressure 189/100 p74 and Loniten 2.5mg pox1 ordered unless it's administered at 4:10pmalready due to elevated blood pressure.
[2019-02-15] MEDS ORDERED: Minoxidil 2.5mg tab ORAL SCH (18:00)
--- NOTE | 2019-02-15 18:00 | Consultation ---
DATE OF CONSULTATION: 02/15/2019 INFECTIOUS DISEASE CONSULTATION CONSULTING PHYSICIAN: Kyler Frazier M.D. PRIMARY ATTENDING PHYSICIAN: Lidya Bruce M.D. REASON FOR CONSULTATION: Bilateral axillary nodules. HISTORY OF PRESENT ILLNESS: This is a 53-year-old female admitted on 02/13/2019, for having missed hemodialysis. The patient has high potassium. She was recently in the hospital and signed against medical advice. At that hospitalization, she had abdominal pain and had some colitis and gallstone. PAST MEDICAL HISTORY: End-stage renal disease, the patient is on hemodialysis for 8 years, and hypertension. PAST SURGICAL HISTORY: She has history of AV graft in the left arm. ALLERGIES: Allergic to Tylenol, codeine, and hydrocodone. MEDICATIONS: Getting Renvela, Colace, aspirin, amlodipine, heparin, Protonix, minoxidil, nitroglycerin, and Zofran. REVIEW OF SYSTEMS: No fever. No chills. No coughing. No chest pain. Passing urine once a day. She has tenderness, nodules. Tenderness is more in the left axillary area. She has a nodule in the right side that is draining some fluid. SOCIAL HISTORY: and has 4 children. Denies alcohol, drug abuse, or smoking. FAMILY HISTORY: Significant for hypertension. PHYSICAL EXAMINATION: VITAL SIGNS: Temperature 98.3, pulse 64, and blood pressure is 143/85. GENERAL APPEARANCE: No acute distress. HEAD AND NECK: Humble conjunctivae. HEART: Normal rate. LUNGS: Clear. ABDOMEN: Obese, soft, and nontender. EXTREMITIES: She has no edema. SKIN: She has nodules in both axillary area and the left side is very tender to touch. No open wound. In each side, there is one prominent skin nodule. NEUROLOGIC: She is awake, alert, and oriented x3. LABORATORY AND DIAGNOSTIC DATA: WBC 8.8, hemoglobin 8.3, hematocrit 26, and platelet is 109,000. Sodium 138 and potassium 4.7. Potassium at the time of admission was 7.8. BUN 79, creatinine 13.2, and glucose 64. Troponin was elevated at 0.085. BNP was elevated at 35,000. IMPRESSION: Bilateral axillary nodules, likely early stages of hydradenitis suppurativa. The patient had hyperkalemia at the time of admission. She has tachycardia and has end-stage renal disease, noncompliant with hemodialysis. She has hypertension, anemia, thrombocytopenia, and hyperlipidemia. RECOMMENDATION: We will start the patient on p.o. doxycycline with cleaning of the area frequently. We will follow up clinically. At the end of my exam, I thank Dr. Bruce for involving me in the care of this patient. Kyler Frazier M.D. DR: Samantha JOB#: [id number] CC: ODALIS
--- NOTE | 2019-02-15 19:06 | General Progress Note ---
Assessment/Plan Assessment/Plan: Assessment - resolving abd pain - CRF / HD - HTN Recommendations - check OB - push PO - renal f/u - laxative Subjective Allergies: Coded Allergies: ACETAMINOPHEN (Verified Adverse Reaction, Unknown, 08/17/17) nausea CODEINE (Verified Adverse Reaction, Unknown, NAUSEA, 04/18/10) HYDROCODONE (Verified Adverse Reaction, Unknown, 08/17/17) nausea Subjective seen earlier today feels better abd pain nearly resolved tolerating PO Objective Last 24 Hour Vital Signs Date Time Temp Pulse Resp B/P (MAP) Pulse Ox O2 Delivery O2 Flow Rate FiO2 02/15/19 18:17 189/100 02/15/19 17:46 98.7 74 20 189/100 (129) 99 02/15/19 16:12 174/96 02/15/19 16:00 98.7 74 20 180/99 (126) 99 02/15/19 14:00 174/96 02/15/19 14:00 174/96 02/15/19 12:00 98.1 64 18 174/96 (122) 96 02/15/19 12:00 66 02/15/19 09:00 64 143/85 02/15/19 09:00 Nasal Cannula 2.0 Nasal Cannula 2.0 02/15/19 08:00 98.3 67 19 143/85 (104) 97 02/15/19 08:00 64 02/15/19 06:04 150/85 02/15/19 06:04 150/85 02/15/19 04:05 97.7 67 20 150/85 (106) 95 02/15/19 04:00 70 02/15/19 00:00 98.0 73 20 150/82 (104) 96 02/15/19 00:00 75 02/14/19 22:00 155/81 02/14/19 22:00 155/81 02/14/19 21:00 Nasal Cannula 2.0 Nasal Cannula 2.0 02/14/19 20:00 98.1 77 20 155/81 (105) 95 Intake and Output 02/14/19 02/15/19 19:00 07:00 Intake Total 120 ml 0 ml Output Total 0 ml 0 ml Balance 120 ml 0 ml Intake Oral 120 ml 0 ml Output Urine Total 0 ml 0 ml Laboratory Tests 02/15/19 09:25: Troponin I 0.047 Height (Feet): 5 Height (Inches): 7.00 Weight (Pounds): 168 Objective WDWN NCAT supple CTA RR abd:soft obese NT ND no edema Alecia Bhagat MD Feb 15, 2019 19:06
--- NOTE | 2019-02-15 19:27 | NUR ---
HAND-OFF: Report given to Shree LUCIANO. Pt remains stable.
--- NOTE | 2019-02-15 19:28 | NUR ---
NURSE NOTES: Received report from MUSTAPHA Ruiz. Pt asleep in bed and able to make needs known. No c/o pain at this time. IV site in right wrist 22G Saline lock patent and asymptomatic. No acute distress noted. On room air. Bed in lowest position and locked. Side rails x2 up. Will continue of of care.
[2019-02-15] MEDS ORDERED: Nitroglycerin Subl 0.4mg tab SL PRN (20:45)
--- NOTE | 2019-02-15 20:50 | NUR ---
HAND-OFF: Report given to MUSTAPHA tejeda. Pt is awake and stable in bed in no distress moved to room 401-1. IV site intact. Belongings verified.
--- NOTE | 2019-02-15 21:00 | NUR ---
NURSE NOTES: PATIENT TRANSFERRED FROM D0U VIA BED TO ROOM 401 BED 1 IN STABLE CONDITION, PATIENT ALERT/ORIENTED X4, VERBALLY RESPONSIVE, NO SIGNS AND SYMPTOMS OF ACUTE CARDIO RESPIRATORY DISTRESS/SHORTNESS OF BREATH, DENIES CHEST PAIN. NO ILL EFFECTS RELATING TO HEMODIALYSIS, AV SHUNT INTACT TO LEFT UPPER ARM, DRESSING DRY AND INTACT, NO SIGNS OF BLEEDING, NOTED WITH AUDIBLE BRUIT/PALPABLE THRILL, PATIENT STATED THAT SHE URINATE A SMALL AMOUNT IN THE MORNING ONLY. NO COMPLAINTS OF ABDOMINAL PAIN. ORIENTATED PATIENT TO ROOM/ENVIRONMENT. ENCOURAGED PATIENT TO UTILIZE CALL LIGHT FOR ASSISTANCE, VERBALIZED UNDERSTANDING. SIDE RAILS UP X2 FOR MOBILITY, BED IN LOWEST POSITION FOR SAFETY. CONTINUE WITH CURRENT PLAN OF CARE. NAD.
[2019-02-15] MEDS ORDERED: Acetaminophen 500mg (ES) tab ORAL PRN (21:30)
--- NOTE | 2019-02-15 22:31 | General Progress Note ---
Assessment/Plan Problem List: (1) Gastritis ICD Codes: K29.70 - Gastritis, unspecified, without bleeding SNOMED: 1575683 (2) Abdominal pain ICD Codes: R10.9 - Unspecified abdominal pain SNOMED: 38041234 (3) Hypertension ICD Codes: I10 - Essential (primary) hypertension SNOMED: 10423944 (4) ESRD (end stage renal disease) on dialysis ICD Codes: N18.6 - End stage renal disease; Z99.2 - Dependence on renal dialysis SNOMED: 535948887 (5) Hypertensive urgency ICD Codes: I16.0 - Hypertensive urgency SNOMED: 475320931 Status: progressing Assessment/Plan: check lytes abdominal pain htn bp improving no sob Subjective ROS Limited/Unobtainable: Yes Allergies: Coded Allergies: ACETAMINOPHEN (Verified Adverse Reaction, Unknown, 08/17/17) nausea CODEINE (Verified Adverse Reaction, Unknown, NAUSEA, 04/18/10) HYDROCODONE (Verified Adverse Reaction, Unknown, 08/17/17) nausea Objective Last 24 Hour Vital Signs Date Time Temp Pulse Resp B/P (MAP) Pulse Ox O2 Delivery O2 Flow Rate FiO2 02/15/19 21:49 Room Air 2.0 Nasal Cannula 02/15/19 21:37 175/95 02/15/19 21:37 175/95 02/15/19 20:30 178/99 02/15/19 20:00 98.2 75 18 182/103 (129) 95 02/15/19 18:17 189/100 02/15/19 17:46 98.7 74 20 189/100 (129) 99 02/15/19 16:12 174/96 02/15/19 16:00 98.7 74 20 180/99 (126) 99 02/15/19 14:00 174/96 02/15/19 14:00 174/96 02/15/19 12:00 98.1 64 18 174/96 (122) 96 02/15/19 12:00 66 02/15/19 09:00 64 143/85 02/15/19 09:00 Nasal Cannula 2.0 Nasal Cannula 2.0 02/15/19 08:00 98.3 67 19 143/85 (104) 97 02/15/19 08:00 64 02/15/19 06:04 150/85 02/15/19 06:04 150/85 02/15/19 04:05 97.7 67 20 150/85 (106) 95 02/15/19 04:00 70 02/15/19 00:00 98.0 73 20 150/82 (104) 96 02/15/19 00:00 75 Intake and Output 02/14/19 02/15/19 19:00 07:00 Intake Total 120 ml 0 ml Output Total 0 ml 0 ml Balance 120 ml 0 ml Intake Oral 120 ml 0 ml Output Urine Total 0 ml 0 ml Laboratory Tests 02/15/19 09:25: Troponin I 0.047 Height (Feet): 5 Height (Inches): 7.00 Weight (Pounds): 168 Cardiovascular: normal rate Respiratory/Chest: lungs clear Abdomen: soft Lidya Bruce MD Feb 15, 2019 22:30
[2019-02-16] VITALS (7 sets, daily range): BP systolic 138–175; BP diastolic 79–105
--- NOTE | 2019-02-16 06:18 | NUR ---
NURSE NOTES: RESTED WELL, NO SIGNIFICANT CHANGE OF CONDITION NOTED THROUGHOUT THE NIGHT. SAFETY MAINTAINED. NAD.
[2019-02-16] MEDS: cloNIDine 0.2mg Tab ORAL SCH ×3 (06:30→21:09)
[2019-02-16] MEDS ORDERED: Sorbitol Solution UD 30ml ORAL SCH (07:00)
[2019-02-16 07:30] LABS: BASOPHILS % (AUTO) 0.9 % (0.0-2.0); EOSINOPHILS % (AUTO) 2.3 % (0.0-3.0); HEMATOCRIT 25.6 % (37.0-47.0); HEMOGLOBIN 8.2 G/DL (12.0-16.0); LYMPHOCYTES % (AUTO) 19.6 % (20.0-45.0); MEAN CORPUSCULAR VOLUME 93 FL (80-99); NEUTROPHILS % (AUTO) 70.2 % (45.0-75.0); PLATELET COUNT 117 K/UL (150-450); RED BLOOD COUNT 2.75 M/UL (4.20-5.40); RED CELL DISTRIBUTION WIDTH 16.2 % (11.6-14.8); WHITE BLOOD COUNT 7.4 K/UL (4.8-10.8)
[2019-02-16 07:39] LABS: ALANINE AMINOTRANSFERASE 29 U/L (12-78); ALBUMIN 3.5 G/DL (3.4-5.0); ALBUMIN/GLOBULIN RATIO 0.8 (1.0-2.7); ALKALINE PHOSPHATASE 142 U/L (46-116); ANION GAP 13 mmol/L (5-15); ASPARTATE AMINO TRANSFERASE 20 U/L (15-37); BILIRUBIN,TOTAL 0.7 MG/DL (0.2-1.0); BLOOD UREA NITROGEN 57 mg/dL (7-18); CALCIUM 8.4 MG/DL (8.5-10.1); CARBON DIOXIDE 28 MMOL/L (21-32); CHLORIDE 98 MMOL/L (98-107); CREATININE 12.7 MG/DL (0.55-1.30); PHOSPHORUS 6.8 MG/DL (2.5-4.9); SODIUM 139 MMOL/L (136-145)
--- NOTE | 2019-02-16 07:46 | NUR ---
NURSE NOTES: Patient awake, alert x4; on room air, no sing of distress and shortness of breath; no sing of chest pain; IV Right-Wrist 22G flushes well; Hemodialysis access on Left-Upper Arm AV shunt; patient complains on abdominal pain; will communicate MD; bed at lowest position, side rials up x2, breaks engaged; call light within reach; will keep monitoring.
--- NOTE | 2019-02-16 08:07 | General Progress Note ---
Assessment/Plan Problem List: (1) Ascites ICD Codes: R18.8 - Other ascites SNOMED: 416134729 (2) Gastritis ICD Codes: K29.70 - Gastritis, unspecified, without bleeding SNOMED: 3816702 (3) ESRD (end stage renal disease) on dialysis ICD Codes: N18.6 - End stage renal disease; Z99.2 - Dependence on renal dialysis SNOMED: 676983866 (4) Abdominal pain ICD Codes: R10.9 - Unspecified abdominal pain SNOMED: 11978555 Status: progressing Assessment/Plan: CT from the last admission reviewed ordered paracentesis anemia work up HD fu labs Subjective ROS Limited/Unobtainable: Yes Allergies: Coded Allergies: ACETAMINOPHEN (Verified Adverse Reaction, Unknown, 08/17/17) nausea CODEINE (Verified Adverse Reaction, Unknown, NAUSEA, 04/18/10) HYDROCODONE (Verified Adverse Reaction, Unknown, 08/17/17) nausea Objective Last 24 Hour Vital Signs Date Time Temp Pulse Resp B/P (MAP) Pulse Ox O2 Delivery O2 Flow Rate FiO2 02/16/19 06:30 170/84 02/16/19 06:30 170/84 02/16/19 04:00 98.7 67 18 170/84 (112) 96 02/16/19 02:59 99.1 02/16/19 00:00 99.1 75 20 169/90 (116) 95 02/15/19 21:49 Room Air 2.0 Nasal Cannula 02/15/19 21:37 175/95 02/15/19 21:37 175/95 02/15/19 20:30 178/99 02/15/19 20:00 98.2 75 18 182/103 (129) 95 02/15/19 18:17 189/100 02/15/19 17:46 98.7 74 20 189/100 (129) 99 02/15/19 16:12 174/96 02/15/19 16:00 98.7 74 20 180/99 (126) 99 02/15/19 14:00 174/96 02/15/19 14:00 174/96 02/15/19 12:00 98.1 64 18 174/96 (122) 96 02/15/19 12:00 66 02/15/19 09:00 64 143/85 02/15/19 09:00 Nasal Cannula 2.0 Nasal Cannula 2.0 Intake and Output 02/15/19 02/16/19 19:00 07:00 Intake Total 180 ml Output Total 2000 ml Balance -2000 ml 180 ml Intake Oral 180 ml Hemodialysis UF 2000 ml Laboratory Tests 02/15/19 09:25: Troponin I 0.047 02/16/19 05:20: Troponin I 0.055, White Blood Count 7.4, Red Blood Count 2.75L, Hemoglobin 8.2L , Hematocrit 25.6L, Mean Corpuscular Volume 93, Mean Corpuscular Hemoglobin 29.8 , Mean Corpuscular Hemoglobin Concent 32.0, Red Cell Distribution Width 16.2H, Platelet Count 117L, Mean Platelet Volume 7.6, Neutrophils (%) (Auto) 70.2, Lymphocytes (%) (Auto) 19.6L, Monocytes (%) (Auto) 7.0, Eosinophils (%) (Auto) 2.3, Basophils (%) (Auto) 0.9, Sodium Level 139, Potassium Level 5.0, Chloride Level 98, Carbon Dioxide Level 28, Anion Gap 13, Blood Urea Nitrogen 57H, Creatinine 12.7H, Estimat Glomerular Filtration Rate 3.8, Glucose Level 86, Uric Acid 6.1, Calcium Level 8.4L, Phosphorus Level 6.8H, Magnesium Level 2.5H, Total Bilirubin 0.7, Aspartate Amino Transf (AST/SGOT) 20, Alanine Aminotransferase (ALT/SGPT) 29, Alkaline Phosphatase 142H, C-Reactive Protein, Quantitative 2.0H, Pro-B-Type Natriuretic Peptide > 28443D, Total Protein 7.7, Albumin 3.5, Globulin 4.2, Albumin/Globulin Ratio 0.8L Height (Feet): 5 Height (Inches): 7.00 Weight (Pounds): 167 General Appearance: alert EENT: PERRL/EOMI Neck: normal alignment Cardiovascular: regular rhythm Respiratory/Chest: decreased breath sounds Abdomen: hypoactive bowel sounds, tender Extremities: non-tender Dexter Caldwell MD Feb 16, 2019 08:07
[2019-02-16] MEDS: Docusate 100mg cap ORAL SCH ×3 (08:16→17:12)
[2019-02-16] MEDS: Aspirin Baby 81mg ORAL SCH (08:17)
[2019-02-16] MEDS: Heparin 5000 units/ml inj SUBQ SCH ×2 (08:18→21:00)
[2019-02-16] MEDS: HydrALAZINE 50mg tab ORAL SCH ×3 (08:21→21:09)
--- NOTE | 2019-02-16 09:46 | Nephrology Progress Note ---
Assessment/Plan Problem List: (1) ESRD (end stage renal disease) on dialysis (2) Hypertensive urgency (3) Hyperkalemia (4) Elevated troponin Assessment ESRD High K - missed dialysis HTN OOC upon presentation Abdominal pain, ? Cholecystitis Plan Plan: HD with UF done twice next on 02/18/19 BP med adjustments per GI Per orders Subjective ROS Limited/Unobtainable: No Constitutional: Reports: malaise Objective Objective Last 24 Hour Vital Signs Date Time Temp Pulse Resp B/P (MAP) Pulse Ox O2 Delivery O2 Flow Rate FiO2 02/16/19 09:00 Room Air 2.0 Nasal Cannula 02/16/19 08:21 169/89 02/16/19 08:17 65 169/89 02/16/19 08:00 98.2 65 19 169/89 (115) 94 02/16/19 06:30 170/84 02/16/19 06:30 170/84 02/16/19 04:00 98.7 67 18 170/84 (112) 96 02/16/19 02:59 99.1 02/16/19 00:00 99.1 75 20 169/90 (116) 95 02/15/19 21:49 Room Air 2.0 Nasal Cannula 02/15/19 21:37 175/95 02/15/19 21:37 175/95 02/15/19 20:30 178/99 02/15/19 20:00 98.2 75 18 182/103 (129) 95 02/15/19 18:17 189/100 02/15/19 17:46 98.7 74 20 189/100 (129) 99 02/15/19 16:12 174/96 02/15/19 16:00 98.7 74 20 180/99 (126) 99 02/15/19 14:00 174/96 02/15/19 14:00 174/96 02/15/19 12:00 98.1 64 18 174/96 (122) 96 02/15/19 12:00 66 Intake and Output 02/15/19 02/16/19 19:00 07:00 Intake Total 180 ml Output Total 2000 ml Balance -2000 ml 180 ml Intake Oral 180 ml Hemodialysis UF 2000 ml Laboratory Tests 02/16/19 05:20: White Blood Count 7.4, Red Blood Count 2.75L, Hemoglobin 8.2L, Hematocrit 25.6L , Mean Corpuscular Volume 93, Mean Corpuscular Hemoglobin 29.8, Mean Corpuscular Hemoglobin Concent 32.0, Red Cell Distribution Width 16.2H, Platelet Count 117L, Mean Platelet Volume 7.6, Neutrophils (%) (Auto) 70.2, Lymphocytes (%) (Auto) 19.6L, Monocytes (%) (Auto) 7.0, Eosinophils (%) (Auto) 2.3, Basophils (%) (Auto) 0.9, Sodium Level 139, Potassium Level 5.0, Chloride Level 98, Carbon Dioxide Level 28, Anion Gap 13, Blood Urea Nitrogen 57H, Creatinine 12.7H, Estimat Glomerular Filtration Rate 3.8, Glucose Level 86, Uric Acid 6.1, Calcium Level 8.4L, Phosphorus Level 6.8H, Magnesium Level 2.5H, Total Bilirubin 0.7, Aspartate Amino Transf (AST/SGOT) 20, Alanine Aminotransferase (ALT/SGPT) 29, Alkaline Phosphatase 142H, Troponin I 0.055, C- Reactive Protein, Quantitative 2.0H, Pro-B-Type Natriuretic Peptide > 16930X, Total Protein 7.7, Albumin 3.5, Globulin 4.2, Albumin/Globulin Ratio 0.8L Height (Feet): 5 Height (Inches): 7.00 Weight (Pounds): 167 General Appearance: no apparent distress Cardiovascular: normal rate Respiratory/Chest: decreased breath sounds Abdomen: distended Bob Morse MD Feb 16, 2019 09:46
--- NOTE | 2019-02-16 10:36 | NUR ---
NURSE NOTES: OB-Stool x2 collected and sent to lab; waiting for result.
[2019-02-16] MEDS ORDERED: Minoxidil 2.5mg tab ORAL PRN ×2 (12:00)
--- NOTE | 2019-02-16 14:29 | Diagnostic Imaging Report ---
EXAM: US Abdomen Complete CLINICAL HISTORY: ABD DIST TECHNIQUE: Real-time ultrasound of the abdomen with image documentation. COMPARISON: CT abdomen and pelvis 02 05 19 FINDINGS: Liver: Liver measures 18 cm. Dilated hepatic veins. No intrahepatic bile duct dilation. Gallbladder: Distended gallbladder with layering sludge and stones. Marked thickening and edematous gallbladder wall. Small pericholecystic fluid. Common bile duct: CBD normal, 5.2 mm. No stones. No dilation. Pancreas: Pancreas not well seen due to bowel gas. Kidneys: Right kidney measures 6.89 x 2.4 x 3.70 cm. Echogenic renal cortex. Left kidney measures 6.29 x 3.91 x 2.45 cm. Echogenic renal cortex. No stones. No hydronephrosis. Spleen: Spleen measures 8.8 cm. Aorta: Unremarkable. No aneurysm. Inferior vena cava: Unremarkable. Free fluid: Bilateral upper quadrant ascites. Pleural space: Bilateral pleural effusions. IMPRESSION: 1. Hepatomegaly. 2. Distended gallbladder with layering sludge and stones. Marked thickening and edematous gallbladder wall. Small pericholecystic fluid. Findings may be worrisome for acute cholecystis possible necrosis. Differential includes hepatitis or other systemic process, fluid overload. 3. Atrophic bilateral kidneys with echogenic cortex may be medical renal disease. No hydronephrosis. 4. Bilateral upper quadrant ascites. Bilateral pleural effusions.
--- NOTE | 2019-02-16 14:57 | Cardiac Electrophysiology PN ---
Assessment/Plan Assessment/Plan 1. Elevated troponin of 0.06 and 0.08. The patient does not have any chest pain and EKG showed sinus rhythm with prolonged QT with no acute ST-T wave abnormality. This could be due to renal failure. Levels are flat and low in this patient with hemodialysis. 2. Tachycardia was misread by the computer was double counting up to T wave. 3. Hyperkalemia with peaked T-wave. The potassium has been corrected. It was 8.8, currently is 4.7 after dialysis. 4. Hypertension, on Norvasc 10 mg daily, Isordil 20 mg every 8 hour, Hydralazine 50 tid and hemodialysis. 5. History of moderate to large pericardial effusion. The echocardiogram was repeated and showed no pericardial effusion. 6. Severe pulmonary HTN 70s 7. Abdominal pain. Further evaluation by GI. UBALDO RN Subjective Subjective Feeling better after 2 BMs. Stool OB still pending. Transferred to [facility] [place]. Had HD yesterday Objective Last 24 Hour Vital Signs Date Time Temp Pulse Resp B/P (MAP) Pulse Ox O2 Delivery O2 Flow Rate FiO2 02/16/19 13:46 141/79 02/16/19 13:46 141/79 02/16/19 13:45 141/79 02/16/19 12:00 98.5 66 18 141/79 (99) 96 02/16/19 09:00 Room Air 2.0 Nasal Cannula 02/16/19 08:21 169/89 02/16/19 08:17 65 169/89 02/16/19 08:00 98.2 65 19 169/89 (115) 94 02/16/19 06:30 170/84 02/16/19 06:30 170/84 02/16/19 04:00 98.7 67 18 170/84 (112) 96 02/16/19 02:59 99.1 02/16/19 00:00 99.1 75 20 169/90 (116) 95 02/15/19 21:49 Room Air 2.0 Nasal Cannula 02/15/19 21:37 175/95 02/15/19 21:37 175/95 02/15/19 20:30 178/99 02/15/19 20:00 98.2 75 18 182/103 (129) 95 02/15/19 18:17 189/100 02/15/19 17:46 98.7 74 20 189/100 (129) 99 02/15/19 16:12 174/96 02/15/19 16:00 98.7 74 20 180/99 (126) 99 Intake and Output 02/15/19 02/16/19 18:59 06:59 Intake Total 0 ml 180 ml Output Total 2000 ml Balance -2000 ml 180 ml Intake Oral 0 ml 180 ml Output Urine Total 0 ml Hemodialysis UF 2000 ml Laboratory Tests Test 02/16/19 05:20 02/16/19 09:30 02/16/19 10:22 White Blood Count 7.4 K/UL (4.8-10.8) Red Blood Count 2.75 M/UL (4.20-5.40) L Hemoglobin 8.2 G/DL (12.0-16.0) L Hematocrit 25.6 % (37.0-47.0) L Mean Corpuscular Volume 93 FL (80-99) Mean Corpuscular Hemoglobin 29.8 PG (27.0-31.0) Mean Corpuscular Hemoglobin Concent 32.0 G/DL (32.0-36.0) Red Cell Distribution Width 16.2 % (11.6-14.8) H Platelet Count 117 K/UL (150-450) L Mean Platelet Volume 7.6 FL (6.5-10.1) Neutrophils (%) (Auto) 70.2 % (45.0-75.0) Lymphocytes (%) (Auto) 19.6 % (20.0-45.0) L Monocytes (%) (Auto) 7.0 % (1.0-10.0) Eosinophils (%) (Auto) 2.3 % (0.0-3.0) Basophils (%) (Auto) 0.9 % (0.0-2.0) Sodium Level 139 MMOL/L (136-145) Potassium Level 5.0 MMOL/L (3.5-5.1) Chloride Level 98 MMOL/L (98-107) Carbon Dioxide Level 28 MMOL/L (21-32) Anion Gap 13 mmol/L (5-15) Blood Urea Nitrogen 57 mg/dL (7-18) H Creatinine 12.7 MG/DL (0.55-1.30) H Estimat Glomerular Filtration Rate 3.8 mL/min (>60) Glucose Level 86 MG/DL (74-106) Uric Acid 6.1 MG/DL (2.6-7.2) Calcium Level 8.4 MG/DL (8.5-10.1) L Phosphorus Level 6.8 MG/DL (2.5-4.9) H Magnesium Level 2.5 MG/DL (1.8-2.4) H Total Bilirubin 0.7 MG/DL (0.2-1.0) Aspartate Amino Transf (AST/SGOT) 20 U/L (15-37) Alanine Aminotransferase (ALT/SGPT) 29 U/L (12-78) Alkaline Phosphatase 142 U/L (46-116) H Troponin I 0.055 ng/mL (0.000-0.056) C-Reactive Protein, Quantitative 2.0 mg/dL (0.00-0.90) H Pro-B-Type Natriuretic Peptide > 98890 pg/mL (0-125) H Total Protein 7.7 G/DL (6.4-8.2) Albumin 3.5 G/DL (3.4-5.0) Globulin 4.2 g/dL Albumin/Globulin Ratio 0.8 (1.0-2.7) L Stool Occult Blood Pending Pending Microbiology Date/Time Source Procedure Growth Status 02/13/19 21:10 Nasal Nares MRSA Culture - Final Staphylococcus Aureus - Mrsa Complete 02/13/19 21:10 Rectum VRE Culture - Final NO VANCOMYCIN RESISTANT ENTEROCOCCUS ... Complete 02/13/19 21:10 Rectum - Final NO CARBAPENEM-RESISTANT ENTEROBACTERI... Complete Objective HEAD AND NECK: No JVD. LUNGS: Decreased breath sounds. CARDIOVASCULAR: Regular S1 and S2 with no gallop or murmur. ABDOMEN: Soft. EXTREMITIES: 1plus pitting edema. Janak Charles MD Feb 16, 2019 14:57
--- NOTE | 2019-02-16 15:14 | NUR ---
NURSE NOTES: Patient is asking if she can eat, I communicated MD Caldwell regarding this matter; waiting to get an order.
--- NOTE | 2019-02-16 15:30 | Consultation ---
DATE OF CONSULTATION: 02/14/2019 GASTROENTEROLOGY CONSULTATION CONSULTING PHYSICIAN: Alecia Bhagat M.D. REFERRING PHYSICIAN: Lidya Bruce M.D. CHIEF COMPLAINT: I was asked to see this patient by Dr. Lidya Bruce, for evaluation of abdominal pain. HISTORY OF PRESENT ILLNESS: The patient is a 53-year-old woman, who comes into the hospital due to abdominal complaints. She told me that she has had 2 days of central abdominal pain with some nausea and vomiting, but no diarrhea. She states that her grandchildren have been ill with respiratory infections and she actually feels better at this point when I saw her. The patient denies any hematochezia or hematemesis. She had a CT scan in this hospital recently and the CT scan showed gallstones. There was also thickening of the descending colon and sigmoid colon, but this was mainly a radiographic finding. She states she has had an endoscopy and colonoscopy last year at [facility] and cannot recall any significant pathology. She does have some hiccups, but no pyrosis. She also has missed dialysis for several days, which is now the reason for being admitted to the hospital. PAST MEDICAL HISTORY: History of renal failure, on dialysis, hypertension, history of pericardial effusion, history of gastritis, and history of ascites. FAMILY HISTORY: Noncontributory. SOCIAL HISTORY: The patient has had no history of smoking. REVIEW OF SYSTEMS: Otherwise negative. MEDICATIONS: See the chart list for details. PHYSICAL EXAMINATION: GENERAL: A well-developed, mildly obese woman, seen in her room. HEENT: Normocephalic and atraumatic. Sclerae anicteric. Oropharynx is clear. NECK: Supple. CHEST: Clear to auscultation. CARDIOVASCULAR: Revealed regular rate. ABDOMEN: Soft with good bowel sounds. Minimal tenderness in the abdomen central without guarding or rebound. EXTREMITIES: Revealed no edema. LABORATORY DATA: Noted. ASSESSMENT: This patient has had somewhat a brief period of abdominal discomfort, nausea, and vomiting. The patient may have gastroenteritis since her grandchildren at home are ill as well. For the time being, I will follow the patient conservatively since her symptoms are rapidly resolving. The significance of finding of colonic thickening on CT scan is unclear, so this could be due to underdistention. Should the patient's symptoms persist, then further evaluation may be necessary. RECOMMENDATIONS: Per above discussion and per orders written in the chart. Thank you for asking me to participate in the care of this patient. Alecia Bhagat M.D. DR: TU JOB#: [id number] CC:
--- NOTE | 2019-02-16 15:36 | Cardiology Report ---
APPROVED REPORT EKG Measurement Heart [id number] Normal sinus rhythm Possible Left atrial enlargement Prolonged QT Abnormal ECG
--- NOTE | 2019-02-16 19:11 | NUR ---
HAND-OFF: Report given to MUSTAPHA Elias.
--- NOTE | 2019-02-16 19:30 | NUR ---
NURSE NOTES: Received patient awake,alert,verbal,ambulates with a walker,with essentially normal vital signs.
--- NOTE | 2019-02-16 19:59 | General Progress Note ---
Assessment/Plan Problem List: (1) Gastritis ICD Codes: K29.70 - Gastritis, unspecified, without bleeding SNOMED: 3356852 (2) Abdominal pain ICD Codes: R10.9 - Unspecified abdominal pain SNOMED: 09658171 (3) Hypertension ICD Codes: I10 - Essential (primary) hypertension SNOMED: 37880452 (4) ESRD (end stage renal disease) on dialysis ICD Codes: N18.6 - End stage renal disease; Z99.2 - Dependence on renal dialysis SNOMED: 525928729 (5) Hypertensive urgency ICD Codes: I16.0 - Hypertensive urgency SNOMED: 466726274 Status: progressing Assessment/Plan: vitals improving not hypoxic resp insuff improving abdominal pain htn bp improving no sob Subjective ROS Limited/Unobtainable: Yes Allergies: Coded Allergies: ACETAMINOPHEN (Verified Adverse Reaction, Unknown, 08/17/17) nausea CODEINE (Verified Adverse Reaction, Unknown, NAUSEA, 04/18/10) HYDROCODONE (Verified Adverse Reaction, Unknown, 08/17/17) nausea Objective Last 24 Hour Vital Signs Date Time Temp Pulse Resp B/P (MAP) Pulse Ox O2 Delivery O2 Flow Rate FiO2 02/16/19 19:54 96.4 65 20 158/88 (111) 98 02/16/19 17:00 98.0 76 19 138/83 (101) 99 02/16/19 16:00 98.0 70 19 175/105 (128) 99 02/16/19 13:46 141/79 02/16/19 13:46 141/79 02/16/19 13:45 141/79 02/16/19 12:00 98.5 66 18 141/79 (99) 96 02/16/19 09:00 Room Air 2.0 Nasal Cannula 02/16/19 08:21 169/89 02/16/19 08:17 65 169/89 02/16/19 08:00 98.2 65 19 169/89 (115) 94 02/16/19 06:30 170/84 02/16/19 06:30 170/84 02/16/19 04:00 98.7 67 18 170/84 (112) 96 02/16/19 02:59 99.1 02/16/19 00:00 99.1 75 20 169/90 (116) 95 02/15/19 21:49 Room Air 2.0 Nasal Cannula 02/15/19 21:37 175/95 02/15/19 21:37 175/95 02/15/19 20:30 178/99 02/15/19 20:00 98.2 75 18 182/103 (129) 95 Intake and Output 02/15/19 02/16/19 19:00 07:00 Intake Total 180 ml Output Total 2000 ml Balance -2000 ml 180 ml Intake Oral 180 ml Hemodialysis UF 2000 ml Laboratory Tests 02/16/19 05:20: White Blood Count 7.4, Red Blood Count 2.75L, Hemoglobin 8.2L, Hematocrit 25.6L , Mean Corpuscular Volume 93, Mean Corpuscular Hemoglobin 29.8, Mean Corpuscular Hemoglobin Concent 32.0, Red Cell Distribution Width 16.2H, Platelet Count 117L, Mean Platelet Volume 7.6, Neutrophils (%) (Auto) 70.2, Lymphocytes (%) (Auto) 19.6L, Monocytes (%) (Auto) 7.0, Eosinophils (%) (Auto) 2.3, Basophils (%) (Auto) 0.9, Sodium Level 139, Potassium Level 5.0, Chloride Level 98, Carbon Dioxide Level 28, Anion Gap 13, Blood Urea Nitrogen 57H, Creatinine 12.7H, Estimat Glomerular Filtration Rate 3.8, Glucose Level 86, Uric Acid 6.1, Calcium Level 8.4L, Phosphorus Level 6.8H, Magnesium Level 2.5H, Total Bilirubin 0.7, Aspartate Amino Transf (AST/SGOT) 20, Alanine Aminotransferase (ALT/SGPT) 29, Alkaline Phosphatase 142H, Troponin I 0.055, C- Reactive Protein, Quantitative 2.0H, Pro-B-Type Natriuretic Peptide > 60719S, Total Protein 7.7, Albumin 3.5, Globulin 4.2, Albumin/Globulin Ratio 0.8L 02/16/19 09:30: Stool Occult Blood [Pending] 02/16/19 10:22: Stool Occult Blood [Pending] Height (Feet): 5 Height (Inches): 7.00 Weight (Pounds): 167 Cardiovascular: normal rate Respiratory/Chest: lungs clear Abdomen: soft Lidya Bruce MD Feb 16, 2019 19:59
[2019-02-17 00:10] VITALS: BP 147/78
[2019-02-17 04:00] VITALS: BP 149/82
[2019-02-17] MEDS: HydrALAZINE 50mg tab ORAL SCH (05:11)
[2019-02-17] MEDS: cloNIDine 0.2mg Tab ORAL SCH ×2 (05:12→14:39)
--- NOTE | 2019-02-17 06:22 | General Progress Note ---
Assessment/Plan Problem List: (1) Ascites ICD Codes: R18.8 - Other ascites SNOMED: 412020754 (2) Gastritis ICD Codes: K29.70 - Gastritis, unspecified, without bleeding SNOMED: 0660174 (3) ESRD (end stage renal disease) on dialysis ICD Codes: N18.6 - End stage renal disease; Z99.2 - Dependence on renal dialysis SNOMED: 436006940 (4) Abdominal pain ICD Codes: R10.9 - Unspecified abdominal pain SNOMED: 56135005 Status: progressing Assessment/Plan: CT from the last admission reviewed us reviewed doubt acute arun, most likely fluid over load anemia work up neg stool ob x2 HD fu labs Subjective ROS Limited/Unobtainable: Yes Allergies: Coded Allergies: ACETAMINOPHEN (Verified Adverse Reaction, Unknown, 08/17/17) nausea CODEINE (Verified Adverse Reaction, Unknown, NAUSEA, 04/18/10) HYDROCODONE (Verified Adverse Reaction, Unknown, 08/17/17) nausea Objective Last 24 Hour Vital Signs Date Time Temp Pulse Resp B/P (MAP) Pulse Ox O2 Delivery O2 Flow Rate FiO2 02/17/19 05:12 149/82 02/17/19 05:12 149/82 02/17/19 05:11 149/82 02/17/19 04:00 97.5 62 20 149/82 (104) 98 02/17/19 00:10 97.0 70 19 147/78 (101) 97 02/16/19 21:10 158/88 02/16/19 21:09 158/88 02/16/19 21:09 158/88 02/16/19 20:00 Room Air 2.0 Nasal Cannula 02/16/19 19:54 96.4 65 20 158/88 (111) 98 02/16/19 17:00 98.0 76 19 138/83 (101) 99 02/16/19 16:00 98.0 70 19 175/105 (128) 99 02/16/19 13:46 141/79 02/16/19 13:46 141/79 02/16/19 13:45 141/79 02/16/19 12:00 98.5 66 18 141/79 (99) 96 02/16/19 09:00 Room Air 2.0 Nasal Cannula 02/16/19 08:21 169/89 02/16/19 08:17 65 169/89 02/16/19 08:00 98.2 65 19 169/89 (115) 94 02/16/19 06:30 170/84 02/16/19 06:30 170/84 Intake and Output 02/16/19 02/17/19 19:00 07:00 Intake Total 500 ml Balance 500 ml Intake Oral 500 ml # Voids 3 Laboratory Tests 02/16/19 09:30: Stool Occult Blood Negative 02/16/19 10:22: Stool Occult Blood Negative Height (Feet): 5 Height (Inches): 7.00 Weight (Pounds): 167 General Appearance: alert EENT: normal ENT inspection Neck: supple Cardiovascular: normal peripheral pulses Respiratory/Chest: decreased breath sounds Abdomen: soft, hypoactive bowel sounds, distended Extremities: non-tender Dexter Caldwell MD Feb 17, 2019 06:22
[2019-02-17 07:08] LABS: BASOPHILS % (AUTO) 0.7 % (0.0-2.0); EOSINOPHILS % (AUTO) 1.9 % (0.0-3.0); HEMATOCRIT 24.5 % (37.0-47.0); LYMPHOCYTES % (AUTO) 24.2 % (20.0-45.0); MEAN CORPUSCULAR VOLUME 94 FL (80-99); MONOCYTES % (AUTO) 6.2 % (1.0-10.0); PLATELET COUNT 125 K/UL (150-450); RED BLOOD COUNT 2.61 M/UL (4.20-5.40); RED CELL DISTRIBUTION WIDTH 16.3 % (11.6-14.8); WHITE BLOOD COUNT 7.8 K/UL (4.8-10.8)
--- NOTE | 2019-02-17 07:10 | NUR ---
HAND-OFF: Report given to Belkys Bob RN.
[2019-02-17 07:17] LABS: PHOSPHORUS 7.2 MG/DL (2.5-4.9)
[2019-02-17 07:31] LABS: ALANINE AMINOTRANSFERASE 28 U/L (12-78); ALBUMIN 3.5 G/DL (3.4-5.0); ALBUMIN/GLOBULIN RATIO 0.9 (1.0-2.7); ALKALINE PHOSPHATASE 141 U/L (46-116); ANION GAP 14 mmol/L (5-15); ASPARTATE AMINO TRANSFERASE 20 U/L (15-37); BILIRUBIN,TOTAL 0.6 MG/DL (0.2-1.0); BLOOD UREA NITROGEN 65 mg/dL (7-18); CALCIUM 8.7 MG/DL (8.5-10.1); CARBON DIOXIDE 26 MMOL/L (21-32); CHLORIDE 99 MMOL/L (98-107); CREATININE 14.2 MG/DL (0.55-1.30); POTASSIUM 5.3 MMOL/L (3.5-5.1); SODIUM 139 MMOL/L (136-145)
--- NOTE | 2019-02-17 07:39 | NUR ---
NURSE NOTES: Patient awake, alert x4; on room air, no sing of distress and shortness of breath; no sing of chest pain; IV Right Wrist 22G flushes well; Hemodialysis access Left Upper Arm AV Shunt; side rails up x2, breaks engaged, bed at lowest position, call light within reach; will keep monitoring.
[2019-02-17 07:44] LABS: % IRON SATURATION 29 % (15-50); IRON 53 ug/dL (50-175); TOTAL IRON BINDING CAPACITY 185 ug/dL (250-450)
[2019-02-17 08:00] VITALS: BP 169/92
[2019-02-17 08:08] LABS: FERRITIN > 2000 NG/ML (8-388)
[2019-02-17] MEDS: Heparin 5000 units/ml inj SUBQ SCH (09:00)
[2019-02-17] MEDS: Docusate 100mg cap ORAL SCH ×2 (09:04→12:42)
[2019-02-17] MEDS: Aspirin Baby 81mg ORAL SCH (09:05)
[2019-02-17] MEDS ORDERED: Sodium Polystyrene Sulfonate 15gm Powder ORAL SCH (10:00)
--- NOTE | 2019-02-17 10:25 | NUR ---
RD ASSESSMENT & RECOMMENDATIONS SEE CARE ACTIVITY FOR COMPLETE ASSESSMENT DAILY ESTIMATED NEEDS: Needs based on ESRD, HD; 61.6kg abw 30-35 kcals/kg 7626-3045 total kcals 1.2-1.8 g protein/kg 74-111 g total protein Fluid per MD, on HD mL/kg 6664-6362 total fluid mLs NUTRITION DIAGNOSIS: Increased kcal and pro needs r/t ESRD, AEB pt is on Hemodialysis. CURRENT DIET:Renal PO DIET RECOMMENDATIONS: Renal ADDITIONAL RECOMMENDATIONS: 1) Obtain a standing weight for accurate CBW EMR wt: 167# vs Stated HD o/p wt: 140's # 2) Nepro q daily. 3) Monitor food intake- current intake is 0-25% Add Snacks 4) Lytes daily
--- NOTE | 2019-02-17 11:06 | General Progress Note ---
Assessment/Plan Problem List: (1) Gastritis ICD Codes: K29.70 - Gastritis, unspecified, without bleeding SNOMED: 7101071 (2) Abdominal pain ICD Codes: R10.9 - Unspecified abdominal pain SNOMED: 99835950 (3) Hypertension ICD Codes: I10 - Essential (primary) hypertension SNOMED: 99414184 (4) ESRD (end stage renal disease) on dialysis ICD Codes: N18.6 - End stage renal disease; Z99.2 - Dependence on renal dialysis SNOMED: 522419255 (5) Hypertensive urgency ICD Codes: I16.0 - Hypertensive urgency SNOMED: 569032051 Status: progressing Assessment/Plan: esrd on hd remove fluid s/p fluid overload not hypoxic resp insuff improving abdominal pain htn Subjective ROS Limited/Unobtainable: Yes Allergies: Coded Allergies: ACETAMINOPHEN (Verified Adverse Reaction, Unknown, 08/17/17) nausea CODEINE (Verified Adverse Reaction, Unknown, NAUSEA, 04/18/10) HYDROCODONE (Verified Adverse Reaction, Unknown, 08/17/17) nausea Objective Last 24 Hour Vital Signs Date Time Temp Pulse Resp B/P (MAP) Pulse Ox O2 Delivery O2 Flow Rate FiO2 02/17/19 09:05 69 169/92 02/17/19 09:00 Room Air 2.0 Nasal Cannula 02/17/19 08:00 99.3 69 19 169/92 (117) 96 02/17/19 05:12 149/82 02/17/19 05:12 149/82 02/17/19 05:11 149/82 02/17/19 04:00 97.5 62 20 149/82 (104) 98 02/17/19 00:10 97.0 70 19 147/78 (101) 97 02/16/19 21:10 158/88 02/16/19 21:09 158/88 02/16/19 21:09 158/88 02/16/19 20:00 Room Air 2.0 Nasal Cannula 02/16/19 19:54 96.4 65 20 158/88 (111) 98 02/16/19 17:00 98.0 76 19 138/83 (101) 99 02/16/19 16:00 98.0 70 19 175/105 (128) 99 02/16/19 13:46 141/79 02/16/19 13:46 141/79 02/16/19 13:45 141/79 02/16/19 12:00 98.5 66 18 141/79 (99) 96 Intake and Output 02/16/19 02/17/19 19:00 07:00 Intake Total 500 ml 500 ml Output Total 2000 ml Balance 500 ml -1500 ml Intake Oral 500 ml 500 ml Output Urine Total 0 ml Hemodialysis UF 2000 ml # Voids 3 3 # Bowel Movements 1 Laboratory Tests 02/17/19 05:40: White Blood Count 7.8, Red Blood Count 2.61L, Hemoglobin 8.0L, Hematocrit 24.5L , Mean Corpuscular Volume 94, Mean Corpuscular Hemoglobin 30.6, Mean Corpuscular Hemoglobin Concent 32.6, Red Cell Distribution Width 16.3H, Platelet Count 125L, Mean Platelet Volume 9.1, Neutrophils (%) (Auto) 67.0, Lymphocytes (%) (Auto) 24.2, Monocytes (%) (Auto) 6.2, Eosinophils (%) (Auto) 1.9, Basophils (%) (Auto) 0.7, Sodium Level 139, Potassium Level 5.3H, Chloride Level 99, Carbon Dioxide Level 26, Anion Gap 14, Blood Urea Nitrogen 65H, Creatinine 14.2H, Estimat Glomerular Filtration Rate 3.3, Glucose Level 97, Uric Acid 7.2, Calcium Level 8.7, Phosphorus Level 7.2H, Magnesium Level 2.4, Iron Level 53, Total Iron Binding Capacity 185L, Percent Iron Saturation 29, Unsaturated Iron Binding 132, Ferritin > 2000H, Total Bilirubin 0.6, Aspartate Amino Transf (AST/SGOT) 20, Alanine Aminotransferase (ALT/SGPT) 28, Alkaline Phosphatase 141H, Total Protein 7.6, Albumin 3.5, Globulin 4.1, Albumin/ Globulin Ratio 0.9L, Vitamin B12 Level 285, Folate 5.7L, Hepatitis A IgM Antibody [Pending], Hepatitis B Surface Antigen [Pending], Hepatitis B Core IgM Antibody [Pending], Hepatitis C Antibody [Pending] Height (Feet): 5 Height (Inches): 7.00 Weight (Pounds): 167 Neck: supple Cardiovascular: normal rate Respiratory/Chest: lungs clear Abdomen: soft Lidya Bruce MD Feb 17, 2019 11:06
[2019-02-17 12:00] VITALS: BP 191/109
--- NOTE | 2019-02-17 12:52 | Infectious Diseases Prog Note ---
Assessment/Plan Assessment/Plan IMPRESSION: Bilateral axillary nodules, hydradenitis suppurativa. hyperkalemia at the time of End-stage renal disease, noncompliant with hemodialysis. hypertension, anemia, thrombocytopenia, hyperlipidemia. RECOMMENDATION: Continue p.o. doxycycline Subjective ROS Limited/Unobtainable: No Constitutional: Reports: other - feels better Respiratory: Reports: no symptoms Gastrointestinal/Abdominal: Reports: bloating Genitourinary: Reports: no symptoms Allergies: Coded Allergies: ACETAMINOPHEN (Verified Adverse Reaction, Unknown, 08/17/17) nausea CODEINE (Verified Adverse Reaction, Unknown, NAUSEA, 04/18/10) HYDROCODONE (Verified Adverse Reaction, Unknown, 08/17/17) nausea Objective Vital Signs Last 24 Hour Vital Signs Date Time Temp Pulse Resp B/P (MAP) Pulse Ox O2 Delivery O2 Flow Rate FiO2 02/17/19 12:41 191/109 02/17/19 12:00 99.5 68 20 191/109 (136) 93 02/17/19 09:05 69 169/92 02/17/19 09:00 Room Air 2.0 Nasal Cannula 02/17/19 08:00 99.3 69 19 169/92 (117) 96 02/17/19 05:12 149/82 02/17/19 05:12 149/82 02/17/19 05:11 149/82 02/17/19 04:00 97.5 62 20 149/82 (104) 98 02/17/19 00:10 97.0 70 19 147/78 (101) 97 02/16/19 21:10 158/88 02/16/19 21:09 158/88 02/16/19 21:09 158/88 02/16/19 20:00 Room Air 2.0 Nasal Cannula 02/16/19 19:54 96.4 65 20 158/88 (111) 98 02/16/19 17:00 98.0 76 19 138/83 (101) 99 02/16/19 16:00 98.0 70 19 175/105 (128) 99 02/16/19 13:46 141/79 02/16/19 13:46 141/79 02/16/19 13:45 141/79 Height (Feet): 5 Height (Inches): 7.00 Weight (Pounds): 167 General Appearance: no acute distress HEENT: mucous membranes moist Respiratory/Chest: lungs clear Cardiovascular: normal rate Abdomen: soft, non tender Extremities: no edema Skin: other - skin nodules in both axilla, left one is tender Neurologic/Psychiatric: alert, oriented x 3, responsive Laboratory Tests Test 02/17/19 05:40 White Blood Count 7.8 K/UL (4.8-10.8) Red Blood Count 2.61 M/UL (4.20-5.40) L Hemoglobin 8.0 G/DL (12.0-16.0) L Hematocrit 24.5 % (37.0-47.0) L Mean Corpuscular Volume 94 FL (80-99) Mean Corpuscular Hemoglobin 30.6 PG (27.0-31.0) Mean Corpuscular Hemoglobin Concent 32.6 G/DL (32.0-36.0) Red Cell Distribution Width 16.3 % (11.6-14.8) H Platelet Count 125 K/UL (150-450) L Mean Platelet Volume 9.1 FL (6.5-10.1) Neutrophils (%) (Auto) 67.0 % (45.0-75.0) Lymphocytes (%) (Auto) 24.2 % (20.0-45.0) Monocytes (%) (Auto) 6.2 % (1.0-10.0) Eosinophils (%) (Auto) 1.9 % (0.0-3.0) Basophils (%) (Auto) 0.7 % (0.0-2.0) Sodium Level 139 MMOL/L (136-145) Potassium Level 5.3 MMOL/L (3.5-5.1) H Chloride Level 99 MMOL/L (98-107) Carbon Dioxide Level 26 MMOL/L (21-32) Anion Gap 14 mmol/L (5-15) Blood Urea Nitrogen 65 mg/dL (7-18) H Creatinine 14.2 MG/DL (0.55-1.30) H Estimat Glomerular Filtration Rate 3.3 mL/min (>60) Glucose Level 97 MG/DL (74-106) Uric Acid 7.2 MG/DL (2.6-7.2) Calcium Level 8.7 MG/DL (8.5-10.1) Phosphorus Level 7.2 MG/DL (2.5-4.9) H Magnesium Level 2.4 MG/DL (1.8-2.4) Iron Level 53 ug/dL (50-175) Total Iron Binding Capacity 185 ug/dL (250-450) L Percent Iron Saturation 29 % (15-50) Unsaturated Iron Binding 132 ug/dL (112-346) Ferritin > 2000 NG/ML (8-388) H Total Bilirubin 0.6 MG/DL (0.2-1.0) Aspartate Amino Transf (AST/SGOT) 20 U/L (15-37) Alanine Aminotransferase (ALT/SGPT) 28 U/L (12-78) Alkaline Phosphatase 141 U/L (46-116) H Total Protein 7.6 G/DL (6.4-8.2) Albumin 3.5 G/DL (3.4-5.0) Globulin 4.1 g/dL Albumin/Globulin Ratio 0.9 (1.0-2.7) L Vitamin B12 Level 285 PG/ML (193-986) Folate 5.7 NG/ML (8.6-58.9) L Hepatitis A IgM Antibody Pending Hepatitis B Surface Antigen Pending Hepatitis B Core IgM Antibody Pending Hepatitis C Antibody Pending Current Medications Medications (Trade) Dose Ordered Sig/Johnna Route PRN Reason Start Time Stop Time Status Last Admin Dose Admin Acetaminophen (Tylenol) 500 mg Q8H PRN ORAL Prn Headache/Temp > 101 02/15/19 21:30 03/17/19 21:29 02/16/19 02:29 Amlodipine Besylate (Norvasc) 10 mg DAILY ORAL 02/16/19 09:00 03/16/19 09:30 02/17/19 09:05 Aspirin (ASA) 81 mg DAILY ORAL 02/16/19 09:00 03/17/19 10:44 02/17/19 09:05 Clonidine HCl (Catapres tab) 0.2 mg Q8HR ORAL 02/15/19 22:00 03/16/19 13:59 02/17/19 05:12 Docusate Sodium (Colace) 100 mg THREE TIMES A DAY ORAL 02/16/19 09:00 03/17/19 12:59 02/17/19 12:42 Epoetin Stephen (Epoetin Stephen(ESRD on dialysis)) 10,000 unit MON-MON-MON SUBQ 02/18/19 21:00 03/20/19 20:59 Heparin Sodium (Porcine) (Heparin 5000 units/ml) 5,000 units EVERY 12 HOURS SUBQ 02/15/19 21:00 03/16/19 08:59 Hydralazine HCl (Apresoline) 50 mg Q8HR ORAL 02/16/19 08:00 03/18/19 07:59 02/17/19 05:11 Isosorbide Dinitrate (Isordil) 20 mg Q8HR ORAL 02/15/19 22:00 03/15/19 21:59 02/17/19 05:12 Minoxidil (Loniten) 5 mg Q4H PRN ORAL bp over 165 syst 02/16/19 12:00 03/16/19 11:47 02/17/19 12:41 Nitroglycerin (Ntg) 0.4 mg Q5M PRN SL Prn Chest Pain 02/15/19 20:45 03/16/19 11:47 Ondansetron HCl (Zofran) 4 mg Q6H PRN IVP Nausea & Vomiting 02/15/19 21:30 03/17/19 21:29 Pantoprazole (Protonix) 40 mg EVERY 12 HOURS ORAL 02/16/19 09:00 03/18/19 08:59 02/17/19 09:05 Sevelamer Carbonate (Renvela) 2,400 mg THREE TIMES A DAY ORAL 02/16/19 09:00 03/17/19 12:59 02/17/19 12:42 Kyler Frazier MD Feb 17, 2019 12:52
[2019-02-17] MEDS ORDERED: HydrALAZINE 25mg tab ORAL SCH (14:00)
--- NOTE | 2019-02-17 14:19 | Nephrology Progress Note ---
Assessment/Plan Problem List: (1) ESRD (end stage renal disease) on dialysis (2) Hypertensive urgency (3) Hyperkalemia (4) Elevated troponin Assessment ESRD High K - missed dialysis HTN OOC upon presentation Abdominal pain, ? Cholecystitis Plan Plan: HD with UF done twice next on 02/18/19 BP med adjustments per GI Per orders long discussion with patient who wants to be discharged and I explained the risks Subjective ROS Limited/Unobtainable: No Objective Objective Last 24 Hour Vital Signs Date Time Temp Pulse Resp B/P (MAP) Pulse Ox O2 Delivery O2 Flow Rate FiO2 02/17/19 12:41 191/109 02/17/19 12:00 99.5 68 20 191/109 (136) 93 02/17/19 09:05 69 169/92 02/17/19 09:00 Room Air 2.0 Nasal Cannula 02/17/19 08:00 99.3 69 19 169/92 (117) 96 02/17/19 05:12 149/82 02/17/19 05:12 149/82 02/17/19 05:11 149/82 02/17/19 04:00 97.5 62 20 149/82 (104) 98 02/17/19 00:10 97.0 70 19 147/78 (101) 97 02/16/19 21:10 158/88 02/16/19 21:09 158/88 02/16/19 21:09 158/88 02/16/19 20:00 Room Air 2.0 Nasal Cannula 02/16/19 19:54 96.4 65 20 158/88 (111) 98 02/16/19 17:00 98.0 76 19 138/83 (101) 99 02/16/19 16:00 98.0 70 19 175/105 (128) 99 Intake and Output 02/16/19 02/17/19 19:00 07:00 Intake Total 500 ml 500 ml Output Total 2000 ml Balance 500 ml -1500 ml Intake Oral 500 ml 500 ml Output Urine Total 0 ml Hemodialysis UF 2000 ml # Voids 3 3 # Bowel Movements 1 Current Medications Medications (Trade) Dose Ordered Sig/Johnna Route PRN Reason Start Time Stop Time Status Last Admin Dose Admin Acetaminophen (Tylenol) 500 mg Q8H PRN ORAL Prn Headache/Temp > 101 02/15/19 21:30 03/17/19 21:29 02/16/19 02:29 Aspirin (ASA) 81 mg DAILY ORAL 02/16/19 09:00 03/17/19 10:44 02/17/19 09:05 Clonidine HCl (Catapres tab) 0.2 mg Q8HR ORAL 02/15/19 22:00 03/16/19 13:59 02/17/19 05:12 Docusate Sodium (Colace) 100 mg THREE TIMES A DAY ORAL 02/16/19 09:00 03/17/19 12:59 02/17/19 12:42 Epoetin Stephen (Epoetin Stephen(ESRD on dialysis)) 10,000 unit MON-MON-MON SUBQ 02/18/19 21:00 03/20/19 20:59 Heparin Sodium (Porcine) (Heparin 5000 units/ml) 5,000 units EVERY 12 HOURS SUBQ 02/15/19 21:00 03/16/19 08:59 Hydralazine HCl (Apresoline) 75 mg Q8HR ORAL 02/17/19 14:00 03/18/19 07:59 Isosorbide Dinitrate (Isordil) 20 mg Q8HR ORAL 02/15/19 22:00 03/15/19 21:59 02/17/19 05:12 Minoxidil (Loniten) 5 mg Q4H PRN ORAL bp over 165 syst 02/16/19 12:00 03/16/19 11:47 02/17/19 12:41 Nifedipine (Procardia XL) 30 mg ONCE ORAL 02/17/19 13:00 02/17/19 15:00 Nifedipine (Procardia XL) 30 mg Q12HR ORAL 02/17/19 21:00 03/19/19 20:59 Nitroglycerin (Ntg) 0.4 mg Q5M PRN SL Prn Chest Pain 02/15/19 20:45 03/16/19 11:47 Ondansetron HCl (Zofran) 4 mg Q6H PRN IVP Nausea & Vomiting 02/15/19 21:30 03/17/19 21:29 Pantoprazole (Protonix) 40 mg EVERY 12 HOURS ORAL 02/16/19 09:00 03/18/19 08:59 02/17/19 09:05 Sevelamer Carbonate (Renvela) 2,400 mg THREE TIMES A DAY ORAL 02/16/19 09:00 03/17/19 12:59 02/17/19 12:42 Laboratory Tests 02/17/19 05:40: White Blood Count 7.8, Red Blood Count 2.61L, Hemoglobin 8.0L, Hematocrit 24.5L , Mean Corpuscular Volume 94, Mean Corpuscular Hemoglobin 30.6, Mean Corpuscular Hemoglobin Concent 32.6, Red Cell Distribution Width 16.3H, Platelet Count 125L, Mean Platelet Volume 9.1, Neutrophils (%) (Auto) 67.0, Lymphocytes (%) (Auto) 24.2, Monocytes (%) (Auto) 6.2, Eosinophils (%) (Auto) 1.9, Basophils (%) (Auto) 0.7, Sodium Level 139, Potassium Level 5.3H, Chloride Level 99, Carbon Dioxide Level 26, Anion Gap 14, Blood Urea Nitrogen 65H, Creatinine 14.2H, Estimat Glomerular Filtration Rate 3.3, Glucose Level 97, Uric Acid 7.2, Calcium Level 8.7, Phosphorus Level 7.2H, Magnesium Level 2.4, Iron Level 53, Total Iron Binding Capacity 185L, Percent Iron Saturation 29, Unsaturated Iron Binding 132, Ferritin > 2000H, Total Bilirubin 0.6, Aspartate Amino Transf (AST/SGOT) 20, Alanine Aminotransferase (ALT/SGPT) 28, Alkaline Phosphatase 141H, Total Protein 7.6, Albumin 3.5, Globulin 4.1, Albumin/ Globulin Ratio 0.9L, Vitamin B12 Level 285, Folate 5.7L, Hepatitis A IgM Antibody [Pending], Hepatitis B Surface Antigen [Pending], Hepatitis B Core IgM Antibody [Pending], Hepatitis C Antibody [Pending] Height (Feet): 5 Height (Inches): 7.00 Weight (Pounds): 167 General Appearance: no apparent distress Cardiovascular: normal rate Respiratory/Chest: decreased breath sounds Abdomen: distended Bob Morse MD Feb 17, 2019 14:18
[2019-02-17 16:00] VITALS: BP 166/81
--- NOTE | 2019-02-17 17:05 | NUR ---
NURSE NOTES: Patient doesn't want to stay in the hospital, prefer to go home and take care her pets. I explanied to patient that patient scheduled for dialysis 02/18/19, however patient doesn't want to stay overnight and patient said want to do dailysis where she usually do. Patient's blood pressure was high and also patient been vomiting while preparing to leave the hospital, however patient doesn't want to finish the treatment plan whech already start since admission. I explanied the risks of leaving agains medical advice. Charge nurseMarlene, nursing supervisor hand workers Ms Weeks and primary care provider MD Bruce aware. Patient signed belonging lists; name tag removed; IV access removed; patient's own medication given back to patient.
--- NOTE | 2019-02-18 10:44 | Cardiology Report ---
APPROVED REPORT EXAM: Two-dimensional and M-mode echocardiogram with Doppler and color Doppler. INDICATION Pericardial effusion M-Mode DIMENSIONS IVSd1.0 (0.7-1.1cm)Left Atrium (MM)4.5 (1.6-4.0cm) LVDd3.6 (3.5-5.6cm)Aortic Root2.4 (2.0-3.7cm) PWd1.0 (0.7-1.1cm)Aortic Cusp Exc.1.7 (1.5-2.0cm) IVSs1.5 cm LVDs2.8 (2.5-4.0cm) PWs1.5 cm Normal left ventricular chamber size, systolic function and wall motion . Left ventricular ejection fraction estimated to be 60-65%. Mild left ventricular hypertrophy . No evidence of pericardial effusion. Mild left atrial enlargement. Right cardiac chamber sizes are within normal limits. Focal aortic valve sclerosis with adequate cusp excursion. Thickened mitral valve leaflets with normal excursion. Mitral annulus and aortic root calcification. Normal pulmonic valve structure. Normal tricuspid valve structure. IVC dilated at 2.3 cm without physiologic collapse suggestive of increased RA pressure. A color flow and spectral Doppler study was performed and revealed: No aortic regurgitation.. Moderate to severe mitral regurgitation. Mitral inflow indicates normal left ventricular diastolic function. Moderate to severe tricuspid regurgitation. Tricuspid systolic velocities suggests peak right ventricular systolic pressure of 77 mmHg,consistent with severe pulmonary hypertension.
[2019-02-18] MEDS ORDERED: Epoetin Alfa-EPBX(ESRD on dialysis)10,000 unit/ml vial SUBQ SCH (21:00)
--- NOTE | 2019-02-19 08:11 | Discharge Summary ---
Discharge Summary Discharge Summary _ DATE OF ADMISSION: 02/13/2019 DATE OF DISCHARGE: 02/17/1990 Patient left AGAINST MEDICAL ADVICE REASON FOR ADMISSION: 33-year-old female with past medical history of hypertension, and end-stage renal disease, on hemodialysis, presented with abdominal discomfort. Patient reported pain in left upper abdomen recent CT of the skin showed colitis and gallstones. Patient reported diarrhea. Patient missed her dialysis. Patient was recently hospitalized in [facility]. Upon evaluation blood pressure was 206/110 patient was tachycardic pulse oximetry was stable on room air. Laboratory work-up revealed no leukocytosis hemoglobin 11.1 hematocrit 23.6 platelet count 119. EKG revealed normal sinus rhythm no acute ischemic changes. Potassium 8.8. BUN 124, creatinine 21.6. Stable LFT. Troponin elevated 0.061. EKG revealed normal sinus rhythm no acute ischemic changes. Lipase is 62 albumin 4.6 Urinalysis revealed no evidence of UTI. emergency department patient was treated for hyperkalemia admitted to telemetry floor for further management CONSULTANTS: interactive designer Dr. Montez ID specialist Dr. Chauhan GI specialist Dr. Bhagat hydramatic mechanic Dr. Morse [facility]: Patient admitted to telemetry floor. Patient had urgent dialysis with low K. Volumes and renal parameters where closely monitored, electrolytes further corrected as needed. Dialysis further provided as per hydramatic mechanic. [employer] Consultant followed. Second troponin still minimally elevated- 0.085, the last two troponin negative. EKG revealed no acute ischemic changes. Echocardiogram revealed preserved ejection fraction 60 to 65% with mild left ventricular hypertrophy. No evidence of wall motion abnormality. No evidence of pericardial effusion. Moderate to severe mitral and tricuspid vegetation. Right ventricular pressure 37 consistent with severe pulmonary hypertension. Patient had no chest pain. Troponin levels were flat. Troponin elevation was likely due to renal failure. Last two troponin negative. Blood pressure was managed with regimen of multiply antihypertensive medications. Blood pressure improved, bit still remained elevated. GI specialist followed. Abdominal ultrasound revealed hepatomegaly. Distended gallbladder with layering sludge and stones. Marked thickening and edematous gallbladder wall. Possible necrosis versus acute cholecystitis. Atrophic bilateral kidney due to medical renal disease ; no hydronephrosis. Bilateral upper quadrant ascites. Bilateral pleural effusion. LFT remained stable. Stool for occult blood x2 was negative. GI prophylaxis provided. Bowel regimen instituted. CAT scan from previous admission was reviewed. GI specialist doubt acute cholecystitis , most likely fluid overload. Pain management was addressed as needed. Infectious disease specialist seen and evaluated the patient. Patient had bilateral axillary nodules consistent with hydradenitis suppurativa. Patient was planned to be put on oral doxycycline as per ID specialist. On 02/17 patient decided to leave AGAINST MEDICAL ADVICE. Patient was scheduled for inpatient dialysis 02/18. Patient stated that he does not want to stay overnight and will have dialysis as outpatient. The risks and consequences of signing AGAINST MEDICAL ADVICE were discussed with patient in detail. Patient verbalized understanding, nevertheless signed AMA form and left. FINAL DIAGNOSES: Hyperkalemia likely due to missed dialysis End-stage renal disease on hemodialysis Hypertension [id number] likely due to missed hemodialysis Abdominal pain Ascites Anemia Thrombocytopenia Bilateral axillary nodules, hydradenitis suppurativa I have been assigned to dictate discharge summary for this account. I was not involved in the patient's management. Melissa Gil NP Feb 19, 2019 08:11
== END 2019-02-17 16:32 | disposition left against medical advice (07) | DRG 640 ==
LOC: EMR 18:52 → 2W 19:00 → EDBEDREQ 19:59 → ICU 23:52 → 2E 02-14 11:46 → 4E 02-15 20:45
PROC: 5A1D70Z Performance of Urinary Filtration, Intermittent, Less than 6 Hours Per Day (ICD-10-PCS; principal; 2019-02-13)
DX: E87.5 Hyperkalemia (principal); N18.6 End stage renal disease; R18.8 Other ascites; I12.0 Hypertensive chronic kidney disease with stage 5 chronic kidney disease or end stage renal disease; I47.1 Supraventricular tachycardia; E87.79 Other fluid overload; R10.12 Left upper quadrant pain; Z91.15 Patient's noncompliance with renal dialysis; D64.9 Anemia, unspecified; D69.6 Thrombocytopenia, unspecified; L73.2 Hidradenitis suppurativa; K80.80 Other cholelithiasis without obstruction; E78.5 Hyperlipidemia, unspecified; Z88.6 Allergy status to analgesic agent; R74.8 Abnormal levels of other serum enzymes; I27.20 Pulmonary hypertension, unspecified; K29.70 Gastritis, unspecified, without bleeding; I16.0 Hypertensive urgency
CPT/HCPCS: 36415; 76700; 80053; 80307; 81003; 82270; 82607; 82728; 82746; 82977; 83036; 83540; 83550; 83690; 83735; 83880; 84100; 84132; 84443; 84484; 84550; 85025; 85610; 85730; 86140; 86705; 86706; 86709; 86803; 87081; 87340; 93005; 93306; 96374; 96375; 99285; J2405

== ENCOUNTER → 2019-04-22 | Emergency (ER) | payer MEDICARE, OTHER ==
[~2019-04-22] VITALS: Ht 165.1 cm; Wt 66.7 kg
[~2019-04-22] MED LIST changes: +ONDANSETRON ODT4 MG BC; +TESSALON PERLE100 MG ORAL
--- NOTE | 2019-04-22 17:57 | NUR ---
ED Nurse Note: Pt walked in from home c/o painful cough x 4 days. Pt receives dialysis MWF and received dialysis today. Pt's president and chief commercial officer gave her amoxicillin, but patient said her cough has gotten worse. Respirations even and unlabored on room air. BP 170s systolic. All other vitals stable as documented.
[2019-04-22 18:05] VITALS: BP 178/102
--- NOTE | 2019-04-22 18:20 | Emergency Room Report ---
History of Present Illness General Chief Complaint: Upper Respiratory Illness Source: Patient Present Illness HPI Disclaimer: Please note that this report is being documented using [employer] technology. This can lead to erroneous entry secondary to incorrect interpretation by the dictating instrument. HPI: 53-year-old female with a history of ESRD on hemodialysis MWF presents for evaluation of cough. Symptoms present for days. Denies fever, chills, vomiting or diarrhea. Denies myalgias or arthralgias. Reports nasal congestion , postnasal drip and productive cough. Denies sore throat. She was seen by her freight service inspector 3 days ago and started on azithromycin for an upper respiratory infection. She did not take her medication today but took it the 2 previous days. Reports a worsening cough despite taking the antibiotics. Stated they were making her nauseous and did not take her antibiotics today. Completed hemodialysis prior to arrival. Denies any swelling. PMH: ESRD PSH: Fistula formation Allergies: Tylenol, codeine, Isabela Social Hx: Non-smoker Allergies: Coded Allergies: ACETAMINOPHEN (Verified Adverse Reaction, Unknown, 08/17/17) nausea CODEINE (Verified Adverse Reaction, Unknown, NAUSEA, 04/18/10) HYDROCODONE (Verified Adverse Reaction, Unknown, 08/17/17) nausea Nursing Documentation-PMH Hx Cardiac Problems: Yes Hx Hypertension: Yes Hx Cancer: No Hx Gastrointestinal Problems: No Hx Dialysis: Yes - MWF Hx Neurological Problems: No Hx Cerebrovascular Accident: No Hx Transient Ischemic Attacks: No Hx Dementia: No Hx Alzheimer's Disease: No Hx Parkinson's Disease: No Hx Meningitis: No Hx Encephalitis: No Hx Seizures: No Hx Epilepsy: No Hx Multiple Sclerosis: No Hx Cerebral Palsy: No Hx Amyotrophic Lat Sclerosis: No Hx Guillian-[place] Syndrome: No Hx Paralysis: No Hx Peripheral Neuropathy: No Hx Head Trauma: No Hx Traumatic Brain Injury: No Hx Memory Loss: No Hx Concentration Difficulty: No Hx Speech Problem: No Hx Tremors: No Hx Vertigo: No Hx Dizziness: No Hx Syncope: No Hx Headaches: No Hx Aphasia: No Hx Dysphasia: No Hx Weakness: No Hx Fatigue: No Hx Neurologic Surgery: No Hx Brain Shunt: No Review of Systems All Other Systems: negative except mentioned in HPI Physical Exam Vital Signs Date Time Temp Pulse Resp B/P (MAP) Pulse Ox O2 Delivery O2 Flow Rate FiO2 04/22/19 17:51 99.1 82 20 187/104 (131) 97 Room Air General: Awake and alert, coughing, appears uncomfortable HEENT: NC/AT. EOMI. moist mucous membranes, uvula midline, no pharyngeal erythema or edema or exudate Cardiovascular: RRR. S1 and S2 normal. No murmur appreciated. Fistula with palpable thrill in the left upper extremity Resp: Normal work of breathing. No cough, wheezing or crackles appreciated Skin: Intact. No abrasions, laceration or rash over the exposed skin MSK: Normal tone and bulk. Moving all extremities. No obvious deformity. Neuro: Awake and alert. Mentating appropriately. Medical Decision Making Diagnostic Impression: Primary Impression: Respiratory tract infection ER Course 53-year-old female history of ESRD on hemodialysis MWF presents for evaluation of progressive cough over the past 4 days as well as nausea and fatigue. Differential includes was not limited to influenza, viral syndrome, pneumonia, fluid overload. Likely this is a viral syndrome though the patient is already on antibiotic she is not improving. Will send for flu swabs and a chest x-ray to rule out pneumonia. She completed hemodialysis today. While she is hypertensive she is coughing persistently and likely affecting the readings. Will recheck blood pressure after medications. She is otherwise afebrile with stable vital signs. Microbiology Date/Time Source Procedure Growth Status 04/22/19 18:20 Nasal Nares - Final Complete 04/22/19 18:20 Nasal Nares - Final Complete Chest X-Ray Diagnostic Results Chest X-Ray Diagnostic Results : Chest X-Ray Ordered: Yes # of Views/Limited/Complete: 1 View Indication: Shortness of Breath Interpretation: no consolidation, no effusion, no pneumothorax, no acute cardiopulmonary disease, other - Cardiomegaly Impression: No acute disease Electronically Signed by: Electronically signed by Dr. Abhilash Owen Reevaluation Time: 20:30 Last Vital Signs Date Time Temp Pulse Resp B/P (MAP) Pulse Ox O2 Delivery O2 Flow Rate FiO2 04/22/19 18:05 85 22 04/22/19 18:05 99.0 178/102 98 Room Air Reevaluation Impression Flu swabs negative. Chest x-ray shows no infiltrate. Unchanged from previous. Will discharge with Tessalon home and Zofran. Continue taking her antibiotics as instructed by her PMD and follow-up with her PMD within the next few days. Continue other medications as prescribed as well as following her typical dialysis schedule. Discussed that she should return to the emergency department if she has any new or worsening symptoms. Patient understands and agrees with this treatment plan will be discharged home. Disposition: HOME, SELF-CARE Condition: Stable Scripts Benzonatate* (TESSALON PERLE*) 100 Mg Capsule 100 MG ORAL THREE TIMES A DAY for 5 Days, #20 PERLE Prov: Abhilash Owen MD 04/22/19 Ondansetron Odt* (ZOFRAN ODT*) 4 Mg Tab.rapdis 4 MG BC EVERY 6 HOURS PRN for Nausea & Vomiting, #20 TAB 0 Refills Prov: Abhilash Owen MD 04/22/19 Abhilash Owen MD Apr 22, 2019 18:20
--- NOTE | 2019-04-22 18:26 | NUR ---
ED Nurse Note: Flu swab sent to lab
--- NOTE | 2019-04-22 18:27 | NUR ---
ED Nurse Note: xray @ bedside
--- NOTE | 2019-04-22 19:12 | NUR ---
HAND-OFF: Report given to MUSTAPHA Jackson. Pt in stable condition; plan of care endorsed.
[2019-04-22 20:10] VITALS: BP 166/96
--- NOTE | 2019-04-22 20:15 | NUR ---
ER DISCHARGE NOTE: Patient is cleared to be discharged per ERMD, pt is aox4, on room air, with stable vital signs. pt was given dc and prescription instructions, pt was able to verbalize understanding, pt id band removed without complications. pt is able to ambulate with steady gait. pt took all belongings.
[2019-04-22 20:30] VITALS: BP 166/96
--- NOTE | 2019-04-23 10:30 | Diagnostic Imaging Report ---
Indication: Cough Technique: One view of the chest Comparison: 02/05/2019 Findings: The heart is enlarged. There is bilateral interstitial and hazy airspace edema diffusely. Extent of disease is similar to the prior exam. The pleural spaces are clear. Impression: Bilateral interstitial and hazy airspace edema, similar in extent to prior study 02/05/2019 Cardiomegaly
== END | disposition home or self-care (01) ==
LOC: EMR 18:28
DX: J06.9 Acute upper respiratory infection, unspecified (principal); I12.0 Hypertensive chronic kidney disease with stage 5 chronic kidney disease or end stage renal disease; N18.6 End stage renal disease; Z99.2 Dependence on renal dialysis; Z88.6 Allergy status to analgesic agent; I51.7 Cardiomegaly
CPT/HCPCS: 71045; 86710; 99283

== ENCOUNTER 2019-05-07 20:01 | Inpatient (IN) | payer MEDICARE, OTHER ==
[~2019-05-07] VITALS: Ht 165.1 cm; Wt 69.4 kg
--- NOTE | 2019-05-07 20:30 | NUR ---
ED Nurse Note: Recieved pt from home, here with c/o cough and abd pain x 3 days, pt is dialysis pt, left shunt patent, pt deneis pain, sob, or any other complaints, tp is ambulatory, immeidately gowned and palced onc ardiac monitoring, has elevated b/p also, MD immediately informed, will resume care as ordered and closely monitor.
[2019-05-07] MEDS ORDERED: Albuterol/Ipratropium 3ml neb HHN ONE (20:45)
[2019-05-07] MEDS ORDERED: GUAIFENESIN DM118 M1 ORAL (21:24)
[2019-05-07 21:30] VITALS: BP 169/96
[2019-05-07] MEDS ORDERED: cloNIDine 0.2mg Tab ORAL ONE (21:30)
[2019-05-07 21:32] LABS: BASOPHILS % (AUTO) 0.6 % (0.0-2.0); EOSINOPHILS % (AUTO) 2.3 % (0.0-3.0); HEMATOCRIT 33.2 % (37.0-47.0); HEMOGLOBIN 10.5 G/DL (12.0-16.0); LYMPHOCYTES % (AUTO) 14.2 % (20.0-45.0); MEAN CORPUSCULAR VOLUME 97 FL (80-99); MONOCYTES % (AUTO) 5.3 % (1.0-10.0); NEUTROPHILS % (AUTO) 77.7 % (45.0-75.0); PLATELET COUNT 105 K/UL (150-450); RED BLOOD COUNT 3.42 M/UL (4.20-5.40); RED CELL DISTRIBUTION WIDTH 17.4 % (11.6-14.8)
[2019-05-07 21:37] LABS: INR 1.1 (0.9-1.1)
[2019-05-07 21:45] LABS: ALANINE AMINOTRANSFERASE 16 U/L (12-78); ALBUMIN/GLOBULIN RATIO 0.8 (1.0-2.7); ALKALINE PHOSPHATASE 206 U/L (46-116); ANION GAP 13 mmol/L (5-15); ASPARTATE AMINO TRANSFERASE 35 U/L (15-37); BLOOD UREA NITROGEN 57 mg/dL (7-18); CALCIUM 8.2 MG/DL (8.5-10.1); CARBON DIOXIDE 28 MMOL/L (21-32); CHLORIDE 99 MMOL/L (98-107); CREATININE 7.6 MG/DL (0.55-1.30); SODIUM 140 MMOL/L (136-145)
[2019-05-07] MEDS ORDERED: Sodium Polystyrene Sulfonate 15gm Powder ORAL ONE (22:00)
[2019-05-07] MEDS ORDERED: Calcium Gluconate 1gm/10ml vial IVP ONE (22:00)
[2019-05-07] MEDS ORDERED: Nitroglycerin 2% oint pkt TOPIC ONE (22:15)
--- NOTE | 2019-05-07 22:30 | NUR ---
ED Nurse Note: Pt continues to rest in bed, moaning and groaning asking for pain meds for abd pain, MD is aware, pt medicated as ordered, will monitor for effectiveness or any acute changes.
[2019-05-07] MEDS ORDERED: Ketamine HCl 50mg/ml 1ml Syr IV ONE (22:45)
[2019-05-07 23:00] VITALS: BP 144/82
--- NOTE | 2019-05-07 23:06 | Emergency Room Report ---
Physical Exam Please see the note from Dr. Aguilar. Patient threatening to sign out AGAINST MEDICAL ADVICE to go to [facility]. I discussed risk of patient and her . They understand. I have ordered analgesia for the patient. She is somewhat better with treatment. Last 24 Hour Vital Signs Date Time Temp Pulse Resp B/P (MAP) Pulse Ox O2 Delivery O2 Flow Rate FiO2 05/07/19 22:15 169/96 05/07/19 22:12 98.2 05/07/19 21:41 169/96 05/07/19 21:30 98.2 79 24 169/96 95 Room Air 05/07/19 20:08 98.2 83 24 207/110 (142) 96 Room Air Sp02 EP Interpretation: reviewed, abnormal - Interpreted as low by me General Appearance: no apparent distress, GCS 15, non-toxic Eyes: bilateral eye PERRL, bilateral eye conjunctivae pale ENT: moist mucus membranes Neck: supple Respiratory: no respiratory distress, decreased breath sounds Cardiovascular #1: regular rate, rhythm, no edema Cardiovascular #2: 2+ radial (R) Gastrointestinal: no rebound, guarding, tenderness - Right mid abdomen, other - Fullness in the area of tenderness, decreased bowel sounds Musculoskeletal: back normal, no calf tenderness Neurologic: alert, motor strength/tone normal, grossly normal Psychiatric: mood/affect normal Skin: no rash, warm/dry Medical Decision Making Diagnostic Impression: Primary Impression: Viral respiratory infection Additional Impressions: Congestive heart failure Qualified Codes: I50.33 - Acute on chronic diastolic (congestive) heart failure Hyperkalemia Chronic kidney disease with end stage renal failure on dialysis Abdominal pain Qualified Codes: R10.32 - Left lower quadrant pain ER Course Please see note from Dr. Aguilar. [id number] patient threatens to leave AMA. Discussed with patient risk of and that I am willing to treat pain and discomfort. Patient and understand and agreed to stay. Analgesia ordered. Had also ordered nitroglycerin paste. Blood pressures improved from initial. EKG with normal sinus rhythm rate [address]-T wave changes with prolonged QT 49 ms left atrial enlargement. Chest x-ray with pulmonary edema. Normal white count. Elevated potassium and a chronic renal failure. Patient has fullness in the right abdomen. Anterior flank. She has some guarding there. Analgesia ordered. Admitted to telemetry Laboratory Tests Test 05/07/19 21:00 White Blood Count 8.0 K/UL (4.8-10.8) Red Blood Count 3.42 M/UL (4.20-5.40) L Hemoglobin 10.5 G/DL (12.0-16.0) L Hematocrit 33.2 % (37.0-47.0) L Mean Corpuscular Volume 97 FL (80-99) Mean Corpuscular Hemoglobin 30.8 PG (27.0-31.0) Mean Corpuscular Hemoglobin Concent 31.7 G/DL (32.0-36.0) L Red Cell Distribution Width 17.4 % (11.6-14.8) H Platelet Count 105 K/UL (150-450) L Mean Platelet Volume 7.2 FL (6.5-10.1) Neutrophils (%) (Auto) 77.7 % (45.0-75.0) H Lymphocytes (%) (Auto) 14.2 % (20.0-45.0) L Monocytes (%) (Auto) 5.3 % (1.0-10.0) Eosinophils (%) (Auto) 2.3 % (0.0-3.0) Basophils (%) (Auto) 0.6 % (0.0-2.0) Prothrombin Time 12.0 SEC (9.30-11.50) H Prothrombin Time INR 1.1 (0.9-1.1) Activated Partial Thromboplast Time 31 SEC (23-33) Sodium Level 140 MMOL/L (136-145) Potassium Level 6.0 MMOL/L (3.5-5.1) *H Chloride Level 99 MMOL/L (98-107) Carbon Dioxide Level 28 MMOL/L (21-32) Anion Gap 13 mmol/L (5-15) Blood Urea Nitrogen 57 mg/dL (7-18) H Creatinine 7.6 MG/DL (0.55-1.30) H Estimate Glomerular Filtration Rate 6.8 mL/min (>60) Glucose Level 89 MG/DL (74-106) Calcium Level 8.2 MG/DL (8.5-10.1) L Total Bilirubin 1.0 MG/DL (0.2-1.0) Aspartate Amino Transferase (AST) 35 U/L (15-37) Alanine Aminotransferase (ALT) 16 U/L (12-78) Alkaline Phosphatase 206 U/L (46-116) H Troponin I 0.023 ng/mL (0.000-0.056) Total Protein 9.0 G/DL (6.4-8.2) H Albumin 4.0 G/DL (3.4-5.0) Globulin 5.0 g/dL Albumin/Globulin Ratio 0.8 (1.0-2.7) L Microbiology Date/Time Source Procedure Growth Status 05/07/19 20:40 Nasal Nares - Final Complete 05/07/19 20:40 Nasal Nares - Final Complete EKG Diagnostic Results Rate: normal Rhythm: NSR ST Segments: no acute changes - QT prolonged and left atrial enlargement with nonspecific ST-T wave changes Rhythm Strip Diag. Results EP Interpretation: yes Rhythm: NSR, no PVC's, no ectopy, other Last Vital Signs Date Time Temp Pulse Resp B/P (MAP) Pulse Ox O2 Delivery O2 Flow Rate FiO2 05/08/19 13:24 141/80 05/08/19 12:05 98.7 74 19 98 05/08/19 12:00 2.0 05/08/19 01:53 Room Air 05/08/19 01:00 21 Status: improved Disposition: ADMITTED INPATIENT Condition: Serious Scripts Guaifenesin/Dextromethorphan* (Guaifenesin Dm Syrup*) 5 Ml Syrup 5 ML ORAL Q8H PRN for FOR COUGH, #118 ML 0 Refills Prov: Napoleon Aguilar MD 05/07/19 Referrals: MAURICE BORJAS (PCP) Patient Instructions: Viral Respiratory Infection Joseph Parkinson MD May 07, 2019 23:06
[2019-05-07] MEDS ORDERED: Albuterol/Ipratropium 3ml neb ONE (23:18)
[2019-05-08] MEDS ORDERED: Hydromorphone 0.5mg/0.5ml inj IVP ONE
[2019-05-08] MEDS ORDERED: DiphenhydrAMINE 50mg/ml Inj IVP ONE
--- NOTE | 2019-05-08 00:20 | NUR ---
ED Nurse Note: Pt being admitted to hospital, attempted to call report, charge nurse Mathew informed that RN will call back in 10 minutes for report, pt is in bed resting quietly sitting on side of bed, recently re-medicated for pain, ketamine not effective, pt given dilaudid and states not effective either due to too small dose, pt in bed moaning and groaning, at bedside, repeat potassium level drawn and sent, pt IV site intact and patent, has all belongings, will continue to monitor while wiaitng for floor nurse to accept pt.
[2019-05-08 01:00] VITALS: BP 143/96
--- NOTE | 2019-05-08 01:00 | NUR ---
ED Nurse Note: Placed call to floor again for report, report given to RavenRn, pt in bed awake, alert and oriented x 4, no changes, increased abdominal pain, no cp, no sob, IV site patent, pt has all belongings, pt taken to floor unit via gurney with ACLS protocols, RN and ER-Tech, present also.
--- NOTE | 2019-05-08 01:15 | NUR ---
NURSE NOTES: Received pt from Renetta in ED. pt in bed awake, alert and oriented x 4, ambulatory, skin intact, edematous lowers extremities. C/o abdominal pain but Dr Bruce only ordered tylenol and said other meds that are stronger are contraindicated at this time or defer to Dr Raza for pain. IV site patent. Belongings list checked at bedside. Will continue to monitor
[2019-05-08] MEDS ORDERED: Acetaminophen 500mg (ES) tab ORAL PRN ×2 (02:30→10:30)
[2019-05-08 04:00] VITALS: BP 142/82
--- NOTE | 2019-05-08 05:11 | NUR ---
NURSE NOTES: Pt placed on 2 Liters oxygen via nasal Cannula for O2 sat 88% per protocol
[2019-05-08 08:00] VITALS: BP 154/91
--- NOTE | 2019-05-08 08:17 | NUR ---
HAND-OFF: Report given to MUSTAPHA Moncada.
[2019-05-08] MEDS: cloNIDine 0.2mg Tab ORAL SCH ×3 (08:20→21:08)
--- NOTE | 2019-05-08 08:58 | Consultation ---
History of Present Illness General Date patient seen: May 08, 2019 Chief Complaint: Present Illness Allergies: Coded Allergies: CODEINE (Verified Adverse Reaction, Unknown, NAUSEA, 04/18/10) HYDROCODONE (Verified Adverse Reaction, Unknown, 08/17/17) nausea Medication History Scheduled Aspirin (Aspirin), 81 MG PO DAILY, (Reported) Atorvastatin Calcium* (Lipitor*), 10 MG ORAL BEDTIME, (Reported) Benzonatate* (Tessalon Perle*), 100 MG ORAL THREE TIMES A DAY Calcitriol (Calcitriol), 0.25 MCG PO DAILY, (Reported) Carvedilol (Coreg), 12.5 MG ORAL EVERY 12 HOURS, (Reported) Cholecalciferol (Vitamin D3)* (Vitamin D*), 1,000 UNIT ORAL DAILY, (Reported) Clonidine Hcl* (Catapres*), 0.3 MG ORAL BID, (Reported) Labetalol Hcl* (Normodyne*), 300 MG ORAL EVERY 12 HOURS, (Reported) Losartan Potassium* (Cozaar*), 100 MG ORAL DAILY, (Reported) Minoxidil* (Loniten*), 2.5 MG PO DAILY, (Reported) Scheduled PRN Acetaminophen* (Tylenol Extra Strength*), 500 MG ORAL Q8H PRN for Prn Headache/ Temp > 101, (Reported) Diazepam* (Diazepam*), 2 MG ORAL Q6H PRN for For Anxiety, (Reported) Guaifenesin/Dextromethorphan* (Guaifenesin Dm Syrup*), 5 ML ORAL Q8H PRN for FOR COUGH Ondansetron Odt* (Zofran Odt*), 4 MG BC EVERY 6 HOURS PRN for Nausea & Vomiting Miscellaneous Medications Folic Acid/Vitamin B Comp W-C (Marai Esther-Isra Tablet), Unknown Dose PO, (Reported) Isosorbide Mononitrate (Isosorbide Mononitrate Er), 60 MG PO, (Reported) Patient History Healthcare decision maker Resuscitation status Full Code Advanced Directive on File Physical Exam Last 24 Hour Vital Signs Date Time Temp Pulse Resp B/P (MAP) Pulse Ox O2 Delivery O2 Flow Rate FiO2 05/08/19 08:20 142/82 05/08/19 08:00 97.6 74 20 154/91 (112) 98 05/08/19 05:04 2.0 05/08/19 04:00 99.7 77 18 142/82 (102) 88 05/08/19 04:00 76 05/08/19 01:53 Room Air 05/08/19 01:52 Room Air 05/08/19 01:29 80 05/08/19 01:00 98.1 83 20 143/96 88 Room Air 21 05/08/19 01:00 98.1 83 20 143/96 (112) 88 05/08/19 00:37 98.2 05/07/19 23:26 72 19 100 Room Air 21 73 19 96 05/07/19 23:00 98.2 72 24 144/82 97 Room Air 05/07/19 22:15 169/96 05/07/19 22:12 98.2 05/07/19 21:41 169/96 05/07/19 21:30 98.2 79 24 169/96 95 Room Air 05/07/19 20:20 83 24 Room Air 05/07/19 20:08 98.2 83 24 207/110 (142) 96 Room Air Laboratory Tests Test 05/07/19 21:00 White Blood Count 8.0 K/UL (4.8-10.8) Red Blood Count 3.42 M/UL (4.20-5.40) L Hemoglobin 10.5 G/DL (12.0-16.0) L Hematocrit 33.2 % (37.0-47.0) L Mean Corpuscular Volume 97 FL (80-99) Mean Corpuscular Hemoglobin 30.8 PG (27.0-31.0) Mean Corpuscular Hemoglobin Concent 31.7 G/DL (32.0-36.0) L Red Cell Distribution Width 17.4 % (11.6-14.8) H Platelet Count 105 K/UL (150-450) L Mean Platelet Volume 7.2 FL (6.5-10.1) Neutrophils (%) (Auto) 77.7 % (45.0-75.0) H Lymphocytes (%) (Auto) 14.2 % (20.0-45.0) L Monocytes (%) (Auto) 5.3 % (1.0-10.0) Eosinophils (%) (Auto) 2.3 % (0.0-3.0) Basophils (%) (Auto) 0.6 % (0.0-2.0) Prothrombin Time 12.0 SEC (9.30-11.50) H Prothromb Time International Ratio 1.1 (0.9-1.1) Activated Partial Thromboplast Time 31 SEC (23-33) Sodium Level 140 MMOL/L (136-145) Potassium Level 6.0 MMOL/L (3.5-5.1) *H Chloride Level 99 MMOL/L (98-107) Carbon Dioxide Level 28 MMOL/L (21-32) Anion Gap 13 mmol/L (5-15) Blood Urea Nitrogen 57 mg/dL (7-18) H Creatinine 7.6 MG/DL (0.55-1.30) H Estimat Glomerular Filtration Rate 6.8 mL/min (>60) Glucose Level 89 MG/DL (74-106) Calcium Level 8.2 MG/DL (8.5-10.1) L Total Bilirubin 1.0 MG/DL (0.2-1.0) Aspartate Amino Transf (AST/SGOT) 35 U/L (15-37) Alanine Aminotransferase (ALT/SGPT) 16 U/L (12-78) Alkaline Phosphatase 206 U/L (46-116) H Troponin I 0.023 ng/mL (0.000-0.056) Total Protein 9.0 G/DL (6.4-8.2) H Albumin 4.0 G/DL (3.4-5.0) Globulin 5.0 g/dL Albumin/Globulin Ratio 0.8 (1.0-2.7) L Microbiology Date/Time Source Procedure Growth Status 05/07/19 20:40 Nasal Nares - Final Complete 05/07/19 20:40 Nasal Nares - Final Complete 05/07/19 23:00 Rectum Received Height (Feet): 5 Height (Inches): 5.00 Weight (Pounds): 153 Medications Current Medications Medications (Trade) Dose Ordered Sig/Johnna Route PRN Reason Start Time Stop Time Status Last Admin Dose Admin Acetaminophen (Tylenol) 500 mg Q4H PRN ORAL Mild Pain/Temp > 100.5 05/08/19 02:30 06/07/19 02:29 Aspirin (ASA) 81 mg DAILY ORAL 05/08/19 09:00 06/07/19 08:59 Atorvastatin Calcium (Lipitor) 10 mg BEDTIME ORAL 05/08/19 21:00 06/07/19 20:59 Clonidine HCl (Catapres tab) 0.2 mg Q8HR ORAL 05/08/19 06:00 06/07/19 05:59 05/08/19 08:20 Docusate Sodium (Colace) 100 mg TWICE A DAY ORAL 05/08/19 09:00 06/07/19 08:59 Minoxidil (Loniten) 2.5 mg Q4H PRN ORAL bp 165 syst 05/07/19 23:00 06/06/19 22:59 Sevelamer Carbonate (Renvela) 1,600 mg TID ORAL 05/08/19 09:00 06/07/19 08:59 Assessment/Plan Assessment/Plan: (1) Viral respiratory infection (2) Myalgias and Arthralgias (3) ESRD on Hemodialysis seen dictated Domo Matthews May 08, 2019 08:58
[2019-05-08] MEDS ORDERED: Docusate 100mg cap ORAL SCH (09:00)
[2019-05-08] MEDS ORDERED: Methocarbamol 500mg tab ORAL PRN (09:00)
[2019-05-08 09:06] LABS: HEMATOCRIT 27.5 % (37.0-47.0); HEMOGLOBIN 8.8 G/DL (12.0-16.0); MEAN CORPUSCULAR VOLUME 97 FL (80-99); PLATELET COUNT 93 K/UL (150-450); RED BLOOD COUNT 2.83 M/UL (4.20-5.40); RED CELL DISTRIBUTION WIDTH 17.7 % (11.6-14.8)
[2019-05-08 09:34] LABS: ALANINE AMINOTRANSFERASE 14 U/L (12-78); ALBUMIN 3.6 G/DL (3.4-5.0); ALBUMIN/GLOBULIN RATIO 0.8 (1.0-2.7); ALKALINE PHOSPHATASE 170 U/L (46-116); ANION GAP 13 mmol/L (5-15); ASPARTATE AMINO TRANSFERASE 26 U/L (15-37); BILIRUBIN,TOTAL 0.7 MG/DL (0.2-1.0); BLOOD UREA NITROGEN 65 mg/dL (7-18); CALCIUM 7.6 MG/DL (8.5-10.1); CARBON DIOXIDE 28 MMOL/L (21-32); CHLORIDE 100 MMOL/L (98-107); CREATININE 8.8 MG/DL (0.55-1.30); PHOSPHORUS 5.8 MG/DL (2.5-4.9); POTASSIUM 5.5 MMOL/L (3.5-5.1); SODIUM 141 MMOL/L (136-145)
[2019-05-08] MEDS: Aspirin Baby 81mg ORAL SCH (09:49)
--- NOTE | 2019-05-08 10:18 | Diagnostic Imaging Report ---
Indication: Shortness of breath Technique: One view of the chest Comparison: 04/22/2019 Findings: The heart is enlarged. There is bilateral interstitial and airspace edema which appears worse than on the previous exam. There may be a small left pleural effusion. Impression: Cardiomegaly Bilateral interstitial and airspace edema, increased from prior study 04/22/2019 Suspect small left pleural effusion
[2019-05-08 12:05] VITALS: BP 141/80
--- NOTE | 2019-05-08 12:25 | Consultation ---
Consult Note Consult Note asked to eval for dialysis management patient known to me from her previous admissions ER: Patient threatening to sign out AGAINST MEDICAL ADVICE to go to [facility]. I discussed risk of patient and her . They understand. I have ordered analgesia for the patient. She is somewhat better with treatment. patient seen in room examined Assessment/Plan Chronic kidney disease with end stage renal failure on dialysis Viral respiratory infection Hypertensive urgency Hyperkalemia Abdominal pain, ? Cholecystitis HD with UF BP med adjustments per GI Per orders Bob Morse MD May 08, 2019 12:25
[2019-05-08] MEDS: Docusate 100mg cap ORAL SCH ×2 (13:24→19:08)
--- NOTE | 2019-05-08 13:51 | NUR ---
CASE MANAGEMENT:REVIEW 53 YR OLD FEMALE WALKED IN TO ER CC: COUGH X2 WEEKS PMH: ESRD ON HD SI: HYPERKALEMIA. PNEUMONITIS 98.3 83 24 207/110 96% ON RA K+6.0 IS: IV CA GLUCONATE KAYEXALATE CLONIDINE PO TYLENOL PO CHEST XRAY : TO TELEMETRY
--- NOTE | 2019-05-08 14:09 | Cardiac Electrophysiology PN ---
Subjective Subjective [id number] Objective Last 24 Hour Vital Signs Date Time Temp Pulse Resp B/P (MAP) Pulse Ox O2 Delivery O2 Flow Rate FiO2 05/08/19 13:24 141/80 05/08/19 12:05 98.7 74 19 141/80 (100) 98 05/08/19 12:05 73 05/08/19 12:00 2.0 05/08/19 08:20 142/82 05/08/19 08:00 82 05/08/19 08:00 2.0 05/08/19 08:00 97.6 74 20 154/91 (112) 98 05/08/19 05:04 2.0 05/08/19 04:00 99.7 77 18 142/82 (102) 88 05/08/19 04:00 76 05/08/19 01:53 Room Air 05/08/19 01:52 Room Air 05/08/19 01:29 80 05/08/19 01:00 98.1 83 20 143/96 88 Room Air 21 05/08/19 01:00 98.1 83 20 143/96 (112) 88 05/08/19 00:37 98.2 05/07/19 23:26 72 19 100 Room Air 21 73 19 96 05/07/19 23:00 98.2 72 24 144/82 97 Room Air 05/07/19 22:15 169/96 05/07/19 22:12 98.2 05/07/19 21:41 169/96 05/07/19 21:30 98.2 79 24 169/96 95 Room Air 05/07/19 20:20 83 24 Room Air 05/07/19 20:08 98.2 83 24 207/110 (142) 96 Room Air Laboratory Tests Test 05/07/19 21:00 05/08/19 08:35 White Blood Count 8.0 K/UL (4.8-10.8) 7.0 K/UL (4.8-10.8) Red Blood Count 3.42 M/UL (4.20-5.40) L 2.83 M/UL (4.20-5.40) L Hemoglobin 10.5 G/DL (12.0-16.0) L 8.8 G/DL (12.0-16.0) L Hematocrit 33.2 % (37.0-47.0) L 27.5 % (37.0-47.0) L Mean Corpuscular Volume 97 FL (80-99) 97 FL (80-99) Mean Corpuscular Hemoglobin 30.8 PG (27.0-31.0) 31.2 PG (27.0-31.0) H Mean Corpuscular Hemoglobin Concent 31.7 G/DL (32.0-36.0) L 32.1 G/DL (32.0-36.0) Red Cell Distribution Width 17.4 % (11.6-14.8) H 17.7 % (11.6-14.8) H Platelet Count 105 K/UL (150-450) L 93 K/UL (150-450) L Mean Platelet Volume 7.2 FL (6.5-10.1) 6.3 FL (6.5-10.1) L Neutrophils (%) (Auto) 77.7 % (45.0-75.0) H % (45.0-75.0) Lymphocytes (%) (Auto) 14.2 % (20.0-45.0) L % (20.0-45.0) Monocytes (%) (Auto) 5.3 % (1.0-10.0) % (1.0-10.0) Eosinophils (%) (Auto) 2.3 % (0.0-3.0) % (0.0-3.0) Basophils (%) (Auto) 0.6 % (0.0-2.0) % (0.0-2.0) Prothrombin Time 12.0 SEC (9.30-11.50) H Prothromb Time International Ratio 1.1 (0.9-1.1) Activated Partial Thromboplast Time 31 SEC (23-33) Sodium Level 140 MMOL/L (136-145) 141 MMOL/L (136-145) Potassium Level 6.0 MMOL/L (3.5-5.1) *H 5.5 MMOL/L (3.5-5.1) H Chloride Level 99 MMOL/L (98-107) 100 MMOL/L (98-107) Carbon Dioxide Level 28 MMOL/L (21-32) 28 MMOL/L (21-32) Anion Gap 13 mmol/L (5-15) 13 mmol/L (5-15) Blood Urea Nitrogen 57 mg/dL (7-18) H 65 mg/dL (7-18) H Creatinine 7.6 MG/DL (0.55-1.30) H 8.8 MG/DL (0.55-1.30) H Estimat Glomerular Filtration Rate 6.8 mL/min (>60) 5.7 mL/min (>60) Glucose Level 89 MG/DL (74-106) 108 MG/DL (74-106) H Calcium Level 8.2 MG/DL (8.5-10.1) L 7.6 MG/DL (8.5-10.1) L Total Bilirubin 1.0 MG/DL (0.2-1.0) 0.7 MG/DL (0.2-1.0) Aspartate Amino Transf (AST/SGOT) 35 U/L (15-37) 26 U/L (15-37) Alanine Aminotransferase (ALT/SGPT) 16 U/L (12-78) 14 U/L (12-78) Alkaline Phosphatase 206 U/L (46-116) H 170 U/L (46-116) H Troponin I 0.023 ng/mL (0.000-0.056) 0.018 ng/mL (0.000-0.056) Total Protein 9.0 G/DL (6.4-8.2) H 8.0 G/DL (6.4-8.2) Albumin 4.0 G/DL (3.4-5.0) 3.6 G/DL (3.4-5.0) Globulin 5.0 g/dL 4.4 g/dL Albumin/Globulin Ratio 0.8 (1.0-2.7) L 0.8 (1.0-2.7) L Differential Total Cells Counted 100 Neutrophils % (Manual) 76 % (45-75) H Lymphocytes % (Manual) 15 % (20-45) L Monocytes % (Manual) 7 % (1-10) Eosinophils % (Manual) 2 % (0-3) Basophils % (Manual) 0 % (0-2) Band Neutrophils 0 % (0-8) Platelet Estimate Decreased L Platelet Morphology Normal Hypochromasia 1+ Anisocytosis 1+ Uric Acid 6.1 MG/DL (2.6-7.2) Phosphorus Level 5.8 MG/DL (2.5-4.9) H Magnesium Level 2.4 MG/DL (1.8-2.4) C-Reactive Protein, Quantitative 1.6 mg/dL (0.00-0.90) H Pro-B-Type Natriuretic Peptide > 86189 pg/mL (0-125) H Thyroid Stimulating Hormone (TSH) 6.523 uiU/mL (0.358-3.740) Microbiology Date/Time Source Procedure Growth Status 05/07/19 20:40 Nasal Nares - Final Complete 05/07/19 20:40 Nasal Nares - Final Complete 05/07/19 23:00 Rectum Received Janak Charles MD May 08, 2019 14:09
[2019-05-08 16:00] VITALS: BP 149/98
--- NOTE | 2019-05-08 16:45 | Consultation ---
DATE OF CONSULTATION: 05/08/2019 PULMONARY CONSULTATION CONSULTING PHYSICIAN: Luke Huston M.D. REFERRING PHYSICIAN: Lidya Bruce M.D. REASON FOR CONSULTATION: Shortness of breath. HISTORY OF PRESENT ILLNESS: This is a 53-year-old female, who presented to the hospital overnight with complaints of shortness of breath. The patient at this time is unable to provide any further history. Per review of records, the patient had presented with shortness of breath. She was seen and evaluated. Initially, she was transfer to [facility], however, after receiving pain medications, she feels better. The patient has a history of CHF and CKD, on dialysis due to ESRD. PAST SURGICAL HISTORY: The patient declined. MEDICATIONS: Home medications reviewed and reconciled in the chart and include Lipitor, aspirin, clonidine, Robaxin, minoxidil, Renvela. ALLERGIES: To codeine and hydrocodone. REVIEW OF SYSTEMS: Denies any headaches, hematemesis, melena, or hematochezia. PHYSICAL EXAMINATION: GENERAL: Reveals a 53-year-old female. VITAL SIGNS: Blood pressure is 140/80, heart rate is 76, respirations are 20, she is afebrile, O2 saturation 98% with oxygen. CHEST: Clear breath sounds bilaterally with normal heart sounds. ABDOMEN: Soft. EXTREMITIES: There is no appreciable edema. LABORATORY DATA: Lab testing shows hemoglobin 8.8, white count 7000, platelet count is 93,000. Chemistry show creatinine of 8.8, BUN 65, potassium 5.5, coags are negative. IMAGING STUDIES: X-ray of chest obtained approximately a week ago, has shown evidence of pulmonary edema. X-ray of the chest obtained yesterday is not available for review. However, per ER notes, is suggestive of pulmonary edema. IMPRESSION: 1. Pulmonary edema. 2. ESRD, on dialysis. 3. Hypertension. DISCUSSION: Agree with current medications and care. She needs blood pressure control, on dialysis. We will order oxygen and pulmonary hygiene. We will follow as firearms inspector. Luke Huston M.D. DR: ANSHUL/KEKE JOB#: [id number] CC:
--- NOTE | 2019-05-08 19:26 | Emergency Room Report ---
History of Present Illness General Chief Complaint: Upper Respiratory Illness Source: Patient Present Illness HPI Patient 53-year-old female presents after increased cough and difficulty with breathing. Patient gradual onset of symptoms. She reports having end-stage renal disease and having dialysis this morning. She had been followed by Dr. Borjas. She has been having nonproductive cough primarily but occasionally productive. She reports having some intermittent episodes of vomiting. Onset of symptoms the past 2 to 3 days. She denies any abdominal pain. Shortness of breath is worse with supine position. She reports having increased difficulty with sleep and increased cough at night. Denies any fever. Allergies: Coded Allergies: CODEINE (Verified Adverse Reaction, Unknown, NAUSEA, 04/18/10) HYDROCODONE (Verified Adverse Reaction, Unknown, 08/17/17) nausea Patient History Past Medical History: see triage record Now: No Reviewed Nursing Documentation: PMH: Agreed; PSxH: Agreed Nursing Documentation-PMH Past Medical History: No History, Except For Hx Cardiac Problems: Yes Hx Hypertension: Yes Hx Cancer: No Hx Gastrointestinal Problems: Yes - ABD pain, cholelithiasis Hx Dialysis: Yes - M,W,F hemodialysis, previously had peritoneal dialysis Hx Neurological Problems: No Hx Cerebrovascular Accident: No Hx Transient Ischemic Attacks: No Hx Dementia: No Hx Alzheimer's Disease: No Hx Parkinson's Disease: No Hx Meningitis: No Hx Encephalitis: No Hx Seizures: No Hx Epilepsy: No Hx Multiple Sclerosis: No Hx Cerebral Palsy: No Hx Amyotrophic Lat Sclerosis: No Hx Guillian-[place] Syndrome: No Hx Paralysis: No Hx Peripheral Neuropathy: No Hx Head Trauma: No Hx Traumatic Brain Injury: No Hx Memory Loss: No Hx Concentration Difficulty: No Hx Speech Problem: No Hx Tremors: No Hx Vertigo: No Hx Dizziness: No Hx Syncope: No Hx Headaches: No Hx Aphasia: No Hx Dysphasia: No Hx Weakness: No Hx Fatigue: No Hx Neurologic Surgery: No Hx Brain Shunt: No Review of Systems All Other Systems: negative except mentioned in HPI Physical Exam Vital Signs Date Time Temp Pulse Resp B/P (MAP) Pulse Ox O2 Delivery O2 Flow Rate FiO2 05/07/19 20:08 98.2 83 24 207/110 (142) 96 Room Air 05/07/19 23:26 21 05/08/19 05:04 2.0 General Appearance: alert, GCS 15, Chronically Ill Eyes: bilateral eye PERRL, bilateral eye conjunctivae pale ENT: hearing grossly normal Neck: full range of motion Respiratory: lungs clear, normal breath sounds Cardiovascular #1: normal peripheral pulses, regular rate, rhythm, other - forearm shunt with palpable thrill Gastrointestinal: normal inspection, normal bowel sounds, non tender, soft Musculoskeletal: normal inspection, back normal, decreased range of motion Neurologic: alert, motor strength/tone normal, supervisor polishing III-XII nml as tested, oriented x3 Psychiatric: normal inspection Skin: no rash Medical Decision Making Diagnostic Impression: Primary Impression: Viral respiratory infection Additional Impressions: Congestive heart failure Qualified Codes: I50.33 - Acute on chronic diastolic (congestive) heart failure Chronic kidney disease with end stage renal failure on dialysis Abdominal pain Qualified Codes: R10.32 - Left lower quadrant pain Hyperkalemia ER Course Patient presented for shortness of breath. Differential included but was not limited to anemia, pneumonia, pneumothorax, myocardial infarction, pericardial effusion, congestive heart failure, acidosis. Patient was noted to have some history of chronic renal disease. Because of complexity of patient's case laboratory tests and imaging studies were ordered. Laboratory testing was ordered. Initial laboratory testing showed some hypokalemia. EKG interpreted by me showed normal sinus rhythm without acute ST changes. T waves are noted to be somewhat peaked. Patient was given Kayexalate as well as IV calcium. Patient's white blood count was noted to be normal. Influenza nasal swab showed negative influenza a and B. Chest x-ray 1 view interpreted by me showed cardiomegaly with bilateral vascular congestion consistent with fluid overload. Patient was given clonidine for elevated blood pressure. Dr. Lidya Reed was contacted for inpatient management. Dr. Bob Morse was contacted for nephrology consult. Patient will be admitted for further management of hyperkalemia and fluid overload. Laboratory Tests Test 05/07/19 21:00 White Blood Count 8.0 K/UL (4.8-10.8) Red Blood Count 3.42 M/UL (4.20-5.40) L Hemoglobin 10.5 G/DL (12.0-16.0) L Hematocrit 33.2 % (37.0-47.0) L Mean Corpuscular Volume 97 FL (80-99) Mean Corpuscular Hemoglobin 30.8 PG (27.0-31.0) Mean Corpuscular Hemoglobin Concent 31.7 G/DL (32.0-36.0) L Red Cell Distribution Width 17.4 % (11.6-14.8) H Platelet Count 105 K/UL (150-450) L Mean Platelet Volume 7.2 FL (6.5-10.1) Neutrophils (%) (Auto) 77.7 % (45.0-75.0) H Lymphocytes (%) (Auto) 14.2 % (20.0-45.0) L Monocytes (%) (Auto) 5.3 % (1.0-10.0) Eosinophils (%) (Auto) 2.3 % (0.0-3.0) Basophils (%) (Auto) 0.6 % (0.0-2.0) Prothrombin Time 12.0 SEC (9.30-11.50) H Prothrombin Time INR 1.1 (0.9-1.1) Activated Partial Thromboplast Time 31 SEC (23-33) Sodium Level 140 MMOL/L (136-145) Potassium Level 6.0 MMOL/L (3.5-5.1) *H Chloride Level 99 MMOL/L (98-107) Carbon Dioxide Level 28 MMOL/L (21-32) Anion Gap 13 mmol/L (5-15) Blood Urea Nitrogen 57 mg/dL (7-18) H Creatinine 7.6 MG/DL (0.55-1.30) H Estimate Glomerular Filtration Rate 6.8 mL/min (>60) Glucose Level 89 MG/DL (74-106) Calcium Level 8.2 MG/DL (8.5-10.1) L Total Bilirubin 1.0 MG/DL (0.2-1.0) Aspartate Amino Transferase (AST) 35 U/L (15-37) Alanine Aminotransferase (ALT) 16 U/L (12-78) Alkaline Phosphatase 206 U/L (46-116) H Troponin I 0.023 ng/mL (0.000-0.056) Total Protein 9.0 G/DL (6.4-8.2) H Albumin 4.0 G/DL (3.4-5.0) Globulin 5.0 g/dL Albumin/Globulin Ratio 0.8 (1.0-2.7) L Differential Total Cells Counted Neutrophils % (Manual) Lymphocytes % (Manual) Monocytes % (Manual) Eosinophils % (Manual) Basophils % (Manual) Band Neutrophils Platelet Estimate Platelet Morphology Hypochromasia Anisocytosis Uric Acid Phosphorus Level Magnesium Level C-Reactive Protein, Quantitative Pro-B-Type Natriuretic Peptide Thyroid Stimulating Hormone (TSH) HIV (1&2) Antibody Rapid Microbiology Date/Time Source Procedure Growth Status 05/07/19 20:40 Nasal Nares - Final Complete 05/07/19 20:40 Nasal Nares - Final Complete Last Vital Signs Date Time Temp Pulse Resp B/P (MAP) Pulse Ox O2 Delivery O2 Flow Rate FiO2 05/08/19 13:24 141/80 05/08/19 12:05 98.7 74 19 98 05/08/19 12:00 2.0 05/08/19 01:53 Room Air 05/08/19 01:00 21 Status: improved Disposition: ADMITTED INPATIENT Condition: Serious Scripts Guaifenesin/Dextromethorphan* (Guaifenesin Dm Syrup*) 5 Ml Syrup 5 ML ORAL Q8H PRN for FOR COUGH, #118 ML 0 Refills Prov: Napoleon Aguilar MD 05/07/19 Referrals: MAURICE BORJAS (PCP) Patient Instructions: Viral Respiratory Infection Napoleon Aguilar MD May 08, 2019 19:26
--- NOTE | 2019-05-08 19:30 | NUR ---
NURSE NOTES: Received report from MUSTAPHA Moncada. Patient is awake, lying in semi snyder's; resting comfortably. A/Ox4. Able to make needs known. Denies pain at this time. No signs of acute distress noted. Checked IV site and flushed. No erythema, bleeding or infiltration noted. FACUNDO AV shunt, bruit and thrill noted. Bed at lowest position, brakes on, siderailsx2. Call light within reach. Will continue to monitor.
[2019-05-08 20:00] VITALS: BP 164/93
--- NOTE | 2019-05-08 20:20 | NUR ---
HAND-OFF: Report given to Matheus/MUSTAPHA. pt in stable condition.
--- NOTE | 2019-05-08 20:30 | Consultation ---
DATE OF CONSULTATION: 05/08/2019 INFECTIOUS DISEASE CONSULTATION CONSULTING PHYSICIAN: Kyler Frazier M.D. REFERRING PHYSICIAN: Lidya Bruce M.D. REASON FOR CONSULT: Respiratory distress and cholelithiasis. HISTORY OF PRESENT ILLNESS: The patient is a 53-year-old female admitted yesterday complaining of shortness of breath. The patient has a end-stage renal disease, on hemodialysis, not very compliant with hemodialysis, has fluid overload. She was dialyzed last night. Also, she had on and off right upper quadrant pain. She was diagnosed with cholelithiasis last year, but the patient did not have any cholecystectomy. MEDICATIONS: Amlodipine, atorvastatin, Protonix, Renvela, Tylenol, aspirin, methocarbamol, clonidine, and minoxidil. ALLERGIES: Allergic to codeine and hydrocodone. SOCIAL HISTORY: Single. Has 4 kids. Denies alcohol, drug abuse, or smoking. REVIEW OF SYSTEMS: She feels better. No fever. No chills. Occasional dry cough. No nausea. No vomiting. Shortness of breath is improved. No problem passing urine. Has some right upper quadrant pain in deep touch. PHYSICAL EXAMINATION: VITAL SIGNS: Temperature 98.7, pulse 73, blood pressure 141/80. GENERAL APPEARANCE: Seems to have normal weight. HEAD AND NECK: [place] conjunctiva. HEART: Normal rate. LUNGS: Clear. ABDOMEN: Soft. Bowel sounds present. EXTREMITIES: Has mild leg edema. LABORATORY AND DIAGNOSTIC DATA: WBC 7, hemoglobin 8.8, hematocrit 27.5, and platelets is 93,000. Sodium 141 and potassium 5.5. Potassium at the time of admission was 6. BUN 65, creatinine 8.8, and glucose 108. BNP more than 35,000. TSH is elevated at 6.523. Influenza A and B tests were negative. Chest x-ray showed bilateral end-stage cardiomegaly and bilateral interstitial air space edema increased since April 22, 2019 and a small left pleural effusion. IMPRESSION: Respiratory distress likely secondary to volume overload. The patient has end-stage renal disease on hemodialysis, has cholelithiasis, and on and off symptoms hyperkalemia, hypertension, hyperlipidemia, and hepatomegaly discovered in previous admission. RECOMMENDATIONS: 1. Observe off antibiotic. 2. May benefit from cholecystectomy if symptoms recur frequently. At the end of my exam, I thank Dr. Bruce for involving me in the care of this patient. Kyler Frazier M.D. DR: LARON JOB#: [id number] CC:
--- NOTE | 2019-05-08 22:30 | Consultation ---
DATE OF CONSULTATION: 05/08/2019 CARDIOLOGY CONSULTATION CONSULTING PHYSICIAN: Janak Charles M.D. REFERRING PHYSICIAN: Lidya Bruce M.D. REASON FOR CONSULTATION: Shortness of breath and hypertension. HISTORY OF PRESENT ILLNESS: The patient is a 53-year-old lady with history of hypertension, pulmonary hypertension, and chronic kidney disease, on hemodialysis, who was admitted with abdominal pain and acute hypertension. The patient was admitted, and a Cardiology consultation was requested for further evaluation. The patient was just recently discharged from the hospital. At the time of my evaluation, the patient denies any shortness of breath, palpitations, or chest pain. REVIEW OF SYSTEMS: Negative other than what was mentioned in the history of present illness. PAST MEDICAL HISTORY: As mentioned above. FAMILY HISTORY: Noncontributory. SOCIAL HISTORY: She lives at home. Does not smoke or drink alcohol. PHYSICAL EXAMINATION: VITAL SIGNS: Show blood pressure of 141/80, pulse 73, respirations 18, and temperature 98.7. HEAD AND NECK: Shows mild JVD. LUNGS: Have coarse rhonchi. CARDIOVASCULAR: Shows regular S1 and S2 with no gallop or murmur. ABDOMEN: Soft. EXTREMITIES: No pitting edema. LABORATORY DATA: Her labs show white count of 7, hemoglobin 8.8, hematocrit of 27.5, and platelet count of 93. Sodium 141, potassium was 6 and then down to 5.5, BUN of and glucose of 108. Troponin negative x2. BNP is more than 35,000. ASSESSMENT AND PLAN: 1. Volume overloaded. BNP of more than 35,000. The patient's most recent echocardiogram was on February 14 that showed ejection fraction of 60% to 65%, no evidence of pericardial effusion. The patient is on hemodialysis. 2. Hypertension. Continue current medications including p.r.n. clonidine and minoxidil as well as hemodialysis. On the previous admission, the patient was on Norvasc 10 mg daily and hydralazine 50 t.i.d. and Isordil 20 every eight hours. 3. History of pericardial effusion. Echocardiogram showed no evidence of pericardial effusion. 4. End-stage renal disease, on hemodialysis. 5. Hyperkalemia, was corrected after dialysis. Thank you very much for allowing me to participate in the care of this patient. Please do not hesitate to contact me if you have any questions regarding my evaluation. Sincerely, Janak Charles M.D. DR: MILAD JOB#: [id number] CC:
--- NOTE | 2019-05-08 23:00 | History and Physical Report ---
DATE OF ADMISSION: 05/07/2019 HISTORY OF PRESENT ILLNESS: The patient comes in because of shortness of breath, nonproductive cough, history of end-stage renal disease on hemodialysis. EKG with slight peaked T-waves with normal sinus rhythm. Chest x-ray also showed cardiomegaly. The patient also has hyperkalemia, also been complaining of abdominal pain for one day, as well as cough for couple of days. She has end-stage renal disease and on hemodialysis. The patient denies chills. Denies nausea, vomiting, diarrhea. The patient is also admitted for hyperkalemia and pneumonia. PAST MEDICAL HISTORY: Hyperlipidemia, hypertension, anxiety, end-stage renal disease, on hemodialysis. PAST SURGICAL HISTORY: Tubal ligation, surgery to remove fluid from the lungs in the past, end-stage renal disease, access on the left arm. ALLERGIES: To hydrocodone and codeine. MEDICATIONS: Aspirin, Lipitor, calcitriol, Coreg, vitamin D3, diazepam, isosorbide mononitrate, labetalol, losartan. FAMILY HISTORY: Noncontributory. SOCIAL HISTORY: She has history of smoking, history of drug abuse. No history of alcohol abuse. REVIEW OF SYSTEMS: HEENT: Denies headaches. RESPIRATORY: Denies shortness of breath. Does have productive cough for couple days. CARDIOVASCULAR: Denies chest pain. GASTROINTESTINAL: Denies nausea, vomiting, diarrhea. Does have abdominal pain for one day. Denies diarrhea. EXTREMITIES: Denies pain in lower extremities. CENTRAL NERVOUS SYSTEM: Denies changes in speech pattern. PHYSICAL EXAMINATION: VITAL SIGNS: Temperature is 98.7, pulse is 103, blood pressure 141/80. HEENT: PERRLA. NECK: Supple. No lymphadenopathy. CHEST: Clear to auscultation. CARDIOVASCULAR: Regular rate and rhythm. There is a bruit in the dialysis access. ABDOMEN: Soft. Positive bowel sounds. No organomegaly. EXTREMITIES: A 1+ edema. She is able to moves extremities. Dorsalis pedis pulses are present. LABORATORY DATA: WBC of 8, hemoglobin of 10.5, and platelets 105. Sodium 140, potassium 6, BUN of 57, creatinine of 7.6. Troponin 0.023. ASSESSMENT AND PLAN: Hyperkalemia, pneumonia on the x-ray, end-stage renal disease on hemodialysis, abdominal pain, shortness of breath, anemia. I have asked basically Dr. Morse, Dr. Charles , Dr. Luke Huston, Dr. Imtiaz Monge, see the patient and help with the management of the above-mentioned abnormalities and symptoms. We will monitor the patient very closely. Lidya Bruce M.D. DR: Blanca JOB#: [id number] CC:
[2019-05-09] VITALS (7 sets, daily range): BP systolic 147–208; BP diastolic 92–117
[2019-05-09] MEDS: Minoxidil 2.5mg tab ORAL PRN ×2 (01:02→15:37)
--- NOTE | 2019-05-09 01:35 | NUR ---
NURSE NOTES: Resting throughout the night. No significant change of condition noted. Will continue to monitor.
[2019-05-09] MEDS: cloNIDine 0.2mg Tab ORAL SCH ×3 (05:07→21:07)
--- NOTE | 2019-05-09 07:24 | NUR ---
HAND-OFF: Report given to MUSTAPHA Moncada. Plan of care endorsed.
[2019-05-09 07:34] LABS: MEAN CORPUSCULAR VOLUME 97 FL (80-99); PLATELET COUNT 84 K/UL (150-450); RED BLOOD COUNT 2.89 M/UL (4.20-5.40); RED CELL DISTRIBUTION WIDTH 17.6 % (11.6-14.8); WHITE BLOOD COUNT 6.8 K/UL (4.8-10.8)
[2019-05-09 07:52] LABS: ALANINE AMINOTRANSFERASE 11 U/L (12-78); ALBUMIN 3.6 G/DL (3.4-5.0); ALBUMIN/GLOBULIN RATIO 0.8 (1.0-2.7); ALKALINE PHOSPHATASE 158 U/L (46-116); ANION GAP 16 mmol/L (5-15); ASPARTATE AMINO TRANSFERASE 23 U/L (15-37); BILIRUBIN,TOTAL 0.7 MG/DL (0.2-1.0); BLOOD UREA NITROGEN 87 mg/dL (7-18); CARBON DIOXIDE 26 MMOL/L (21-32); CHLORIDE 98 MMOL/L (98-107); CREATININE 10.7 MG/DL (0.55-1.30); PHOSPHORUS 6.7 MG/DL (2.5-4.9); POTASSIUM 5.9 MMOL/L (3.5-5.1); SODIUM 139 MMOL/L (136-145)
--- NOTE | 2019-05-09 08:30 | Consultation ---
DATE OF CONSULTATION: 05/08/2019 HEMATOLOGY/ONCOLOGY CONSULTATION CONSULTING PHYSICIAN: Imtiaz Monge M.D. REFERRING PHYSICIAN: Ovidio Kaplan D.O. REASON FOR CONSULTATION: Evaluation of thrombocytopenia and anemia. IDENTIFYING DATA: Dear Dr. Ovidio Kaplan, Thank you for the courtesy of this consultation. The patient is a pleasant 53-year-old female whom I have seen in the past. She has a past medical history significant for end-stage renal disease, on dialysis, initially presented last night, seen by the ER doctor . The patient has a past medical history again significant for anemia, history of end-stage renal disease, CHF, and abdominal pain. Has been seen by Nephrology Service and Cardiology. Recommendations have been reviewed. The patient was noted to have anemia, and anemia panel has been ordered. Reviewed some prior studies and may require use of Epogen iron levels have been repleted and has potential to get dialysis in the near future. Blood pressure adjustment as well to be completed. PAST MEDICAL HISTORY: End-stage renal disease, history of dialysis, CHF, hyperkalemia, and abdominal pain. PAST SURGICAL HISTORY: None reported. ALLERGIES: Codeine and hydrocodone. FAMILY HISTORY: Noncontributory, sudden cardiac . OUTPATIENT MEDICATIONS: Tylenol, aspirin, Lipitor, benzonatate, Coreg, vitamin D, clonidine, . REVIEW OF SYSTEMS: A 12-point review of systems completed, otherwise, negative except as above in HPI. PHYSICAL EXAMINATION: VITAL SIGNS: Reviewed. GENERAL: Not in acute distress. PULMONARY: Decreased breath sounds bilaterally. No crackles, wheezes, or rales. CARDIOVASCULAR: Regular rate. No S3 or S4. ABDOMEN: Soft, nontender, nondistended. EXTREMITIES: 1+ edema. LABORATORY DATA: Potassium 5.5., BUN 61, creatinine 8.8. BNP greater than 25,000. INR 1.1. WBC 7, hemoglobin 8.8, platelet count 93,000. IMAGING: Reviewed. Chest x-ray shows small pleural effusion, cardiomegaly. ASSESSMENT AND RECOMMENDATIONS: 1. Thrombocytopenia. Rule out underlying infection. Reviewed the patient's prior imaging, which includes CT scan of the abdomen and pelvis. Some small retroperitoneal lymph nodes are noted. Mild ascites. No evidence of cirrhosis from before. the patient's prior hepatitis panel, HIV which was negative. 2. Anemia of chronic disease. Continue to closely monitor. Anemia panel has been ordered. Consider use of Epogen if hemoglobin level is decreased. Monitor closely for bleeding. Occult blood is pending. 3. End-stage renal disease, on hemodialysis. Seen by Dr. Morse. Given Ativan and the patient is feeling better. May need dialysis ultrafiltration. 4. Hypertension. Systolic blood pressure goal is 140. Closely monitor for improvement. Medications reviewed. Pain disorder. Tylenol p.r.n. basis as well as Robaxin for muscle relaxant. 5. Hyperkalemia. Kayexalate versus dialysis. 6. DVT prophylaxis. SCDs. 7. I appreciate the consultation. 8. Discussed with RN. Imtiaz Monge M.D. DR: YOLA JOB#: [id number] CC:
--- NOTE | 2019-05-09 09:08 | General Progress Note ---
Assessment/Plan Assessment/Plan: (1) Viral respiratory infection (2) Myalgias and Arthralgias (3) ESRD on Hemodialysis Patient to be continued on Tylenol D/w Dr. Raza and he concurred. Subjective Date patient seen: May 09, 2019 Time patient seen: 08:15 - am Constitutional: Reports: weakness HEENT: Reports: no symptoms Cardiovascular: Reports: no symptoms Respiratory: Reports: no symptoms Gastrointestinal/Abdominal: Reports: no symptoms Genitourinary: Reports: no symptoms Neurologic/Psychiatric: Reports: no symptoms Endocrine: Reports: no symptoms Hematologic/Lymphatic: Reports: no symptoms Allergies: Coded Allergies: CODEINE (Verified Adverse Reaction, Unknown, NAUSEA, 04/18/10) HYDROCODONE (Verified Adverse Reaction, Unknown, 08/17/17) nausea Subjective Pain has been at a moderate level and has no signs of pain at this time. Objective Last 24 Hour Vital Signs Date Time Temp Pulse Resp B/P (MAP) Pulse Ox O2 Delivery O2 Flow Rate FiO2 05/09/19 05:07 97.5 05/09/19 05:07 147/108 05/09/19 04:00 2.0 05/09/19 04:00 97.5 70 20 147/108 (121) 92 05/09/19 04:00 66 05/09/19 01:02 170/101 05/09/19 00:00 98.2 72 20 172/101 (124) 90 05/09/19 00:00 77 05/09/19 00:00 80 05/08/19 21:08 164/93 05/08/19 21:00 Nasal Cannula 2.0 05/08/19 20:00 97.7 79 20 164/93 (116) 97 05/08/19 20:00 2.0 05/08/19 20:00 77 05/08/19 16:00 2.0 05/08/19 16:00 74 05/08/19 16:00 97.0 70 18 149/98 (115) 100 05/08/19 13:24 141/80 05/08/19 12:05 98.7 74 19 141/80 (100) 98 05/08/19 12:05 73 05/08/19 12:00 2.0 Intake and Output 05/08/19 05/09/19 19:00 07:00 Intake Total 140 ml 120 ml Balance 140 ml 120 ml Intake Oral 140 ml 120 ml # Voids 1 # Bowel Movements 1 1 Laboratory Tests 05/09/19 06:43: White Blood Count 6.8, Red Blood Count 2.89L, Hemoglobin 9.0L, Hematocrit 28.0L , Mean Corpuscular Volume 97, Mean Corpuscular Hemoglobin 31.2H, Mean Corpuscular Hemoglobin Concent 32.2, Red Cell Distribution Width 17.6H, Platelet Count 84L, Mean Platelet Volume 7.8, Neutrophils (%) (Auto) , Lymphocytes (%) (Auto) , Monocytes (%) (Auto) , Eosinophils (%) (Auto) , Basophils (%) (Auto) , Neutrophils % (Manual) [Pending], Lymphocytes % (Manual) [Pending], Platelet Estimate [Pending], Platelet Morphology [Pending], Sodium Level 139, Potassium Level 5.9H, Chloride Level 98, Carbon Dioxide Level 26, Anion Gap 16H, Blood Urea Nitrogen 87H, Creatinine 10.7H, Estimat Glomerular Filtration Rate 4.6, Glucose Level 89, Hemoglobin A1c 4.5, Calcium Level 8.0L, Phosphorus Level 6.7H, Magnesium Level 2.5H, Total Bilirubin 0.7, Aspartate Amino Transf (AST/SGOT) 23, Alanine Aminotransferase (ALT/SGPT) 11L, Alkaline Phosphatase 158H, C-Reactive Protein, Quantitative 1.6H, Pro-B-Type Natriuretic Peptide > 20093Q, Total Protein 7.9, Albumin 3.6, Globulin 4.3, Albumin/ Globulin Ratio 0.8L Height (Feet): 5 Height (Inches): 5.00 Weight (Pounds): 153 General Appearance: no apparent distress, alert EENT: PERRL/EOMI, normal ENT inspection Neck: non-tender, normal alignment Cardiovascular: normal rate, regular rhythm Respiratory/Chest: decreased breath sounds Abdomen: non tender, soft Extremities: non-tender Edema: no edema noted Generalized Neurologic: alert, oriented x 3 Skin: normal pigmentation Domo Matthews May 09, 2019 09:08
[2019-05-09] MEDS: Sodium Polystyrene Sulfonate 15gm Powder ORAL SCH ×2 (09:35→18:26)
[2019-05-09] MEDS: Aspirin Baby 81mg ORAL SCH (09:37)
[2019-05-09] MEDS: Docusate 100mg cap ORAL SCH ×3 (09:37→18:26)
--- NOTE | 2019-05-09 09:51 | Infectious Diseases Prog Note ---
Assessment/Plan Assessment/Plan IMPRESSION: Respiratory distress likely secondary to volume overload. End-stage renal disease on hemodialysis, cholelithiasis, hyperkalemia, hypertension, hyperlipidemia, hepatomegaly RECOMMENDATIONS: 1. Observe off antibiotic. 2. Repeat CXR Subjective ROS Limited/Unobtainable: No HEENT: Reports: other - post nasal drip Respiratory: Reports: shortness of breath Cardiovascular: Reports: no symptoms Gastrointestinal/Abdominal: Reports: no symptoms Genitourinary: Reports: no symptoms Allergies: Coded Allergies: CODEINE (Verified Adverse Reaction, Unknown, NAUSEA, 04/18/10) HYDROCODONE (Verified Adverse Reaction, Unknown, 08/17/17) nausea Objective Vital Signs Last 24 Hour Vital Signs Date Time Temp Pulse Resp B/P (MAP) Pulse Ox O2 Delivery O2 Flow Rate FiO2 05/09/19 09:36 70 167/92 05/09/19 08:30 98.3 70 18 167/92 (117) 97 05/09/19 05:07 97.5 05/09/19 05:07 147/108 05/09/19 04:00 2.0 05/09/19 04:00 97.5 70 20 147/108 (121) 92 05/09/19 04:00 66 05/09/19 01:02 170/101 05/09/19 00:00 98.2 72 20 172/101 (124) 90 05/09/19 00:00 77 05/09/19 00:00 80 05/08/19 21:08 164/93 05/08/19 21:00 Nasal Cannula 2.0 05/08/19 20:00 97.7 79 20 164/93 (116) 97 05/08/19 20:00 2.0 05/08/19 20:00 77 05/08/19 16:00 2.0 05/08/19 16:00 74 05/08/19 16:00 97.0 70 18 149/98 (115) 100 05/08/19 13:24 141/80 05/08/19 12:05 98.7 74 19 141/80 (100) 98 05/08/19 12:05 73 05/08/19 12:00 2.0 Height (Feet): 5 Height (Inches): 5.00 Weight (Pounds): 153 General Appearance: no acute distress Respiratory/Chest: lungs clear Cardiovascular: normal rate Abdomen: distended Extremities: no edema Neurologic/Psychiatric: alert, oriented x 3, responsive Microbiology Date/Time Source Procedure Growth Status 05/07/19 20:40 Nasal Nares - Final Complete 05/07/19 20:40 Nasal Nares - Final Complete 05/07/19 23:00 Rectum Received Laboratory Tests Test 05/09/19 06:43 White Blood Count 6.8 K/UL (4.8-10.8) Red Blood Count 2.89 M/UL (4.20-5.40) L Hemoglobin 9.0 G/DL (12.0-16.0) L Hematocrit 28.0 % (37.0-47.0) L Mean Corpuscular Volume 97 FL (80-99) Mean Corpuscular Hemoglobin 31.2 PG (27.0-31.0) H Mean Corpuscular Hemoglobin Concent 32.2 G/DL (32.0-36.0) Red Cell Distribution Width 17.6 % (11.6-14.8) H Platelet Count 84 K/UL (150-450) L Mean Platelet Volume 7.8 FL (6.5-10.1) Neutrophils (%) (Auto) % (45.0-75.0) Lymphocytes (%) (Auto) % (20.0-45.0) Monocytes (%) (Auto) % (1.0-10.0) Eosinophils (%) (Auto) % (0.0-3.0) Basophils (%) (Auto) % (0.0-2.0) Differential Total Cells Counted 100 Neutrophils % (Manual) 64 % (45-75) Lymphocytes % (Manual) 29 % (20-45) Monocytes % (Manual) 6 % (1-10) Eosinophils % (Manual) 1 % (0-3) Basophils % (Manual) 0 % (0-2) Band Neutrophils 0 % (0-8) Platelet Estimate Decreased L Platelet Morphology Normal Hypochromasia 2+ Anisocytosis 1+ Sodium Level 139 MMOL/L (136-145) Potassium Level 5.9 MMOL/L (3.5-5.1) H Chloride Level 98 MMOL/L (98-107) Carbon Dioxide Level 26 MMOL/L (21-32) Anion Gap 16 mmol/L (5-15) H Blood Urea Nitrogen 87 mg/dL (7-18) H Creatinine 10.7 MG/DL (0.55-1.30) H Estimat Glomerular Filtration Rate 4.6 mL/min (>60) Glucose Level 89 MG/DL (74-106) Hemoglobin A1c 4.5 % (4.3-6.0) Calcium Level 8.0 MG/DL (8.5-10.1) L Phosphorus Level 6.7 MG/DL (2.5-4.9) H Magnesium Level 2.5 MG/DL (1.8-2.4) H Total Bilirubin 0.7 MG/DL (0.2-1.0) Aspartate Amino Transf (AST/SGOT) 23 U/L (15-37) Alanine Aminotransferase (ALT/SGPT) 11 U/L (12-78) L Alkaline Phosphatase 158 U/L (46-116) H C-Reactive Protein, Quantitative 1.6 mg/dL (0.00-0.90) H Pro-B-Type Natriuretic Peptide > 94409 pg/mL (0-125) H Total Protein 7.9 G/DL (6.4-8.2) Albumin 3.6 G/DL (3.4-5.0) Globulin 4.3 g/dL Albumin/Globulin Ratio 0.8 (1.0-2.7) L Current Medications Medications (Trade) Dose Ordered Sig/Johnna Route PRN Reason Start Time Stop Time Status Last Admin Dose Admin Acetaminophen (Tylenol) 650 mg Q4H PRN ORAL Mild Pain/Temp > 100.5 05/09/19 04:45 06/07/19 02:29 05/09/19 04:37 Amlodipine Besylate (Norvasc) 10 mg DAILY ORAL 05/09/19 09:00 06/08/19 08:59 05/09/19 09:36 Aspirin (ASA) 81 mg DAILY ORAL 05/08/19 09:00 06/07/19 08:59 05/09/19 09:37 Atorvastatin Calcium (Lipitor) 10 mg BEDTIME ORAL 05/08/19 21:00 06/07/19 20:59 05/08/19 21:08 Clonidine HCl (Catapres tab) 0.2 mg Q8HR ORAL 05/08/19 06:00 06/07/19 05:59 05/09/19 05:07 Docusate Sodium (Colace) 100 mg TID ORAL 05/08/19 13:00 06/07/19 08:59 05/09/19 09:37 Methocarbamol (Robaxin) 500 mg Q8H PRN ORAL muscle spasm 05/08/19 09:00 06/07/19 08:59 Minoxidil (Loniten) 2.5 mg Q4H PRN ORAL bp 165 syst 05/07/19 23:00 06/06/19 22:59 05/09/19 01:02 Pantoprazole (Protonix) 40 mg EVERY 12 HOURS ORAL 05/08/19 21:00 06/07/19 20:59 05/09/19 09:36 Sevelamer Carbonate (Renvela) 2,400 mg TID ORAL 05/08/19 13:00 06/07/19 08:59 05/09/19 09:37 Sodium Polystyrene Sulfonate (Kayexalate) 30 gm BID ORAL 05/09/19 09:00 06/08/19 08:59 05/09/19 09:35 Kyler Frazier MD May 09, 2019 09:51
--- NOTE | 2019-05-09 10:28 | Nephrology Progress Note ---
Assessment/Plan Problem List: (1) ESRD (end stage renal disease) on dialysis (2) Anemia (3) Hypertensive urgency (4) Hyperkalemia Assessment Chronic kidney disease with end stage renal failure on dialysis Viral respiratory infection Hypertensive urgency Hyperkalemia Abdominal pain, ? Cholecystitis Plan Urgent HD with UF ordered on evening of May 07 yet not carried out !!! Discussed with RN " Coral" BP med adjustments per GI Per orders Subjective Constitutional: Reports: malaise, weakness Objective Objective Last 24 Hour Vital Signs Date Time Temp Pulse Resp B/P (MAP) Pulse Ox O2 Delivery O2 Flow Rate FiO2 05/09/19 09:36 70 167/92 05/09/19 08:30 98.3 70 18 167/92 (117) 97 05/09/19 05:07 97.5 05/09/19 05:07 147/108 05/09/19 04:00 2.0 05/09/19 04:00 97.5 70 20 147/108 (121) 92 05/09/19 04:00 66 05/09/19 01:02 170/101 05/09/19 00:00 98.2 72 20 172/101 (124) 90 05/09/19 00:00 77 05/09/19 00:00 80 05/08/19 21:08 164/93 05/08/19 21:00 Nasal Cannula 2.0 05/08/19 20:00 97.7 79 20 164/93 (116) 97 05/08/19 20:00 2.0 05/08/19 20:00 77 05/08/19 16:00 2.0 05/08/19 16:00 74 05/08/19 16:00 97.0 70 18 149/98 (115) 100 05/08/19 13:24 141/80 05/08/19 12:05 98.7 74 19 141/80 (100) 98 05/08/19 12:05 73 05/08/19 12:00 2.0 Intake and Output 05/08/19 05/09/19 19:00 07:00 Intake Total 140 ml 120 ml Balance 140 ml 120 ml Intake Oral 140 ml 120 ml # Voids 1 # Bowel Movements 1 1 Laboratory Tests 05/09/19 06:43: White Blood Count 6.8, Red Blood Count 2.89L, Hemoglobin 9.0L, Hematocrit 28.0L , Mean Corpuscular Volume 97, Mean Corpuscular Hemoglobin 31.2H, Mean Corpuscular Hemoglobin Concent 32.2, Red Cell Distribution Width 17.6H, Platelet Count 84L, Mean Platelet Volume 7.8, Neutrophils (%) (Auto) , Lymphocytes (%) (Auto) , Monocytes (%) (Auto) , Eosinophils (%) (Auto) , Basophils (%) (Auto) , Differential Total Cells Counted 100, Neutrophils % ( Manual) 64, Lymphocytes % (Manual) 29, Monocytes % (Manual) 6, Eosinophils % ( Manual) 1, Basophils % (Manual) 0, Band Neutrophils 0, Platelet Estimate DecreasedL, Platelet Morphology Normal, Hypochromasia 2+, Anisocytosis 1+, Sodium Level 139, Potassium Level 5.9H, Chloride Level 98, Carbon Dioxide Level 26, Anion Gap 16H, Blood Urea Nitrogen 87H, Creatinine 10.7H, Estimat Glomerular Filtration Rate 4.6, Glucose Level 89, Hemoglobin A1c 4.5, Calcium Level 8.0L, Phosphorus Level 6.7H, Magnesium Level 2.5H, Total Bilirubin 0.7, Aspartate Amino Transf (AST/SGOT) 23, Alanine Aminotransferase (ALT/SGPT) 11L, Alkaline Phosphatase 158H, C-Reactive Protein, Quantitative 1.6H, Pro-B-Type Natriuretic Peptide > 38949K, Total Protein 7.9, Albumin 3.6, Globulin 4.3, Albumin/Globulin Ratio 0.8L Height (Feet): 5 Height (Inches): 5.00 Weight (Pounds): 153 General Appearance: mild distress Cardiovascular: normal rate Respiratory/Chest: decreased breath sounds Abdomen: distended Bob Morse MD May 09, 2019 10:28
--- NOTE | 2019-05-09 12:46 | Diagnostic Imaging Report ---
Indication: Dyspnea Technique: One view of the chest Comparison: 04/29/2019 Findings: Cardiomegaly, bilateral interstitial and airspace edema persists, unchanged. Impression: Unchanged, over one day, findings as above.
[2019-05-09] MEDS: HydrALAZINE 50mg tab ORAL SCH ×2 (13:10→21:07)
--- NOTE | 2019-05-09 13:32 | NUR ---
RADIOLOGY DEPT., CHEST X-RAY DONE.-P.DYE
--- NOTE | 2019-05-09 15:33 | Hematology/Onc Progress Note ---
Assessment/Plan Assessment/Plan ASSESSMENT AND RECOMMENDATIONS: 1. Thrombocytopenia. Rule out underlying infection. --> Reviewed the patient's prior imaging, which includes CT scan of the abdomen and pelvis. Some small retroperitoneal lymph nodes are noted. Mild ascites. No evidence of cirrhosis from before --> patient's prior hepatitis panel, HIV which was negative. --> Peripheral smear ordered to evaluate for blasts /schistocytes --> abx and other meds have been reviewed --> ok for ppx if plt >50k w/ either heparin or lovenox --> Transfuse if Plt < 20k and fever, or if Plt < 10k without fever --> plt trend: 84 2. Anemia of chronic disease. --> Continue to closely monitor. --> Anemia panel has been ordered. --> Consider use of Epogen if hemoglobin level is decreased. --> Monitor closely for bleeding. --> Occult blood is pending. --> hgb trend: 9 3. End-stage renal disease, on hemodialysis. Seen by Dr. Morse. --> May need dialysis ultrafiltration. 4. Hypertension. --> Systolic blood pressure goal is 140. --> Closely monitor for improvement. --> Medications reviewed. 5. Pain disorder. Tylenol p.r.n. basis as well as Robaxin for muscle relaxant. 6. Hyperkalemia. Kayexalate versus dialysis. 7. DVT prophylaxis. SCDs. 8. I appreciate the consultation. 9. Discussed with RN. Greatly appreciate the consultation. Subjective Allergies: Coded Allergies: CODEINE (Verified Adverse Reaction, Unknown, NAUSEA, 04/18/10) HYDROCODONE (Verified Adverse Reaction, Unknown, 08/17/17) nausea Subjective 05/09: no acute events, elevated bp this morning, hiv, h/h stable Objective Objective Current Medications Medications (Trade) Dose Ordered Sig/Johnna Route PRN Reason Start Time Stop Time Status Last Admin Dose Admin Acetaminophen (Tylenol) 650 mg Q4H PRN ORAL Mild Pain/Temp > 100.5 05/09/19 04:45 06/07/19 02:29 05/09/19 04:37 Amlodipine Besylate (Norvasc) 10 mg DAILY ORAL 05/09/19 09:00 06/08/19 08:59 05/09/19 09:36 Aspirin (ASA) 81 mg DAILY ORAL 05/08/19 09:00 06/07/19 08:59 05/09/19 09:37 Atorvastatin Calcium (Lipitor) 10 mg BEDTIME ORAL 05/08/19 21:00 06/07/19 20:59 05/08/19 21:08 Clonidine HCl (Catapres tab) 0.2 mg Q8HR ORAL 05/08/19 06:00 06/07/19 05:59 05/09/19 13:10 Docusate Sodium (Colace) 100 mg TID ORAL 05/08/19 13:00 06/07/19 08:59 05/09/19 13:09 Hydralazine HCl (Apresoline) 50 mg Q8HR ORAL 05/09/19 14:00 06/08/19 13:59 05/09/19 13:10 Methocarbamol (Robaxin) 500 mg Q8H PRN ORAL muscle spasm 05/08/19 09:00 06/07/19 08:59 Minoxidil (Loniten) 2.5 mg Q4H PRN ORAL bp 165 syst 05/07/19 23:00 06/06/19 22:59 05/09/19 01:02 Pantoprazole (Protonix) 40 mg EVERY 12 HOURS ORAL 05/08/19 21:00 06/07/19 20:59 05/09/19 09:36 Sevelamer Carbonate (Renvela) 2,400 mg TID ORAL 05/08/19 13:00 06/07/19 08:59 05/09/19 13:09 Sodium Polystyrene Sulfonate (Kayexalate) 30 gm BID ORAL 05/09/19 09:00 06/08/19 08:59 05/09/19 09:35 Last 24 Hour Vital Signs Date Time Temp Pulse Resp B/P (MAP) Pulse Ox O2 Delivery O2 Flow Rate FiO2 05/09/19 13:10 212/110 05/09/19 13:10 212/110 05/09/19 12:18 2.0 05/09/19 09:36 70 167/92 05/09/19 09:00 Nasal Cannula 2.0 05/09/19 08:30 98.3 70 18 167/92 (117) 97 05/09/19 05:07 97.5 05/09/19 05:07 147/108 05/09/19 04:00 2.0 05/09/19 04:00 97.5 70 20 147/108 (121) 92 05/09/19 04:00 66 05/09/19 01:02 170/101 05/09/19 00:00 98.2 72 20 172/101 (124) 90 05/09/19 00:00 77 05/09/19 00:00 80 05/08/19 21:08 164/93 05/08/19 21:00 Nasal Cannula 2.0 05/08/19 20:00 97.7 79 20 164/93 (116) 97 05/08/19 20:00 2.0 05/08/19 20:00 77 05/08/19 16:00 2.0 05/08/19 16:00 74 05/08/19 16:00 97.0 70 18 149/98 (115) 100 05/08/19 13:24 141/80 05/08/19 12:05 98.7 74 19 141/80 (100) 98 05/08/19 12:05 73 05/08/19 12:00 2.0 05/08/19 09:00 Nasal Cannula 2.0 05/08/19 08:20 142/82 05/08/19 08:00 82 05/08/19 08:00 2.0 05/08/19 08:00 97.6 74 20 154/91 (112) 98 05/08/19 05:04 2.0 05/08/19 04:00 99.7 77 18 142/82 (102) 88 05/08/19 04:00 76 05/08/19 01:53 Room Air 05/08/19 01:52 Room Air 05/08/19 01:29 80 05/08/19 01:00 98.1 83 20 143/96 88 Room Air 21 05/08/19 01:00 98.1 83 20 143/96 (112) 88 05/08/19 00:37 98.2 05/07/19 23:26 72 19 100 Room Air 21 73 19 96 05/07/19 23:00 98.2 72 24 144/82 97 Room Air 05/07/19 22:15 169/96 05/07/19 22:12 98.2 05/07/19 21:41 169/96 05/07/19 21:30 98.2 79 24 169/96 95 Room Air 05/07/19 20:20 83 24 Room Air 05/07/19 20:08 98.2 83 24 207/110 (142) 96 Room Air Intake and Output 05/08/19 05/09/19 19:00 07:00 Intake Total 140 ml 120 ml Balance 140 ml 120 ml Intake Oral 140 ml 120 ml # Voids 1 # Bowel Movements 1 1 Labs Test 05/07/19 21:00 05/08/19 08:35 05/09/19 06:43 White Blood Count 8.0 K/UL (4.8-10.8) 7.0 K/UL (4.8-10.8) 6.8 K/UL (4.8-10.8) Red Blood Count 3.42 M/UL (4.20-5.40) 2.83 M/UL (4.20-5.40) 2.89 M/UL (4.20-5.40) Hemoglobin 10.5 G/DL (12.0-16.0) 8.8 G/DL (12.0-16.0) 9.0 G/DL (12.0-16.0) Hematocrit 33.2 % (37.0-47.0) 27.5 % (37.0-47.0) 28.0 % (37.0-47.0) Mean Corpuscular Volume 97 FL (80-99) 97 FL (80-99) 97 FL (80-99) Mean Corpuscular Hemoglobin 30.8 PG (27.0-31.0) 31.2 PG (27.0-31.0) 31.2 PG (27.0-31.0) Mean Corpuscular Hemoglobin Concent 31.7 G/DL (32.0-36.0) 32.1 G/DL (32.0-36.0) 32.2 G/DL (32.0-36.0) Red Cell Distribution Width 17.4 % (11.6-14.8) 17.7 % (11.6-14.8) 17.6 % (11.6-14.8) Platelet Count 105 K/UL (150-450) 93 K/UL (150-450) 84 K/UL (150-450) Mean Platelet Volume 7.2 FL (6.5-10.1) 6.3 FL (6.5-10.1) 7.8 FL (6.5-10.1) Neutrophils (%) (Auto) 77.7 % (45.0-75.0) % (45.0-75.0) % (45.0-75.0) Lymphocytes (%) (Auto) 14.2 % (20.0-45.0) % (20.0-45.0) % (20.0-45.0) Monocytes (%) (Auto) 5.3 % (1.0-10.0) % (1.0-10.0) % (1.0-10.0) Eosinophils (%) (Auto) 2.3 % (0.0-3.0) % (0.0-3.0) % (0.0-3.0) Basophils (%) (Auto) 0.6 % (0.0-2.0) % (0.0-2.0) % (0.0-2.0) Prothrombin Time 12.0 SEC (9.30-11.50) Prothromb Time International Ratio 1.1 (0.9-1.1) Activated Partial Thromboplast Time 31 SEC (23-33) Sodium Level 140 MMOL/L (136-145) 141 MMOL/L (136-145) 139 MMOL/L (136-145) Potassium Level 6.0 MMOL/L (3.5-5.1) 5.5 MMOL/L (3.5-5.1) 5.9 MMOL/L (3.5-5.1) Chloride Level 99 MMOL/L (98-107) 100 MMOL/L (98-107) 98 MMOL/L (98-107) Carbon Dioxide Level 28 MMOL/L (21-32) 28 MMOL/L (21-32) 26 MMOL/L (21-32) Anion Gap 13 mmol/L (5-15) 13 mmol/L (5-15) 16 mmol/L (5-15) Blood Urea Nitrogen 57 mg/dL (7-18) 65 mg/dL (7-18) 87 mg/dL (7-18) Creatinine 7.6 MG/DL (0.55-1.30) 8.8 MG/DL (0.55-1.30) 10.7 MG/DL (0.55-1.30) Estimat Glomerular Filtration Rate 6.8 mL/min (>60) 5.7 mL/min (>60) 4.6 mL/min (>60) Glucose Level 89 MG/DL (74-106) 108 MG/DL (74-106) 89 MG/DL (74-106) Calcium Level 8.2 MG/DL (8.5-10.1) 7.6 MG/DL (8.5-10.1) 8.0 MG/DL (8.5-10.1) Total Bilirubin 1.0 MG/DL (0.2-1.0) 0.7 MG/DL (0.2-1.0) 0.7 MG/DL (0.2-1.0) Aspartate Amino Transf (AST/SGOT) 35 U/L (15-37) 26 U/L (15-37) 23 U/L (15-37) Alanine Aminotransferase (ALT/SGPT) 16 U/L (12-78) 14 U/L (12-78) 11 U/L (12-78) Alkaline Phosphatase 206 U/L (46-116) 170 U/L (46-116) 158 U/L (46-116) Troponin I 0.023 ng/mL (0.000-0.056) 0.018 ng/mL (0.000-0.056) Total Protein 9.0 G/DL (6.4-8.2) 8.0 G/DL (6.4-8.2) 7.9 G/DL (6.4-8.2) Albumin 4.0 G/DL (3.4-5.0) 3.6 G/DL (3.4-5.0) 3.6 G/DL (3.4-5.0) Globulin 5.0 g/dL 4.4 g/dL 4.3 g/dL Albumin/Globulin Ratio 0.8 (1.0-2.7) 0.8 (1.0-2.7) 0.8 (1.0-2.7) Differential Total Cells Counted 100 100 Neutrophils % (Manual) 76 % (45-75) 64 % (45-75) Lymphocytes % (Manual) 15 % (20-45) 29 % (20-45) Monocytes % (Manual) 7 % (1-10) 6 % (1-10) Eosinophils % (Manual) 2 % (0-3) 1 % (0-3) Basophils % (Manual) 0 % (0-2) 0 % (0-2) Band Neutrophils 0 % (0-8) 0 % (0-8) Platelet Estimate Decreased Decreased Platelet Morphology Normal Normal Hypochromasia 1+ 2+ Anisocytosis 1+ 1+ Uric Acid 6.1 MG/DL (2.6-7.2) Phosphorus Level 5.8 MG/DL (2.5-4.9) 6.7 MG/DL (2.5-4.9) Magnesium Level 2.4 MG/DL (1.8-2.4) 2.5 MG/DL (1.8-2.4) C-Reactive Protein, Quantitative 1.6 mg/dL (0.00-0.90) 1.6 mg/dL (0.00-0.90) Pro-B-Type Natriuretic Peptide > 46190 pg/mL (0-125) > 00655 pg/mL (0-125) Thyroid Stimulating Hormone (TSH) 6.523 uiU/mL (0.358-3.740) HIV (1&2) Antibody Rapid Negative (NEGATIVE) Hemoglobin A1c 4.5 % (4.3-6.0) Height (Feet): 5 Height (Inches): 5.00 Weight (Pounds): 153 Objective PHYSICAL EXAMINATION: VITAL SIGNS: Reviewed. GENERAL: Not in acute distress. PULMONARY: Decreased breath sounds bilaterally. No crackles, wheezes, or rales. CARDIOVASCULAR: Regular rate. No S3 or S4. ABDOMEN: Soft, nontender, nondistended. EXTREMITIES: 1+ edema. Imtiaz Monge MD May 09, 2019 15:33
--- NOTE | 2019-05-09 15:52 | Pulmonology Progress Note ---
Assessment/Plan Assessment/Plan IMPRESSION: 1. Pulmonary edema. 2. ESRD, on dialysis. 3. Hypertension. DISCUSSION: Agree with current medications and care. She needs blood pressure control, on dialysis. Continue oxygen and pulmonary hygiene. 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 Luke Huston M.D. Subjective Interval Events: None new; complaining of pain Constitutional: Reports: no symptoms HEENT: Repors: no symptoms Respiratory: Reports: no symptoms Cardiovascular: Reports: no symptoms Gastrointestinal/Abdominal: Reports: no symptoms Allergies: Coded Allergies: CODEINE (Verified Adverse Reaction, Unknown, NAUSEA, 04/18/10) HYDROCODONE (Verified Adverse Reaction, Unknown, 08/17/17) nausea Objective Last 24 Hour Vital Signs Date Time Temp Pulse Resp B/P (MAP) Pulse Ox O2 Delivery O2 Flow Rate FiO2 05/09/19 15:37 181/96 05/09/19 13:10 212/110 05/09/19 13:10 212/110 05/09/19 12:18 2.0 05/09/19 09:36 70 167/92 05/09/19 09:00 Nasal Cannula 2.0 05/09/19 08:30 98.3 70 18 167/92 (117) 97 05/09/19 05:07 97.5 05/09/19 05:07 147/108 05/09/19 04:00 2.0 05/09/19 04:00 97.5 70 20 147/108 (121) 92 05/09/19 04:00 66 05/09/19 01:02 170/101 05/09/19 00:00 98.2 72 20 172/101 (124) 90 05/09/19 00:00 77 05/09/19 00:00 80 05/08/19 21:08 164/93 05/08/19 21:00 Nasal Cannula 2.0 05/08/19 20:00 97.7 79 20 164/93 (116) 97 05/08/19 20:00 2.0 05/08/19 20:00 77 05/08/19 16:00 2.0 05/08/19 16:00 74 05/08/19 16:00 97.0 70 18 149/98 (115) 100 Intake and Output 05/08/19 05/09/19 19:00 07:00 Intake Total 140 ml 120 ml Balance 140 ml 120 ml Intake Oral 140 ml 120 ml # Voids 1 # Bowel Movements 1 1 General Appearance: no acute distress HEENT: normocephalic Respiratory/Chest: chest wall non-tender Cardiovascular: normal peripheral pulses Abdomen: normal bowel sounds Extremities: no cyanosis Microbiology Date/Time Source Procedure Growth Status 05/07/19 20:40 Nasal Nares - Final Complete 05/07/19 20:40 Nasal Nares - Final Complete 05/07/19 23:00 Rectum Received Laboratory Tests 05/09/19 06:43: White Blood Count 6.8, Red Blood Count 2.89L, Hemoglobin 9.0L, Hematocrit 28.0L , Mean Corpuscular Volume 97, Mean Corpuscular Hemoglobin 31.2H, Mean Corpuscular Hemoglobin Concent 32.2, Red Cell Distribution Width 17.6H, Platelet Count 84L, Mean Platelet Volume 7.8, Neutrophils (%) (Auto) , Lymphocytes (%) (Auto) , Monocytes (%) (Auto) , Eosinophils (%) (Auto) , Basophils (%) (Auto) , Differential Total Cells Counted 100, Neutrophils % ( Manual) 64, Lymphocytes % (Manual) 29, Monocytes % (Manual) 6, Eosinophils % ( Manual) 1, Basophils % (Manual) 0, Band Neutrophils 0, Platelet Estimate DecreasedL, Platelet Morphology Normal, Hypochromasia 2+, Anisocytosis 1+, Sodium Level 139, Potassium Level 5.9H, Chloride Level 98, Carbon Dioxide Level 26, Anion Gap 16H, Blood Urea Nitrogen 87H, Creatinine 10.7H, Estimat Glomerular Filtration Rate 4.6, Glucose Level 89, Hemoglobin A1c 4.5, Calcium Level 8.0L, Phosphorus Level 6.7H, Magnesium Level 2.5H, Total Bilirubin 0.7, Aspartate Amino Transf (AST/SGOT) 23, Alanine Aminotransferase (ALT/SGPT) 11L, Alkaline Phosphatase 158H, C-Reactive Protein, Quantitative 1.6H, Pro-B-Type Natriuretic Peptide > 72710V, Total Protein 7.9, Albumin 3.6, Globulin 4.3, Albumin/Globulin Ratio 0.8L, Hepatitis B Surface Antigen [Pending] Current Medications Medications (Trade) Dose Ordered Sig/Johnna Route PRN Reason Start Time Stop Time Status Last Admin Dose Admin Acetaminophen (Tylenol) 650 mg Q4H PRN ORAL Mild Pain/Temp > 100.5 05/09/19 04:45 06/07/19 02:29 05/09/19 04:37 Amlodipine Besylate (Norvasc) 10 mg DAILY ORAL 05/09/19 09:00 06/08/19 08:59 05/09/19 09:36 Aspirin (ASA) 81 mg DAILY ORAL 05/08/19 09:00 06/07/19 08:59 05/09/19 09:37 Atorvastatin Calcium (Lipitor) 10 mg BEDTIME ORAL 05/08/19 21:00 06/07/19 20:59 05/08/19 21:08 Clonidine HCl (Catapres tab) 0.2 mg Q8HR ORAL 05/08/19 06:00 06/07/19 05:59 05/09/19 13:10 Docusate Sodium (Colace) 100 mg TID ORAL 05/08/19 13:00 06/07/19 08:59 05/09/19 13:09 Hydralazine HCl (Apresoline) 50 mg Q8HR ORAL 05/09/19 14:00 06/08/19 13:59 05/09/19 13:10 Methocarbamol (Robaxin) 500 mg Q8H PRN ORAL muscle spasm 05/08/19 09:00 06/07/19 08:59 Minoxidil (Loniten) 2.5 mg Q4H PRN ORAL bp 165 syst 05/07/19 23:00 06/06/19 22:59 05/09/19 15:37 Pantoprazole (Protonix) 40 mg EVERY 12 HOURS ORAL 05/08/19 21:00 06/07/19 20:59 05/09/19 09:36 Sevelamer Carbonate (Renvela) 2,400 mg TID ORAL 05/08/19 13:00 06/07/19 08:59 05/09/19 13:09 Sodium Polystyrene Sulfonate (Kayexalate) 30 gm BID ORAL 05/09/19 09:00 06/08/19 08:59 05/09/19 09:35 Luke Huston MD May 09, 2019 15:52
--- NOTE | 2019-05-09 16:17 | Cardiac Electrophysiology PN ---
Assessment/Plan Assessment/Plan 1. Volume overloaded. BNP of more than 35,000. The patient's most recent echocardiogram was on February 14 that showed ejection fraction of 60% to 65%, no evidence of pericardial effusion. Contiue on hemodialysis. 2. Hypertension. Continue hemodialysis, Norvasc 10 mg daily and hydralazine 50 t.i.d.Clonidine 0.2 tid and Isordil 20 every eight hours. 3. History of pericardial effusion. Echocardiogram showed no evidence of pericardial effusion. 4. End-stage renal disease, on hemodialysis. 5. Hyperkalemia, was corrected after dialysis. UBALDO RN Subjective Subjective Had HD today. ECho pending Objective Last 24 Hour Vital Signs Date Time Temp Pulse Resp B/P (MAP) Pulse Ox O2 Delivery O2 Flow Rate FiO2 05/09/19 15:37 181/96 05/09/19 13:10 212/110 05/09/19 13:10 212/110 05/09/19 12:18 2.0 05/09/19 09:36 70 167/92 05/09/19 09:00 Nasal Cannula 2.0 05/09/19 08:30 98.3 70 18 167/92 (117) 97 05/09/19 05:07 97.5 05/09/19 05:07 147/108 05/09/19 04:00 2.0 05/09/19 04:00 97.5 70 20 147/108 (121) 92 05/09/19 04:00 66 05/09/19 01:02 170/101 05/09/19 00:00 98.2 72 20 172/101 (124) 90 05/09/19 00:00 77 05/09/19 00:00 80 05/08/19 21:08 164/93 05/08/19 21:00 Nasal Cannula 2.0 05/08/19 20:00 97.7 79 20 164/93 (116) 97 05/08/19 20:00 2.0 05/08/19 20:00 77 Intake and Output 05/08/19 05/09/19 19:00 07:00 Intake Total 140 ml 120 ml Balance 140 ml 120 ml Intake Oral 140 ml 120 ml # Voids 1 # Bowel Movements 1 1 Laboratory Tests Test 05/09/19 06:43 White Blood Count 6.8 K/UL (4.8-10.8) Red Blood Count 2.89 M/UL (4.20-5.40) L Hemoglobin 9.0 G/DL (12.0-16.0) L Hematocrit 28.0 % (37.0-47.0) L Mean Corpuscular Volume 97 FL (80-99) Mean Corpuscular Hemoglobin 31.2 PG (27.0-31.0) H Mean Corpuscular Hemoglobin Concent 32.2 G/DL (32.0-36.0) Red Cell Distribution Width 17.6 % (11.6-14.8) H Platelet Count 84 K/UL (150-450) L Mean Platelet Volume 7.8 FL (6.5-10.1) Neutrophils (%) (Auto) % (45.0-75.0) Lymphocytes (%) (Auto) % (20.0-45.0) Monocytes (%) (Auto) % (1.0-10.0) Eosinophils (%) (Auto) % (0.0-3.0) Basophils (%) (Auto) % (0.0-2.0) Differential Total Cells Counted 100 Neutrophils % (Manual) 64 % (45-75) Lymphocytes % (Manual) 29 % (20-45) Monocytes % (Manual) 6 % (1-10) Eosinophils % (Manual) 1 % (0-3) Basophils % (Manual) 0 % (0-2) Band Neutrophils 0 % (0-8) Platelet Estimate Decreased L Platelet Morphology Normal Hypochromasia 2+ Anisocytosis 1+ Sodium Level 139 MMOL/L (136-145) Potassium Level 5.9 MMOL/L (3.5-5.1) H Chloride Level 98 MMOL/L (98-107) Carbon Dioxide Level 26 MMOL/L (21-32) Anion Gap 16 mmol/L (5-15) H Blood Urea Nitrogen 87 mg/dL (7-18) H Creatinine 10.7 MG/DL (0.55-1.30) H Estimat Glomerular Filtration Rate 4.6 mL/min (>60) Glucose Level 89 MG/DL (74-106) Hemoglobin A1c 4.5 % (4.3-6.0) Calcium Level 8.0 MG/DL (8.5-10.1) L Phosphorus Level 6.7 MG/DL (2.5-4.9) H Magnesium Level 2.5 MG/DL (1.8-2.4) H Total Bilirubin 0.7 MG/DL (0.2-1.0) Aspartate Amino Transf (AST/SGOT) 23 U/L (15-37) Alanine Aminotransferase (ALT/SGPT) 11 U/L (12-78) L Alkaline Phosphatase 158 U/L (46-116) H C-Reactive Protein, Quantitative 1.6 mg/dL (0.00-0.90) H Pro-B-Type Natriuretic Peptide > 82799 pg/mL (0-125) H Total Protein 7.9 G/DL (6.4-8.2) Albumin 3.6 G/DL (3.4-5.0) Globulin 4.3 g/dL Albumin/Globulin Ratio 0.8 (1.0-2.7) L Hepatitis B Surface Antigen Pending Microbiology Date/Time Source Procedure Growth Status 05/07/19 20:40 Nasal Nares - Final Complete 05/07/19 20:40 Nasal Nares - Final Complete 05/07/19 23:00 Rectum Received Objective HEAD AND NECK: Shows mild JVD. LUNGS: Have coarse rhonchi. CARDIOVASCULAR: Shows regular S1 and S2 with no gallop or murmur. ABDOMEN: Soft. EXTREMITIES: No pitting edema. Janak Charles MD May 09, 2019 16:17
--- NOTE | 2019-05-09 19:00 | NUR ---
NURSE NOTES: pt, has been having high blood pressure all day, even after given scheduled and PRN Bp meds notified doctor Tc. doctor ordered Hydralazine 10mg IV q 1r prn when Bp is greater than 170.
--- NOTE | 2019-05-09 19:15 | NUR ---
NURSE NOTES: Received report from MUSTAPHA Moncada. Patient is awake, lying in semi snyder's; resting comfortably. A/Ox4. Able to make needs known. Denies pain at this time. No signs of acute distress noted. Checked IV site and flushed. No erythema, bleeding or infiltration noted. Bed at lowest position, brakes on, [id number]. Call light within reach. Will continue to monitor.
--- NOTE | 2019-05-09 19:20 | NUR ---
HAND-OFF: Report given to Keri/MUSTAPHA reported pt having high BP all day dialysis done 2L out..
--- NOTE | 2019-05-09 21:37 | General Progress Note ---
Assessment/Plan Problem List: (1) Gastritis ICD Codes: K29.70 - Gastritis, unspecified, without bleeding SNOMED: 9270393 (2) Hypertension ICD Codes: I10 - Essential (primary) hypertension SNOMED: 18409481 (3) Congestive heart failure ICD Codes: I50.9 - Heart failure, unspecified SNOMED: 71185181 Qualifiers: Qualified Codes: I50.33 - Acute on chronic diastolic (congestive) heart failure (4) ESRD (end stage renal disease) on dialysis ICD Codes: N18.6 - End stage renal disease; Z99.2 - Dependence on renal dialysis SNOMED: 776729086 (5) Hyperkalemia ICD Codes: E87.5 - Hyperkalemia SNOMED: 93233577 (6) Acute cholecystitis ICD Codes: K81.0 - Acute cholecystitis SNOMED: 70162857 Status: progressing Assessment/Plan: afebrile lytes improving esrd on hd pna no sob less congested Subjective ROS Limited/Unobtainable: Yes Allergies: Coded Allergies: CODEINE (Verified Adverse Reaction, Unknown, NAUSEA, 04/18/10) HYDROCODONE (Verified Adverse Reaction, Unknown, 08/17/17) nausea Objective Last 24 Hour Vital Signs Date Time Temp Pulse Resp B/P (MAP) Pulse Ox O2 Delivery O2 Flow Rate FiO2 05/09/19 21:07 189/97 05/09/19 21:07 189/97 05/09/19 21:00 Nasal Cannula 2.0 05/09/19 20:00 84 05/09/19 20:00 2.0 05/09/19 20:00 97.5 68 18 208/102 (137) 94 05/09/19 19:01 73 188/107 (134) 05/09/19 16:00 98.1 83 18 181/96 (124) 98 05/09/19 16:00 81 05/09/19 16:00 2.0 05/09/19 15:37 181/96 05/09/19 13:10 212/110 05/09/19 13:10 212/110 05/09/19 12:18 2.0 05/09/19 12:00 97.8 73 18 188/117 (140) 97 05/09/19 12:00 70 05/09/19 09:36 70 167/92 05/09/19 09:00 Nasal Cannula 2.0 05/09/19 08:30 98.3 70 18 167/92 (117) 97 05/09/19 08:00 69 05/09/19 05:07 97.5 05/09/19 05:07 147/108 05/09/19 04:00 2.0 05/09/19 04:00 97.5 70 20 147/108 (121) 92 05/09/19 04:00 66 05/09/19 01:02 170/101 05/09/19 00:00 98.2 72 20 172/101 (124) 90 05/09/19 00:00 77 05/09/19 00:00 80 Intake and Output 05/08/19 05/09/19 19:00 07:00 Intake Total 140 ml 120 ml Balance 140 ml 120 ml Intake Oral 140 ml 120 ml # Voids 1 # Bowel Movements 1 1 Laboratory Tests 05/09/19 06:43: White Blood Count 6.8, Red Blood Count 2.89L, Hemoglobin 9.0L, Hematocrit 28.0L , Mean Corpuscular Volume 97, Mean Corpuscular Hemoglobin 31.2H, Mean Corpuscular Hemoglobin Concent 32.2, Red Cell Distribution Width 17.6H, Platelet Count 84L, Mean Platelet Volume 7.8, Neutrophils (%) (Auto) , Lymphocytes (%) (Auto) , Monocytes (%) (Auto) , Eosinophils (%) (Auto) , Basophils (%) (Auto) , Differential Total Cells Counted 100, Neutrophils % ( Manual) 64, Lymphocytes % (Manual) 29, Monocytes % (Manual) 6, Eosinophils % ( Manual) 1, Basophils % (Manual) 0, Band Neutrophils 0, Platelet Estimate DecreasedL, Platelet Morphology Normal, Hypochromasia 2+, Anisocytosis 1+, Sodium Level 139, Potassium Level 5.9H, Chloride Level 98, Carbon Dioxide Level 26, Anion Gap 16H, Blood Urea Nitrogen 87H, Creatinine 10.7H, Estimat Glomerular Filtration Rate 4.6, Glucose Level 89, Hemoglobin A1c 4.5, Calcium Level 8.0L, Phosphorus Level 6.7H, Magnesium Level 2.5H, Total Bilirubin 0.7, Aspartate Amino Transf (AST/SGOT) 23, Alanine Aminotransferase (ALT/SGPT) 11L, Alkaline Phosphatase 158H, C-Reactive Protein, Quantitative 1.6H, Pro-B-Type Natriuretic Peptide > 63371V, Total Protein 7.9, Albumin 3.6, Globulin 4.3, Albumin/Globulin Ratio 0.8L, Hepatitis B Surface Antigen [Pending] Height (Feet): 5 Height (Inches): 5.00 Weight (Pounds): 153 Neck: supple Cardiovascular: normal rate Respiratory/Chest: lungs clear Abdomen: soft Lidya Bruce MD May 09, 2019 21:37
[2019-05-10] VITALS: BP 155/89
--- NOTE | 2019-05-10 01:37 | NUR ---
NURSE NOTES: Resting throughout the night. No significant change of condition noted. Will continue to monitor.
[2019-05-10 04:00] VITALS: BP 175/94
[2019-05-10] MEDS: cloNIDine 0.2mg Tab ORAL SCH (05:37)
[2019-05-10] MEDS: HydrALAZINE 50mg tab ORAL SCH (05:37)
--- NOTE | 2019-05-10 05:56 | Hematology/Onc Progress Note ---
Assessment/Plan Assessment/Plan ASSESSMENT AND RECOMMENDATIONS: 1. Thrombocytopenia. Rule out underlying infection. --> Reviewed the patient's prior imaging, which includes CT scan of the abdomen and pelvis. Some small retroperitoneal lymph nodes are noted. Mild ascites. No evidence of cirrhosis from before --> patient's prior hepatitis panel, HIV which was negative. --> Peripheral smear ordered to evaluate for blasts /schistocytes --> abx and other meds have been reviewed --> ok for ppx if plt >50k w/ either heparin or lovenox --> Transfuse if Plt < 20k and fever, or if Plt < 10k without fever --> plt trend: 93-->84 2. Anemia of chronic disease. --> Continue to closely monitor. --> Anemia panel has been ordered. --> Consider use of Epogen if hemoglobin level is decreased. --> Monitor closely for bleeding. --> Occult blood is pending. --> hgb trend: 9 3. End-stage renal disease, on hemodialysis. Seen by Dr. Morse. --> Needs dialysis ultrafiltration. --> to be completed as per rn shortly 4. Hypertension. --> Systolic blood pressure goal is 140. --> Closely monitor for improvement. --> Medications reviewed. 5. Pain disorder. --> Robaxin for muscle relaxant. 6. Hyperkalemia. Kayexalate versus dialysis. 7. DVT prophylaxis. SCDs.. Greatly appreciate the consultation. Subjective HEENT: Denies: no symptoms, eye pain, blurred vision, tearing, double vision, ear pain, ear discharge, nose pain, nose congestion, throat pain, throat swelling, mouth pain, mouth swelling, other Cardiovascular: Denies: no symptoms, chest pain, edema, irregular heart rate, lightheadedness, palpitations, syncope, other Gastrointestinal/Abdominal: Denies: no symptoms, abdomen distended, abdominal pain, black stools, tarry stools, blood in stool, constipated, diarrhea, difficulty swallowing, nausea, poor appetite, poor fluid intake, rectal bleeding , vomiting, other Endocrine: Denies: no symptoms, excessive sweating, flushing, intolerance to cold, intolerance to heat, increased hunger, increased thirst, increased urine, unexplained weight gain, unexplained weight loss, other Hematologic/Lymphatic: Denies: no symptoms, anemia, easy bleeding, easy bruising, adenopathy, other Allergies: Coded Allergies: CODEINE (Verified Adverse Reaction, Unknown, NAUSEA, 04/18/10) HYDROCODONE (Verified Adverse Reaction, Unknown, 08/17/17) nausea Subjective 05/09: no acute events, elevated bp this morning, hiv, h/h stable 05/10: labs have been reviewed, no bleeding, plts 84k Objective Objective Current Medications Medications (Trade) Dose Ordered Sig/Johnna Route PRN Reason Start Time Stop Time Status Last Admin Dose Admin Acetaminophen (Tylenol) 650 mg Q4H PRN ORAL Mild Pain/Temp > 100.5 05/09/19 04:45 06/07/19 02:29 05/09/19 04:37 Amlodipine Besylate (Norvasc) 10 mg DAILY ORAL 05/09/19 09:00 06/08/19 08:59 05/09/19 09:36 Aspirin (ASA) 81 mg DAILY ORAL 05/08/19 09:00 06/07/19 08:59 05/09/19 09:37 Atorvastatin Calcium (Lipitor) 10 mg BEDTIME ORAL 05/08/19 21:00 06/07/19 20:59 05/09/19 21:06 Clonidine HCl (Catapres tab) 0.2 mg Q8HR ORAL 05/08/19 06:00 06/07/19 05:59 05/10/19 05:37 Docusate Sodium (Colace) 100 mg TID ORAL 05/08/19 13:00 06/07/19 08:59 05/09/19 18:26 Hydralazine HCl (Apresoline) 10 mg Q1H PRN IV For High Blood Pressure 05/09/19 19:00 06/08/19 18:59 05/09/19 22:29 Hydralazine HCl (Apresoline) 50 mg Q8HR ORAL 05/09/19 14:00 06/08/19 13:59 05/10/19 05:37 Methocarbamol (Robaxin) 500 mg Q8H PRN ORAL muscle spasm 05/08/19 09:00 06/07/19 08:59 Minoxidil (Loniten) 2.5 mg Q4H PRN ORAL bp 165 syst 05/07/19 23:00 06/06/19 22:59 05/09/19 15:37 Pantoprazole (Protonix) 40 mg EVERY 12 HOURS ORAL 05/08/19 21:00 06/07/19 20:59 05/09/19 21:06 Sevelamer Carbonate (Renvela) 2,400 mg TID ORAL 05/08/19 13:00 06/07/19 08:59 05/09/19 18:26 Sodium Polystyrene Sulfonate (Kayexalate) 30 gm BID ORAL 05/09/19 09:00 06/08/19 08:59 05/09/19 18:26 Last 24 Hour Vital Signs Date Time Temp Pulse Resp B/P (MAP) Pulse Ox O2 Delivery O2 Flow Rate FiO2 05/10/19 05:37 175/94 05/10/19 05:37 175/94 05/10/19 04:00 69 05/10/19 04:00 98.8 68 19 175/94 (121) 95 05/10/19 04:00 2.0 05/10/19 00:00 96.6 72 18 155/89 (111) 94 05/10/19 00:00 72 05/09/19 22:29 188/107 05/09/19 21:07 189/97 05/09/19 21:07 189/97 05/09/19 21:00 Nasal Cannula 2.0 05/09/19 20:00 84 05/09/19 20:00 2.0 05/09/19 20:00 97.5 68 18 208/102 (137) 94 05/09/19 19:01 73 188/107 (134) 05/09/19 16:00 98.1 83 18 181/96 (124) 98 05/09/19 16:00 81 05/09/19 16:00 2.0 05/09/19 15:37 181/96 05/09/19 13:10 212/110 05/09/19 13:10 212/110 05/09/19 12:18 2.0 05/09/19 12:00 97.8 73 18 188/117 (140) 97 05/09/19 12:00 70 05/09/19 09:36 70 167/92 05/09/19 09:00 Nasal Cannula 2.0 05/09/19 08:30 98.3 70 18 167/92 (117) 97 05/09/19 08:00 69 05/09/19 05:07 97.5 05/09/19 05:07 147/108 05/09/19 04:00 2.0 05/09/19 04:00 97.5 70 20 147/108 (121) 92 05/09/19 04:00 66 05/09/19 01:02 170/101 05/09/19 00:00 98.2 72 20 172/101 (124) 90 05/09/19 00:00 77 05/09/19 00:00 80 05/08/19 21:08 164/93 05/08/19 21:00 Nasal Cannula 2.0 05/08/19 20:00 97.7 79 20 164/93 (116) 97 05/08/19 20:00 2.0 05/08/19 20:00 77 05/08/19 16:00 2.0 05/08/19 16:00 74 05/08/19 16:00 97.0 70 18 149/98 (115) 100 05/08/19 13:24 141/80 05/08/19 12:05 98.7 74 19 141/80 (100) 98 05/08/19 12:05 73 05/08/19 12:00 2.0 05/08/19 09:00 Nasal Cannula 2.0 05/08/19 08:20 142/82 05/08/19 08:00 82 05/08/19 08:00 2.0 05/08/19 08:00 97.6 74 20 154/91 (112) 98 Intake and Output 05/09/19 05/10/19 19:00 07:00 Intake Total 2120 ml Balance 2120 ml Intake Oral 120 ml Hemodialysis 2000 ml # Voids 1 1 # Bowel Movements 1 1 Labs Test 05/07/19 21:00 05/08/19 08:35 05/09/19 06:43 White Blood Count 8.0 K/UL (4.8-10.8) 7.0 K/UL (4.8-10.8) 6.8 K/UL (4.8-10.8) Red Blood Count 3.42 M/UL (4.20-5.40) 2.83 M/UL (4.20-5.40) 2.89 M/UL (4.20-5.40) Hemoglobin 10.5 G/DL (12.0-16.0) 8.8 G/DL (12.0-16.0) 9.0 G/DL (12.0-16.0) Hematocrit 33.2 % (37.0-47.0) 27.5 % (37.0-47.0) 28.0 % (37.0-47.0) Mean Corpuscular Volume 97 FL (80-99) 97 FL (80-99) 97 FL (80-99) Mean Corpuscular Hemoglobin 30.8 PG (27.0-31.0) 31.2 PG (27.0-31.0) 31.2 PG (27.0-31.0) Mean Corpuscular Hemoglobin Concent 31.7 G/DL (32.0-36.0) 32.1 G/DL (32.0-36.0) 32.2 G/DL (32.0-36.0) Red Cell Distribution Width 17.4 % (11.6-14.8) 17.7 % (11.6-14.8) 17.6 % (11.6-14.8) Platelet Count 105 K/UL (150-450) 93 K/UL (150-450) 84 K/UL (150-450) Mean Platelet Volume 7.2 FL (6.5-10.1) 6.3 FL (6.5-10.1) 7.8 FL (6.5-10.1) Neutrophils (%) (Auto) 77.7 % (45.0-75.0) % (45.0-75.0) % (45.0-75.0) Lymphocytes (%) (Auto) 14.2 % (20.0-45.0) % (20.0-45.0) % (20.0-45.0) Monocytes (%) (Auto) 5.3 % (1.0-10.0) % (1.0-10.0) % (1.0-10.0) Eosinophils (%) (Auto) 2.3 % (0.0-3.0) % (0.0-3.0) % (0.0-3.0) Basophils (%) (Auto) 0.6 % (0.0-2.0) % (0.0-2.0) % (0.0-2.0) Prothrombin Time 12.0 SEC (9.30-11.50) Prothromb Time International Ratio 1.1 (0.9-1.1) Activated Partial Thromboplast Time 31 SEC (23-33) Sodium Level 140 MMOL/L (136-145) 141 MMOL/L (136-145) 139 MMOL/L (136-145) Potassium Level 6.0 MMOL/L (3.5-5.1) 5.5 MMOL/L (3.5-5.1) 5.9 MMOL/L (3.5-5.1) Chloride Level 99 MMOL/L (98-107) 100 MMOL/L (98-107) 98 MMOL/L (98-107) Carbon Dioxide Level 28 MMOL/L (21-32) 28 MMOL/L (21-32) 26 MMOL/L (21-32) Anion Gap 13 mmol/L (5-15) 13 mmol/L (5-15) 16 mmol/L (5-15) Blood Urea Nitrogen 57 mg/dL (7-18) 65 mg/dL (7-18) 87 mg/dL (7-18) Creatinine 7.6 MG/DL (0.55-1.30) 8.8 MG/DL (0.55-1.30) 10.7 MG/DL (0.55-1.30) Estimat Glomerular Filtration Rate 6.8 mL/min (>60) 5.7 mL/min (>60) 4.6 mL/min (>60) Glucose Level 89 MG/DL (74-106) 108 MG/DL (74-106) 89 MG/DL (74-106) Calcium Level 8.2 MG/DL (8.5-10.1) 7.6 MG/DL (8.5-10.1) 8.0 MG/DL (8.5-10.1) Total Bilirubin 1.0 MG/DL (0.2-1.0) 0.7 MG/DL (0.2-1.0) 0.7 MG/DL (0.2-1.0) Aspartate Amino Transf (AST/SGOT) 35 U/L (15-37) 26 U/L (15-37) 23 U/L (15-37) Alanine Aminotransferase (ALT/SGPT) 16 U/L (12-78) 14 U/L (12-78) 11 U/L (12-78) Alkaline Phosphatase 206 U/L (46-116) 170 U/L (46-116) 158 U/L (46-116) Troponin I 0.023 ng/mL (0.000-0.056) 0.018 ng/mL (0.000-0.056) Total Protein 9.0 G/DL (6.4-8.2) 8.0 G/DL (6.4-8.2) 7.9 G/DL (6.4-8.2) Albumin 4.0 G/DL (3.4-5.0) 3.6 G/DL (3.4-5.0) 3.6 G/DL (3.4-5.0) Globulin 5.0 g/dL 4.4 g/dL 4.3 g/dL Albumin/Globulin Ratio 0.8 (1.0-2.7) 0.8 (1.0-2.7) 0.8 (1.0-2.7) Differential Total Cells Counted 100 100 Neutrophils % (Manual) 76 % (45-75) 64 % (45-75) Lymphocytes % (Manual) 15 % (20-45) 29 % (20-45) Monocytes % (Manual) 7 % (1-10) 6 % (1-10) Eosinophils % (Manual) 2 % (0-3) 1 % (0-3) Basophils % (Manual) 0 % (0-2) 0 % (0-2) Band Neutrophils 0 % (0-8) 0 % (0-8) Platelet Estimate Decreased Decreased Platelet Morphology Normal Normal Hypochromasia 1+ 2+ Anisocytosis 1+ 1+ Uric Acid 6.1 MG/DL (2.6-7.2) Phosphorus Level 5.8 MG/DL (2.5-4.9) 6.7 MG/DL (2.5-4.9) Magnesium Level 2.4 MG/DL (1.8-2.4) 2.5 MG/DL (1.8-2.4) C-Reactive Protein, Quantitative 1.6 mg/dL (0.00-0.90) 1.6 mg/dL (0.00-0.90) Pro-B-Type Natriuretic Peptide > 48622 pg/mL (0-125) > 35199 pg/mL (0-125) Thyroid Stimulating Hormone (TSH) 6.523 uiU/mL (0.358-3.740) HIV (1&2) Antibody Rapid Negative (NEGATIVE) Hemoglobin A1c 4.5 % (4.3-6.0) Height (Feet): 5 Height (Inches): 5.00 Weight (Pounds): 153 Objective PHYSICAL EXAMINATION: VITAL SIGNS: Reviewed. GENERAL: Not in acute distress. PULMONARY: Decreased breath sounds bilaterally. No crackles, wheezes, or rales. CARDIOVASCULAR: Regular rate. No S3 or S4. ABDOMEN: Soft, nontender, nondistended. EXTREMITIES: 1+ edema. Imtiaz Monge MD May 10, 2019 05:56
--- NOTE | 2019-05-10 07:30 | NUR ---
NURSE NOTES: Received pt from MUSTAPHA AN, Pt is awake and alert. pt has NC 2LMP. pt has intact iv access RH 22G SL. pt is NPO due to ABD US. Dr SEWELL is aware about HTN and other lab results and V/S, He will F/U with Dr SOLANO and RAY. Pt has FACUNDO IV shunt, dressing is intact. All needs attended, bed is locked and is in the lowest position, call light within easy reach. will continue to monitor.
--- NOTE | 2019-05-10 07:47 | NUR ---
HAND-OFF: Report given to MUSTAPHA Sotelo. Plan of care endorsed.
[2019-05-10 08:00] VITALS: BP 195/101
--- NOTE | 2019-05-10 09:05 | General Progress Note ---
Assessment/Plan Assessment/Plan: (1) Viral respiratory infection (2) Myalgias and Arthralgias (3) ESRD on Hemodialysis Patient to be continued on Tylenol D/w Dr. Raza and he concurred. Subjective Date patient seen: May 10, 2019 Time patient seen: 08:15 - am Constitutional: Reports: weakness HEENT: Reports: no symptoms Cardiovascular: Reports: no symptoms Respiratory: Reports: no symptoms Gastrointestinal/Abdominal: Reports: no symptoms Genitourinary: Reports: no symptoms Neurologic/Psychiatric: Reports: no symptoms Endocrine: Reports: no symptoms Hematologic/Lymphatic: Reports: no symptoms Allergies: Coded Allergies: CODEINE (Verified Adverse Reaction, Unknown, NAUSEA, 04/18/10) HYDROCODONE (Verified Adverse Reaction, Unknown, 08/17/17) nausea Subjective Patient is showing no signs of pain or distress. No new complaints at this time. Objective Last 24 Hour Vital Signs Date Time Temp Pulse Resp B/P (MAP) Pulse Ox O2 Delivery O2 Flow Rate FiO2 05/10/19 07:47 185/99 05/10/19 05:37 175/94 05/10/19 05:37 175/94 05/10/19 04:00 69 05/10/19 04:00 98.8 68 19 175/94 (121) 95 05/10/19 04:00 2.0 05/10/19 00:00 96.6 72 18 155/89 (111) 94 05/10/19 00:00 72 05/09/19 22:29 188/107 05/09/19 21:07 189/97 05/09/19 21:07 189/97 05/09/19 21:00 Nasal Cannula 2.0 05/09/19 20:00 84 05/09/19 20:00 2.0 05/09/19 20:00 97.5 68 18 208/102 (137) 94 05/09/19 19:01 73 188/107 (134) 05/09/19 16:00 98.1 83 18 181/96 (124) 98 05/09/19 16:00 81 05/09/19 16:00 2.0 05/09/19 15:37 181/96 05/09/19 13:10 212/110 05/09/19 13:10 212/110 05/09/19 12:18 2.0 05/09/19 12:00 97.8 73 18 188/117 (140) 97 05/09/19 12:00 70 05/09/19 09:36 70 167/92 Intake and Output 05/09/19 05/10/19 19:00 07:00 Intake Total 2120 ml Balance 2120 ml Intake Oral 120 ml Hemodialysis 2000 ml # Voids 1 1 # Bowel Movements 1 1 Height (Feet): 5 Height (Inches): 5.00 Weight (Pounds): 153 General Appearance: no apparent distress, alert EENT: PERRL/EOMI, normal ENT inspection Neck: non-tender, normal alignment Cardiovascular: normal rate, regular rhythm Respiratory/Chest: decreased breath sounds Abdomen: soft, no organomegaly Pelvis: normal rectal exam Extremities: non-tender Edema: no edema noted Generalized Neurologic: alert, oriented x 3 Skin: warm/dry Domo Matthews May 10, 2019 09:05
[2019-05-10] MEDS: Minoxidil 2.5mg tab ORAL PRN (09:36)
[2019-05-10] MEDS: Docusate 100mg cap ORAL SCH (09:36)
[2019-05-10] MEDS: Sodium Polystyrene Sulfonate 15gm Powder ORAL SCH (09:40)
[2019-05-10] MEDS: Aspirin Baby 81mg ORAL SCH (09:45)
--- NOTE | 2019-05-10 09:55 | Infectious Diseases Prog Note ---
Assessment/Plan Assessment/Plan IMPRESSION: Pulmonary edema/ pneumonia End-stage renal disease on hemodialysis, cholelithiasis, hyperkalemia, hypertension, uncontrolled hyperlipidemia, hepatomegaly RECOMMENDATIONS: 1. start on PO Levaquin Subjective ROS Limited/Unobtainable: No Constitutional: Reports: no symptoms Respiratory: Reports: shortness of breath, dry cough Gastrointestinal/Abdominal: Reports: no symptoms Psychiatric: Reports: anxiety Allergies: Coded Allergies: CODEINE (Verified Adverse Reaction, Unknown, NAUSEA, 04/18/10) HYDROCODONE (Verified Adverse Reaction, Unknown, 08/17/17) nausea Objective Vital Signs Last 24 Hour Vital Signs Date Time Temp Pulse Resp B/P (MAP) Pulse Ox O2 Delivery O2 Flow Rate FiO2 05/10/19 09:41 195/101 05/10/19 09:36 195/101 05/10/19 08:00 99.1 64 20 195/101 (132) 93 05/10/19 07:47 185/99 05/10/19 05:37 175/94 05/10/19 05:37 175/94 05/10/19 04:00 69 05/10/19 04:00 98.8 68 19 175/94 (121) 95 05/10/19 04:00 2.0 05/10/19 00:00 96.6 72 18 155/89 (111) 94 05/10/19 00:00 72 05/09/19 22:29 188/107 05/09/19 21:07 189/97 05/09/19 21:07 189/97 05/09/19 21:00 Nasal Cannula 2.0 05/09/19 20:00 84 05/09/19 20:00 2.0 05/09/19 20:00 97.5 68 18 208/102 (137) 94 05/09/19 19:01 73 188/107 (134) 05/09/19 16:00 98.1 83 18 181/96 (124) 98 05/09/19 16:00 81 05/09/19 16:00 2.0 05/09/19 15:37 181/96 05/09/19 13:10 212/110 05/09/19 13:10 212/110 05/09/19 12:18 2.0 05/09/19 12:00 97.8 73 18 188/117 (140) 97 05/09/19 12:00 70 Height (Feet): 5 Height (Inches): 5.00 Weight (Pounds): 153 General Appearance: no acute distress HEENT: mucous membranes moist Respiratory/Chest: decreased breath sounds Cardiovascular: normal rate Abdomen: soft, non tender Extremities: no edema Neurologic/Psychiatric: alert, oriented x 3, responsive Microbiology Date/Time Source Procedure Growth Status 05/07/19 23:00 Nasal Nares MRSA Culture - Final NO METHICILLIN RESISTANT STAPH AUREUS... Complete 05/07/19 20:40 Nasal Nares - Final Complete 05/07/19 20:40 Nasal Nares - Final Complete 05/07/19 23:00 Rectum - Final NO CARBAPENEM-RESISTANT ENTEROBACTERI... Complete 05/07/19 23:00 Rectum VRE Culture - Final NO VANCOMYCIN RESISTANT ENTEROCOCCUS ... Complete Current Medications Medications (Trade) Dose Ordered Sig/Johnna Route PRN Reason Start Time Stop Time Status Last Admin Dose Admin Acetaminophen (Tylenol) 650 mg Q4H PRN ORAL Mild Pain/Temp > 100.5 05/09/19 04:45 06/07/19 02:29 05/09/19 04:37 Amlodipine Besylate (Norvasc) 10 mg DAILY ORAL 05/09/19 09:00 06/08/19 08:59 05/09/19 09:36 Aspirin (ASA) 81 mg DAILY ORAL 05/08/19 09:00 06/07/19 08:59 05/09/19 09:37 Atorvastatin Calcium (Lipitor) 10 mg BEDTIME ORAL 05/08/19 21:00 06/07/19 20:59 05/09/19 21:06 Clonidine HCl (Catapres tab) 0.2 mg Q8HR ORAL 05/08/19 06:00 06/07/19 05:59 05/10/19 05:37 Docusate Sodium (Colace) 100 mg TID ORAL 05/08/19 13:00 06/07/19 08:59 05/10/19 09:36 Hydralazine HCl (Apresoline) 10 mg Q1H PRN IV For High Blood Pressure 05/09/19 19:00 06/08/19 18:59 05/10/19 09:41 Hydralazine HCl (Apresoline) 50 mg Q8HR ORAL 05/09/19 14:00 06/08/19 13:59 05/10/19 05:37 Methocarbamol (Robaxin) 500 mg Q8H PRN ORAL muscle spasm 05/08/19 09:00 06/07/19 08:59 Minoxidil (Loniten) 2.5 mg Q4H PRN ORAL bp 165 syst 05/07/19 23:00 06/06/19 22:59 05/10/19 09:36 Pantoprazole (Protonix) 40 mg EVERY 12 HOURS ORAL 05/08/19 21:00 06/07/19 20:59 05/09/19 21:06 Sevelamer Carbonate (Renvela) 2,400 mg TID ORAL 05/08/19 13:00 06/07/19 08:59 05/10/19 09:36 Sodium Polystyrene Sulfonate (Kayexalate) 30 gm BID ORAL 05/09/19 09:00 06/08/19 08:59 05/10/19 09:40 Kyler Frazier MD May 10, 2019 09:55
--- NOTE | 2019-05-10 10:01 | NUR ---
*-*DISCHARGED PLANNING*-* PATIENT HAS BEEN REFERRED TO: [facility], [place] P: [phone] F: [phone]
--- NOTE | 2019-05-10 10:09 | Cardiac Electrophysiology PN ---
Assessment/Plan Assessment/Plan 1. Volume overloaded. BNP of more than 35,000. The patient's most recent echocardiogram was on February 14 that showed ejection fraction of 60% to 65%, no evidence of pericardial effusion. Continue on hemodialysis. 2. Hypertension. Continue hemodialysis. DC Norvasc 10 mg daily as she is not taking it. Start Procardia XL 30 daily and increase hydralazine to 100 bid. Also on Clonidine 0.2 tid and Isordil 20 every eight hours. 3. History of pericardial effusion. Echo showed no evidence of pericardial effusion. 4. End-stage renal disease, on hemodialysis per Dr Zamora 5. Hyperkalemia, was corrected after dialysis. DW RN Wants to leave AMA Subjective Subjective Had HD yesterday. Refused to take Norvasc and BP 190s despite prn Hydralazine. She wants the exact thing she gets at home but doesn't know what they are or their dosages.RN at bedside Objective Last 24 Hour Vital Signs Date Time Temp Pulse Resp B/P (MAP) Pulse Ox O2 Delivery O2 Flow Rate FiO2 05/10/19 09:45 64 195/101 05/10/19 09:41 195/101 05/10/19 09:36 195/101 05/10/19 08:00 99.1 64 20 195/101 (132) 93 05/10/19 07:47 185/99 05/10/19 05:37 175/94 05/10/19 05:37 175/94 05/10/19 04:00 69 05/10/19 04:00 98.8 68 19 175/94 (121) 95 05/10/19 04:00 2.0 05/10/19 00:00 96.6 72 18 155/89 (111) 94 05/10/19 00:00 72 05/09/19 22:29 188/107 05/09/19 21:07 189/97 05/09/19 21:07 189/97 05/09/19 21:00 Nasal Cannula 2.0 05/09/19 20:00 84 05/09/19 20:00 2.0 05/09/19 20:00 97.5 68 18 208/102 (137) 94 05/09/19 19:01 73 188/107 (134) 05/09/19 16:00 98.1 83 18 181/96 (124) 98 05/09/19 16:00 81 05/09/19 16:00 2.0 05/09/19 15:37 181/96 05/09/19 13:10 212/110 05/09/19 13:10 212/110 05/09/19 12:18 2.0 05/09/19 12:00 97.8 73 18 188/117 (140) 97 05/09/19 12:00 70 Intake and Output 05/09/19 05/10/19 19:00 07:00 Intake Total 2120 ml Balance 2120 ml Intake Oral 120 ml Hemodialysis 2000 ml # Voids 1 1 # Bowel Movements 1 1 Microbiology Date/Time Source Procedure Growth Status 05/07/19 23:00 Nasal Nares MRSA Culture - Final NO METHICILLIN RESISTANT STAPH AUREUS... Complete 05/07/19 20:40 Nasal Nares - Final Complete 05/07/19 20:40 Nasal Nares - Final Complete 05/07/19 23:00 Rectum - Final NO CARBAPENEM-RESISTANT ENTEROBACTERI... Complete 05/07/19 23:00 Rectum VRE Culture - Final NO VANCOMYCIN RESISTANT ENTEROCOCCUS ... Complete Objective HEAD AND NECK: Mild JVD. LUNGS: Have coarse rhonchi. CARDIOVASCULAR: Regular S1 and S2 with no gallop or murmur. ABDOMEN: Soft. EXTREMITIES: No pitting edema. Janak Charles MD May 10, 2019 10:09
--- NOTE | 2019-05-10 10:13 | NUR ---
NURSE NOTES: Dr HUSSEIN visited pt and he is aware about BP 195/101, and all BP meds Dr HUSSEIN spoke with pt and he will F/U. Pt asking to go home, Dr [place] notified, ordered D/C pt home with HH if clear by Dr HUSSEIN and Dr SOLANO, Dr HUSSEIN notified and ordered to D/C pt if BP<150, will continue to monitor.
--- NOTE | 2019-05-10 10:19 | NUR ---
*-*DISCHARGED PLANNING*-* PATIENT HAS BEEN REFERRED TO: [facility] P: [phone] F: [phone] REFERAL WAS FAXED
--- NOTE | 2019-05-10 10:31 | NUR ---
NURSE NOTES: Dr SOLANO visited pt and is aware, but didn't clear pt, pt and Dr [place] notified. will continue to monitor.
[2019-05-10 10:54] VITALS: BP 147/96
--- NOTE | 2019-05-10 10:57 | NUR ---
NURSE NOTES: Dr JON is aware about BP 147/96, still he doesn't clear pt, Dr [place] notified. will continue to monitor.
--- NOTE | 2019-05-10 11:17 | Pulmonology Progress Note ---
Assessment/Plan Assessment/Plan IMPRESSION: 1. Pulmonary edema. 2. ESRD, on dialysis. 3. Hypertension. DISCUSSION: Agree with current medications and care. Continue blood pressure control, on dialysis. Continue oxygen and pulmonary hygiene. I will follow as financial services professional. Luke Huston M.D. Subjective Interval Events: None new Constitutional: Reports: no symptoms HEENT: Repors: no symptoms Respiratory: Reports: no symptoms Cardiovascular: Reports: no symptoms Gastrointestinal/Abdominal: Reports: no symptoms Genitourinary: Reports: no symptoms Allergies: Coded Allergies: CODEINE (Verified Adverse Reaction, Unknown, NAUSEA, 04/18/10) HYDROCODONE (Verified Adverse Reaction, Unknown, 08/17/17) nausea Objective Last 24 Hour Vital Signs Date Time Temp Pulse Resp B/P (MAP) Pulse Ox O2 Delivery O2 Flow Rate FiO2 05/10/19 10:54 86 147/96 (113) 05/10/19 09:45 64 195/101 05/10/19 09:41 195/101 05/10/19 09:36 195/101 05/10/19 09:00 Nasal Cannula 2.0 05/10/19 08:00 2.0 05/10/19 08:00 99.1 64 20 195/101 (132) 93 05/10/19 07:47 185/99 05/10/19 07:27 64 05/10/19 05:37 175/94 05/10/19 05:37 175/94 05/10/19 04:00 69 05/10/19 04:00 98.8 68 19 175/94 (121) 95 05/10/19 04:00 2.0 05/10/19 00:00 96.6 72 18 155/89 (111) 94 05/10/19 00:00 72 05/09/19 22:29 188/107 05/09/19 21:07 189/97 05/09/19 21:07 189/97 05/09/19 21:00 Nasal Cannula 2.0 05/09/19 20:00 84 05/09/19 20:00 2.0 05/09/19 20:00 97.5 68 18 208/102 (137) 94 05/09/19 19:01 73 188/107 (134) 05/09/19 16:00 98.1 83 18 181/96 (124) 98 05/09/19 16:00 81 05/09/19 16:00 2.0 05/09/19 15:37 181/96 05/09/19 13:10 212/110 05/09/19 13:10 212/110 05/09/19 12:18 2.0 05/09/19 12:00 97.8 73 18 188/117 (140) 97 05/09/19 12:00 70 Intake and Output 05/09/19 05/10/19 19:00 07:00 Intake Total 2120 ml Balance 2120 ml Intake Oral 120 ml Hemodialysis 2000 ml # Voids 1 1 # Bowel Movements 1 1 General Appearance: no acute distress HEENT: normocephalic Respiratory/Chest: chest wall non-tender, lungs clear Cardiovascular: normal peripheral pulses, normal rate Abdomen: normal bowel sounds, soft, non tender Microbiology Date/Time Source Procedure Growth Status 05/07/19 23:00 Nasal Nares MRSA Culture - Final NO METHICILLIN RESISTANT STAPH AUREUS... Complete 05/07/19 20:40 Nasal Nares - Final Complete 05/07/19 20:40 Nasal Nares - Final Complete 05/07/19 23:00 Rectum - Final NO CARBAPENEM-RESISTANT ENTEROBACTERI... Complete 05/07/19 23:00 Rectum VRE Culture - Final NO VANCOMYCIN RESISTANT ENTEROCOCCUS ... Complete Current Medications Medications (Trade) Dose Ordered Sig/Johnna Route PRN Reason Start Time Stop Time Status Last Admin Dose Admin Acetaminophen (Tylenol) 650 mg Q4H PRN ORAL Mild Pain/Temp > 100.5 05/09/19 04:45 06/07/19 02:29 05/09/19 04:37 Aspirin (ASA) 81 mg DAILY ORAL 05/08/19 09:00 06/07/19 08:59 05/09/19 09:37 Atorvastatin Calcium (Lipitor) 10 mg BEDTIME ORAL 05/08/19 21:00 06/07/19 20:59 05/09/19 21:06 Clonidine HCl (Catapres tab) 0.2 mg Q8HR ORAL 05/08/19 06:00 06/07/19 05:59 05/10/19 05:37 Docusate Sodium (Colace) 100 mg TID ORAL 05/08/19 13:00 06/07/19 08:59 05/10/19 09:36 Hydralazine HCl (Apresoline) 10 mg Q1H PRN IV For High Blood Pressure 05/09/19 19:00 06/08/19 18:59 05/10/19 09:41 Hydralazine HCl (Apresoline) 100 mg BID ORAL 05/10/19 18:00 06/08/19 13:59 Levofloxacin (Levaquin) 250 mg DAILY ORAL 05/10/19 10:15 05/17/19 10:14 05/10/19 10:56 Methocarbamol (Robaxin) 500 mg Q8H PRN ORAL muscle spasm 05/08/19 09:00 06/07/19 08:59 Minoxidil (Loniten) 2.5 mg Q4H PRN ORAL bp 165 syst 05/07/19 23:00 06/06/19 22:59 05/10/19 09:36 Nifedipine (Procardia XL) 30 mg DAILY ORAL 05/11/19 09:00 06/10/19 08:59 Pantoprazole (Protonix) 40 mg EVERY 12 HOURS ORAL 05/08/19 21:00 06/07/19 20:59 05/09/19 21:06 Sevelamer Carbonate (Renvela) 2,400 mg TID ORAL 05/08/19 13:00 06/07/19 08:59 05/10/19 09:36 Sodium Polystyrene Sulfonate (Kayexalate) 30 gm BID ORAL 05/09/19 09:00 06/08/19 08:59 05/10/19 09:40 Luke Huston MD May 10, 2019 11:17
--- NOTE | 2019-05-10 11:24 | NUR ---
NURSE NOTES: Pt signed AMA, CN and SW notified, KEENAN Raza FOULADIAN, notified, pt knows about [facility] , [phone]. All belongings are with pt and pt signed belongings list. pt is stable, V/S stable, BP 147/96 HR 86. IV access D/C. Pt left hospital with accompany of daughter.
[2019-05-10] MEDS ORDERED: HydrALAZINE 50mg tab ORAL SCH (18:00)
--- NOTE | 2019-05-11 22:25 | Discharge Summary ---
Discharge Summary Discharge Summary _ DATE OF ADMISSION: 05/07/2019 DATE OF DISCHARGE: 05/10/2019 CONSULTANTS: Dr. Lois Morse [facility] COURSE: Patient is a 53-year-old female, who presented to ED after increased cough and difficulty breathing. Patient had gradual onset of symptoms. He had history of end-stage renal disease and had hemodialysis. He complained of nonproductive cough, he also had episodes of intermittent vomiting.. Symptoms started 2 to 3 days. Shortness of breath was worse in supine position. He had increased difficulty with sleep and increased cough at night. Upon evaluation at ED, vital signs were elevated. Blood work showed no leukocytosis hemoglobin 10, hematocrit 33. Potassium was elevated to 6.0. BUN 57 and creatinine 7.6. proBNP more than 35,000. Chest x-ray showed pulmonary edema. Influenza screen was negative. She was given calcium gluconate and Kayexalate. She was then admitted for evaluation of fluid overload, CHF, hyperkalemia, and viral respiratory infection. She was admitted to monitored floor. Emergent hemodialysis was ordered by [employer]. She was placed on renal diet. Patient had shortness of breath. She was given supplemental O2. Patient had a recent echocardiogram done in February that showed ejection fraction of 60 to 65%, no evidence of pericardial effusion. She was continued on clonidine and minoxidil. She was given Norvasc , hydralazine and Isordil. She was given Tylenol for pain. Patient had thrombocytopenia and anemia. Prior CT scan of the abdomen and pelvis did not show any evidence of cirrhosis. Prior hepatitis and HIV panel were negative. HIV screening was again negative. Hepatitis B surface antigen still pending. Hemodialysis was 05/09/2019. Blood pressure was elevated. Patient was refusing Norvasc. She was then started on Procardia XL 30 mg. Hydralazine was increased to 100 mg twice daily. She was continued on clonidine 0.2 mg 3 times daily and Isordil 20 mg every 8 hours. Full treatment was not carried out as patient left against medical advise. FINAL DIAGNOSES: Volume overload Pulmonary edema Hyperkalemia Viral respiratory infection Hypertension with hypertensive urgency End-stage renal disease on hemodialysis Thrombocytopenia Anemia of chronic disease Hyperlipidemia Hepatomegaly DISPOSITION: Patient left against medical advise. I have been assigned to complete a discharge summary on this account, I was not involved with the patient's management.--OYVANI Russell Jacqueline Robles NP May 11, 2019 22:25
== END 2019-05-10 11:24 | disposition left against medical advice (07) | DRG 640 ==
LOC: EMR 21:28 → 2E 22:01 → EDBEDREQ 23:54
PROC: 5A1D70Z Performance of Urinary Filtration, Intermittent, Less than 6 Hours Per Day (ICD-10-PCS; principal; 2019-05-09)
DX: E87.5 Hyperkalemia (principal); N18.6 End stage renal disease; I13.2 Hypertensive heart and chronic kidney disease with heart failure and with stage 5 chronic kidney disease, or end stage renal disease; K81.0 Acute cholecystitis; E87.79 Other fluid overload; Z88.6 Allergy status to analgesic agent; Z99.2 Dependence on renal dialysis; Z79.82 Long term (current) use of aspirin; D69.6 Thrombocytopenia, unspecified; R06.03 Acute respiratory distress; I16.0 Hypertensive urgency; B34.9 Viral infection, unspecified; J98.8 Other specified respiratory disorders; D63.8 Anemia in other chronic diseases classified elsewhere; E78.5 Hyperlipidemia, unspecified; R16.0 Hepatomegaly, not elsewhere classified; I50.9 Heart failure, unspecified; K29.70 Gastritis, unspecified, without bleeding
CPT/HCPCS: 36415; 71045; 80053; 83036; 83735; 83880; 84100; 84132; 84443; 84484; 84550; 85007; 85025; 85610; 85730; 86140; 86703; 86706; 86710; 87081; 93005; 96374; 96375; 99285; J2405; J7620

== ENCOUNTER 2019-10-22 23:34 | Emergency (ER) | payer MEDICARE, OTHER ==
[~2019-10-22] VITALS: Ht 165.1 cm; Wt 60.8 kg
[~2019-10-22 23:34] MED LIST changes: +GUAIFENESIN DM118 M1 ORAL
[2019-10-22 23:56] VITALS: BP 210/90
--- NOTE | 2019-10-23 00:02 | Emergency Room Report ---
History of Present Illness General Chief Complaint: Abdominal Pain Source: Patient Present Illness HPI This is a 54-year-old female with a history of high blood pressure and renal failure on hemodialysis. Dialysis days are Monday, and Monday. She presents with chief plaint abdominal pain and diarrhea. Onset for last couple days. Diarrhea is profuse and watery. She took Kaopectate and symptoms worsen. Pain is diffuse in nature. 9 out of 10. No nausea or vomiting. No fever or chills. She missed dialysis today because of her pain and diarrhea. She is scheduled for another emergent treatment on Monday at 4 AM. No radiation of the pain. Worse with movement and palpation. Nothing made it better. Allergies: Coded Allergies: CODEINE (Verified Adverse Reaction, Unknown, NAUSEA, 10/22/19) HYDROCODONE (Verified Adverse Reaction, Unknown, 10/22/19) nausea COVID-19 Screening Contact w/high risk pt: No Experienced COVID-19 symptoms?: No COVID-19 Testing performed [employer]: Yes COVID-19 Screening: Negative COVID-19 COVID-19 Testing Source: [facility] has been - 5x per pt. Patient History Past Medical History: see triage record, old chart reviewed, HTN, renal disease , dialysis Past Surgical History: other Pertinent Family History: none Social History: Denies: smoking Last Menstrual Period: Few years ago per pt. Now: No Immunizations: other Reviewed Nursing Documentation: PMH: Agreed; PSxH: Agreed Nursing Documentation-PMH Past Medical History: No History, Except For Hx Cardiac Problems: Yes Hx Hypertension: Yes Hx Cancer: No Hx Gastrointestinal Problems: Yes - ABD pain, cholelithiasis Hx Dialysis: Yes - // hemodialysis, previously had peritoneal dialysis Hx Neurological Problems: No Hx Cerebrovascular Accident: No Hx Transient Ischemic Attacks: No Hx Dementia: No Hx Alzheimer's Disease: No Hx Parkinson's Disease: No Hx Meningitis: No Hx Encephalitis: No Hx Seizures: No Hx Epilepsy: No Hx Multiple Sclerosis: No Hx Cerebral Palsy: No Hx Amyotrophic Lat Sclerosis: No Hx Guillian-Osgood Syndrome: No Hx Paralysis: No Hx Peripheral Neuropathy: No Hx Head Trauma: No Hx Traumatic Brain Injury: No Hx Memory Loss: No Hx Concentration Difficulty: No Hx Speech Problem: No Hx Tremors: No Hx Vertigo: No Hx Dizziness: No Hx Syncope: No Hx Headaches: No Hx Aphasia: No Hx Dysphasia: No Hx Weakness: No Hx Fatigue: No Hx Neurologic Surgery: No Hx Brain Shunt: No Review of Systems Eye: Denies: eye pain, blurred vision ENT: Denies: ear pain, nose congestion, throat swelling Respiratory: Denies: cough, shortness of breath Cardiovascular: Denies: chest pain, palpitations Gastrointestinal: Reports: abdominal pain, diarrhea; Denies: nausea, vomiting Musculoskeletal: Denies: back pain, joint pain Skin: Denies: rash Neurological: Denies: headache, numbness Endocrine: Denies: increased thirst, increased urine Hematologic/Lymphatic: Denies: easy bruising All Other Systems: negative except mentioned in HPI Physical Exam Vital Signs Date Time Temp Pulse Resp B/P (MAP) Pulse Ox O2 Delivery O2 Flow Rate FiO2 10/22/19 23:38 99.0 57 16 207/92 (130) 95 Room Air Vitals with high blood pressure Sp02 EP Interpretation: reviewed, normal General Appearance: well appearing, no apparent distress, alert Head: normocephalic, atraumatic Eyes: bilateral eye PERRL, bilateral eye EOMI ENT: hearing grossly normal, normal pharynx Neck: full range of motion, supple, no meningismus Respiratory: chest non-tender, lungs clear, normal breath sounds Cardiovascular #1: regular rate, rhythm, no murmur Gastrointestinal: no mass, no organomegaly, no bruit, abnormal bowel sounds - Hyperactive gurgling, distended, tenderness - Diffuse Musculoskeletal: back normal, normal range of motion, gait/station normal Psychiatric: mood/affect normal Procedures Critical Care Time Critical Care Time Critical care is mandated in this patient who presented with hyperkalemia. Patient require my urgent intervention to attenuate the risks of metabolic collapse which may lead to cardiovascular collapse and . Critical care time is 35 minutes excluding any reportable procedure. Critical care time included evaluation, multiple reevaluation, looking at old charts, interpreting laboratory and diagnostic data, discussing case with patient and family and consultants, and charting. Medical Decision Making Diagnostic Impression: Primary Impression: Abdominal pain Qualified Codes: R10.84 - Generalized abdominal pain Additional Impressions: Acute hyperkalemia ESRD (end stage renal disease) on dialysis Hypertension Qualified Codes: I10 - Essential (primary) hypertension Pleural effusion, right Anemia Qualified Codes: D64.9 - Anemia, unspecified Fluid overload Qualified Codes: E87.70 - Fluid overload, unspecified ER Course This patient presents with abdominal pain. She does have a history of abdominal pain. CT scan of the abdomen is unremarkable however. No acute process to explain her pain. She does have anasarca. She does have fluid overloaded. She missed her dialysis on Monday. Potassium is elevated at 8. EKG showed no peaked T waves. Medication given. Will repeat labs. Will admit for dialysis. I contacted Dr. Elmore for admission. I discussed case with Dr. Morse who will arrange for dialysis. EKG Diagnostic Results Rate: normal Rhythm: NSR ST Segments: no acute changes Rhythm Strip Diag. Results EP Interpretation: yes Rate: 84 Rhythm: NSR, no PVC's, no ectopy Chest X-Ray Diagnostic Results Chest X-Ray Diagnostic Results : Chest X-Ray Ordered: Yes # of Views/Limited/Complete: 1 View Indication: Chest Pain EP Interpretation: Yes Interpretation: no consolidation, no effusion, no pneumothorax, other - CM Impression: Other - CM Electronically Signed by: Herbie Santoro MD CT/MRI/US Diagnostic Results CT/MRI/US Diagnostic Results : Imaging Test Ordered: CT abdomen and pelvis Impression Read by radiologist. Moderate right pleural effusion. Cholelithiasis. Abdominal and pelvic ascites. Last Vital Signs Date Time Temp Pulse Resp B/P (MAP) Pulse Ox O2 Delivery O2 Flow Rate FiO2 10/22/19 23:56 99.0 60 16 210/90 100 Room Air Status: improved Disposition: ADMITTED INPATIENT Condition: Serious Herbie Santoro MD Oct 23, 2019 00:02
[2019-10-23 00:58] LABS: BASOPHILS % (AUTO) 0.9 % (0.0-2.0); EOSINOPHILS % (AUTO) 2.4 % (0.0-3.0); HEMOGLOBIN 8.5 G/DL (12.0-16.0); LYMPHOCYTES % (AUTO) 15.5 % (20.0-45.0); MEAN CORPUSCULAR VOLUME 98 FL (80-99); MONOCYTES % (AUTO) 7.4 % (1.0-10.0); NEUTROPHILS % (AUTO) 73.9 % (45.0-75.0); PLATELET COUNT 183 K/UL (150-450); RED BLOOD COUNT 2.85 M/UL (4.20-5.40); RED CELL DISTRIBUTION WIDTH 19.5 % (11.6-14.8); WHITE BLOOD COUNT 11.8 K/UL (4.8-10.8)
[2019-10-23 01:14] LABS: ALANINE AMINOTRANSFERASE 55 U/L (12-78); ALBUMIN 4.2 G/DL (3.4-5.0); ALBUMIN/GLOBULIN RATIO 0.8 (1.0-2.7); ALKALINE PHOSPHATASE 270 U/L (46-116); ANION GAP 16 mmol/L (5-15); ASPARTATE AMINO TRANSFERASE 43 U/L (15-37); BILIRUBIN,TOTAL 0.4 MG/DL (0.2-1.0); BLOOD UREA NITROGEN 122 mg/dL (7-18); CARBON DIOXIDE 23 MMOL/L (21-32); CHLORIDE 98 MMOL/L (98-107); CREATININE 11.9 MG/DL (0.55-1.30); SODIUM 138 MMOL/L (136-145)
[2019-10-23] MEDS ORDERED: HYDROmorphone 1mg/ml Carpuject IVP ONE ×2 (01:30)
[2019-10-23] MEDS ORDERED: Calcium Gluconate 1gm/10ml vial IVP ONE (01:30)
[2019-10-23] MEDS ORDERED: Insulin Human Regular 100units/ml 3ml IV ONE (01:30)
[2019-10-23 02:10] VITALS: BP 183/83
[2019-10-23] MEDS ORDERED: HYDRALAZINE HC100 MG ORAL (02:15)
[2019-10-23] MEDS ORDERED: cloNIDine 0.2mg Tab ORAL ONE (02:15)
[2019-10-23] MEDS ORDERED: Sodium Polystyrene Sulfonate 15gm Powder ORAL ONE (02:15)
[2019-10-23] MEDS ORDERED: ADALAT10 MG ORAL (02:16)
[2019-10-23] MEDS ORDERED: NORVASC2.5 MG ORAL (02:19)
[2019-10-23 02:37] VITALS: BP 176/79
--- NOTE | 2019-10-23 02:39 | Diagnostic Imaging Report ---
EXAM: CT Abdomen and Pelvis Without Intravenous Contrast CLINICAL HISTORY: ABD PAIN TECHNIQUE: Axial computed tomography images of the abdomen and pelvis without intravenous contrast. CTDI is 4.5 mGy and DLP is 251.2 mGy-cm. One or more of the following dose reduction techniques were used: automated exposure control, adjustment of the mA and/or kV according to patient size, use of iterative reconstruction technique. COMPARISON: CT February 05, 2019 FINDINGS: Lung bases: Unremarkable. No mass. No consolidation. Pleural space: Moderate right pleural effusion. Ground-glass opacities at the lung bases, which should be correlated with chest CT to exclude viral pneumonitis. Marked cardiomegaly. Status post CABG. Bilateral valve prosthetic device. Median sternotomy wires. ABDOMEN: Liver: Unremarkable. Gallbladder and bile ducts: Cholelithiasis. No ductal dilation. Pancreas: Unremarkable. No ductal dilation. Spleen: Unremarkable. No splenomegaly. Adrenals: Unremarkable. No mass. Kidneys and ureters: Bilateral renal atrophy. No obstructing stones. No hydronephrosis. Stomach and bowel: Mild wall thickening of the distal stomach, which be correlated for mild gastritis. No obstruction. PELVIS: Appendix: Not visualized. Bladder: Unremarkable. No stones. Reproductive: Unremarkable as visualized. ABDOMEN and PELVIS: Intraperitoneal space: Abdominal and pelvic ascites. No free air. Bones/joints: Degenerative changes of the spine. No acute fracture. No dislocation. Soft tissues: Anasarca. Vasculature: Atherosclerotic changes of the aorta. No abdominal aortic aneurysm. Lymph nodes: Suboptimally evaluated. IMPRESSION: Moderate right pleural effusion. Ground-glass opacities at the lung bases, which should be correlated with chest CT to exclude viral pneumonitis. Marked cardiomegaly. Status post CABG. Bilateral valve prosthetic device. Median sternotomy wires. Cholelithiasis. Bilateral renal atrophy. Mild wall thickening of the distal stomach, which be correlated for mild gastritis. Abdominal and pelvic ascites. Anasarca. No acute diverticulitis or small bowel obstruction. No free peritoneal air. No definite abdominal mass however evaluation is limited due to large volume ascites.
[2019-10-23 03:26] LABS: ANION GAP 16 mmol/L (5-15); BLOOD UREA NITROGEN 122 mg/dL (7-18); CALCIUM 9.1 MG/DL (8.5-10.1); CARBON DIOXIDE 22 MMOL/L (21-32); CHLORIDE 98 MMOL/L (98-107); CREATININE 11.5 MG/DL (0.55-1.30); SODIUM 137 MMOL/L (136-145)
[2019-10-23 03:27] VITALS: BP 162/79
[2019-10-23 03:48] LABS: POTASSIUM 7.1 MMOL/L (3.5-5.1)
[2019-10-23 05:54] VITALS: BP 163/78
[2019-10-23] MEDS ORDERED: Sodium Polystyrene Sulfonate 15gm Powder ORAL SCH (06:45)
--- NOTE | 2019-10-23 15:37 | Diagnostic Imaging Report ---
Indication: Abdominal pain Technique: One view of the chest Comparison: 05/09/2019 Findings: Heart is enlarged there is mild bilateral interstitial congestion. Pleural spaces are clear. There is evidence of interim cardiac valve repair Impression: Cardiomegaly. Mild interstitial congestion
== END 2019-10-23 05:54 | disposition left against medical advice (07) ==
LOC: EMR 10-23 → UNDOADMIN 10-23 02:30 → 2E 10-23 02:30 → EDBEDREQ 10-23 04:11 → 2E 10-23 04:58
DX: R10.84 Generalized abdominal pain (principal); E87.5 Hyperkalemia; I12.0 Hypertensive chronic kidney disease with stage 5 chronic kidney disease or end stage renal disease; N18.6 End stage renal disease; Z99.2 Dependence on renal dialysis; J90 Pleural effusion, not elsewhere classified; D64.9 Anemia, unspecified; E87.70 Fluid overload, unspecified; Z88.6 Allergy status to analgesic agent; K80.20 Calculus of gallbladder without cholecystitis without obstruction; R18.8 Other ascites
CPT/HCPCS: 36415; 71045; 74176; 80048; 80053; 83690; 84484; 85025; 87081; 93005; 96374; 96375; 96376; 99291; J0360; J0610; J1170; J1815; J1940; J2405; U0002

== ENCOUNTER 2020-02-05 03:14 | Emergency (ER) | payer MEDICARE, OTHER ==
[~2020-02-05] VITALS: Ht 165.1 cm; Wt 68.0 kg
[~2020-02-05 03:14] MED LIST changes: +ADALAT10 MG ORAL; +HYDRALAZINE HC100 MG ORAL; +NORVASC2.5 MG ORAL
--- NOTE | 2020-02-05 03:57 | Emergency Room Report ---
History of Present Illness General Chief Complaint: Pain Source: Patient Present Illness HPI Disclaimer: Please note that this report is being documented using DRAGON technology. This can lead to erroneous entry secondary to incorrect interpretation by the dictating instrument. HPI: 54-year-old female history of ESRD on hemodialysis MWF presents for evaluation of back and abdominal pain. Patient states she had some right-sided back pain for the past day but has been largely ignoring it. Does not recall specific injury. Located lower right side, nonradiating, aching quality. Today, for dinner she states she had a piece of pork after which she developed severe epigastric and periumbilical pain as well as abdominal distention. The back pain around the right side now radiates around to the front. Denies nausea, vomiting, diarrhea. Completed hemodialysis 2 days ago and is scheduled for this morning. Denies fever, chills, shortness of breath or chest pain. PMH: ESRD, restless leg syndrome PSH: Sternotomy, prosthetic valve Allergies: Codeine, hydrocodone Social Hx: Reviewed Allergies: Coded Allergies: CODEINE (Verified Adverse Reaction, Unknown, NAUSEA, 10/22/19) HYDROCODONE (Verified Adverse Reaction, Unknown, 10/22/19) nausea COVID-19 Screening Contact w/high risk pt: No Experienced COVID-19 symptoms?: No COVID-19 Testing performed LAY OUT HELPER: No Patient History Now: No Nursing Documentation-PMH Hx Cardiac Problems: Yes Hx Hypertension: Yes Hx Cancer: No Hx Gastrointestinal Problems: Yes - ABD pain, cholelithiasis Hx Dialysis: Yes - T//S hemodialysis, previously had peritoneal dialysis Hx Cerebrovascular Accident: No Hx Transient Ischemic Attacks: No Hx Dementia: No Hx Alzheimer's Disease: No Hx Parkinson's Disease: No Hx Meningitis: No Hx Encephalitis: No Hx Seizures: No Hx Epilepsy: No Hx Multiple Sclerosis: No Hx Cerebral Palsy: No Hx Amyotrophic Lat Sclerosis: No Hx Guillian-Hobbs Syndrome: No Hx Paralysis: No Hx Peripheral Neuropathy: No Hx Head Trauma: No Hx Traumatic Brain Injury: No Hx Memory Loss: No Hx Concentration Difficulty: No Hx Speech Problem: No Hx Tremors: No Hx Vertigo: No Hx Dizziness: No Hx Syncope: No Hx Headaches: No Hx Aphasia: No Hx Dysphasia: No Hx Weakness: No Hx Fatigue: No Hx Neurologic Surgery: No Hx Brain Shunt: No Review of Systems All Other Systems: negative except mentioned in HPI Physical Exam Vital Signs Date Time Temp Pulse Resp B/P (MAP) Pulse Ox O2 Delivery O2 Flow Rate FiO2 02/05/20 03:27 98.4 59 20 202/94 (130) 98 Room Air General: Awake and alert, no acute distress HEENT: NC/AT. EOMI. Cardiovascular: RRR. Resp: Normal work of breathing. No cough, wheezing or crackles appreciated Abdomen: Abdomen is somewhat distended. There is tenderness palpation around the periumbilical region. No significant numbness in the other quadrants. No mass. No rebound. Skin: Intact. No abrasions, laceration or rash over the exposed skin MSK: Normal tone and bulk. Moving all extremities. No obvious deformity. Neuro: Awake and alert. Mentating appropriately. Spine: No tenderness, step-off or deformity in the midline in the lower lumbar spine. Moderate paraspinal tenderness on the right side extending over the right iliac crest Procedures Critical Care Time Critical Care Time Total critical care time: Approximately 45 minutes Due to a high probability of clinically significant, life threatening deterioration, the patient required the highest level of preparedness to intervene emergently and I personally spent this critical care time directly and personally managing the patient. This critical care time included obtaining a history, examining the patient, pulse oximetry, ordering and reviewing studies, ordering treatments, evaluating response to treatment and updating management plan as needed, frequent reassessment and discussion with other providers as well as arranging for ultimate disposition. This critical to care time was performed to assess and manage the high probability of life-threatening deterioration that could result in multiorgan failure. This critical care time is separate from the separately billable procedures and treating other patients. Medical Decision Making Diagnostic Impression: Primary Impression: Abdominal pain Additional Impressions: ESRD (end stage renal disease) on dialysis Hyperkalemia Left against medical advice [facility] ER Course 54-year-old female presenting for evaluation of abdominal pain and back pain. Differential includes was not limited to gastritis, gastroenteritis, cholecystitis, cholelithiasis, pancreatitis, bowel obstruction, appendicitis, nephrolithiasis, back strain, back spasm, osteoarthritis among others. CT shows atrophic kidneys, small right pleural effusion, cardiomegaly, cholelithiasis with gallbladder wall thickening but no small bowel obstruction, acute diverticulitis signs of appendicitis. These other findings are consistent with the patient's prior scan from November 2019. Patient has no tenderness in the right upper quadrant to suggest cholecystitis. 0620: Potassium returned critically elevated. I ordered calcium gluconate, insulin and dextrose. Arranged for admission however the patient states she would not be admitted to this hospital under any circumstance. I explained to her that her potassium is critically elevated and could cause a life-threatening arrhythmia which she states she understood and repeated back to me. She states her potassium has been very high in the past and she needs to go to dialysis. Her appointment for hemodialysis mornings at 8:30 AM. She states she does not want to be admitted to this hospital under any circumstances as the one time she was admitted she had a bad experience. She understands that leaving this hospital could cause significant morbidity and even mortality. She was articulate and was able to express her feelings and thoughts on the matter to me. She was agreeable to receiving medications prior to departure. She is capable of making the decision of leaving AGAINST MEDICAL ADVICE. She signed paperwork attesting her wish to leave AGAINST MEDICAL ADVICE. Laboratory Tests Test 02/05/20 04:00 02/05/20 04:10 02/05/20 05:10 Urine Color Pending Urine Appearance Pending Urine pH Pending Urine Specific [place] Pending Urine Protein Pending Urine Glucose (UA) Pending Urine Ketones Pending Urine Blood Pending Urine Nitrite Pending Urine Bilirubin Pending Urine Urobilinogen Pending Urine Leukocyte Esterase Pending White Blood Count 9.6 K/UL (4.8-10.8) 9.5 K/UL (4.8-10.8) Red Blood Count 3.45 M/UL (4.20-5.40) L 3.39 M/UL (4.20-5.40) L Hemoglobin 10.1 G/DL (12.0-16.0) L 10.0 G/DL (12.0-16.0) L Hematocrit 32.5 % (37.0-47.0) L 31.6 % (37.0-47.0) L Mean Corpuscular Volume 94 FL (80-99) 93 FL (80-99) Mean Corpuscular Hemoglobin 29.2 PG (27.0-31.0) 29.5 PG (27.0-31.0) Mean Corpuscular Hemoglobin Concent 31.0 G/DL (32.0-36.0) L 31.7 G/DL (32.0-36.0) L Red Cell Distribution Width 17.6 % (11.6-14.8) H 16.4 % (11.6-14.8) H Platelet Count 92 K/UL (150-450) L 87 K/UL (150-450) L Mean Platelet Volume 9.0 FL (6.5-10.1) 9.1 FL (6.5-10.1) Neutrophils (%) (Auto) % (45.0-75.0) % (45.0-75.0) Lymphocytes (%) (Auto) % (20.0-45.0) % (20.0-45.0) Monocytes (%) (Auto) % (1.0-10.0) % (1.0-10.0) Eosinophils (%) (Auto) % (0.0-3.0) % (0.0-3.0) Basophils (%) (Auto) % (0.0-2.0) % (0.0-2.0) Prothrombin Time 23.5 SEC (9.30-11.50) H Prothrombin Time INR 2.3 (0.9-1.1) H Activated Partial Thromboplast Time 33 SEC (23-33) Sodium Level Pending 134 MMOL/L (136-145) L Potassium Level Pending 8.4 MMOL/L (3.5-5.1) *H Chloride Level Pending 97 MMOL/L (98-107) L Carbon Dioxide Level Pending 19 MMOL/L (21-32) L Blood Urea Nitrogen Pending 122 mg/dL (7-18) H Creatinine Pending 13.2 MG/DL (0.55-1.30) H Estimated Glomerular Filtration Rate Pending 3.6 mL/min (>60) Glucose Level Pending 106 MG/DL (74-106) Calcium Level Pending 8.7 MG/DL (8.5-10.1) Total Bilirubin Pending 1.0 MG/DL (0.2-1.0) Aspartate Amino Transferase (AST) Pending 44 U/L (15-37) H Alanine Aminotransferase (ALT) Pending < 6 U/L (12-78) L Alkaline Phosphatase Pending 252 U/L (46-116) H Troponin I 0.000 ng/mL (0.000-0.056) Total Protein Pending 8.1 G/DL (6.4-8.2) Albumin Pending 4.2 G/DL (3.4-5.0) Globulin Pending 3.9 g/dL Lipase Pending Neutrophils % (Manual) Pending Lymphocytes % (Manual) Pending Platelet Estimate Pending Platelet Morphology Pending Anion Gap 19 mmol/L (5-15) H Albumin/Globulin Ratio 1.1 (1.0-2.7) EKG Diagnostic Results Troponin ordered: Yes When was troponin ordered?: Feb 05, 2020 EKG Time: 05:25 Rate: bradycardiac Rhythm: NSR ST Segments: no acute changes Other Impression Sinus rhythm, normal axis, slightly prolonged QTC at 492 ms. Slightly peaked T waves V5, V6 Rhythm Strip Diag. Results Rhythm Strip Time: 05:25 EP Interpretation: yes Rate: 51 Rhythm: NSR, no PVC's, no ectopy CT/MRI/US Diagnostic Results CT/MRI/US Diagnostic Results : Impression Final Report EXAM: CT Abdomen and Pelvis Without Intravenous Contrast CLINICAL HISTORY: ABD PAIN TECHNIQUE: Axial computed tomography images of the abdomen and pelvis without intravenous contrast. One or more of the following dose reduction techniques were used: automated exposure control, adjustment of the mA and/or kV according to patient size, use of iterative reconstruction technique. CTDI 5.9 DLP 314.9 COMPARISON: No relevant prior studies available. FINDINGS: Lung bases: Dependent atelectasis. Pleural space: Small right pleural effusion. Heart: Marked cardiomegaly. Prosthetic tricuspid and mitral valves. Median sternotomy wires. Mediastinum: Small hiatal hernia. ABDOMEN: Liver: No focal hepatic lesion. Gallbladder and bile ducts: Cholelithiasis. Likely gallbladder wall thickening which is suboptimally evaluated. Correlate with ultrasound if clinically indicated. No ductal dilation. Pancreas: Unremarkable. No ductal dilation. Spleen: Unremarkable. No splenomegaly. Adrenals: Unremarkable. No mass. Kidneys and ureters: Atrophic, nonfunctional kidneys. No obstructing stones. Stomach and bowel: No definite acute diverticulitis. No small bowel obstruction. PELVIS: Appendix: No findings to suggest acute appendicitis. Bladder: Mild, diffuse wall thickening of the urinary bladder, likely secondary to underdistention. No stones. Reproductive: Normal CT appearance of the uterus. ABDOMEN and PELVIS: Intraperitoneal space: Moderate abdominal and pelvic ascites. No free air. Bones/joints: See above. Soft tissues: Unremarkable. Vasculature: Unremarkable. No abdominal aortic aneurysm. Lymph nodes: Unremarkable. No enlarged lymph nodes. IMPRESSION: Atrophic, nonfunctional kidneys with moderate abdominal and pelvic ascites. Small right pleural effusion. Marked cardiomegaly. Prosthetic tricuspid and mitral valves. Median sternotomy wires. Cholelithiasis. Suspected, gallbladder wall thickening. Correlate with gallbladder ultrasound if there is suspicion for acute cholecystitis. No definite acute diverticulitis. No small bowel obstruction. Note, evaluation is somewhat limited due to lack of intravenous contrast, lack of oral contrast, presence of abdominal and pelvic ascites, and CT technique. Radiologist: Meng Dan MD Electronically Signed: 02/05/20 05:01 Study ready at 04:57 and initial results transmitted at 05:01 Last Vital Signs Date Time Temp Pulse Resp B/P (MAP) Pulse Ox O2 Delivery O2 Flow Rate FiO2 02/05/20 03:27 98.4 59 20 202/94 (130) 98 Room Air Disposition: AGAINST MEDICAL ADVICE Condition: Serious Referrals: NON PHYSICIAN (PCP) Abhilash Owen MD Feb 05, 2020 03:57
[2020-02-05 04:32] LABS: HEMATOCRIT 32.5 % (37.0-47.0); HEMOGLOBIN 10.1 G/DL (12.0-16.0); MEAN CORPUSCULAR VOLUME 94 FL (80-99); PLATELET COUNT 92 K/UL (150-450); RED BLOOD COUNT 3.45 M/UL (4.20-5.40); RED CELL DISTRIBUTION WIDTH 17.6 % (11.6-14.8); WHITE BLOOD COUNT 9.6 K/UL (4.8-10.8)
[2020-02-05 04:40] VITALS: BP 181/91
[2020-02-05] MEDS ORDERED: Morphine Sulfate 2mg/ml Inj(IV/IM USE ONLY) IM ONE (04:45)
[2020-02-05 04:56] LABS: INR 2.3 (0.9-1.1)
--- NOTE | 2020-02-05 05:02 | Diagnostic Imaging Report ---
EXAM: CT Abdomen and Pelvis Without Intravenous Contrast CLINICAL HISTORY: ABD PAIN TECHNIQUE: Axial computed tomography images of the abdomen and pelvis without intravenous contrast. One or more of the following dose reduction techniques were used: automated exposure control, adjustment of the mA and/or kV according to patient size, use of iterative reconstruction technique. CTDI 5.9 DLP 314.9 COMPARISON: No relevant prior studies available. FINDINGS: Lung bases: Dependent atelectasis. Pleural space: Small right pleural effusion. Heart: Marked cardiomegaly. Prosthetic tricuspid and mitral valves. Median sternotomy wires. Mediastinum: Small hiatal hernia. ABDOMEN: Liver: No focal hepatic lesion. Gallbladder and bile ducts: Cholelithiasis. Likely gallbladder wall thickening which is suboptimally evaluated. Correlate with ultrasound if clinically indicated. No ductal dilation. Pancreas: Unremarkable. No ductal dilation. Spleen: Unremarkable. No splenomegaly. Adrenals: Unremarkable. No mass. Kidneys and ureters: Atrophic, nonfunctional kidneys. No obstructing stones. Stomach and bowel: No definite acute diverticulitis. No small bowel obstruction. PELVIS: Appendix: No findings to suggest acute appendicitis. Bladder: Mild, diffuse wall thickening of the urinary bladder, likely secondary to underdistention. No stones. Reproductive: Normal CT appearance of the uterus. ABDOMEN and PELVIS: Intraperitoneal space: Moderate abdominal and pelvic ascites. No free air. Bones/joints: See above. Soft tissues: Unremarkable. Vasculature: Unremarkable. No abdominal aortic aneurysm. Lymph nodes: Unremarkable. No enlarged lymph nodes. IMPRESSION: Atrophic, nonfunctional kidneys with moderate abdominal and pelvic ascites. Small right pleural effusion. Marked cardiomegaly. Prosthetic tricuspid and mitral valves. Median sternotomy wires. Cholelithiasis. Suspected, gallbladder wall thickening. Correlate with gallbladder ultrasound if there is suspicion for acute cholecystitis. No definite acute diverticulitis. No small bowel obstruction. Note, evaluation is somewhat limited due to lack of intravenous contrast, lack of oral contrast, presence of abdominal and pelvic ascites, and CT technique.
[2020-02-05 05:59] LABS: ALANINE AMINOTRANSFERASE < 6 U/L (12-78); ALBUMIN 4.2 G/DL (3.4-5.0); ALBUMIN/GLOBULIN RATIO 1.1 (1.0-2.7); ALKALINE PHOSPHATASE 252 U/L (46-116); ANION GAP 19 mmol/L (5-15); ASPARTATE AMINO TRANSFERASE 44 U/L (15-37); BLOOD UREA NITROGEN 122 mg/dL (7-18); CALCIUM 8.7 MG/DL (8.5-10.1); CARBON DIOXIDE 19 MMOL/L (21-32); CHLORIDE 97 MMOL/L (98-107); CREATININE 13.2 MG/DL (0.55-1.30); SODIUM 134 MMOL/L (136-145)
[2020-02-05 06:14] LABS: POTASSIUM 8.4 MMOL/L (3.5-5.1)
[2020-02-05] MEDS ORDERED: Calcium Gluconate 1gm/10ml vial IVP ONE (06:15)
[2020-02-05] MEDS ORDERED: Insulin Human Regular 100units/ml 3ml IV ONE (06:15)
[2020-02-05] MEDS ORDERED: Morphine Sulfate 2mg/ml Inj(IV/IM USE ONLY) IVP ONE (06:15)
[2020-02-05 06:40] VITALS: BP 181/91
== END 2020-02-05 06:40 | disposition left against medical advice (07) ==
LOC: EMR 03:43 → CANBEDREQ 06:36 → EMR 06:40
DX: R18.8 Other ascites (principal); R10.13 Epigastric pain; E87.5 Hyperkalemia; I12.0 Hypertensive chronic kidney disease with stage 5 chronic kidney disease or end stage renal disease; N18.6 End stage renal disease; Z99.2 Dependence on renal dialysis; Z88.6 Allergy status to analgesic agent; M54.9 Dorsalgia, unspecified; K80.20 Calculus of gallbladder without cholecystitis without obstruction; J90 Pleural effusion, not elsewhere classified; N26.1 Atrophy of kidney (terminal); J98.11 Atelectasis; I51.7 Cardiomegaly; K44.9 Diaphragmatic hernia without obstruction or gangrene; Z95.2 Presence of prosthetic heart valve
CPT/HCPCS: 36415; 74176; 80053; 83690; 84484; 85025; 85610; 85730; 93005; 96372; 96374; 96375; 99291; J0610; J1815; J2270; J2405; S0028